=== PATIENT | female | born 1970 | race Two or more races ===

== ENCOUNTER 2020-06-09 14:35 | Outpatient (REF) | payer MEDICAID, SELFPAY | END 2020-06-09 14:36 | disposition home or self-care (01) | LOC: HO.LAB 14:35 | PROVIDERS: Visit Provider Internal Medicine | DX: Z20.828 Contact with and (suspected) exposure to other viral communicable diseases (principal) | CPT/HCPCS: 87635 ==

== ENCOUNTER 2020-06-27 12:26 | Outpatient (REF) | payer MEDICAID, SELFPAY | END 2020-06-27 12:27 | disposition home or self-care (01) | LOC: HO.LAB 12:26 | PROVIDERS: Visit Provider Internal Medicine | DX: Z20.828 Contact with and (suspected) exposure to other viral communicable diseases (principal) | CPT/HCPCS: C9803; U0003 ==

== ENCOUNTER 2020-07-11 14:15 | Outpatient (REF) | payer MEDICAID, SELFPAY | END 2020-07-11 14:16 | disposition home or self-care (01) | LOC: HO.LAB 14:15 | PROVIDERS: Visit Provider Internal Medicine | DX: Z20.828 Contact with and (suspected) exposure to other viral communicable diseases (principal) | CPT/HCPCS: C9803; U0003 ==

== ENCOUNTER → 2020-08-03 09:34 | Outpatient (BNVA) | payer MEDICAID, SELFPAY | PROVIDERS: PCP Nurse Practitioner Family; Visit Provider Internal Medicine Endocrinology, Diabetes & Metabolism | DX: Z76.89 Persons encountering health services in other specified circumstances (principal) ==

== ENCOUNTER 2020-08-26 09:38 | Outpatient (REF) | payer MEDICAID, SELFPAY ==
[2020-08-26 11:00] LABS: Alanine Aminotransferase 30 U/L (0-31); Albumin Level 4.5 g/dL (3.5-5.0); Alkaline Phosphatase 126 U/L (39-117); Anion Gap 13 (12-20); Aspartate Amino Transferase 28 U/L (5-31); Bilirubin Total 0.2 mg/dL (0.0-1.0); Blood Urea Nitrogen 20 mg/dL (9-16); Calcium 8.4 mg/dL (8.4-10.2); Carbon Dioxide 28 mmol/L (22-29); Chloride 102 mmol/L (96-108); Estimated Glomerular Filt Rate > 60; Glucose Fasting 107 mg/dL (60-99); Magnesium 1.9 mg/dL (1.6-2.6); Phosphorus 3.8 mg/dL (2.7-4.5); Potassium 4.1 mmol/l (3.3-5.1); Sodium 139 mmol/L (135-145); Total Protein 7.6 g/dL (6.5-8.0)
[2020-08-26 11:24] LABS: Vitamin D 25-OH Total 46.9 ng/mL (>30)
[2020-08-30 22:13] LABS: VITAMIN D (1,25 OH) D3 33 pg/mL; Vit D (1,25-Dihydroxy) Total 33 pg/mL (18-72); Vitamin D (1,25 OH) D2 <8 pg/mL
== END 2020-08-26 09:39 | disposition home or self-care (01) ==
LOC: HO.LAB 09:38
PROVIDERS: Visit Provider Internal Medicine Endocrinology, Diabetes & Metabolism
DX: E89.2 Postprocedural hypoparathyroidism (principal)
CPT/HCPCS: 36415; 80053; 82306; 82652; 83735; 84100

== ENCOUNTER 2020-08-29 11:07 | Outpatient (REF) | payer MEDICAID, SELFPAY ==
[2020-08-29 12:11] LABS: Total Volume 24 Hour Urine 2200 mL
[2020-08-29 13:28] LABS: Creatinine, 24Hr Urine 0.9 G/Day (1.0-2.0); Creatinine, mg/dL 42.67
[2020-08-30 17:27] LABS: Calcium, 24 Hr Urine 134 mg/24 h; Calcium/Creatinine Ratio 130 mg/g creat (30-275); Creatinine 24Hr Urine 1.03 g/24 h (0.50-2.15)
== END 2020-08-29 11:08 | disposition home or self-care (01) ==
LOC: HO.LNP 11:07
PROVIDERS: Visit Provider Internal Medicine Endocrinology, Diabetes & Metabolism
DX: E89.2 Postprocedural hypoparathyroidism (principal)
CPT/HCPCS: 82340; 82570

== ENCOUNTER → 2020-11-28 15:08 | Outpatient (BNVA) | payer MEDICAID, SELFPAY | PROVIDERS: PCP Nurse Practitioner Primary Care; Visit Provider Nurse Practitioner ==

== ENCOUNTER 2020-12-02 08:25 | Outpatient (REF) | payer MEDICAID, SELFPAY ==
[2020-12-02 10:01] LABS: Alanine Aminotransferase 23 U/L (0-31); Albumin Level 4.5 g/dL (3.5-5.0); Alkaline Phosphatase 114 U/L (39-117); Anion Gap 14 (12-20); Aspartate Amino Transferase 19 U/L (5-31); Bilirubin Total 0.3 mg/dL (0.0-1.0); Blood Urea Nitrogen 19 mg/dL (9-16); Calcium 8.9 mg/dL (8.4-10.2); Carbon Dioxide 29 mmol/L (22-29); Chloride 103 mmol/L (96-108); Estimated Glomerular Filt Rate > 60; Glucose Fasting 99 mg/dL (60-99); Magnesium 1.6 mg/dL (1.6-2.6); Phosphorus 4.1 mg/dL (2.7-4.5); Sodium 142 mmol/L (135-145); Total Protein 7.5 g/dL (6.5-8.0)
[2020-12-02 10:23] LABS: Vitamin D 25-OH Total 40.1 ng/mL (>30)
[2020-12-09 16:31] LABS: VITAMIN D (1,25 OH) D3 29 pg/mL; Vit D (1,25-Dihydroxy) Total 29 pg/mL (18-72); Vitamin D (1,25 OH) D2 <8 pg/mL
== END 2020-12-02 08:26 | disposition home or self-care (01) ==
LOC: HO.LAB 08:25
PROVIDERS: PCP Nurse Practitioner Primary Care; Visit Provider Internal Medicine Endocrinology, Diabetes & Metabolism
DX: E89.2 Postprocedural hypoparathyroidism (principal)
CPT/HCPCS: 36415; 80053; 82306; 82652; 83735; 84100

== ENCOUNTER → 2020-12-07 09:30 | Outpatient (BNVA) | payer MEDICAID, SELFPAY | PROVIDERS: PCP Nurse Practitioner Primary Care; Visit Provider Internal Medicine Endocrinology, Diabetes & Metabolism | DX: E89.2 Postprocedural hypoparathyroidism (principal); E66.9 Obesity, unspecified | CPT/HCPCS: 99212 ==

== ENCOUNTER 2020-12-23 10:24 | Outpatient (REF) | payer MEDICAID, SELFPAY ==
--- NOTE | ~2020-12-23 | MM_ITS ---
EXAMINATION: MM SCREENING DIGITAL BREAST TOMOSYNTHESIS, BILATERAL CLINICAL INFORMATION: Screening. Asymptomatic. The lifetime risk of breast cancer based on the Tyrer-Cuzick Model is 10%. COMPARISON: Mammography: 11/11/2018, 09/14/2017, 08/17/2016 TECHNIQUE: Digital breast tomosynthesis is performed in both the craniocaudal and mediolateral oblique views along with computer-aided detection (CAD). Synthesized 2D images are generated from the tomosynthesis. FINDINGS: There are scattered areas of fibroglandular density (ACR BI-RADS breast composition Category b). Parenchymal pattern is similar to prior studies. There is no interval mass or architectural abnormality or developing density. Nodular asymmetry 12:00 left breast and small intramammary node mid upper outer right breast are again noted. No abnormal calcifications. The axilla and skin contours are unremarkable. MM/MM tomosynthesis screening BI IMPRESSION: No significant changes from prior exams. ASSESSMENT: BI-RADS 2: Benign RECOMMENDATION: Routine annual mammography screening. This patient's information was entered into a reminder system with a target due date for their next mammogram.
== END 2020-12-23 10:25 | disposition home or self-care (01) ==
LOC: HO.MAMMO 10:24
PROVIDERS: PCP Nurse Practitioner Primary Care; Visit Provider Nurse Practitioner Primary Care
DX: Z12.31 Encounter for screening mammogram for malignant neoplasm of breast (principal)
CPT/HCPCS: 77063; 77067

== ENCOUNTER 2021-04-19 13:51 | Outpatient (REF) | payer MEDICAID, SELFPAY | END 2021-04-19 13:52 | disposition home or self-care (01) | LOC: HO.LNP 13:51 | PROVIDERS: Visit Provider Internal Medicine | DX: Z20.822 Contact with and (suspected) exposure to COVID-19 (principal); J06.9 Acute upper respiratory infection, unspecified | CPT/HCPCS: U0003; U0005 ==

== ENCOUNTER 2021-06-21 09:21 | Outpatient (REF) | payer MEDICAID, SELFPAY ==
[2021-06-21 10:55] LABS: Alanine Aminotransferase 26 U/L (0-31); Albumin Level 4.5 g/dL (3.5-5.0); Alkaline Phosphatase 116 U/L (39-117); Anion Gap 12 (12-20); Aspartate Amino Transferase 23 U/L (5-31); Bilirubin Total 0.6 mg/dL (0.0-1.0); Blood Urea Nitrogen 15 mg/dL (9-16); Calcium 9.5 mg/dL (8.4-10.2); Carbon Dioxide 31 mmol/L (22-29); Chloride 103 mmol/L (96-108); Estimated Glomerular Filt Rate > 60; Glucose Fasting 99 mg/dL (60-99); Magnesium 1.6 mg/dL (1.6-2.6); Phosphorus 4.2 mg/dL (2.7-4.5); Potassium 3.7 mmol/L (3.3-5.1); Sodium 142 mmol/L (135-145); Total Protein 7.4 g/dL (6.5-8.0)
[2021-06-21 11:06] LABS: Vitamin D 25-OH Total 40.2 ng/mL (>30)
[2021-06-29 00:06] LABS: VITAMIN D (1,25 OH) D3 28 pg/mL; Vit D (1,25-Dihydroxy) Total 28 pg/mL (18-72); Vitamin D (1,25 OH) D2 <8 pg/mL
== END 2021-06-21 09:22 | disposition home or self-care (01) ==
LOC: HO.LAB 09:21
PROVIDERS: PCP Nurse Practitioner Primary Care; Visit Provider Internal Medicine Endocrinology, Diabetes & Metabolism
DX: E89.2 Postprocedural hypoparathyroidism (principal)
CPT/HCPCS: 36415; 80053; 82306; 82652; 83735; 84100

== ENCOUNTER → 2021-07-05 14:13 | Outpatient (BNVA) | payer MEDICAID, SELFPAY | PROVIDERS: PCP Nurse Practitioner Primary Care; Visit Provider Internal Medicine | DX: E89.2 Postprocedural hypoparathyroidism (principal); E55.9 Vitamin D deficiency, unspecified; M85.80 Other specified disorders of bone density and structure, unspecified site; N20.0 Calculus of kidney | CPT/HCPCS: 99212 ==

== ENCOUNTER 2021-07-20 11:20 | Outpatient (REF) | payer MEDICAID, SELFPAY ==
[2021-07-20 12:38] LABS: Alanine Aminotransferase 25 U/L (0-31); Albumin Level 4.4 g/dL (3.5-5.0); Alkaline Phosphatase 114 U/L (39-117); Anion Gap 12 (12-20); Aspartate Amino Transferase 23 U/L (5-31); Bilirubin Total 0.4 mg/dL (0.0-1.0); Blood Urea Nitrogen 19 mg/dL (9-16); Calcium 9.1 mg/dL (8.4-10.2); Carbon Dioxide 28 mmol/L (22-29); Chloride 104 mmol/L (96-108); Estimated Glomerular Filt Rate > 60; Glucose Random 85 mg/dL (60-115); Phosphorus 3.9 mg/dL (2.7-4.5); Potassium 3.5 mmol/L (3.3-5.1); Sodium 140 mmol/L (135-145); Total Protein 7.5 g/dL (6.5-8.0)
[2021-07-20 12:59] LABS: Vitamin D 25-OH Total 36.5 ng/mL (>30)
[2021-07-24 15:32] LABS: Calcium (PTHI) 9.4 mg/dL (8.6-10.4); PTHI 11 pg/mL (14-64)
== END 2021-07-20 11:21 | disposition home or self-care (01) ==
LOC: HO.LAB 11:20
PROVIDERS: PCP Nurse Practitioner Primary Care; Visit Provider Internal Medicine
DX: E55.9 Vitamin D deficiency, unspecified (principal); E89.2 Postprocedural hypoparathyroidism
CPT/HCPCS: 36415; 80053; 82306; 83970; 84100

== ENCOUNTER 2021-07-21 14:27 | Outpatient (REF) | payer MEDICAID, SELFPAY ==
--- NOTE | ~2021-07-21 | CT_ITS ---
EXAMINATION: CT ABDOMEN AND PELVIS WITHOUT CONTRAST CLINICAL INFORMATION: Kidney stone COMPARISON: Previous CT of the abdomen and pelvis May 2008 and renal ultrasound most recent March 2019 TECHNIQUE: Multidetector volumetric imaging was performed from the superior aspect of the liver through the pubic symphysis. Sagittal and coronal reformatted images were obtained on the technologist's workstation. This CT examination was performed using dose optimization techniques as appropriate, variously including the following: *Automated exposure control *Adjustment of mA and/or kV according to patient size (this includes techniques or standardized protocols for targeted exams where dose is matched to indication/reason for exam; i.e. extremities or head) *Use of iterative reconstruction technique DLP: 440 mGy-cm FINDINGS: LUNG BASES: The visualized lung bases are unremarkable. LIVER, GALLBLADDER, AND BILIARY TREE: The liver is low in attenuation suggestive of fatty infiltration. There is no biliary duct dilatation or focal liver lesion. The gallbladder is been removed. PANCREAS: Unremarkable. SPLEEN: Unremarkable. ADRENAL GLANDS: Unremarkable. KIDNEYS AND URETERS: The right kidney is smaller than the left. The right kidney measures 7 and the left 9.5 cm in length. There is right renal cortical thinning. There are multiple right renal stones, largest measuring 5 mm in the lower pole. There is a 3 x 5 mm right proximal ureteral stone. There is very mild dilatation of the right renal collecting system and proximal ureter. There are 2 small left lower pole renal stones, largest measuring 3 m.. There is no left hydronephrosis. BLADDER: Unremarkable. GASTROINTESTINAL TRACT: The small and large bowel are unremarkable. The appendix is unremarkable. ABDOMINAL WALL: No significant hernia is appreciated. LYMPH NODES: Normal. VASCULAR: Unremarkable. PELVIC VISCERA: Uterus appears to have been removed. No pelvic mass is seen. OSSEOUS STRUCTURES: There are mild degenerative changes of the spine. CT/CT abdomen pelvis wo con IMPRESSION: Small right kidney. Multiple right renal stones. Very mild right hydronephrosis and ureteral dilatation from a 3 x 5 mm right proximal ureteral stone. Small nonobstructing left renal stones. Fatty liver. Fleischner guidelines were followed.
== END 2021-07-21 14:28 | disposition home or self-care (01) ==
LOC: HO.CT 14:27
PROVIDERS: PCP Nurse Practitioner Primary Care; Visit Provider Internal Medicine
DX: N20.0 Calculus of kidney (principal)
CPT/HCPCS: 74176

== ENCOUNTER 2021-07-24 09:57 | Outpatient (REF) | payer MEDICAID, SELFPAY ==
[2021-07-24 10:52] LABS: Creatinine, mg/dL 58.37
[2021-07-24 11:31] LABS: Creatinine, 24Hr Urine 1.3 G/Day (1.0-2.0); Total Volume 24 Hour Urine 2275 mL
[2021-07-28 17:37] LABS: Calcium, 24 Hr Urine 139 mg/24 h; Calcium/Creatinine Ratio 102 mg/g creat (30-275); Creatinine 24Hr Urine 1.37 g/24 h (0.50-2.15)
== END 2021-07-24 09:58 | disposition home or self-care (01) ==
LOC: HO.LNP 09:57
PROVIDERS: Visit Provider Internal Medicine
DX: E89.2 Postprocedural hypoparathyroidism (principal)
CPT/HCPCS: 82340; 82570

== ENCOUNTER 2021-08-01 13:47 | Outpatient (REF) | payer MEDICAID, SELFPAY ==
[2021-08-02 20:51] LABS: Calcium (PTHI) 8.8 mg/dL (8.6-10.4); PTHI 10 pg/mL (14-64)
== END 2021-08-01 13:48 | disposition home or self-care (01) ==
LOC: HO.LAB 13:47
PROVIDERS: PCP Nurse Practitioner Primary Care; Visit Provider Internal Medicine
DX: E89.2 Postprocedural hypoparathyroidism (principal)
CPT/HCPCS: 36415; 83970

== ENCOUNTER 2021-08-04 12:47 | Outpatient (REF) | payer MEDICAID, SELFPAY ==
--- NOTE | ~2021-08-04 | MM_ITS ---
EXAMINATION: BONE DENSITOMETRY CLINICAL INDICATION: Osteopenia. COMPARISON: Previous BD dated 11/08/2015 and baseline BD dated 09/22/2013. TECHNIQUE: Using a [employer] DXA System (software version: 13.1) manufactured by [employer], dual-energy x-ray absorptiometry was performed of the lumbar spine, left hip, and left forearm radius 33%. The images are of good technical quality. Summary results are attached. FINDINGS: AP SPINE L1-L4: Current: BMD 1.285 g/cm2, Z-score 1.0, T-score 0.9, normal, 0.8% decrease from previous, 8.3% increase from baseline (<5% change is not significant). Prior: BMD 1.296 g/cm2. Baseline: BMD 1.187 g/cm2. LEFT FEMUR, NECK: Current: BMD 1.057 g/cm2, Z-score 0.7, T-score 0.1, normal. Prior: BMD 0.986 g/cm2. Baseline: BMD 0.980 g/cm2. LEFT FEMUR, TOTAL: Current: BMD 1.185 g/cm2, Z-score 1.6, T-score 1.4, normal, 5.2% increase from previous, 6.9% increase from baseline (<5% change is not significant). Prior: BMD 1.126 g/cm2. Baseline: BMD 1.108 g/cm2. LEFT FOREARM RADIUS 33%: BMD 0.754 g/cm2, Z-score -1.2, T-score -1.4, osteopenia, 5.2% increase from previous, 6.6% increase from baseline (<5% change is not significant). Prior: BMD 0.717 g/cm2. Baseline: BMD 0.707 g/cm2. IDENTIFIED RISK FACTORS: Menopause, hysterectomy, hyperparathyroid. HISTORY OF FRACTURE: None listed. MEDICATIONS: Calcium, vitamin D, calcitonin. MM/XR DEXA appendicular skeleton IMPRESSION: 1. DIAGNOSIS: Osteopenia based on the lowest T-score value of -1.4 in the forearm radius 33% applying World Health Organization criteria. 2. 10-YEAR FRACTURE RISK PREDICTION, FRAX: Major osteoporotic fracture (clinical spine, forearm, hip or shoulder) 2.1%. Hip fracture 0.0%. 3. Treatment Recommendations: NOF guidelines recommend consideration for treatment in postmenopausal women and men age 50 and older presenting with the following: -A hip or vertebral (clinical or morphometric) fracture. -T-score less than or equal to -2.5 at the femoral neck or spine after appropriate evaluation to exclude secondary causes. -Low bone mass at the hip or spine and a 10-year fracture probability by FRAX of greater than or equal to 3% for hip fracture or greater than or equal to 20% for major osteoporotic fracture based on the [place] adapted WHO algorithm. 4. Other Recommendations: All treatment decisions require clinical judgment and consideration of individual patient factors, including patient preferences, comorbidities, previous drug use, risk factors not captured in the FRAX model (e.g. frailty, falls, vitamin D deficiency, increased bone turnover, interval significant decline in bone density) and possible under or overestimation of fracture risk by FRAX. Additional medical evaluation for secondary cause of low bone mineral density may be appropriate. FUTURE SCAN RECOMMENDATION: People with diagnosed cases of osteoporosis or at high risk for fracture should have regular bone mineral density tests. For patients eligible for Medicare, routine testing is allowed once every 2 years. The testing frequency can be increased to one year for patients who have rapidly progressing disease, those who are receiving or discontinuing medical therapy to restore bone mass, or have additional risk factors.
== END 2021-08-04 12:48 | disposition home or self-care (01) ==
LOC: HO.MAMMO 12:47
PROVIDERS: PCP Nurse Practitioner Primary Care; Visit Provider Internal Medicine
DX: Z13.820 Encounter for screening for osteoporosis (principal); M85.9 Disorder of bone density and structure, unspecified; M85.80 Other specified disorders of bone density and structure, unspecified site; Z78.0 Asymptomatic menopausal state; Z98.890 Other specified postprocedural states; Z79.899 Other long term (current) drug therapy
CPT/HCPCS: 77081

== ENCOUNTER 2021-08-08 09:30 | Outpatient (REF) | payer MEDICAID, SELFPAY ==
[2021-08-08 13:30] LABS: Albumin Level 4.2 g/dL (3.5-5.0); Calcium 7.9 mg/dL (8.4-10.2); Phosphorus 3.8 mg/dL (2.7-4.5)
[2021-08-08 13:45] LABS: Vitamin D 25-OH Total 30.7 ng/mL (>30)
[2021-08-09 13:07] LABS: Calcium (PTHI) 7.4 mg/dL (8.6-10.4); PTHI 15 pg/mL (14-64)
== END 2021-08-08 09:31 | disposition home or self-care (01) ==
LOC: HO.LAB 09:30
PROVIDERS: PCP Nurse Practitioner Primary Care; Visit Provider Internal Medicine
DX: N13.2 Hydronephrosis with renal and ureteral calculous obstruction (principal); E89.2 Postprocedural hypoparathyroidism; E55.9 Vitamin D deficiency, unspecified
CPT/HCPCS: 36415; 82040; 82306; 82310; 83970; 84100; 99212

== ENCOUNTER 2021-08-14 12:20 | Outpatient (REF) | payer MEDICAID, SELFPAY ==
[2021-08-14 13:05] LABS: Alanine Aminotransferase 39 U/L (0-31); Albumin Level 4.6 g/dL (3.5-5.0); Alkaline Phosphatase 119 U/L (39-117); Anion Gap 13 (12-20); Aspartate Amino Transferase 29 U/L (5-31); Bilirubin Total 0.5 mg/dL (0.0-1.0); Blood Urea Nitrogen 20 mg/dL (9-16); Carbon Dioxide 28 mmol/L (22-29); Chloride 102 mmol/L (96-108); Estimated Glomerular Filt Rate > 60; Glucose Random 88 mg/dL (60-115); Potassium 3.7 mmol/L (3.3-5.1); Sodium 139 mmol/L (135-145); Total Protein 7.7 g/dL (6.5-8.0)
[2021-08-14 13:26] LABS: Vitamin D 25-OH Total 36.9 ng/mL (>30)
[2021-08-16 12:47] LABS: PTHI 17 pg/mL (14-64)
== END 2021-08-14 12:21 | disposition home or self-care (01) ==
LOC: HO.LAB 12:20
PROVIDERS: PCP Nurse Practitioner Primary Care; Visit Provider Internal Medicine
DX: E89.2 Postprocedural hypoparathyroidism (principal)
CPT/HCPCS: 36415; 80053; 82306; 83970; 84100

== ENCOUNTER 2021-08-17 12:47 | Outpatient (REF) | payer MEDICAID, SELFPAY ==
--- NOTE | ~2021-08-17 | US_ITS ---
EXAMINATION: US RETROPERITONEAL LIMITED (RENAL ONLY) CLINICAL INFORMATION: Hydronephrosis with renal and ureteral calculus. COMPARISON: CT abdomen and pelvis 07/21/2021. A renal ultrasound 04/16/2019 and 06/29/2016. TECHNIQUE: Real-time imaging of the kidneys. FINDINGS: RIGHT KIDNEY: 9.2 x 3.6 x 4.7 cm (SAG x AP x TRV). There is asymmetric cortical thinning with at least 5 nonobstructive stones with the largest in the lower pole of the right kidney measuring up to 0.8 cm. No hydronephrosis or focal parenchymal lesions. LEFT KIDNEY: 12.3 x 4.3 x 6.0 cm (SAG x AP x TRV). There are a 0.5 cm and a 0.2 cm calculi in the lower pole. No hydronephrosis or focal parenchymal lesions. OTHERS: The renal pyramids are prominent with numerous punctate echogenic foci bilaterally. US/US renal BI IMPRESSION: Asymmetric cortical thinning and atrophy of the right kidney with at least 5 nonobstructive renal calculi. At least 2 nonobstructing left-sided renal calculi. Increased prominence of both renal pyramids with punctate hyperechoic foci question in the presence of medullary nephrocalcinosis or medullary sponge kidney in the appropriate clinical context.
== END 2021-08-17 12:48 | disposition home or self-care (01) ==
LOC: HO.HMGCX 12:47
DX: N13.2 Hydronephrosis with renal and ureteral calculous obstruction (principal)
CPT/HCPCS: 76775

== ENCOUNTER 2021-08-17 13:14 | Outpatient (REF) | payer MEDICAID, SELFPAY | END 2021-08-17 13:15 | disposition home or self-care (01) | LOC: HO.HMGCLDS 13:14 | PROVIDERS: Visit Provider Internal Medicine | DX: Z20.822 Contact with and (suspected) exposure to COVID-19 (principal) | CPT/HCPCS: C9803; U0003; U0005 ==

== ENCOUNTER 2021-08-21 10:15 | Outpatient (REF) | payer MEDICAID, SELFPAY ==
[2021-08-21 11:32] LABS: Total Volume 24 Hour Urine 2125 mL
[2021-08-21 11:54] LABS: Creatinine, mg/dL 49.34
[2021-08-22 17:57] LABS: Calcium, 24 Hr Urine 81 mg/24 h; Calcium/Creatinine Ratio 75 mg/g creat (30-275); Creatinine 24Hr Urine 1.08 g/24 h (0.50-2.15)
== END 2021-08-21 10:16 | disposition home or self-care (01) ==
LOC: HO.LNP 10:15
PROVIDERS: Visit Provider Internal Medicine
DX: E89.2 Postprocedural hypoparathyroidism (principal)
CPT/HCPCS: 82340; 82570

== ENCOUNTER → 2021-08-31 10:43 | Outpatient (BNVA) | payer MEDICAID, SELFPAY | PROVIDERS: PCP Nurse Practitioner Primary Care; Visit Provider Internal Medicine ==

== ENCOUNTER 2021-09-15 12:37 | Outpatient (REF) | payer MEDICAID, SELFPAY ==
[2021-09-15 13:18] LABS: Albumin Level 4.4 g/dL (3.5-5.0); Phosphorus 4.7 mg/dL (2.7-4.5)
[2021-09-15 13:43] LABS: Vitamin D 25-OH Total 37.3 ng/mL (>30)
[2021-09-19 12:37] LABS: Calcium (PTHI) 8.4 mg/dL (8.6-10.4); PTHI 20 pg/mL (14-64)
== END 2021-09-15 12:38 | disposition home or self-care (01) ==
LOC: HO.LAB 12:37
PROVIDERS: Nurse Practitioner Gerontology; PCP Nurse Practitioner Primary Care; Visit Provider Internal Medicine
DX: E89.2 Postprocedural hypoparathyroidism (principal); E55.9 Vitamin D deficiency, unspecified
CPT/HCPCS: 36415; 82040; 82306; 83970; 84100

== ENCOUNTER 2021-10-09 09:32 | Outpatient (REF) | payer MEDICAID, SELFPAY ==
[2021-10-09 10:35] LABS: Alanine Aminotransferase 36 U/L (0-31); Albumin Level 4.2 g/dL (3.5-5.0); Alkaline Phosphatase 113 U/L (39-117); Anion Gap 14 (12-20); Aspartate Amino Transferase 30 U/L (5-31); Bilirubin Total 0.3 mg/dL (0.0-1.0); Blood Urea Nitrogen 18 mg/dL (9-16); Calcium 8.6 mg/dL (8.4-10.2); Carbon Dioxide 28 mmol/L (22-29); Chloride 102 mmol/L (96-108); Estimated Glomerular Filt Rate > 60; Glucose Random 133 mg/dL (60-115); Phosphorus 3.9 mg/dL (2.7-4.5); Potassium 3.6 mmol/L (3.3-5.1); Sodium 140 mmol/L (135-145); Total Protein 7.2 g/dL (6.5-8.0)
[2021-10-09 10:57] LABS: Vitamin D 25-OH Total 41.1 ng/mL (>30)
[2021-10-10 13:02] LABS: Calcium (PTHI) 8.4 mg/dL (8.6-10.4); PTHI 13 pg/mL (14-64)
== END 2021-10-09 09:33 | disposition home or self-care (01) ==
LOC: HO.LAB 09:32
PROVIDERS: PCP Nurse Practitioner Primary Care; Visit Provider Internal Medicine
DX: E89.2 Postprocedural hypoparathyroidism (principal); E55.9 Vitamin D deficiency, unspecified
CPT/HCPCS: 36415; 80053; 82306; 83970; 84100

== ENCOUNTER → 2021-10-12 09:24 | Outpatient (BNVA) | payer MEDICAID, SELFPAY | PROVIDERS: PCP Nurse Practitioner Primary Care; Visit Provider Internal Medicine ==

== ENCOUNTER → 2021-11-02 09:17 | Outpatient (BNVA) | payer MEDICAID, SELFPAY | PROVIDERS: PCP Nurse Practitioner Primary Care | DX: N13.2 Hydronephrosis with renal and ureteral calculous obstruction (principal) | CPT/HCPCS: 99212 ==

== ENCOUNTER 2021-11-06 12:26 | Day surgery (SDC) | payer MEDICAID, SELFPAY ==
--- NOTE | 2021-11-03 13:18 | P.CONAN_ITS ---
Documented by User: Emely Ly NP 11/03/21 13:20 HPI - Anesthesia Eval Consult details Narrative: 51yo F for Right Cystoscopy, Ureteroroscopy, Retro, Laser possible stent PMFSH Active Problems Active Problems: All Active Problems (Updated 07/24/21 @ 12:22 by Martine Nina DO) Hydronephrosis concurrent with and due to calculi of kidney and ureter (Acute) Recurrent nephrolithiasis (Acute) Disorder of bone density and structure, unspecified (Acute) Vitamin D deficiency (Acute) Osteopenia (Acute) Upper respiratory infection (Acute) Constipation (Acute) Tubular adenoma of colon (Acute) Hemorrhoids (Acute) Prediabetes (Acute) Carpal tunnel syndrome (Acute) Obesity (BMI 30-39.9) (Acute) Post-surgical hypoparathyroidism (Acute) Past Medical History Medical History Carpal tunnel syndrome Disorder of bone density and structure, unspecified Hydronephrosis concurrent with and due to calculi of kidney and ureter Obesity (BMI 30-39.9) Osteopenia Post-surgical hypoparathyroidism Prediabetes Recurrent nephrolithiasis Tubular adenoma of colon Vitamin D deficiency Family History Family History Father Diabetes mellitus Mother No problems noted. Surgical History Surgical History History of bladder surgery Hx of cholecystectomy Hx of colonoscopy Hx of hysterectomy Hx of parathyroidectomy Hx of tubal ligation Social History Social History Household Members: Children Alcohol intake: never Patient Tobacco Use Status: Never used Tobacco Meds Allergies Allergy/AdvReac Type Severity Reaction Status Date / Time No Known Allergies Allergy Verified 11/02/21 09:37 [No Known Allergies*] Home Medications Medication Instructions Recorded Confirmed Last Taken Type amlodipine 5 mg tablet 5 mg PO DAILY 08/03/20 10/12/21 11/06/21 History aspirin 81 mg tablet,delayed 81 mg PO DAILY 08/03/20 10/12/21 Unknown History release (Adult Low Dose Aspirin) Exam Exam Date and Time: November 03, 2021 1318 Pertinent Lab Results Pertinent Lab Results: Laboratory Tests 02/25/19 10/09/21 10:54 09:45 WBC 6.9 Hgb 12.4 Hct 37.8 Plt Count 183 Sodium 140 Potassium 3.6 Chloride 102 Carbon Dioxide 28 BUN 18 H Creatinine 0.79 Assessment and Plan Assessment Anesthesia Assessment: Chart Reviewed Documented by User: Fab Flowers MD 11/06/21 17:08 [facility] Past Medical History Medical History Carpal tunnel syndrome Disorder of bone density and structure, unspecified Hydronephrosis concurrent with and due to calculi of kidney and ureter Obesity (BMI 30-39.9) Osteopenia Post-surgical hypoparathyroidism Prediabetes Recurrent nephrolithiasis Tubular adenoma of colon Vitamin D deficiency Family History Family History Father Diabetes mellitus Mother No problems noted. Family history of problems with anesthesia: No Surgical History Surgical History History of bladder surgery Hx of cholecystectomy Hx of colonoscopy Hx of hysterectomy Hx of parathyroidectomy Hx of tubal ligation History of Problems with Anesthesia: No Social History Social History Household Members: Children Alcohol intake: never Patient Tobacco Use Status: Never used Tobacco Meds Allergies Allergy/AdvReac Type Severity Reaction Status Date / Time No Known Allergies Allergy Verified 11/02/21 09:37 [No Known Allergies*] Home Medications Medication Instructions Recorded Confirmed Last Taken Type amlodipine 5 mg tablet 5 mg PO DAILY 08/03/20 10/12/21 11/06/21 History aspirin 81 mg tablet,delayed 81 mg PO DAILY 08/03/20 10/12/21 Unknown History release (Adult Low Dose Aspirin) Exam Airway Mallampati Class: II TM Dist: >3cm Neck ROM: Full Loose/Missing/Broken Teeth: Yes Heart: rrr Lungs: bl breath sounds Assessment and Plan Assessment Anesthesia Assessment: Anesthesia Plan Discussed Final Anesthetic Review Family History of Problems with Anesthesia: No History of Problems with Anesthesia: No NPO: Yes ASA Class: II Final Preanesthetic Review: No Changes in Pt Med Stat, Meds/Allgs Chart Reviewed, Consent Obtained/Reviewed and Anes Risks/Benef Reviewed Patient Risk: Intermediate Procedure Risk: Intermediate Anesthetic Plan Anesthetic Plan: GA Disposition: Standard PACU
--- NOTE | ~2021-11-06 | FL_ITS ---
EXAMINATION: XR FLUOROSCOPY WITH IMAGES CLINICAL INFORMATION: Kidney stone. COMPARISON: Renal ultrasound 08/17/2021. TECHNIQUE: Fluoroscopy performed by Dr. Aris Coronado. Fluoroscopy time: 47.1 seconds dose: 17.40 milligray Images: 2 images. FINDINGS: There is a right internal ureteral stent with contrast opacifying the right kidney pelvis and no intraluminal filling defect. There are surgical merced in the right upper quadrant likely from cholecystectomy. No gross bony abnormality. FL/FL guidance in OR IMPRESSION: Right internal ureteral stent in good position. There is contrast opacifying right kidney pelvis without any intraluminal filling defect.
[2021-11-06 12:53] VITALS: BMI 36.6
[2021-11-06 13:09] VITALS: BP 126/73; PULSE 69; RESP 16; TEMP 36.3; O2SAT 100
[2021-11-06] MEDS: Lactated Ringers 1,000 ML 100 ML IVCONT (13:20)
--- NOTE | 2021-11-06 13:36 | ECG_ITS ---
Test Reason : CHEST PAIN Blood Pressure : / mmHG Vent. Rate : 069 BPM Atrial Rate : 069 BPM P-R Int : 144 ms QRS Dur : 078 ms QT Int : 458 ms P-R-T Axes : 042 -02 028 degrees QTc Int : 490 ms Normal sinus rhythm Prolonged QT Abnormal ECG No previous ECGs available Referred By: Fab Flowers Electronically Signed By:Saurabh Felipe
--- NOTE | 2021-11-06 13:38 | PC.NURSE ---
EKG ORDERED PER MD GARCIA. PATIENT STATES INTERMITTANT CHEST PAIN TO THE RIGHT SIDE OF CHEST PINPOINT PAIN. RADIATES INTO ARM. PATIENT IS UANBLE TO REALLY DESRIBE THE PAIN. NO PRESSURE PAIN, NO DIZZINESS, NO NAUSEA, NONDIAPHORETIC.
--- NOTE | 2021-11-06 14:50 | PC.NURSE ---
PATIENT DENIES CHEST PAIN. NO OTHER COMPLAINTS. AWAITING FOR PROCEDURE. ALERT AND AWAKE. NO SOB OR RESP DISTRESS.
[2021-11-06] MEDS: levoFLOXacin 500 MG TABLET PO (15:00)
--- NOTE | 2021-11-06 15:01 | MHC.SHP ---
Pre-Procedural Eval Section A Date of Service: 11/06/21 The patient is an INPATIENT: No Changes since office visit: No Cold of Flu in the past 2 weeks, No New Medical Problems, No Changes in Medication and No Patient answered all questions The History & Physical has been completed within 30 days and I have reviewed it.: No Section B Chief Complaint: kidney stone Details of Present Illness: right renal stone Relevant Family History (Specify if Yes): No Relevant Social History: None Present Medications: see Short Stay Collaborative assessment Medical History: No relevant PMH History of Previous Operations: No relevant previous surgery Allergies: Allergies Allergy/AdvReac Type Severity Reaction Status Date / Time No Known Allergies Allergy Verified 11/02/21 09:37 [No Known Allergies*] Review of Systems Sugical H&P ROS: Negative: Constitution, Cardiovascular, Respiratory, Neurological, Psychiatric, Hem-Onc, Allergic/Immunologic, Gastrointestinal, Genitourinary, Musculoskeletal, Integumentary, Endocrine and Eyes/Ears/Nose/Throat Exam Surgical H&P Exam: Normal: HEENT, Normal: Heart, Normal: Lungs, Normal: Extremities, Normal: Abdomen, Normal: Skin and Normal: Neurological Plan Diagnosis/Plan: Unchanged ( cystoscopy, right retrograde, right ureteroscopy with laser lithotripsy and stent placement) I have reviewed the history and physical and performed a pertinent physical examination on my patient. No changes have occurred unless specified.
--- NOTE | 2021-11-06 15:46 | W.PM.OPN ---
Operative Note Operative Note Date of Service: 11/06/21 Narrative: PreOperative Diagnosis: right renal stones Post Operative Diagnosis: right renal stones in greater than 3 calices with more than 6 stones - Medullary sponge kidney Procedure: - cystoscopy, right retrograde - right dilatation of ureteric orifice under fluoroscopy - right ureteroscopy, laser lithotripsy, stone basketing - right stent placement Surgeon: Dr Aris Coronado Anesthesia: General Indications for procedure: 51-year-old female with presentation through hospital in July. CT scan showed multiple stones within right renal kidney. She is here for definitive procedure and is using ureteroscopy due to the total number of stones. Procedure: After informed consent was verified patient was brought to the operating placed in supine position. Anesthesia was administered per protocol. Patient was placed in modified dorsal lithotomy position and prepped and draped in a sterile fashion. Safety pause time-out and side of surgery confirmed. Antibiotics confirmed. 22 Gabonese cystoscope was inserted per urethra. Bladder was normal in its entirety. Both ureteric orifices were in normal position. The Right ureteric orifice was cannulated and a retrograde examination was performed. no filling defects seen . A Sensor guidewire was placed up to the level of the renal pelvis under fluoroscopy. The rigid cystoscope was removed and the inner cannula of ureteric access sheath was used under fluoroscopy to dilate the ureteric orifice. The ureteric access sheath was placed and the inner cannula with access wire removed. The digital flexible ureteral scope was placed. the calices were characterized by prominent submucosal calcification consistent with history of Medullary sponge kidney. Every calyx it was examined had multiple submucosal stones. There was a large stone in the lower pole and a small stone in a eutretic calyx. using a 270 micron laser fiber mucosa was opened in multiple calices in small stones were released. The large stone was broken up into small pieces and the calyceal diverticular stone was also broken up after making in incision in the surrounding tissue. Using a 0 tip basket multiple fragments were taken to be sent for analysis. A 6 Gabonese by Twenty 4 cm double-J stent was placed into the renal pelvis and bladder under a combination of fluoroscopy and direct visualization. The bladder was emptied. The patient tolerated the procedure well and was extubated in the operating room, and transferred in stable condition to the recovery area. Pathology: stones Drains: 6 Gabonese by 24 cm double-J stent
[2021-11-06 15:54] VITALS: BP 114/70; PULSE 65; RESP 16; TEMP 36.4; O2SAT 100
[2021-11-06 15:59] VITALS: BP 118/64; PULSE 67; RESP 16; O2SAT 100
[2021-11-06 16:04] VITALS: BP 119/73; PULSE 69; RESP 16; O2SAT 97
[2021-11-06 16:09] VITALS: BP 115/64; PULSE 69; RESP 16; O2SAT 98
[2021-11-06] MEDS: Phenazopyridine HCL 100 MG TABLET PO (16:10)
[2021-11-06 16:24] VITALS: BP 111/65; PULSE 67; RESP 16; TEMP 36.4; O2SAT 98
[2021-11-10 20:52] LABS: Stone Source NOT GIVEN
== END 2021-11-06 16:37 | disposition home or self-care (01) ==
PROVIDERS: PCP Nurse Practitioner Primary Care; Visit Provider Urology
PROC: (CPT 52356; principal; 2021-11-06 14:00)
DX: N20.0 Calculus of kidney (principal); Q61.5 Medullary cystic kidney; R73.03 Prediabetes; M85.80 Other specified disorders of bone density and structure, unspecified site; E55.9 Vitamin D deficiency, unspecified; E89.2 Postprocedural hypoparathyroidism; E66.9 Obesity, unspecified; Z68.36 Body mass index [BMI] 36.0-36.9, adult; Z90.49 Acquired absence of other specified parts of digestive tract; Z87.442 Personal history of urinary calculi; Z79.899 Other long term (current) drug therapy
CPT/HCPCS: 52356; 52352; 82365; 88300; 93005; C1758; C1769; C2617; J1100; J1885; J2250; J2405; J3010; Q9967

== ENCOUNTER → 2021-11-14 10:20 | Outpatient (BNVA) | payer MEDICAID, SELFPAY | PROVIDERS: PCP Nurse Practitioner Primary Care; Visit Provider Urology | DX: N20.0 Calculus of kidney (principal) | CPT/HCPCS: 52310; 99212 ==

== ENCOUNTER 2021-12-25 12:39 | Outpatient (REF) | payer MEDICAID, SELFPAY ==
--- NOTE | ~2021-12-25 | MM_ITS ---
EXAMINATION: MM SCREENING DIGITAL BREAST TOMOSYNTHESIS, BILATERAL CLINICAL INFORMATION: Screening. Asymptomatic. The lifetime risk of breast cancer based on the Tyrer-Cuzick Model is 9%. COMPARISON: Mammography: 12/23/2020, 11/11/2018, 09/14/2017 TECHNIQUE: Digital breast tomosynthesis is performed in both the craniocaudal and mediolateral oblique views along with computer-aided detection (CAD). Synthesized 2D images are generated from the tomosynthesis. FINDINGS: There are scattered areas of fibroglandular density (ACR BI-RADS breast composition Category b). Parenchymal pattern is similar to prior exams and there is no interval significant mass or architectural abnormality or developing density. Stable fine smooth nodularity is again seen in the anterior breasts with stable dominant nodule left breast mid 12:00 position. No abnormal calcifications. The axilla and skin contours are unremarkable. No significant changes. MM/MM tomosynthesis screening BI IMPRESSION: No significant changes from prior exams. ASSESSMENT: BI-RADS 2: Benign RECOMMENDATION: Routine annual mammography screening. This patient's information was entered into a reminder system with a target due date for their next mammogram.
== END 2021-12-25 12:40 | disposition home or self-care (01) ==
LOC: HO.MAMMO 12:39
PROVIDERS: Visit Provider Nurse Practitioner Primary Care
DX: Z12.31 Encounter for screening mammogram for malignant neoplasm of breast (principal)
CPT/HCPCS: 77063; 77067

== ENCOUNTER 2022-01-18 11:35 | Outpatient (REF) | payer MEDICAID, SELFPAY ==
[2022-01-18 13:21] LABS: Alanine Aminotransferase 29 U/L (0-31); Albumin Level 4.3 g/dL (3.5-5.0); Alkaline Phosphatase 114 U/L (39-117); Anion Gap 11 (12-20); Aspartate Amino Transferase 25 U/L (5-31); Bilirubin Total 0.4 mg/dL (0.0-1.0); Blood Urea Nitrogen 16 mg/dL (9-16); Carbon Dioxide 29 mmol/L (22-29); Chloride 104 mmol/L (96-108); Estimated Glomerular Filt Rate > 60; Glucose Random 76 mg/dL (60-115); Phosphorus 3.9 mg/dL (2.7-4.5); Potassium 3.5 mmol/L (3.3-5.1); Sodium 140 mmol/L (135-145); Total Protein 7.3 g/dL (6.5-8.0)
[2022-01-18 13:33] LABS: Vitamin D 25-OH Total 37.3 ng/mL (>30)
[2022-01-19 12:11] LABS: Calcium (PTHI) 8.9 mg/dL (8.6-10.4); PTHI 14 pg/mL (16-77)
== END 2022-01-18 11:36 | disposition home or self-care (01) ==
LOC: HO.LAB 11:35
PROVIDERS: PCP Nurse Practitioner Primary Care; Visit Provider Internal Medicine
DX: E89.2 Postprocedural hypoparathyroidism (principal); E55.9 Vitamin D deficiency, unspecified
CPT/HCPCS: 36415; 80053; 82306; 83970; 84100

== ENCOUNTER → 2022-01-22 10:10 | Outpatient (BNVA) | payer MEDICAID, SELFPAY | PROVIDERS: PCP Nurse Practitioner Primary Care; Visit Provider Internal Medicine | DX: Z13.89 Encounter for screening for other disorder (principal) ==

== ENCOUNTER 2022-01-23 10:02 | Outpatient (REF) | payer MEDICAID, SELFPAY ==
--- NOTE | ~2022-01-23 | US_ITS ---
EXAMINATION: US RETROPERITONEAL LIMITED (RENAL ONLY) CLINICAL INFORMATION: Calculus of kidney. COMPARISON: Renal ultrasound 08/17/2021 and 04/16/2019. CT abdomen and pelvis 07/21/2021. TECHNIQUE: Real-time imaging of the kidneys. FINDINGS: RIGHT KIDNEY: 9.1 x 3.4 x 4.2 cm (SAG x AP x TRV). The kidney is normal in size, contour, and echogenicity. Renal cortical thickness is normal. No focal parenchymal lesions or hydronephrosis. There are several echogenic stones seen. 1. Lower pole echogenic stones measure 0.46 x 0.31 x 0.48 cm and 0.47 x 0.33 x 0.42 cm. 2. Midpole echogenic stones measure 0.25 x 0.22 x 0.25 cm, 0.23 x 0.17 x 0.16 cm and 0.24 x 0.18 x 0.22 cm. 3. Upper pole echogenic stones measure 0.23 x 0.21 x 0.31 cm and 0.26 x 0.23 x 0.30 cm. There is no caliectasis seen. LEFT KIDNEY: 12.0 x 4.2 x 5.8 cm (SAG x AP x TRV). The kidney is normal in size, contour, and echogenicity. Renal cortical thickness is normal. No focal parenchymal lesions or hydronephrosis. There are 2 echogenic stones. 1. Lower pole echogenic stone measures 0.28 x 0.17 x 0.26 cm. 2. Upper pole echogenic stone measures 0.26 x 0.22 x 0.19 cm. There are multiple echogenic foci non-shadowing and non-twinkle. There is no caliectasis or hydronephrosis. US/US renal BI IMPRESSION: Bilateral echogenic stones without caliectasis or hydronephrosis. No solid or cystic lesion seen.
== END 2022-01-23 10:03 | disposition home or self-care (01) ==
LOC: HO.HMGCX 10:02
PROVIDERS: PCP Nurse Practitioner Primary Care; Visit Provider Urology
DX: N20.0 Calculus of kidney (principal)
CPT/HCPCS: 76775

== ENCOUNTER 2022-02-05 12:57 | Outpatient (REF) | payer MEDICAID, SELFPAY ==
[2022-02-05 13:38] LABS: Alanine Aminotransferase 31 U/L (0-31); Albumin Level 4.4 g/dL (3.5-5.0); Alkaline Phosphatase 135 U/L (39-117); Anion Gap 13 (12-20); Aspartate Amino Transferase 30 U/L (5-31); Bilirubin Total 0.4 mg/dL (0.0-1.0); Blood Urea Nitrogen 14 mg/dL (9-16); Calcium 7.6 mg/dL (8.4-10.2); Carbon Dioxide 28 mmol/L (22-29); Chloride 103 mmol/L (96-108); Estimated Glomerular Filt Rate > 60; Glucose Random 88 mg/dL (60-115); Phosphorus 4.2 mg/dL (2.7-4.5); Potassium 3.6 mmol/L (3.3-5.1); Sodium 140 mmol/L (135-145); Total Protein 7.4 g/dL (6.5-8.0)
[2022-02-06 13:57] LABS: Calcium (PTHI) 7.6 mg/dL (8.6-10.4); PTHI 18 pg/mL (16-77)
== END 2022-02-05 12:58 | disposition home or self-care (01) ==
LOC: HO.LAB 12:57
PROVIDERS: PCP Nurse Practitioner Primary Care; Visit Provider Internal Medicine
DX: E89.2 Postprocedural hypoparathyroidism (principal)
CPT/HCPCS: 36415; 80053; 83970; 84100

== ENCOUNTER 2022-02-08 12:02 | Outpatient (REF) | payer MEDICAID, SELFPAY ==
[2022-02-08 13:38] LABS: Albumin Level 4.3 g/dL (3.5-5.0); Phosphorus 4.6 mg/dL (2.7-4.5)
[2022-02-09 13:26] LABS: Calcium (PTHI) 9.1 mg/dL (8.6-10.4); PTHI 11 pg/mL (16-77)
== END 2022-02-08 12:03 | disposition home or self-care (01) ==
LOC: HO.LAB 12:02
PROVIDERS: PCP Nurse Practitioner Primary Care; Visit Provider Internal Medicine
DX: E89.2 Postprocedural hypoparathyroidism (principal)
CPT/HCPCS: 36415; 82040; 83970; 84100

== ENCOUNTER → 2022-03-16 13:03 | Outpatient (BNVA) | payer MEDICAID, SELFPAY | PROVIDERS: PCP Nurse Practitioner Primary Care; Visit Provider Urology | DX: N20.0 Calculus of kidney (principal); R33.9 Retention of urine, unspecified | CPT/HCPCS: 99212 ==

== ENCOUNTER 2022-04-13 13:52 | Outpatient (REF) | payer MEDICAID, SELFPAY ==
--- NOTE | ~2022-04-13 | US_ITS ---
EXAMINATION: US RETROPERITONEAL LIMITED (RENAL ONLY) CLINICAL INFORMATION: Calculus of kidney. COMPARISON: Renal ultrasound 01/23/2022. CT abdomen and pelvis 07/21/2021. TECHNIQUE: Real-time imaging of the kidneys. FINDINGS: RIGHT KIDNEY: 9.4 x 3.6 x 4.8 cm (SAG x AP x TRV). Areas of right renal parenchymal cortical scarring. Multiple nonobstructing renal stones measuring up to 4 mm, previously 5 mm. No hydronephrosis. A 2.7 cm hypoechoic avascular structure is interposed between the right kidney and liver new from prior, of uncertain etiology, unclear if this could reflect a cyst. LEFT KIDNEY: 12.5 x 4.5 x 5.4 cm (SAG x AP x TRV). The kidney is normal in size, contour, and echogenicity. Renal cortical thickness is normal. No focal parenchymal lesions or hydronephrosis. Multiple obstructing renal stones measuring up to 3 mm, previously 3 mm. US/US renal BI IMPRESSION: Right kidney with areas of parenchymal cortical scarring. Multiple nonobstructing right renal stones measuring up to 4 mm, previously 5 mm and multiple nonobstructing left renal stones measuring up to 3 mm, previously 3 mm. A 2.7 cm hypoechoic avascular structure interposed between the right kidney and liver new from prior of uncertain etiology, unclear if this could potentially reflect a renal cyst or other etiology. Contrast-enhanced CT abdomen is recommended for further characterization.
== END 2022-04-13 13:53 | disposition home or self-care (01) ==
LOC: HO.US 13:52
PROVIDERS: PCP Nurse Practitioner Primary Care; Visit Provider Urology
DX: N20.0 Calculus of kidney (principal)
CPT/HCPCS: 76775

== ENCOUNTER 2022-07-18 09:18 | Outpatient (REF) | payer MEDICAID, SELFPAY ==
[2022-07-18 11:02] LABS: Alanine Aminotransferase 29 U/L (0-31); Albumin Level 4.3 g/dL (3.5-5.0); Alkaline Phosphatase 100 U/L (39-117); Anion Gap 16 (12-20); Aspartate Amino Transferase 30 U/L (5-31); Bilirubin Total 0.4 mg/dL (0.0-1.0); Blood Urea Nitrogen 16 mg/dL (9-16); Calcium 8.5 mg/dL (8.4-10.2); Carbon Dioxide 27 mmol/L (22-29); Chloride 103 mmol/L (96-108); Estimated Glomerular Filt Rate > 60; Glucose Random 135 mg/dL (60-115); Phosphorus 4.1 mg/dL (2.7-4.5); Potassium 3.8 mmol/L (3.3-5.1); Sodium 142 mmol/L (135-145); Total Protein 7.2 g/dL (6.5-8.0)
[2022-07-18 11:13] LABS: Vitamin D 25-OH Total 34.3 ng/mL (>30)
[2022-07-20 13:44] LABS: Calcium (PTHI) 8.4 mg/dL (8.6-10.4); PTHI 13 pg/mL (16-77)
== END 2022-07-18 09:19 | disposition home or self-care (01) ==
LOC: HO.LAB 09:18
PROVIDERS: PCP Nurse Practitioner Primary Care; Visit Provider Internal Medicine
DX: E89.2 Postprocedural hypoparathyroidism (principal); E55.9 Vitamin D deficiency, unspecified
CPT/HCPCS: 36415; 80053; 82306; 83970; 84100

== ENCOUNTER 2022-07-20 10:53 | Outpatient (REF) | payer MEDICAID, SELFPAY ==
[2022-07-20 13:28] LABS: Creatinine, mg/dL 45.01
[2022-07-20 14:35] LABS: Creatinine, 24Hr Urine 0.9 G/Day (1.0-2.0); Total Volume 24 Hour Urine 2050 mL
[2022-07-21 18:53] LABS: Calcium, 24 Hr Urine 59 mg/24 h; Calcium/Creatinine Ratio 62 mg/g creat (30-275); Creatinine 24Hr Urine 0.96 g/24 h (0.50-2.15)
== END 2022-07-20 10:54 | disposition home or self-care (01) ==
LOC: HO.LNP 10:53
PROVIDERS: Visit Provider Internal Medicine
DX: E89.2 Postprocedural hypoparathyroidism (principal)
CPT/HCPCS: 82340; 82570

== ENCOUNTER 2022-08-29 10:24 | Outpatient (REF) | payer MEDICAID, SELFPAY ==
[2022-08-29 13:08] LABS: Alanine Aminotransferase 26 U/L (0-31); Albumin Level 4.2 g/dL (3.5-5.0); Alkaline Phosphatase 115 U/L (39-117); Anion Gap 15 (12-20); Aspartate Amino Transferase 34 U/L (5-31); Bilirubin Total 0.5 mg/dL (0.0-1.0); Blood Urea Nitrogen 19 mg/dL (9-16); Carbon Dioxide 26 mmol/L (22-29); Chloride 104 mmol/L (96-108); Estimated Glomerular Filt Rate > 60; Glucose Random 117 mg/dL (60-115); Phosphorus 4.1 mg/dL (2.7-4.5); Potassium 3.5 mmol/L (3.3-5.1); Sodium 141 mmol/L (135-145); Total Protein 7.4 g/dL (6.5-8.0)
[2022-08-30 13:44] LABS: Calcium (PTHI) 8.2 mg/dL (8.6-10.4); PTHI 14 pg/mL (16-77)
== END 2022-08-29 10:25 | disposition home or self-care (01) ==
LOC: HO.LAB 10:24
PROVIDERS: PCP Nurse Practitioner Primary Care; Visit Provider Internal Medicine
DX: E89.2 Postprocedural hypoparathyroidism (principal)
CPT/HCPCS: 36415; 80053; 83970; 84100

== ENCOUNTER 2022-10-18 12:28 | Outpatient (REF) | payer MEDICAID, SELFPAY ==
[2022-10-18 13:49] LABS: Alanine Aminotransferase 30 U/L (0-31); Albumin Level 4.4 g/dL (3.5-5.0); Alkaline Phosphatase 118 U/L (39-117); Anion Gap 15 (12-20); Aspartate Amino Transferase 26 U/L (5-31); Bilirubin Total 0.4 mg/dL (0.0-1.0); Blood Urea Nitrogen 17 mg/dL (9-16); Calcium 7.9 mg/dL (8.4-10.2); Carbon Dioxide 27 mmol/L (22-29); Chloride 101 mmol/L (96-108); Estimated Glomerular Filt Rate > 60; Glucose Random 87 mg/dL (60-115); Potassium 3.4 mmol/L (3.3-5.1); Sodium 140 mmol/L (135-145); Total Protein 7.3 g/dL (6.5-8.0)
[2022-10-18 13:50] LABS: Vitamin D 25-OH Total 35.5 ng/mL (>30)
[2022-10-22 15:54] LABS: Calcium (PTHI) 8.6 mg/dL (8.6-10.4); PTHI 16 pg/mL (16-77)
== END 2022-10-18 12:29 | disposition home or self-care (01) ==
LOC: HO.LAB 12:28
PROVIDERS: PCP Nurse Practitioner Primary Care; Visit Provider Internal Medicine
DX: E89.2 Postprocedural hypoparathyroidism (principal); E55.9 Vitamin D deficiency, unspecified
CPT/HCPCS: 36415; 80053; 82306; 83970; 84100

== ENCOUNTER 2022-12-06 09:42 | Outpatient (REF) | payer MEDICAID, SELFPAY ==
--- NOTE | ~2022-12-06 | US_ITS ---
EXAMINATION: US RETROPERITONEAL LIMITED (RENAL ONLY) CLINICAL INFORMATION: Calculus of kidney. COMPARISON: Renal ultrasound 04/13/2022 and 01/23/2022. TECHNIQUE: Real-time imaging of the kidneys. FINDINGS: RIGHT KIDNEY: 9.6 x 3.5 x 4.4 cm (SAG x AP x TRV). The kidney is normal in size, contour, and echogenicity. Renal cortical thickness is normal. No focal parenchymal lesions or hydronephrosis. Multiple nonobstructive calculi largest measuring 1.1 cm, previously 0.5 cm. A recently described hypoechoic avascular structure in between the kidney and liver is not well seen in this examination. LEFT KIDNEY: 11.5 x 4.7 x 5.4 cm (SAG x AP x TRV). The kidney is normal in size, contour, and echogenicity. Renal cortical thickness is normal. No focal parenchymal lesions. Mild renal pelvic fullness. Multiple renal calculi largest measuring 0.4 cm, previously 0.3 cm. US/US renal BI IMPRESSION: 1. Mild left renal pelvic fullness. 2. Bilateral renal calculi, the largest measuring 1.1 cm on the right and 0.4 cm on the left. 3. A recently described hypoechoic avascular structure in between the right kidney and liver is not well seen in this examination. Consider correlation with a contrast enhanced CT for further evaluation.
== END 2022-12-06 09:43 | disposition home or self-care (01) ==
LOC: HO.US 09:42
PROVIDERS: PCP Nurse Practitioner Primary Care; Visit Provider Urology
DX: N20.0 Calculus of kidney (principal)
CPT/HCPCS: 76775

== ENCOUNTER → 2022-12-19 12:19 | Outpatient (BNVA) | payer MEDICAID, SELFPAY | PROVIDERS: PCP Nurse Practitioner Primary Care; Visit Provider Internal Medicine | DX: N20.0 Calculus of kidney (principal); E89.2 Postprocedural hypoparathyroidism; M85.80 Other specified disorders of bone density and structure, unspecified site; E55.9 Vitamin D deficiency, unspecified; E66.9 Obesity, unspecified; Z68.37 Body mass index [BMI] 37.0-37.9, adult | CPT/HCPCS: 99212 ==

== ENCOUNTER 2022-12-21 07:25 | Outpatient (REF) | payer MEDICAID, SELFPAY ==
[2022-12-21 08:03] LABS: Estimated Average Glucose 120 mg/dL; Hemoglobin A1c % 5.8 %
[2022-12-21 08:19] LABS: Glucose Fasting 106 mg/dL (60-99)
[2022-12-21 09:00] LABS: Alanine Aminotransferase 28 U/L (0-31); Albumin Level 4.2 g/dL (3.5-5.0); Alkaline Phosphatase 117 U/L (39-117); Anion Gap 15 (12-20); Aspartate Amino Transferase 30 U/L (5-31); Bilirubin Total 0.6 mg/dL (0.0-1.0); Blood Urea Nitrogen 16 mg/dL (9-16); Calcium 8.1 mg/dL (8.4-10.2); Carbon Dioxide 28 mmol/L (22-29); Chloride 105 mmol/L (96-108); Estimated Glomerular Filt Rate > 60; Glucose Random 105 mg/dL (60-115); Phosphorus 4.1 mg/dL (2.7-4.5); Potassium 3.8 mmol/L (3.3-5.1); Sodium 144 mmol/L (135-145)
[2022-12-21 09:42] LABS: Glucose 1 Hour 201 mg/dL
[2022-12-21 10:15] LABS: Glucose 2 Hour 148 mg/dL
[2022-12-24 15:24] LABS: PTHI 14 pg/mL (16-77)
== END 2022-12-21 07:26 | disposition home or self-care (01) ==
LOC: HO.LAB 07:25
PROVIDERS: PCP Nurse Practitioner Primary Care; Visit Provider Internal Medicine
DX: E89.2 Postprocedural hypoparathyroidism (principal); E55.9 Vitamin D deficiency, unspecified; E66.9 Obesity, unspecified
CPT/HCPCS: 36415; 80053; 82306; 83036; 83970; 84100

== ENCOUNTER 2022-12-27 15:44 | Outpatient (REF) | payer MEDICAID, SELFPAY ==
--- NOTE | ~2022-12-27 | MM_ITS ---
EXAMINATION: MM SCREENING DIGITAL BREAST TOMOSYNTHESIS, BILATERAL CLINICAL INFORMATION: Screening. Asymptomatic. The lifetime risk of breast cancer based on the Tyrer-Cuzick Model is 11%. COMPARISON: Mammography: 12/25/2021, 12/23/2020, 11/11/2018 TECHNIQUE: Digital breast tomosynthesis is performed in both the craniocaudal and mediolateral oblique views along with computer-aided detection (CAD). Synthesized 2D images are generated from the tomosynthesis. FINDINGS: There are scattered areas of fibroglandular density (ACR BI-RADS breast composition Category b). There are no significant masses, abnormal calcifications, or other abnormalities. Scattered mild asymmetries and stable nodularity are similar to prior studies. No developing density or architectural abnormality. No significant changes. The axilla are unremarkable. Skin contours are smooth. MM/MM tomosynthesis screening BI IMPRESSION: No mammographic evidence of malignancy. ASSESSMENT: BI-RADS 2: Benign RECOMMENDATION: Routine annual mammography screening. This patient's information was entered into a reminder system with a target due date for their next mammogram.
== END 2022-12-27 15:45 | disposition home or self-care (01) ==
LOC: HO.MAMMO 15:44
PROVIDERS: PCP Nurse Practitioner Primary Care; Visit Provider Nurse Practitioner Primary Care
DX: Z12.31 Encounter for screening mammogram for malignant neoplasm of breast (principal)
CPT/HCPCS: 77063; 77067

== ENCOUNTER → 2023-01-03 11:40 | Outpatient (BNVA) | payer MEDICAID, SELFPAY | PROVIDERS: PCP Nurse Practitioner Primary Care; Visit Provider Internal Medicine | DX: E89.2 Postprocedural hypoparathyroidism (principal); M85.80 Other specified disorders of bone density and structure, unspecified site; E55.9 Vitamin D deficiency, unspecified; N20.0 Calculus of kidney; E66.9 Obesity, unspecified; Z68.37 Body mass index [BMI] 37.0-37.9, adult; R73.03 Prediabetes | CPT/HCPCS: 99212 ==

== ENCOUNTER 2023-01-10 15:16 | Outpatient (REF) | payer MEDICAID, SELFPAY ==
--- NOTE | ~2023-01-10 | US_ITS ---
EXAMINATION: US THYROID CLINICAL INFORMATION: Nontoxic multinodular goiter. COMPARISON: Ultrasound soft tissue head/neck thyroid dated 03/18/2019 and 10/01/2013. TECHNIQUE: Linear transducer grayscale and color Doppler examination with attention to the region of the thyroid. FINDINGS: SIZE: Measurements of the thyroid lobes and nodules are given in sagittal, anteroposterior and transverse dimensions respectively. Right Thyroid Lobe: 3.6 x 1.1 x 1.5 cm, volume 3.1 mL. Previously 4.0 x 1.3 x 1.7 cm, volume 4.6 mL. Parenchyma: The gland echotexture is homogeneous. Thyroid vascularity is normal. Left Thyroid Lobe: 4.8 x 1.2 x 1.6 cm, volume 4.8 mL. Previously 4.8 x 1.2 x 1.8 cm, volume 5.4 mL. Parenchyma: The gland echotexture is homogeneous. Thyroid vascularity is normal. Isthmus: 0.4 cm in maximum AP dimension. Previously 0.8 cm. No focal thyroid nodule is seen. NODES: No lymphadenopathy is seen in the tissue surrounding the thyroid gland. US/US thyroid IMPRESSION: No suspicious thyroid nodules.
--- NOTE | ~2023-01-10 | XR_ITS ---
EXAMINATION: XR ABDOMEN KUB CLINICAL INFORMATION: Calculus of kidney. COMPARISON: Ultrasound kidneys 12/06/2022. CT abdomen and pelvis 07/21/2021. TECHNIQUE: AP view of the abdomen. FINDINGS: Both kidneys are suboptimally evaluated due to overlying colonic gas and stool. There are surgical merced in the right upper quadrant from cholecystectomy. There are 2 radiopaque densities in the left pelvis, consistent with phleboliths, seen on the CT abdomen/pelvic exam of 07/21/2021. There are three radiopaque densities in the pelvis within the patient's underwear. No gross bony abnormality. XR/XR KUB IMPRESSION: Limited exam. The kidneys are suboptimally evaluated due to overlying colonic gas and stool. There are two radiopaque phleboliths in the left pelvis.
[2023-01-10 17:56] LABS: Albumin Level 4.3 g/dL (3.5-5.0); Phosphorus 4.4 mg/dL (2.7-4.5)
[2023-01-15 22:57] LABS: Calcium (PTHI) 8.3 mg/dL (8.6-10.4); PTHI 18 pg/mL (16-77)
== END 2023-01-10 15:17 | disposition home or self-care (01) ==
LOC: HO.US 15:16
PROVIDERS: PCP Nurse Practitioner Primary Care; Visit Provider Internal Medicine
DX: E04.2 Nontoxic multinodular goiter (principal); N20.0 Calculus of kidney; E89.2 Postprocedural hypoparathyroidism
CPT/HCPCS: 36415; 74018; 76536; 82040; 83970; 84100

== ENCOUNTER 2023-02-01 14:17 | Outpatient (REF) | payer MEDICAID, SELFPAY ==
[2023-02-01 18:54] LABS: Alanine Aminotransferase 37 U/L (0-31); Albumin Level 4.3 g/dL (3.5-5.0); Alkaline Phosphatase 109 U/L (39-117); Anion Gap 16 (12-20); Aspartate Amino Transferase 39 U/L (5-31); Bilirubin Total 0.4 mg/dL (0.0-1.0); Blood Urea Nitrogen 16 mg/dL (9-16); Calcium 8.8 mg/dL (8.4-10.2); Carbon Dioxide 27 mmol/L (22-29); Chloride 102 mmol/L (96-108); Estimated Glomerular Filt Rate > 60; Glucose Random 120 mg/dL (60-115); Phosphorus 3.1 mg/dL (2.7-4.5); Potassium 2.9 mmol/L (3.3-5.1); Sodium 142 mmol/L (135-145); Total Protein 7.7 g/dL (6.5-8.0)
[2023-02-01 19:09] LABS: Vitamin D 25-OH Total 42.6 ng/mL (>30)
[2023-02-06 14:18] LABS: Calcium (PTHI) 8.4 mg/dL (8.6-10.4); PTHI 13 pg/mL (16-77)
== END 2023-02-01 14:18 | disposition home or self-care (01) ==
LOC: HO.LAB 14:17
PROVIDERS: PCP Nurse Practitioner Primary Care; Visit Provider Internal Medicine
DX: E89.2 Postprocedural hypoparathyroidism (principal); E55.9 Vitamin D deficiency, unspecified
CPT/HCPCS: 36415; 80053; 82306; 83970; 84100

== ENCOUNTER 2023-02-05 08:55 | Outpatient (REF) | payer MEDICAID, SELFPAY ==
[2023-02-05 09:56] LABS: Alanine Aminotransferase 55 U/L (0-31); Albumin Level 4.2 g/dL (3.5-5.0); Alkaline Phosphatase 112 U/L (39-117); Anion Gap 17 (12-20); Aspartate Amino Transferase 45 U/L (5-31); Bilirubin Total 0.4 mg/dL (0.0-1.0); Blood Urea Nitrogen 16 mg/dL (9-16); Calcium 8.7 mg/dL (8.4-10.2); Carbon Dioxide 27 mmol/L (22-29); Chloride 103 mmol/L (96-108); Estimated Glomerular Filt Rate > 60; Glucose Random 133 mg/dL (60-115); Phosphorus 3.6 mg/dL (2.7-4.5); Potassium 3.5 mmol/L (3.3-5.1); Sodium 143 mmol/L (135-145); Total Protein 7.6 g/dL (6.5-8.0)
[2023-02-05 10:06] LABS: Vitamin D 25-OH Total 42.7 ng/mL (>30)
[2023-02-07 13:19] LABS: Calcium (PTHI) 8.4 mg/dL (8.6-10.4); PTHI 12 pg/mL (16-77)
== END 2023-02-05 08:56 | disposition home or self-care (01) ==
LOC: HO.LAB 08:55
PROVIDERS: Visit Provider Internal Medicine
DX: E89.2 Postprocedural hypoparathyroidism (principal); E55.9 Vitamin D deficiency, unspecified
CPT/HCPCS: 36415; 80053; 82306; 83970; 84100

== ENCOUNTER → 2023-02-08 10:25 | Outpatient (BNVA) | payer MEDICAID, SELFPAY | PROVIDERS: PCP Nurse Practitioner Primary Care; Visit Provider Nurse Practitioner | DX: Z01.818 Encounter for other preprocedural examination (principal); K64.9 Unspecified hemorrhoids; K59.00 Constipation, unspecified; D12.6 Benign neoplasm of colon, unspecified | CPT/HCPCS: 99212 ==

== ENCOUNTER 2023-03-22 10:03 | Outpatient (AMB) | payer MEDICAID, SELFPAY ==
--- NOTE | 2023-03-22 10:11 | MHC.OFFVIS ---
Intake Vital Signs 03/22/23 10:15 Height 4 ft 11 in Weight 183 lb 6.793 oz BMI 37.0 BP 120/67 Blood Pressure Location Lt brachial Position Sitting Pulse 81 Intake Visit Reasons: 6 week fu Intake Note: Patient follow up in 6 weeks for hemorrhoids. Patient cc: Patient reports she has been doing better after she started taking new medications. She reports she has been choking with food ever since after she had parathyroid surgery, but states she is doing better. [employer] Required: Yes Accompanied by: Self / Same As Patient Allergies No Known Allergies [No Known Allergies*] Allergy (Verified 03/22/23 10:17) HPI 6 week fu HPI Details Assessment & Plan (1) Hemorrhoids: Code(s): K64.9 - Unspecified hemorrhoids Plan: Romanian #Amar[employer] Live Patient has been lost to follow-up since 11/2020 - discuss repeat colonoscopy She is having increasing trouble with bleeding hemorrhoids. There is RB on the TT and in water. NO bleeding in between BM's. She has intermittent CIC, but even if she has to strain even a little bit there will be blood. IF she has looser stools there is no bleeding. She is drinking teas and is using roid creams and they help but then it comes back. She is due for colonoscopy. There are no prior problems with anesthesia or sedation. She denies any cardiac or respiratory problems. No ID problems. She had a prior tubular adenoma. Return office visit in 6 weeks and of course after her colonoscopy. (2) Constipation: Code(s): K59.00 - Constipation, unspecified (3) Tubular adenoma of colon: Comment: large TA 2018, due for repeat 2021 Code(s): D12.6 - Benign neoplasm of colon, unspecified (4) Pre-op examination: Code(s): Z01.818 - Encounter for other preprocedural examination Medications: New sennosides (Senna Laxative) 8.6 mg PO BID 60 tabs 6RF K59.00 - Constipation, unspecified psyllium husk (Fiber Laxative (psyllium husk)) 0.52 grams PO BID 60 caps 6RF hydrocortisone 2.5% (Proctosol HC) BE SURE TO INCLUDE RECTAL APPICATOR!! 1 appl [place] BID 30 grams 6RF COLONOSCOPY Not yet scheduled BIOPSY TODAY'S VISIT Romanian #Kaya LIve SHe is 'MUCH BETTER' witht he senna and the fiber and the roid cream has stopped her rectal bleeding. She has not yet heard about the colonoscopy. ROV 6 mos. [facility] Medical History Carpal tunnel syndrome Disorder of bone density and structure, unspecified Hydronephrosis concurrent with and due to calculi of kidney and ureter Multinodular thyroid Obesity Obesity (BMI 30-39.9) Osteopenia Post-surgical hypoparathyroidism Prediabetes Prediabetes Recurrent nephrolithiasis Tubular adenoma of colon Vitamin D deficiency Surgical History History of bladder surgery Hx of cholecystectomy Hx of colonoscopy Hx of hysterectomy Hx of parathyroidectomy Hx of tubal ligation Family History Father Diabetes mellitus Mother No problems noted. Social History Household Members: Children Alcohol intake: never Patient Tobacco Use Status: Never used Tobacco Review of Systems Const Denies fatigue, Denies fever(s), Denies night sweats, Denies poor appetite and Denies weight loss Eyes Details: glasses Reports requires corrective lenses ENT Reports Normal hearing present, Denies dental pain, Denies dysphagia, Denies hearing loss, Denies mouth pain, Denies odynophagia, Denies throat swelling, Denies tongue swelling and Reports other (Dentition adequate) Card Reports no additional complaints Resp Reports no additional complaints GI Denies abdominal pain, Denies melena, Denies bloating, Denies hematochezia, Reports constipation, Denies GI cramping, Denies dysphagia, Denies excessive flatus, Denies early satiety, Denies heartburn, Denies diarrhea, Denies nausea, Denies odynophagia, Denies vomiting and Denies hematemesis Skin/Breast Denies pruritus, Denies lesions, Denies rash and Denies jaundice Neuro Reports Normal hearing present and Denies Abnormal speech present Endo Denies fatigue Aller/Immun Denies throat swelling and Denies tongue swelling Physical Exam Vital Signs: Last Vital Signs Pulse 81 03/22/23 10:15 BP 120/67 03/22/23 10:15 BMI result Body Mass Index 37.0 Const General: cooperative, no acute distress, well developed and well groomed Nutritional Appearance: well nourished and obese Orientation/consciousness: oriented to person, oriented to place and oriented to time Limitations: language barrier HEENT Head: Yes normocephalic and Yes atraumatic Eyes General: appearance normal, both eyes and all related structures Pupils: Equal, round and reactive pupils present Neck Neck: Yes normal visual inspection and Yes no lymphadenopathy Thyroid: Thyroid normal Resp Effort & Inspection: normal respiratory effort and able to speak in complete sentences Auscultation: clear to auscultation bilaterally Cardio Rate: regular rate Rhythm: regular rhythm Heart sounds: Normal, physiologic split S2 sound present Peripheral pulses: radial pulses present and posterior tibial pulses present GI Inspection: No distended, Yes Abdominal panniculus present and Yes obesity Palpation (GI): Soft to palpation, nontender, no guarding, not rigid and No hepatosplenomegaly present Percussion: Yes normal to percussion Auscultation: normal bowel sounds Rectal Exam - Female: deferred Skin General skin exam: no rashes or lesions noted, turgor normal, skin not dry, no jaundice, No spider nevi and no striae Rashes: no rashes Nails: normal Neuro General: oriented to person, oriented to place and oriented to time Cranial nerves: Yes Equal, round and reactive pupils present and Yes Normal hearing present Speech: No Abnormal speech present Extrem General: Yes normal to inspection, No clubbing, No cyanosis and No edema Psych Appearance: grossly normal and well kempt Mental Status: mental status grossly normal Speech and movement: Normal speech and movement present Affect: normal affect Attitude: cooperative Thought process: Normal thought process present and not confabulating Thought content: Normal thought content present Insight: Fair insight present (Psych) Judgement: Fair judgement present (Psych) Assessment & Plan Assessment & Plan (1) Hemorrhoids: Code(s): K64.9 - Unspecified hemorrhoids Plan: COLONOSCOPY Not yet scheduled BIOPSY TODAY'S VISIT Romanian #Kaya LIve She is 'MUCH BETTER' with the senna and the fiber and the hemorrhoid cream has stopped her rectal bleeding. She has not yet heard about the colonoscopy. ROV 6 mos. (2) Constipation: Code(s): K59.00 - Constipation, unspecified (3) Tubular adenoma of colon: Comment: large TA 2018, due for repeat 2021 Code(s): D12.6 - Benign neoplasm of colon, unspecified (4) Pre-op examination: Code(s): Z01.818 - Encounter for other preprocedural examination Orders: Orders Colonoscopy - GI Use Only Today Z01.818 - Encounter for other preprocedural examination Coding Level of Care Code Est Pt Level 3 (00818) Diagnoses Hemorrhoids K64.9 Constipation K59.00 Tubular adenoma of colon D12.6 Pre-op examination Z01.818
[2023-03-22 10:15] VITALS: BP 120/67; PULSE 81; BMI 37.0
== END 2023-03-22 10:38 | disposition home or self-care (01) ==
PROVIDERS: PCP Nurse Practitioner Primary Care; Visit Provider Nurse Practitioner
DX: K64.9 Unspecified hemorrhoids (principal); K59.00 Constipation, unspecified; D12.6 Benign neoplasm of colon, unspecified; Z01.818 Encounter for other preprocedural examination
CPT/HCPCS: 99213

== ENCOUNTER → 2023-03-22 10:03 | Outpatient (BNVA) | payer MEDICAID, SELFPAY | PROVIDERS: PCP Nurse Practitioner Primary Care; Visit Provider Nurse Practitioner | DX: Z01.818 Encounter for other preprocedural examination (principal); K64.9 Unspecified hemorrhoids; K59.00 Constipation, unspecified; D12.6 Benign neoplasm of colon, unspecified | CPT/HCPCS: 99213 ==

== ENCOUNTER 2023-06-05 10:43 | Day surgery (SDC) | payer MEDICAID, SELFPAY ==
[2023-06-03 14:46] VITALS: BMI 37.0
--- NOTE | 2023-06-04 09:13 | P.CONAN_ITS ---
HPI - Anesthesia Eval Consult details Narrative: 53yo F for Colonoscopy [facility] Active Problems Active Problems: All Active Problems (Updated 06/03/23 @ 14:42 by Rebeca Gomez RN) Pre-op examination (Acute) Struvite kidney stones (Acute) Upper respiratory infection (Acute) Constipation (Acute) Hemorrhoids (Acute) Prediabetes (Acute) Multinodular thyroid (Acute) Prediabetes (Acute) Obesity (Acute) Hydronephrosis concurrent with and due to calculi of kidney and ureter (Acute) Recurrent nephrolithiasis (Acute) Disorder of bone density and structure, unspecified (Acute) Vitamin D deficiency (Acute) Osteopenia (Acute) Tubular adenoma of colon (Acute) Carpal tunnel syndrome (Acute) Obesity (BMI 30-39.9) (Acute) Post-surgical hypoparathyroidism (Acute) Past Medical History Medical History (Updated 06/03/23 @ 14:42 by Rebeca Gomez RN) Multinodular thyroid Prediabetes Obesity Hydronephrosis concurrent with and due to calculi of kidney and ureter Recurrent nephrolithiasis Disorder of bone density and structure, unspecified Vitamin D deficiency Osteopenia Tubular adenoma of colon Carpal tunnel syndrome Obesity (BMI 30-39.9) Post-surgical hypoparathyroidism Family History Family History Father Diabetes mellitus Mother No problems noted. Family history of problems with anesthesia: No Surgical History Surgical History (Updated 06/03/23 @ 14:43 by Rebeca Gomez RN) Hx of cystoscopy History of bladder surgery Hx of parathyroidectomy Hx of colonoscopy Hx of tubal ligation Hx of cholecystectomy Hx of hysterectomy History of Problems with Anesthesia: No Social History Social History Household Members: Children Alcohol intake: never Patient Tobacco Use Status: Never used Tobacco Meds Allergies Allergy/AdvReac Type Severity Reaction Status Date / Time No Known Allergies Allergy Verified 03/22/23 10:17 [No Known Allergies*] Home Medications Medication Instructions Recorded Confirmed Last Taken Type amlodipine 5 mg tablet 5 mg PO DAILY 08/03/20 06/03/23 11/06/21 History aspirin 81 mg tablet,delayed 81 mg PO DAILY 08/03/20 01/03/23 Unknown History release (Adult Low Dose Aspirin) Exam Exam Date and Time: June 04, 2023 0913 Height,Weight and Vital Signs: Height 4 ft 11 in Weight 83.007 kg Assessment and Plan Assessment Anesthesia Assessment: Chart Reviewed Final Anesthetic Review Family History of Problems with Anesthesia: No History of Problems with Anesthesia: No
[2023-06-05 11:32] VITALS: BP 151/90; PULSE 74; RESP 20; TEMP 36.1; O2SAT 98
[2023-06-05] MEDS: Lactated Ringers 1,000 ML 100 ML IVCONT (11:55)
--- NOTE | 2023-06-05 11:57 | MHC.SHP ---
Pre-Procedural Eval Section A Date of Service: 06/05/23 Section B Chief Complaint: Unspecified hemorrhoids, Constipation Relevant Family History (Specify if Yes): No Relevant Social History: None Present Medications: see Short Stay Collaborative assessment Medical History: Significant History (Multinodular thyroid Prediabetes Obesity Hydronephrosis concurrent with and due to calculi of kidney and ureter Recurrent nephrolithiasis Disorder of bone density and structure, unspecified Vitamin D deficiency Osteopenia Tubular adenoma of colon Carpal tunnel syndrome Obesity (BMI 30-39.9) Post-ra[place]) History of Previous Operations: Relevant previous surgery/procedure and date(s) (Hx of cystoscopy History of bladder surgery Hx of parathyroidectomy Hx of colonoscopy Hx of tubal ligation Hx of cholecystectomy Hx of hysterectomy) Allergies: Allergies Allergy/AdvReac Type Severity Reaction Status Date / Time No Known Allergies Allergy Verified 03/22/23 10:17 [No Known Allergies*] Review of Systems Sugical H&P ROS: Negative: Constitution, Cardiovascular, Respiratory, Neurological, Psychiatric, Hem-Onc, Allergic/Immunologic, Gastrointestinal, Genitourinary, Musculoskeletal, Integumentary, Endocrine and Eyes/Ears/Nose/Throat Exam Surgical H&P Exam: Normal: HEENT, Normal: Heart, Normal: Lungs, Normal: Extremities, Normal: Abdomen, Normal: Skin and Normal: Neurological Plan Diagnosis/Plan: Unchanged I have reviewed the history and physical and performed a pertinent physical examination on my patient. No changes have occurred unless specified. Time Spent With Patient Time: Total time managing care of this patient today ____ minutes.
--- NOTE | 2023-06-05 12:47 | P.OP_ITS ---
Operative Note Operative Note Date of Service: 06/05/23 Narrative: Operative Information Procedure Description: Colonoscopy Indication: hx of colon polyp Anesthesia: MAC COLONOSCOPY Instrument: Olympus variable stiffness pediatric scope 190L Colonoscopy Monitoring: Vital signs and clinical assessment, continuous EKG monitoring, Pulse oximetry, Carbon Dioxide monitoring and blood pressure monitoring were done throughout the procedure. Colon withdrawal time was 7 minutes. Procedure: The patient was placed in the left lateral decubitis position and pre-procedure medications were administered. After a digital rectal examination of the ano-rectum, the video colonoscope was inserted into the rectum and advanced through the colon to the cecum/TI. The colonoscope was slowly withdrawn in a retrograde panoramic fashion and the colon mucosa was carefully examined including a retroflexed view of the rectum. Findings and interventions are described below. Procedure Difficulty: moderate Findings: Terminal Ileum-not intubated, Cecum:normal Ascending Colon: normal Transverse Colon -normal Descending Colon:normal Sigmoid Colon: normal Rectum: Retroflexion with small internal hemorrhoids, grade I Anorectum - normal Colon preparation: [place] Bowel Preparation Scale Right colon; 1 Transverse colon: 1 Left colon; 1 (0 = Unprepared colon segment with mucosa not seen due to solid stool that cannot be cleared. 1 = Portion of mucosa of the colon segment seen, but other areas of the colon segment not well seen due to staining, residual stool and/or opaque liquid. 2 = Minor amount of residual staining, small fragments of stool and/or opaque liquid, but mucosa of colon segment seen well. 3 = Entire mucosa of colon segment seen well with no residual staining, small fragments of stool or opaque liquid) Impression and Post Procedure Diagnosis: poor prep internal hemorrhoids Plan: High fiber diet leaflet Avoid straining at stool, epsom salts and sitz bath, anusol supps or cream Repeat Colonoscopy in 3-6 months or earlier if clinically indicated, with a ttention to prep compliance next time Above findings were reviewed with the patient and relevant handouts were provided if indicated.
[2023-06-05 13:26] VITALS: BP 99/61; PULSE 79; RESP 16; TEMP 36.3; O2SAT 96
[2023-06-05 13:40] VITALS: BP 109/68; PULSE 68; RESP 16; O2SAT 96
[2023-06-05 13:55] VITALS: BP 108/66; PULSE 63; RESP 16; TEMP 36.2; O2SAT 98
--- NOTE | 2023-06-05 13:55 | HO.POSTANES ---
Post Anesthesia Evaluation Post Anesthesia Evaluation Date of Service: 06/05/23 Vital Signs: Vital Signs Temp Pulse Resp BP Pulse Ox O2 Del Method 06/05/23 13:26 97.4 F 79 16 99/61 96 Room Air 06/05/23 11:32 97 F 74 20 151/90 H 98 Room Air Anesthesia: Monitored Mental Status: Awake Pain Control: Satisfactory Nausea/Vomiting: None Hydration: Adequate Anesthesia-Related Issues: No Anes. Related Issues
== END 2023-06-05 14:37 | disposition home or self-care (01) ==
PROVIDERS: PCP Nurse Practitioner Primary Care; Visit Provider Internal Medicine Gastroenterology
PROC: 0DJD8ZZ Inspection of Lower Intestinal Tract, Via Natural or Artificial Opening Endoscopic (ICD-10-PCS; CPT 45378; principal; 2023-06-05 12:50)
DX: K59.00 Constipation, unspecified (principal); K64.0 First degree hemorrhoids; R73.03 Prediabetes; N13.2 Hydronephrosis with renal and ureteral calculous obstruction; E04.2 Nontoxic multinodular goiter; E89.2 Postprocedural hypoparathyroidism; M85.80 Other specified disorders of bone density and structure, unspecified site; E55.9 Vitamin D deficiency, unspecified; E66.9 Obesity, unspecified; Z68.37 Body mass index [BMI] 37.0-37.9, adult; Z79.890 Hormone replacement therapy; Z79.82 Long term (current) use of aspirin
CPT/HCPCS: 45378

== ENCOUNTER → 2023-06-05 10:43 | Outpatient (BNV) | payer MEDICAID, SELFPAY | PROVIDERS: PCP Nurse Practitioner Primary Care; Visit Provider Internal Medicine Gastroenterology | DX: Z12.11 Encounter for screening for malignant neoplasm of colon (principal); Z86.010 Personal history of colon polyps; K64.0 First degree hemorrhoids; Z91.199 Patient's noncompliance with other medical treatment and regimen due to unspecified reason | CPT/HCPCS: 45378 ==

== ENCOUNTER 2023-06-28 13:14 | Outpatient (AMB) | payer MEDICAID, SELFPAY ==
[2023-06-28 13:23] VITALS: BP 125/77; PULSE 81; BMI 37.4
--- NOTE | 2023-06-28 13:23 | A.OFFVIS_ITS ---
Intake Vital Signs 06/28/23 13:23 Height 4 ft 11 in Weight 185 lb 3.013 oz BMI 37.4 BP 125/77 Blood Pressure Location Lt brachial Position Sitting Pulse 81 Intake Visit Reasons: S/PColo; Gold Intake Note: Patient presents to in office visit today in follow up colonoscopy. CC: Patient reports constipation and rectal bleeding this week. She states that she was told to repeat colonoscopy in 3-6 months d/t poor preparation. Supervisory It Specialist Required: Yes Accompanied by: Self / Same As Patient Allergies No Known Allergies [No Known Allergies*] Allergy (Verified 03/22/23 10:17) HPI S/PColo; Alla HPI Details Assessment & Plan (1) Hemorrhoids: Code(s): K64.9 - Unspecified hemorrhoids Plan: . She is 'MUCH BETTER' with the senna and the fiber and the hemorrhoid cream has stopped her rectal bleeding. She has not yet heard about the colonoscopy. ROV 6 mos. (2) Constipation: Code(s): K59.00 - Constipation, unspecified (3) Tubular adenoma of colon: Comment: large TA 2018, due for repeat 2021 Code(s): D12.6 - Benign neoplasm of colon, unspecified (4) Pre-op examination: Code(s): Z01.818 - Encounter for other preprocedural examination Orders: Orders Colonoscopy - GI U se Only Today Z01.818 - Encounte r for other prepro cedural examinatio n COLONOSCOPY 06/05/23 Findings: Terminal Ileum-not intubated, Cecum:normal Ascending Colon: normal Transverse Colon -normal Descending Colon:normal Sigmoid Colon: normal Rectum: Retroflexion with small internal hemorrhoids, grade I Anorectum - normal Impression and Post Procedure Diagnosis: poor prep internal hemorrhoids Plan: High fiber diet leaflet Avoid straining at stool, epsom salts and sitz bath, anusol supps or cream Repeat Colonoscopy in 3-6 months or earlier if clinically indicated, with attention to prep compliance next time TODAY'S VISIT [place] [facility] [employer] She was already aware of the need to repeat the scope. She started the prep around 4pm and she drank it all but She was not moving her bowels well. She admits that she ate some green bananas so compliance was reviewed. I also will have her stop the fiber 3 days before to promote better clearance. I will send PEG and bisacodyl tablets. The procedure was well tolerated. The results were explained and the patient is agreeable to the follow-up interval as stated. The bowel pattern has returned to normal. Education was provided to tell any 1st degree relatives about their findings to be sure that they are screened by age 45. Educated that they will be put on a recall list when it is time for their repeat scope but should they move out of state or away from the hospital they will need to remember along with their primary to repeat the procedure in a timely fashion to avoid any adverse complications. She continues on her senna and fiber with good control of her constipation. Return office visit in 6 months [facility] Medical History Multinodular thyroid Prediabetes Obesity Hydronephrosis concurrent with and due to calculi of kidney and ureter Recurrent nephrolithiasis Disorder of bone density and structure, unspecified Vitamin D deficiency Osteopenia Tubular adenoma of colon Carpal tunnel syndrome Obesity (BMI 30-39.9) Post-surgical hypoparathyroidism Surgical History Hx of cystoscopy History of bladder surgery Hx of parathyroidectomy Hx of colonoscopy Hx of tubal ligation Hx of cholecystectomy Hx of hysterectomy Family History Father Diabetes mellitus Mother No problems noted. Social History Household Members: Children Alcohol intake: never Patient Tobacco Use Status: Never used Tobacco Review of Systems Const Denies fatigue, Denies fever(s), Denies night sweats, Denies poor appetite and Denies weight loss Eyes Details: glasses Reports requires corrective lenses ENT Reports Normal hearing present, Denies dental pain, Denies dysphagia, Denies hearing loss, Denies mouth pain, Denies odynophagia, Denies throat swelling, Denies tongue swelling and Reports other (Dentition adequate) Card Reports no additional complaints Resp Reports no additional complaints GI Denies abdominal pain, Denies melena, Denies bloating, Denies hematochezia, Reports constipation, Denies GI cramping, Denies dysphagia, Denies excessive flatus, Denies early satiety, Denies heartburn, Denies diarrhea, Denies nausea, Denies odynophagia, Denies vomiting and Denies hematemesis Skin/Breast Denies pruritus, Denies lesions, Denies rash and Denies jaundice Neuro Reports Normal hearing present and Denies Abnormal speech present Endo Denies fatigue Aller/Immun Denies throat swelling and Denies tongue swelling Physical Exam Vital Signs: Last Vital Signs Pulse 81 06/28/23 13:23 BP 125/77 06/28/23 13:23 BMI result Body Mass Index 37.4 Const General: cooperative, no acute distress, well developed and well groomed Nutritional Appearance: well nourished and obese Orientation/consciousness: oriented to person, oriented to place and oriented to time Limitations: language barrier HEENT Head: Yes normocephalic and Yes atraumatic Eyes General: appearance normal, both eyes and all related structures Pupils: Equal, round and reactive pupils present Neck Neck: Yes normal visual inspection and Yes no lymphadenopathy Thyroid: Thyroid normal Resp Effort & Inspection: normal respiratory effort and able to speak in complete sentences Auscultation: clear to auscultation bilaterally Cardio Rate: regular rate Rhythm: regular rhythm Heart sounds: Normal, physiologic split S2 sound present Peripheral pulses: radial pulses present and posterior tibial pulses present GI Inspection: No distended, Yes Abdominal panniculus present and Yes obesity Palpation (GI): Soft to palpation, nontender, no guarding, not rigid and No hepatosplenomegaly present Percussion: Yes normal to percussion Auscultation: normal bowel sounds Rectal Exam - Female: deferred Skin General skin exam: no rashes or lesions noted, turgor normal, skin not dry, no jaundice, No spider nevi and no striae Rashes: no rashes Nails: normal Neuro General: oriented to person, oriented to place and oriented to time Cranial nerves: Yes Equal, round and reactive pupils present and Yes Normal hearing present Speech: No Abnormal speech present Extrem General: Yes normal to inspection, No clubbing, No cyanosis and No edema Psych Appearance: grossly normal and well kempt Mental Status: mental status grossly normal Speech and movement: Normal speech and movement present Affect: normal affect Attitude: cooperative Thought process: Normal thought process present and not confabulating Thought content: Normal thought content present Insight: Limited insight present (Psych) Judgement: Limited judgement present (Psych) Assessment & Plan Assessment & Plan (1) Tubular adenoma of colon: Comment: 2022= negative scope but poor prep repeat in 1 year; 2019 large Code(s): D12.6 - Benign neoplasm of colon, unspecified Plan: [place] #[employer] [employer] She was already aware of the need to repeat the scope. She started the prep around 4pm and she drank it all but She was not moving her bowels well. She admits that she ate some green bananas so compliance was reviewed. I also will have her stop the fiber 3 days before to promote better clearance. I will send PEG and bisacodyl tablets. The procedure was well tolerated. The results were explained and the patient is agreeable to the follow-up interval as stated. The bowel pattern has returned to normal. Education was provided to tell any 1st degree relatives about their findings to be sure that they are screened by age 45. Educated that they will be put on a recall list when it is time for their repeat scope but should they move out of state or away from the hospital they will need to remember along with their primary to repeat the procedure in a timely fashion to avoid any adverse complications. She continues on her senna and fiber with good control of her constipation. Return office visit in 6 months (2) Constipation: Code(s): K59.00 - Constipation, unspecified Medications: New bisacodyl (Dulcolax (bisacodyl)) 10 mg (2 x 5 mg) PO BEDTIME 4 tabs 0RF 2 days peg 3350-electrolytes 236-22.74-6.74 -5.86 gram (Golytely) until fecal effluent is clear; do not exceed a total volume of 2,000 mL 240 mL PO Q10M 4,000 mL 0RF 1 day Z12.11 - Encounter for screening for malignant neoplasm of colon psyllium husk (Reguloid (psyllium husk)) 0.4 grams PO BID 60 caps 6RF K59.00 - Constipation, unspecified Refilled sennosides (Senna Laxative) 8.6 mg PO BID 60 tabs 6RF K59.00 - Constipation, unspecified Coding Level of Care Code Est Pt Level 4 (45245) Diagnoses Tubular adenoma of colon D12.6 Constipation K59.00
== END 2023-06-28 13:52 | disposition home or self-care (01) ==
PROVIDERS: PCP Nurse Practitioner Primary Care; Visit Provider Nurse Practitioner
DX: D12.6 Benign neoplasm of colon, unspecified (principal); K59.00 Constipation, unspecified
CPT/HCPCS: 99214

== ENCOUNTER → 2023-06-28 13:14 | Outpatient (BNVA) | payer MEDICAID, SELFPAY | PROVIDERS: PCP Nurse Practitioner Primary Care; Visit Provider Nurse Practitioner | DX: D12.6 Benign neoplasm of colon, unspecified (principal); K59.00 Constipation, unspecified | CPT/HCPCS: 99212 ==

== ENCOUNTER 2023-09-04 14:25 | Outpatient (REF) | payer MEDICAID, SELFPAY ==
[2023-09-04 15:13] LABS: Albumin Level 4.5 g/dL (3.5-5.0); Calcium 9.1 mg/dL (8.4-10.2); Phosphorus 4.1 mg/dL (2.7-4.5)
== END 2023-09-04 14:26 | disposition home or self-care (01) ==
LOC: HO.LAB 14:25
PROVIDERS: PCP Nurse Practitioner Primary Care; Visit Provider Internal Medicine Endocrinology, Diabetes & Metabolism
DX: E89.2 Postprocedural hypoparathyroidism (principal)
CPT/HCPCS: 36415; 82040; 82310; 84100

== ENCOUNTER 2023-09-11 10:33 | Outpatient (AMB) | payer MEDICAID, SELFPAY ==
[2023-09-11 10:35] VITALS: BP 134/76; PULSE 87; BMI 37.7
--- NOTE | 2023-09-11 10:35 | A.OFFVIS_ITS ---
Intake Vital Signs 09/11/23 10:35 Height 4 ft 11 in Weight 186 lb 11.704 oz BMI 37.7 BP 134/76 Blood Pressure Location Lt brachial Position Sitting Pulse 87 Pulse Source Pulse Oximeter Intake Visit Reasons: F/U Hypoparathyroidism-confirmed Intake Note: Patient last seen by Dr. Orosco on 01/03/23. Patient present today for Hypoparathyroidism follow up. Activated Sludge Attendant Required: No Accompanied by: Self / Same As Patient Allergies No Known Allergies [No Known Allergies*] Allergy (Verified 09/11/23 10:41) HPI HPI Comments History of Present Illness Details 53 YO Female with a PMHx of hyperparathyroidism now S/P parathyroidectomy 05/18/2014 with resultant hypoparathyroidism who is seen in F/U. The patient last saw Dr. Orosco on 01/03/2023 She was initially diagnosed with hyperparathyroidism. She had recurrent nephrolithiasis and was referred for a surgical parathyroidectomy, which she underwent 05/18/2014. 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 Intraoperative PTH declined from 85-19 indicating cure. She subsequently developed hypoparathyroidism. She was placed on Calcitriol by Dr. Mcnair. Her Calcium remained high normal, and she subsequently developed nephrolithiasis and likely nephrocalcinosis. After her initial visit with ut we stopped her Calcitriol. She had a CT scan after her initial visit with me 07/21/2021 which revealed an obstructing stone of the R kidney with resultant hydronephrosis. She was referred to Urology and has been following with them. We stopped her Calcitriol, but she subsequently developed hypocalcemia which was symptomatic. She was started on Calcium citrate 200 mg PO and is currently taking one tab BID. She denies any crmaping or paresthesias. She was also recently diagnosed with prediabetes based on 2 hour OGTT and A1C. DEXA: 08/04/2021 FINDINGS: AP SPINE L1-L4: Current: BMD 1.285 g/cm2, Z-score 1.0, T-score 0.9, normal, 0.8% decrease from previous, 8.3% increase from baseline (<5% change is not significant). Prior: BMD 1.296 g/cm2. Baseline: BMD 1.187 g/cm2. LEFT FEMUR, NECK: Current: BMD 1.057 g/cm2, Z-score 0.7, T-score 0.1, normal. Prior: BMD 0.986 g/cm2. Baseline: BMD 0.980 g/cm2. LEFT FEMUR, TOTAL: Current: BMD 1.185 g/cm2, Z-score 1.6, T-score 1.4, normal, 5.2% increase from previous, 6.9% increase from baseline (<5% change is not significant). Prior: BMD 1.126 g/cm2. Baseline: BMD 1.108 g/cm2. LEFT FOREARM RADIUS 33%: BMD 0.754 g/cm2, Z-score -1.2, T-score -1.4, osteopenia, 5.2% increase from previous, 6.6% increase from baseline (<5% change is not significant). Prior: BMD 0.717 g/cm2. Baseline: BMD 0.707 g/cm2. US Thyroid: 02/28/2018 Right Thyroid Lobe: 4.0 x 1.3 x 1.7 cm, volume 4.6 mL. Previously 5.5 x 1.7 x 1.8 cm, volume 8.8 mL. Left Thyroid Lobe: 4.8 x 1.2 x 1.8 cm, volume 5.4 mL. Previously 4.6 x 1.3 x 1.6 cm, volume 5.0 mL. Isthmus: 0.3 cm in maximum AP dimension. Previously 0.2 cm. PARENCHYMA: The gland echotexture is homogeneous. Thyroid vascularity is normal. RIGHT THYROID LOBE: No nodules. ISTHMUS: No nodules. LEFT THYROID LOBE: There are 2 nodules seen. 1. Location: Lower pole. Size: 0.4 x 0.2 x 0.3 cm. Previous: Not well delineated Nodule characteristics: Heterogeneously hypoechoic with smooth margins and mild intranodular flow 2. Location: Mid pole. Size: 0.4 x 0.2 x 0.4 cm. Previous: 0.5 x 0.2 x 0.4 cm. Nodule characteristics: Hypoechoic with smooth margins and intranodular flow NODES: No lymphadenopathy is seen in the tissue surrounding the thyroid gland. CT abdomen: 07/21/2021 FINDINGS: LUNG BASES: The visualized lung bases are unremarkable.? LIVER, GALLBLADDER, AND BILIARY TREE: The liver is low in attenuation suggestive of fatty infiltration. There is no biliary duct dilatation or focal liver lesion. The gallbladder is been removed. PANCREAS: Unremarkable.? SPLEEN: Unremarkable.? ADRENAL GLANDS: Unremarkable.? KIDNEYS AND URETERS: The right kidney is smaller than the left. The right kidney measures 7 and the left 9.5 cm in length. There is right renal cortical thinning. There are multiple right renal stones, largest measuring 5 mm in the lower pole. There is a 3 x 5 mm right proximal ureteral stone. There is very mild dilatation of the right renal collecting system and proximal ureter. There are 2 small left lower pole renal stones, largest measuring 3 m.. There is no left hydronephrosis. BLADDER: Unremarkable.? GASTROINTESTINAL TRACT: The small and large bowel are unremarkable. The appendix is unremarkable.? ABDOMINAL WALL: No significant hernia is appreciated.? LYMPH NODES: Normal. VASCULAR: Unremarkable. PELVIC VISCERA: Uterus appears to have been removed. No pelvic mass is seen. OSSEOUS STRUCTURES: There are mild degenerative changes of the spine.? Labs: Laboratory Tests 12/21/22 12/21/22 07:35 07:35 Sodium 144 Potassium 3.8 Creatinine 0.76 Estimated GFR > 60 Albumin 4.2 25-OH Vitamin D To meera 41.0 PTH Intact 14 L Calcium (PTH Intac t) 8.0 L No sx of hypocalcemia PFSH Medical History Multinodular thyroid Prediabetes Obesity Hydronephrosis concurrent with and due to calculi of kidney and ureter Recurrent nephrolithiasis Disorder of bone density and structure, unspecified Vitamin D deficiency Osteopenia Tubular adenoma of colon Carpal tunnel syndrome Obesity (BMI 30-39.9) Post-surgical hypoparathyroidism Surgical History Hx of cystoscopy History of bladder surgery Hx of parathyroidectomy Hx of colonoscopy Hx of tubal ligation Hx of cholecystectomy Hx of hysterectomy Family History Father Diabetes mellitus Mother No problems noted. Social History Household Members: Children Alcohol intake: never Patient Tobacco Use Status: Never used Tobacco Assessment & Plan Assessment & Plan (1) Osteopenia: Code(s): M85.80 - Other specified disorders of bone density and structure, unspecified site Plan: History of osteopenia. Patient's primary care provider can reorder a DEXA bone density and treat appropriately if necessary will refer back to endocrinology needed for osteoporosis if present and there is progression on the DEXA (2) Post-surgical hypoparathyroidism: Code(s): E89.2 - Postprocedural hypoparathyroidism Plan: This is a 53-year-old female status post parathyroidectomy with hypocalcemia postoperatively which now seems to have resolved with calcium and vitamin-D supplementation. At this point, patient returned to the care of her primary care provider and returned back to endocrinology as needed Coding Level of Care Code Est Pt Level 3 (87137) Diagnoses Osteopenia M85.80 Post-surgical hypoparathyroidism E89.2
== END 2023-09-11 11:58 | disposition home or self-care (01) ==
PROVIDERS: PCP Nurse Practitioner Primary Care; Referring Provider Nurse Practitioner Primary Care; Visit Provider Internal Medicine Endocrinology, Diabetes & Metabolism
DX: M85.80 Other specified disorders of bone density and structure, unspecified site (principal); E89.2 Postprocedural hypoparathyroidism
CPT/HCPCS: 99213

== ENCOUNTER → 2023-09-11 10:33 | Outpatient (BNVA) | payer MEDICAID, SELFPAY | PROVIDERS: Visit Provider Internal Medicine Endocrinology, Diabetes & Metabolism | DX: M85.80 Other specified disorders of bone density and structure, unspecified site (principal); E89.2 Postprocedural hypoparathyroidism | CPT/HCPCS: 99212 ==

== ENCOUNTER 2023-12-19 10:49 | Outpatient (REF) | payer OTHER, SELFPAY ==
--- NOTE | ~2023-12-19 | XR_ITS ---
EXAMINATION: XR FOOT, LEFT CLINICAL INFORMATION: 1 month atraumatic pain. Patient states her pain is in her left heel. Pain left foot, rule out bony abnormality. One-year atraumatic pain. COMPARISON: None available. TECHNIQUE: AP, lateral, and oblique views of the left foot. FINDINGS: The bone mineralization is normal. Joint spaces are preserved. No displaced fracture. Small dorsal and plantar calcaneal spurs. Grouped ossicles measuring up to 7 mm in the soft tissues along the plantar aspect of the calcaneus with associated soft tissue swelling, of indeterminate age and etiology. XR/XR foot LT min 3V IMPRESSION: Grouped ossicles measuring up to 7 mm in the soft tissues along the plantar aspect of the calcaneus with associated soft tissue swelling, of indeterminate age and etiology. MRI recommended for further evaluation.
[2023-12-19 11:34] LABS: MANUAL DIFF FLAG NO
[2023-12-19 11:38] LABS: Basophils Percent Auto 0.5 % (0-2); Eosinophils Percent Auto 0.6 % (0-4); Hematocrit 38.3 % (37.0-47.0); Hemoglobin 12.5 g/dl (12.0-16.0); Imm Gran Abs Auto 0.02 X10*3/uL (0.00-0.03); Imm Gran Pct Auto 0.3 % (0.0-0.4); Lymphocytes Absolute Auto 2.3 X10*3/uL (1.2-4.9); Mean Corpuscular HGB Conc 32.6 g/dl (31.0-35.0); Mean Corpuscular Hemoglobin 28.4 pg (27.0-33.0); Monocytes Absolute Auto 0.5 X10*3/uL (0.1-1.2); Monocytes Percent Auto 8.1 % (2-11); Neutrophils Absolute Auto 3.6 x10*3/uL (2.0-8.3); Neutrophils Percent Auto 55.5 % (45-73); Platelet Count 229 X10*3/uL (160-400); Red Cell Distribution Width 14.4 % (11.0-16.0); White Blood Count 6.5 X10*3/uL (4.8-10.8)
[2023-12-19 12:35] LABS: Anion Gap 15 (12-20); Blood Urea Nitrogen 15 mg/dL (9-16); Calcium 8.6 mg/dL (8.4-10.2); Carbon Dioxide 26 mmol/L (22-29); Chloride 103 mmol/L (96-108); Cholesterol 192 mg/dL (<200); Estimated Glomerular Filt Rate > 60; Glucose Random 95 mg/dL (60-115); HDL Cholesterol 60 mg/dL (>40); LDL Cholesterol Calculated 109 mg/dL (<100); Potassium 3.3 mmol/L (3.3-5.1); Sodium 141 mmol/L (135-145); Triglycerides 115 mg/dL (<150)
[2023-12-19 12:40] LABS: TSH reflex Free T4 1.83 uIU/mL (0.32-4.0); Vitamin D 25-OH Total 37.8 ng/mL (>30)
[2023-12-19 14:08] LABS: Creatinine Urine 156.81 mg/dL; Microalbum/Creatinine Ratio Ur 5.7 ug/mg cr (<30)
== END 2023-12-19 10:50 | disposition home or self-care (01) ==
LOC: HO.HHCL 10:49
PROVIDERS: Visit Provider Nurse Practitioner Primary Care
DX: M79.672 Pain in left foot (principal); I10 Essential (primary) hypertension; R73.03 Prediabetes; E21.3 Hyperparathyroidism, unspecified; M79.671 Pain in right foot; Z00.00 Encounter for general adult medical examination without abnormal findings
CPT/HCPCS: 36415; 73630; 80048; 80061; 82043; 82306; 82570; 83970; 84443; 85025

== ENCOUNTER 2024-01-22 13:10 | Outpatient (REF) | payer OTHER, SELFPAY ==
--- NOTE | ~2024-01-22 | XR_ITS ---
EXAMINATION: XR ABDOMEN KUB CLINICAL INDICATION: Calculus of kidney. COMPARISON: January 10, 2023. TECHNIQUE: 2 AP views of the abdomen. FINDINGS: Surgical clips in the right upper quadrant. Redemonstration of 2 rounded densities in the left lower quadrant, likely phleboliths. An 8 mm calcification in the right lower hemipelvis, possibly a vascular calcification versus distal ureteral calculus. Degenerative changes in the lumbar spine and bilateral sacroiliac joints. Nonobstructive bowel gas pattern. Redemonstration of multiple calculi overlying the right kidney which are difficult to evaluate due to multiple loops of overlying bowel. XR/XR KUB IMPRESSION: 1. Redemonstration of multiple calculi overlying the right kidney which are difficult to evaluate due to multiple loops of overlying bowel. 2. An 8 mm calcification in the right lower hemipelvis, possibly a vascular calcification versus distal ureteral calculus.
== END 2024-01-22 13:11 | disposition home or self-care (01) ==
LOC: HO.XRAY 13:10
PROVIDERS: PCP Nurse Practitioner Primary Care; Visit Provider Urology
DX: N20.0 Calculus of kidney (principal)
CPT/HCPCS: 74018

== ENCOUNTER 2024-02-18 13:33 | Outpatient (AMB) | payer OTHER, SELFPAY ==
[2024-02-18 13:40] VITALS: BP 117/75; PULSE 81; BMI 37.5
--- NOTE | 2024-02-18 13:40 | A.OFFVIS_ITS ---
Vital Signs 02/18/24 13:40 Height 4 ft 11 in Weight 185 lb 10.067 oz BMI 37.5 BP 117/75 Blood Pressure Location Lt brachial Position Sitting Pulse 81 Intake Visit Reasons: 6 month follow up CIC Intake Note: Nancy returns to in office 6 months follow up CIC. CC: Patient states that about a month ago she began to bleed from her hemorrhoid. She states that she would like have a hemorrhoidectomy. She states that she still waiting to be scheduled for colonoscopy. Barrel Cooper Required: Yes Accompanied by: Self / Same As Patient Allergies No Known Allergies [No Known Allergies*] Allergy (Verified 02/18/24 13:46) HPI HPI 6 month follow up CIC: Details: Assessment & Plan (1) Tubular adenoma of colon: Comment: 2022= negative scope but poor prep repeat in 1 year; 2019 large Code(s): D12.6 - Benign neoplasm of colon, unspecified Plan: Setswana #Deana Live She was already aware of the need to repeat the scope. She started the prep around 4pm and she drank it all but She was not moving her bowels well. She admits that she ate some green bananas so compliance was reviewed. I also will have her stop the fiber 3 days before to promote better clearance. I will send PEG and bisacodyl tablets. The procedure was well tolerated. The results were explained and the patient is agreeable to the follow-up interval as stated. The bowel pattern has returned to normal. Education was provided to tell any 1st degree relatives about their findings to be sure that they are screened by age 45. Educated that they will be put on a recall list when it is time for their repeat scope but should they move out of state or away from the hospital they will need to remember along with their primary to repeat the procedure in a timely fashion to avoid any adverse complications. She continues on her senna and fiber with good control of her constipation. Return office visit in 6 months (2) Constipation: Code(s): K59.00 - Constipation, unspecified Medications: New bisacodyl (Dulcolax (bisacodyl)) 10 mg (2 x 5 mg) PO BEDTIME 4 tabs 0RF 2 days peg 3350-electrolytes 236-22.74-6.74 -5.86 gram (Golytely) until fecal effluent is clear; do not exceed a total volume of 2,000 mL 240 mL PO Q10M 4,000 mL 0RF 1 day Z12.11 - Encounter for screening for malignant neoplasm of colon psyllium husk (Reguloid (psyllium husk)) 0.4 grams PO BID 60 caps 6RF K59.00 - Constipation, unspecified Refilled sennosides (Senna Laxative) 8.6 mg PO BID 60 tabs 6RF K59.00 - Constipation, unspecified COLONOSCOPY Yet to be scheduled her needs to be ordered this visit BIOPSY CORRESPNDENCE On 10/08/23 @ 08:34 Leyda Tillman Wrote To [facility] letter mailed to pt to call office to schedule repeat. Leyda Tillman completed item. On 10/06/23 @ 00:00 System Wrote To [facility] Reminder sent to recipient On 06/05/23 @ 13:28 Leyda Tillman Wrote To [facility] On 06/05/23 @ 13:21 Cuong Gold Wrote To [facility] ladies, needs rept colo--3-6 months. poor prep ate day before TODAY'S VISIT Setswana #Brett Live She continues on her senna and fiber with good control of her constipation. She says she never got the letter to reschedule. She has been seeing some RB with her BM's this past month, and when she gets the blood she has a throbbing pain. She is concerned because she is bleeding a lot, and I ask her to qualify and she says it is filling the whole bowl red - she is also on asa therapy. She asks if we can remove her roids, and I explain why this is not possible. She declines surgical referral. We walk her down to the schedulers so they can get a date for her repeat colonoscopy. Return office visit in 6 months and of course after the colonoscopy. [facility] Medical History Multinodular thyroid Prediabetes Obesity Hydronephrosis concurrent with and due to calculi of kidney and ureter Recurrent nephrolithiasis Disorder of bone density and structure, unspecified Vitamin D deficiency Osteopenia Tubular adenoma of colon Carpal tunnel syndrome Obesity (BMI 30-39.9) Post-surgical hypoparathyroidism Surgical History Hx of cystoscopy History of bladder surgery Hx of parathyroidectomy Hx of colonoscopy Hx of tubal ligation Hx of cholecystectomy Hx of hysterectomy Family History Father Diabetes mellitus Mother No problems noted. Social History Household Members: Children Alcohol intake: never Patient Tobacco Use Status: Never used Tobacco Review of Systems Const Denies fatigue, Denies fever(s), Denies night sweats, Denies poor appetite and Denies weight loss ENT Reports Normal hearing present, Denies dental pain, Denies dysphagia, Denies hearing loss, Denies mouth pain, Denies odynophagia, Denies throat swelling, Denies tongue swelling and Reports other (Dentition adequate) Card Reports no additional complaints Resp Reports no additional complaints GI Details: Denies abdominal pain, Denies melena, Denies bloating, Reports hematochezia, Reports constipation, Denies GI cramping, Denies dysphagia, Denies excessive flatus, Denies early satiety, Reports heartburn, Denies diarrhea, Denies nausea, Denies odynophagia, Denies vomiting and Denies hematemesis Skin/Breast Denies pruritus, Denies lesions, Denies rash and Denies jaundice Neuro Reports Normal hearing present and Denies Abnormal speech present Endo Denies fatigue Aller/Immun Denies throat swelling and Denies tongue swelling Physical Exam Vital Signs: Last Vital Signs Pulse 81 02/18/24 13:40 BP 117/75 02/18/24 13:40 BMI result Body Mass Index 37.5 Const General: cooperative, no acute distress, well developed and well groomed Nutritional Appearance: well nourished and obese Orientation/consciousness: oriented to person, oriented to place and oriented to time Limitations: language barrier HEENT Head: Yes normocephalic and Yes atraumatic Eyes General: appearance normal, both eyes and all related structures Pupils: Equal, round and reactive pupils present Neck Neck: Yes normal visual inspection and Yes no lymphadenopathy Thyroid: Thyroid normal Resp Effort & Inspection: normal respiratory effort and able to speak in complete sentences Auscultation: clear to auscultation bilaterally Cardio Rate: regular rate Rhythm: regular rhythm Heart sounds: Normal, physiologic split S2 sound present Peripheral pulses: radial pulses present and posterior tibial pulses present GI Inspection: No distended, Yes Abdominal panniculus present and Yes obesity Palpation (GI): Soft to palpation, nontender, no guarding, not rigid and No hepatosplenomegaly present Percussion: Yes normal to percussion Auscultation: normal bowel sounds Rectal Exam - Female: deferred Skin General skin exam: no rashes or lesions noted, turgor normal, skin not dry, no jaundice, No spider nevi and no striae Rashes: no rashes Nails: normal Neuro General: oriented to person, oriented to place and oriented to time Cranial nerves: Yes Equal, round and reactive pupils present and Yes Normal hearing present Speech: No Abnormal speech present Extrem General: Yes normal to inspection, No clubbing, No cyanosis and No edema Psych Appearance: grossly normal and well kempt Mental Status: mental status grossly normal Speech and movement: Normal speech and movement present Affect: normal affect Attitude: cooperative Thought process: Normal thought process present and not confabulating Thought content: Normal thought content present Insight: Limited insight present (Psych) Judgement: Limited judgement present (Psych) Assessment & Plan Assessment & Plan (1) Constipation: Code(s): K59.00 - Constipation, unspecified Category: Medical (2) Tubular adenoma of colon: Comment: 2022= negative scope but poor prep repeat in 1 year; 2019 large Code(s): D12.6 - Benign neoplasm of colon, unspecified Category: Medical Plan Setswana #Brett Live She continues on her senna and fiber with good control of her constipation. She says she never got the letter to reschedule. She has been seeing some RB with her BM's this past month, and when she gets the blood she has a throbbing pain. She is concerned because she is bleeding a lot, and I ask her to qualify and she says it is filling the whole bowl red - she is also on asa therapy. She asks if we can remove her roids, and I explain why this is not possible. She declines surgical referral. We walk her down to the schedulers so they can get a date for her repeat colonoscopy. Return office visit in 6 months and of course after the colonoscopy. COLONOSCOPY Yet to be scheduled her needs to be ordered this visit BIOPSY Medications: New hydrocortisone 2.5% (Proctosol HC) BE SURE TO INCLUDE RECTAL APPICATOR!! 1 appl [place] BID 30 grams 6RF hemorrhoids K64.9 - Unspecified hemorrhoids Refilled sennosides (Senna Laxative) 8.6 mg PO BID 60 tabs 6RF K59.00 - Constipation, unspecified psyllium husk (Reguloid (psyllium husk)) 0.4 grams PO BID 60 caps 6RF K59.00 - Constipation, unspecified Coding Level of Care Code Est Pt Level 3 (68425) Diagnoses Constipation K59.00 Tubular adenoma of colon D12.6
== END 2024-02-18 14:19 | disposition home or self-care (01) ==
PROVIDERS: PCP Nurse Practitioner Primary Care; Visit Provider Nurse Practitioner
DX: K59.00 Constipation, unspecified (principal); D12.6 Benign neoplasm of colon, unspecified
CPT/HCPCS: 99213

== ENCOUNTER → 2024-02-18 13:33 | Outpatient (BNVA) | payer MEDICAID, SELFPAY | PROVIDERS: PCP Nurse Practitioner Primary Care; Visit Provider Nurse Practitioner | DX: K59.00 Constipation, unspecified (principal); D12.6 Benign neoplasm of colon, unspecified | CPT/HCPCS: 99212 ==

== ENCOUNTER 2024-02-25 13:43 | Outpatient (AMB) | payer OTHER, SELFPAY ==
--- NOTE | 2024-02-25 14:13 | MHC.OFFVIS ---
Intake Visit Reasons: follow up KUB? Intake Note: Patient is Present for Follow Up [facility] Urology Medication: Allopurinol, Vitamin B6 Antibiotic Allergies: None Blood Thinners: Aspirin Allergies No Known Allergies [No Known Allergies*] Allergy (Verified 02/25/24 14:19) Medication List - Last Reconciled 02/25/24 by Aris Coronado MD allopurinol 100 mg PO QAM amlodipine 5 mg PO DAILY aspirin (Adult Low Dose Aspirin) 81 mg PO DAILY bisacodyl (Dulcolax (bisacodyl)) 10 mg (2 x 5 mg) PO BEDTIME 2 days calcium citrate 200 mg PO TID 90 days cholecalciferol (vitamin D3) 1,000 units PO DAILY 30 days hydrocortisone 2.5% (Proctosol HC) 1 appl [place] BID lisinopril-hydrochlorothiazide 20-25 mg 1 tab PO DAILY 30 days peg 3350-electrolytes 236-22.74-6.74 -5.86 gram (Golytely) 240 mL PO Q10M 1 day psyllium husk (Reguloid (psyllium husk)) 0.4 grams PO BID pyridoxine (vitamin B6) 50 mg PO QAM sennosides (Senna Laxative) 8.6 mg PO BID HPI Comments Details: Nancy is a pleasant female. She is a patient of Dr. Neves. She is seen for the following urologic conditions - nephrolithiasis Hungarian translation provided by qualified medical reception specialist Small stone on imaging Continue B6 and allopurinol Nephrolithiasis Background of recurrent stone formation with hyperparathyroidism Underwent parathyroidectomy 2013 Imaging - 08/08 CT scan multiple right renal stones up to 5 mm, 2 stones on left - 02/07 renal ultrasound several small stones bilateral - 05/10 renal ultrasound bilateral multiple small 3 mm stones - 12/09 renal ultrasound recurrent stones - 02/09 KUB right-sided small stone Intervention - 11/07 right ureteroscopy - completed 6 months of antibiotic suppression Stone composition - 11/07 struvite stones suggestive of recurrent infection 24 hr urine - 08/09 normal calcium uric - good volume Therapeutic plan - 12 month follow-up [facility] Medical History Multinodular thyroid Prediabetes Obesity Hydronephrosis concurrent with and due to calculi of kidney and ureter Recurrent nephrolithiasis Disorder of bone density and structure, unspecified Vitamin D deficiency Osteopenia Tubular adenoma of colon Carpal tunnel syndrome Obesity (BMI 30-39.9) Post-surgical hypoparathyroidism Surgical History Hx of cystoscopy History of bladder surgery Hx of parathyroidectomy Hx of colonoscopy Hx of tubal ligation Hx of cholecystectomy Hx of hysterectomy Family History Father Diabetes mellitus Mother No problems noted. Social History Household Members: Children Alcohol intake: never Patient Tobacco Use Status: Never used Tobacco Review of Systems Const Denies chills and Denies fever(s) Card Reports no additional complaints and Denies syncope Resp Denies cough GI Denies abdominal pain and Denies heartburn Reports as per HPI and Denies change in libido Neuro Denies syncope Psych Denies change in libido Endo Denies change in libido Physical Exam Const General: cooperative, healthy appearing, comfortable and no acute distress Orientation/consciousness: patient oriented x3 HEENT Face and sinus: Yes normal facial exam Mouth: moist mucous membranes Neck Neck: Yes normal visual inspection, Yes full ROM and Yes trachea midline Chest Chest palpation & inspection: normal inspection of the chest Resp Effort & Inspection: normal respiratory effort, able to speak in complete sentences and no respiratory distress GI Inspection: Yes normal to inspection Back/Spine/Pelvis Cervical Spine: normal cervical lordosis Thoracic/Lumbar Spine: thoracic and lumbar spine normal to inspection Skin General skin exam: no rashes or lesions noted Neuro General: patient oriented x3, gait normal, tone normal and moves all extremities Extrem General: Yes normal to inspection and Yes capillary refill normal Assessment & Plan Assessment & Plan (1) Recurrent nephrolithiasis: Code(s): N20.0 - Calculus of kidney Category: Medical Plan Twelve month follow-up nurse-practitioner Orders: Orders US renal BI 1 Year N20.0 - Calculus of kidney Medications: Changed From pyridoxine (vitamin B6) 50 mg PO QAM N20.0 - Calculus of kidney To pyridoxine (vitamin B6) 50 mg PO QAM 90 days 90 tabs 3RF N20.0 - Calculus of kidney From allopurinol 100 mg PO QAM N20.0 - Calculus of kidney To allopurinol 100 mg PO QAM 90 days 90 tabs 3RF N20.0 - Calculus of kidney Patient Instructions: Imaging studies, laboratory and physical exam results were discussed and reviewed in detail. No major barriers to patient understanding were identified. An opportunity to ask questions regarding the treatment plan was provided. All questions were answered. The patient expressed understanding and agreement with the above treatment plan. The patient is aware they should contact our office by phone for worsening of their current condition or the appearance of new urologic symptoms. Compliance is encouraged with any medications and followup testing that is ordered. It is a privilege to participate in the urologic care of your patient. If you have any questions or concerns regarding treatment for the above conditions, or other urologic issues, please do not hesitate to contact me. The office telephone contact is [phone]. This note is constructed using voice recognition software. While every effort has been made to ensure accuracy video engineer errors may have been included. Yours sincerely, Dr Aris Coronado MD, [facility] - Urology Providers of Expert, Compassionate Care for the Genitourinary System Coding Level of Care Code Est Pt Level 4 (96338) Diagnoses Recurrent nephrolithiasis N20.0
== END 2024-02-25 14:45 | disposition home or self-care (01) ==
PROVIDERS: PCP Nurse Practitioner Primary Care; Visit Provider Urology
DX: N20.0 Calculus of kidney (principal)
CPT/HCPCS: 99213

== ENCOUNTER → 2024-02-25 13:43 | Outpatient (BNVA) | payer OTHER, SELFPAY | PROVIDERS: PCP Nurse Practitioner Primary Care; Visit Provider Urology | DX: N20.0 Calculus of kidney (principal); Z79.899 Other long term (current) drug therapy | CPT/HCPCS: 99212 ==

== ENCOUNTER 2024-03-19 17:52 | Outpatient (REF) | payer OTHER, SELFPAY ==
[2024-03-23 10:14] LABS: HPV mRNA E6/E7 Not Detected (Not Detected)
== END 2024-03-19 17:53 | disposition home or self-care (01) ==
LOC: HO.HHCLNP 17:52
PROVIDERS: Visit Provider Advanced Practice Midwife
DX: Z12.4 Encounter for screening for malignant neoplasm of cervix (principal)
CPT/HCPCS: 36415; 87624; 88175

== ENCOUNTER 2024-03-26 09:59 | Outpatient (REF) | payer OTHER, SELFPAY ==
--- NOTE | ~2024-03-26 | MM_ITS ---
EXAMINATION: MM SCREENING DIGITAL BREAST TOMOSYNTHESIS, BILATERAL CLINICAL INFORMATION: Screening. Asymptomatic. COMPARISON: Mammography: This study is compared with prior exams dating back to 2019. TECHNIQUE: Digital breast tomosynthesis is performed in both the craniocaudal and mediolateral oblique views along with computer-aided detection (CAD). Synthesized 2D images are generated from the tomosynthesis. FINDINGS: There are scattered areas of fibroglandular density (ACR BI-RADS breast composition Category b). There are no significant masses, abnormal calcifications, or other abnormalities. MM/MM tomosynthesis screening BI IMPRESSION: No mammographic evidence of malignancy. ASSESSMENT: BI-RADS BI-RADS 1 - Negative RECOMMENDATION: Routine annual mammography screening. 1 year F/U This examination should not preclude the clinical evaluation of a suspicious palpable abnormality. This patient's information was entered into a reminder system with a target due date for their next mammogram. Electronically signed by: Esperanza Franco MD 04/23/2024 08:56 AM EDT
== END 2024-03-26 10:00 | disposition home or self-care (01) ==
LOC: HO.MAMMO 09:59
PROVIDERS: PCP Nurse Practitioner Primary Care; Visit Provider Advanced Practice Midwife
DX: Z12.31 Encounter for screening mammogram for malignant neoplasm of breast (principal)
CPT/HCPCS: 77063; 77067

== ENCOUNTER → 2024-03-26 10:15 | Outpatient (BNV) | payer OTHER, SELFPAY | PROVIDERS: PCP Nurse Practitioner Primary Care; Visit Provider Radiology Diagnostic Radiology | DX: Z12.31 Encounter for screening mammogram for malignant neoplasm of breast (principal) | CPT/HCPCS: 77063; 77067 ==

== ENCOUNTER 2024-07-02 07:41 | Day surgery (SDC) | payer OTHER, SELFPAY ==
[2024-06-30 14:48] VITALS: BMI 37.5
[2024-06-30 15:15] VITALS: BMI 37.6
--- NOTE | 2024-07-01 09:17 | HO.ANESPROP2 ---
Documented by User: Emely Ly NP 07/01/24 09:18 HPI - Anesthesia Eval Consult details Narrative: 54yo F for Colonoscopy PMFSH Active Problems Active Problems: All Active Problems Pre-op examination (Acute) Struvite kidney stones (Acute) Upper respiratory infection (Acute) Constipation (Acute) Hemorrhoids (Acute) Prediabetes (Acute) Multinodular thyroid (Acute) Prediabetes (Acute) Obesity (Acute) Hydronephrosis concurrent with and due to calculi of kidney and ureter (Acute) Recurrent nephrolithiasis (Acute) Disorder of bone density and structure, unspecified (Acute) Vitamin D deficiency (Acute) Osteopenia (Acute) Tubular adenoma of colon (Acute) Carpal tunnel syndrome (Acute) Obesity (BMI 30-39.9) (Acute) Post-surgical hypoparathyroidism (Acute) Past Medical History Medical History Multinodular thyroid Prediabetes Obesity Hydronephrosis concurrent with and due to calculi of kidney and ureter Recurrent nephrolithiasis Disorder of bone density and structure, unspecified Vitamin D deficiency Osteopenia Tubular adenoma of colon Carpal tunnel syndrome Obesity (BMI 30-39.9) Post-surgical hypoparathyroidism Family History Family History Father Diabetes mellitus Mother No problems noted. Family history of problems with anesthesia: No Surgical History Surgical History Hx of cystoscopy History of bladder surgery Hx of parathyroidectomy Hx of colonoscopy (~05/2023) Hx of tubal ligation Hx of cholecystectomy Hx of hysterectomy History of Problems with Anesthesia: No Social History Social History Household Members: Children Are you a primary coronary care unit nurse to a significant other at home: No Do you presently have visiting nurse or other home services: No Alcohol intake: never Patient Tobacco Use Status: Never used Tobacco Use of substances other than those prescribed or required for medical reasons: No Have you been hit, kicked, punched, or otherwise hurt by someone within the past year? If so, by whom?: No Are you DNR?: No Advance Directives: No Advance Directives Information Provided: Yes Advance Directives on File: No Recently lost weight without trying: No Nutrition Risks: No Nutritional Risk Meds Allergies Allergy/AdvReac Type Severity Reaction Status Date / Time No Known Allergies Allergy Verified 07/02/24 08:24 [No Known Allergies*] Home Medications ?Medication ?Instructions ?Recorded ?Confirmed ?Last Taken ?Type amlodipine 5 mg tablet 5 mg PO DAILY 08/03/20 06/30/24 07/02/24 07:30 History aspirin 81 mg tablet,delayed 81 mg PO DAILY 08/03/20 06/30/24 06/25/24 History release (Adult Low Dose Aspirin) Exam Height,Weight and Vital Signs: Height 4 ft 10 in Weight 81.647 kg Assessment and Plan Assessment Anesthesia Assessment: Chart Reviewed Final Anesthetic Review Family History of Problems with Anesthesia: No History of Problems with Anesthesia: No Documented by User: Sybil Ovalle MD 07/02/24 10:26 [facility] Past Medical History Medical History Multinodular thyroid Prediabetes Obesity Hydronephrosis concurrent with and due to calculi of kidney and ureter Recurrent nephrolithiasis Disorder of bone density and structure, unspecified Vitamin D deficiency Osteopenia Tubular adenoma of colon Carpal tunnel syndrome Obesity (BMI 30-39.9) Post-surgical hypoparathyroidism Family History Family History Father Diabetes mellitus Mother No problems noted. Surgical History Surgical History Hx of cystoscopy History of bladder surgery Hx of parathyroidectomy Hx of colonoscopy (~05/2023) Hx of tubal ligation Hx of cholecystectomy Hx of hysterectomy Social History Social History Household Members: Children Are you a primary coronary care unit nurse to a significant other at home: No Do you presently have visiting nurse or other home services: No Alcohol intake: never Patient Tobacco Use Status: Never used Tobacco Use of substances other than those prescribed or required for medical reasons: No Have you been hit, kicked, punched, or otherwise hurt by someone within the past year? If so, by whom?: No Are you DNR?: No Advance Directives: No Advance Directives Information Provided: Yes Advance Directives on File: No Recently lost weight without trying: No Nutrition Risks: No Nutritional Risk Meds Allergies Allergy/AdvReac Type Severity Reaction Status Date / Time No Known Allergies Allergy Verified 07/02/24 08:24 [No Known Allergies*] Home Medications ?Medication ?Instructions ?Recorded ?Confirmed ?Last Taken ?Type amlodipine 5 mg tablet 5 mg PO DAILY 08/03/20 06/30/24 07/02/24 07:30 History aspirin 81 mg tablet,delayed 81 mg PO DAILY 08/03/20 06/30/24 06/25/24 History release (Adult Low Dose Aspirin) Exam Airway Mallampati Class: II TM Dist: >3cm Neck ROM: Full Loose/Missing/Broken Teeth: No Heart: RRR Lungs: CTA Assessment and Plan Assessment Anesthesia Assessment: Anesthesia Plan Discussed Final Anesthetic Review NPO: Yes ASA Class: II Final Preanesthetic Review: Meds/Allgs Chart Reviewed, Consent Obtained/Reviewed and Anes Risks/Benef Reviewed Patient Risk: Low Procedure Risk: Low Anesthetic Plan Anesthetic Plan: MAC: Disposition: Standard PACU
[2024-07-02 08:30] VITALS: BP 116/69; PULSE 71; RESP 15; TEMP 36.4; O2SAT 99
[2024-07-02] MEDS: Lactated Ringers 1,000 ML 100 ML IVCONT (08:45)
--- NOTE | 2024-07-02 08:51 | MHC.SHP ---
Pre-Procedural Eval Section A - 24 Hr Update-Section A only Date of Service: 07/02/24 Section B - Complete if H&P > 30 days Chief Complaint: Benign neoplasm of colon,constipation Relevant Family History (Specify if Yes): No Relevant Social History: None Present Medications: see Short Stay Collaborative assessment Medical History: Significant History (Multinodular thyroid Prediabetes Obesity Hydronephrosis concurrent with and due to calculi of kidney and ureter Recurrent nephrolithiasis Disorder of bone density and structure, unspecified Vitamin D deficiency Osteopenia Tubular adenoma of colon Carpal tunnel syndrome Obesity (BMI 30-39.9) Post-rakesh) History of Previous Operations: Relevant previous surgery/procedure and date(s) (Hx of cystoscopy History of bladder surgery Hx of parathyroidectomy Hx of colonoscopy (~05/2023) Hx of tubal ligation Hx of cholecystectomy Hx of hysterectomy) Allergies: Allergies Allergy/AdvReac Type Severity Reaction Status Date / Time No Known Allergies Allergy Verified 07/02/24 08:24 [No Known Allergies*] Review of Systems Sugical H&P ROS: Negative: Constitution, Cardiovascular, Respiratory, Neurological, Psychiatric, Hem-Onc, Allergic/Immunologic, Gastrointestinal, Genitourinary, Musculoskeletal, Integumentary, Endocrine and Eyes/Ears/Nose/Throat Exam Surgical H&P Exam: Normal: HEENT, Normal: Heart, Normal: Lungs, Normal: Extremities, Normal: Abdomen, Normal: Skin and Normal: Neurological Plan Diagnosis/Plan: Unchanged I have reviewed the history and physical and performed a pertinent physical examination on my patient. No changes have occurred unless specified. Time Spent With Patient Time: Total time managing care of this patient today ____ minutes.
--- NOTE | 2024-07-02 10:10 | P.OPN-COLO_ITS ---
Colonoscopy Operative Note Operative Note Date of Service: 07/02/24 Narrative: Operative Information Procedure Description: Colonoscopy Indication: screening Anesthesia: MAC COLONOSCOPY Instrument: Olympus variable stiffness pediatric scope 190L Colonoscopy Monitoring: Vital signs and clinical assessment, continuous EKG monitoring, Pulse oximetry, Carbon Dioxide monitoring and blood pressure monitoring were done throughout the procedure. Colon withdrawal time was 15 minutes. Procedure: The patient was placed in the left lateral decubitis position and pre-procedure medications were administered. After a digital rectal examination of the ano-rectum, the video colonoscope was inserted into the rectum and advanced through the colon to the cecum/TI. The colonoscope was slowly withdrawn in a retrograde panoramic fashion and the colon mucosa was carefully examined including a retroflexed view of the rectum. Findings and interventions are described below. Procedure Difficulty: moderate Findings: Terminal Ileum- superficial intubation, normal Cecum:normal Ascending Colon: 6-8 mm sessile polyp removed with cold snare, prior tatto dale noted in mid colon Transverse Colon -normal Descending Colon:normal Sigmoid Colon: normal Rectum: Retroflexion with small internal hemorrhoids seen, grade I Anorectum - normal Intervention: cold snare Colon preparation: [place] Bowel Preparation Scale Right colon; 1-2 Transverse colon: 2 Left colon; 2 (0 = Unprepared colon segment with mucosa not seen due to solid stool that cannot be cleared. 1 = Portion of mucosa of the colon segment seen, but other areas of the colon segment not well seen due to staining, residual stool and/or opaque liquid. 2 = Minor amount of residual staining, small fragments of stool and/or opaque liquid, but mucosa of colon segment seen well. 3 = Entire mucosa of colon segment seen well with no residual staining, small fragments of stool or opaque liquid) Impression and Post Procedure Diagnosis: colon polyp internal hemorrhoids Plan: High fiber diet leaflet Avoid straining at stool, epsom salts and sitz bath, anusol supps or cream Repeat Colonoscopy in 1-2 years due to fair right sided prep or earlier if clinically indicated Above findings were reviewed with the patient and relevant handouts were provided if indicated.
[2024-07-02 10:12] VITALS: BP 106/76; PULSE 79; RESP 18; TEMP 36.2; O2SAT 100
[2024-07-02 10:27] VITALS: BP 101/59; PULSE 65; RESP 16; O2SAT 97
[2024-07-02 10:42] VITALS: BP 110/67; PULSE 64; RESP 16; TEMP 36.2; O2SAT 98
== END 2024-07-02 11:09 | disposition home or self-care (01) ==
PROVIDERS: PCP Nurse Practitioner Primary Care; Visit Provider Internal Medicine Gastroenterology
PROC: 0DJD8ZZ Inspection of Lower Intestinal Tract, Via Natural or Artificial Opening Endoscopic (ICD-10-PCS; CPT 45378; principal; 2024-07-02 10:00)
DX: Z12.11 Encounter for screening for malignant neoplasm of colon (principal); Z86.0101 Personal history of adenomatous and serrated colon polyps; D12.2 Benign neoplasm of ascending colon; K59.00 Constipation, unspecified; K64.0 First degree hemorrhoids; R73.03 Prediabetes; E66.9 Obesity, unspecified; Z68.37 Body mass index [BMI] 37.0-37.9, adult; E04.2 Nontoxic multinodular goiter; N13.30 Unspecified hydronephrosis; N20.0 Calculus of kidney; M85.80 Other specified disorders of bone density and structure, unspecified site; E55.9 Vitamin D deficiency, unspecified; Z98.890 Other specified postprocedural states; Z79.899 Other long term (current) drug therapy
CPT/HCPCS: 45385; 88305; J2003; J2704

== ENCOUNTER → 2024-07-02 07:41 | Outpatient (BNV) | payer OTHER, SELFPAY | PROVIDERS: PCP Nurse Practitioner Primary Care; Visit Provider Internal Medicine Gastroenterology | DX: Z12.11 Encounter for screening for malignant neoplasm of colon (principal); D12.0 Benign neoplasm of cecum; K64.0 First degree hemorrhoids | CPT/HCPCS: 45385 ==

== ENCOUNTER 2024-11-25 14:44 | Outpatient (AMB) | payer OTHER, SELFPAY ==
[2024-11-25 14:49] VITALS: BP 108/68; PULSE 80; BMI 36.8
--- NOTE | 2024-11-25 14:49 | MHC.OFFVIS ---
Vital Signs 11/25/24 14:49 Height 4 ft 10 in Weight 176 lb BMI 36.8 BP 108/68 Blood Pressure Location Lt brachial Position Sitting Pulse 80 Intake Visit Reasons: s/p colonoscopy Intake Note: Patient in office today in follow up s/p colonoscopy. CC: Patient c/o bleeding hemorrhoids, occasional constipation. Transformation Analyst Required: Yes Transformation Analyst Language: [place] Accompanied by: Self / Same As Patient Allergies No Known Allergies [No Known Allergies*] Allergy (Verified 11/25/24 14:56) HPI HPI s/p colonoscopy: Details: Assessment & Plan (1) Constipation: Code(s): K59.00 - Constipation, unspecified Category: Medical (2) Tubular adenoma of colon: Comment: 2022= negative scope but poor prep repeat in 1 year; 2018 large Code(s): D12.6 - Benign neoplasm of colon, unspecified Category: Medical Plan [place] #Brett Live She continues on her senna and fiber with good control of her constipation. She says she never got the letter to reschedule. She has been seeing some RB with her BM's this past month, and when she gets the blood she has a throbbing pain. She is concerned because she is bleeding a lot, and I ask her to qualify and she says it is filling the whole bowl red - she is also on asa therapy. She asks if we can remove her roids, and I explain why this is not possible. She declines surgical referral. We walk her down to the schedulers so they can get a date for her repeat colonoscopy. Return office visit in 6 months and of course after the colonoscopy. Medications: New hydrocortisone 2.5% (Proctosol HC) BE SURE TO INCLUDE RECTAL APPICATOR!! 1 appl CA BID 30 grams 6RF hemorrhoids K64.9 - Unspecified hemorrhoids Refilled sennosides (Senna Laxative) 8.6 mg PO BID 60 tabs 6RF K59.00 - Constipation, unspecified psyllium husk (Reguloid (psyllium husk)) 0.4 grams PO BID 60 caps 6RF K59.00 - Constipation, unspecified COLONOSCOPY 07/02/24 Findings: Terminal Ileum- superficial intubation, normal Cecum:normal Ascending Colon: 6-8 mm sessile polyp removed with cold snare, prior tatto dale noted in mid colon Transverse Colon -normal Descending Colon:normal Sigmoid Colon: normal Rectum: Retroflexion with small internal hemorrhoids seen, grade I Anorectum - normal Intervention: cold snare Impression and Post Procedure Diagnosis: colon polyp internal hemorrhoids Plan: High fiber diet leaflet Avoid straining at stool, epsom salts and sitz bath, anusol supps or cream Repeat Colonoscopy in 1-2 years due to fair right sided prep or earlier if clinically indicated BIOPSY Received: 07/02/24 Diagnosis Colon, cecum, polypectomy: Tubular adenoma; negative for high-grade dysplasia. CORRESPONDENCE On 09/18/24 @ 12:43 Grace Alvarado Wrote To Iris Lazar I called patient and let her know, suppositories are not covered by insurance, so you suggest she buy OTC preparation H supps. She will go today and buy OTC preparation H supps, thank you. On 09/18/24 @ 12:38 Iris Lazar Wrote To Grace Alvarado suppositories are not covered by insurance, so I suggest she buy OTC preparation H supps. On 09/17/24 @ 10:11 Grace Alvarado Wrote To Iris Lazar Patient wanted you to send suppository because the cream is not working, she have followup on 11/2024 we have to cancel the last follow up due you are out of office. TODAY'S VISIT [place] #V live The procedure needs to be repeated in 2 years r/t poor prep. There was some miscommunication as she thought that she only had a non cancerous polyp and that her prep was good, and clearly it was not. I even clarify this with the instructions that the MD/endoscopist asked to be relayed to her and this is correct. The procedure was well tolerated. The results were explained and the patient is agreeable to the follow-up interval as stated. The bowel pattern has returned to normal. Education was provided to tell any 1st degree relatives about their findings to be sure that they are screened by age 45. Educated that they will be put on a recall list when it is time for their repeat scope but should they move out of state or away from the hospital they will need to remember along with their primary to repeat the procedure in a timely fashion to avoid any adverse complications. She continues on her senna and fiber. She continues to have rectal bleeding with every BM. She is using OTC hemorrhoid suppositories, but only using them qd and not for a full 14 days, therefore she says they calm down for a while but then they just come back. I educate her. We also discussed surgery, but I don't know if hers are extensive/large enough to warrant this. But, I will refer her if she wishes to ask the surgeon about this. She feels her current medication acceptably controls her hemorrhoids. However, this has worsened since she started Zepbound - which would be expected. She is at the beginning of this and if her meds stop working as she increases the dose she should contact me. KINGA 3 mos. [facility] Medical History (Updated 11/25/24 @ 15:08 by CONSTANCE Ji) Upper respiratory infection Pre-op examination Multinodular thyroid Prediabetes Obesity Hydronephrosis concurrent with and due to calculi of kidney and ureter Recurrent nephrolithiasis Disorder of bone density and structure, unspecified Vitamin D deficiency Osteopenia Tubular adenoma of colon Carpal tunnel syndrome Obesity (BMI 30-39.9) Post-surgical hypoparathyroidism Surgical History Hx of cystoscopy History of bladder surgery Hx of parathyroidectomy Hx of colonoscopy (~05/2023) Hx of tubal ligation Hx of cholecystectomy Hx of hysterectomy Family History Father Diabetes mellitus Mother No problems noted. Social History (Reviewed 11/25/24 @ 14:56 by COMFORT Rodriguez Household Members: Children Are you a primary progressive care nurse to a significant other at home: No Do you presently have visiting nurse or other home services: No Alcohol intake: never Patient Tobacco Use Status: Never used Tobacco Review of Systems Const Denies fatigue, Denies fever(s), Denies night sweats, Denies poor appetite and Denies weight loss Eyes Details: glasses Reports requires corrective lenses ENT Reports Normal hearing present, Denies dental pain, Denies dysphagia, Denies hearing loss, Denies mouth pain, Denies odynophagia, Denies throat swelling, Denies tongue swelling and Reports other (Dentition adequate) Card Reports no additional complaints Resp Reports no additional complaints GI Details: Denies abdominal pain, Denies melena, Denies bloating, Denies hematochezia, Reports constipation, Denies GI cramping, Denies dysphagia, Denies excessive flatus, Denies early satiety, Reports heartburn, Denies diarrhea, Denies nausea, Denies odynophagia, Denies vomiting and Denies hematemesis Skin/Breast Denies pruritus, Denies lesions, Denies rash and Denies jaundice Neuro Reports Normal hearing present and Denies Abnormal speech present Endo Denies fatigue Aller/Immun Denies throat swelling and Denies tongue swelling Physical Exam Vital Signs: Last Vital Signs Pulse 80 11/25/24 14:49 BP 108/68 11/25/24 14:49 BMI result Body Mass Index 36.8 Const General: cooperative, no acute distress, well developed and well groomed Nutritional Appearance: well nourished and obese Orientation/consciousness: oriented to person, oriented to place and oriented to time Limitations: language barrier HEENT Head: Yes normocephalic and Yes atraumatic Eyes General: appearance normal, both eyes and all related structures Pupils: Equal, round and reactive pupils present Neck Neck: Yes normal visual inspection and Yes no lymphadenopathy Thyroid: Thyroid normal Resp Effort & Inspection: normal respiratory effort and able to speak in complete sentences Auscultation: clear to auscultation bilaterally Cardio Rate: regular rate Rhythm: regular rhythm Heart sounds: Normal, physiologic split S2 sound present Peripheral pulses: radial pulses present and posterior tibial pulses present GI Inspection: No distended, Yes Abdominal panniculus present and Yes obesity Palpation (GI): Soft to palpation, nontender, no guarding, not rigid and No hepatosplenomegaly present Percussion: Yes normal to percussion Auscultation: normal bowel sounds Rectal Exam - Female: deferred Skin General skin exam: no rashes or lesions noted, turgor normal, skin not dry, no jaundice, No spider nevi and no striae Rashes: no rashes Nails: normal Neuro General: oriented to person, oriented to place and oriented to time Cranial nerves: Yes Equal, round and reactive pupils present and Yes Normal hearing present Speech: No Abnormal speech present Extrem General: Yes normal to inspection, No clubbing, No cyanosis and No edema Psych Thought process: Normal thought process present and not confabulating Thought content: Normal thought content present Insight: Good insight present (Psych) Judgement: Good judgement present (Psych) Results Reviewed Results Reviewed: COLONOSCOPY 07/02/24 Findings: Terminal Ileum- superficial intubation, normal Cecum:normal Ascending Colon: 6-8 mm sessile polyp removed with cold snare, prior tatto dale noted in mid colon Transverse Colon -normal Descending Colon:normal Sigmoid Colon: normal Rectum: Retroflexion with small internal hemorrhoids seen, grade I Anorectum - normal Intervention: cold snare Impression and Post Procedure Diagnosis: colon polyp internal hemorrhoids Plan: High fiber diet leaflet Avoid straining at stool, epsom salts and sitz bath, anusol supps or cream Repeat Colonoscopy in 1-2 years due to fair right sided prep or earlier if clinically indicated BIOPSY Received: 07/02/24 Diagnosis Colon, cecum, polypectomy: Tubular adenoma; negative for high-grade dysplasia. Assessment & Plan Assessment & Plan (1) Constipation: Code(s): K59.00 - Constipation, unspecified Category: Medical (2) Hemorrhoids: Code(s): K64.9 - Unspecified hemorrhoids Category: Medical (3) Tubular adenoma of colon: Comment: 11/2024=TA but poor prep repeat 2 years; 2022= negative scope but poor prep repeat in 1 year; 2019 large Code(s): D12.6 - Benign neoplasm of colon, unspecified Category: Medical Plan [place] #V live The procedure needs to be repeated in 2 years r/t poor prep. There was some miscommunication as she thought that she only had a non cancerous polyp and that her prep was good, and clearly it was not. I even clarify this with the instructions that the MD/endoscopist asked to be relayed to her and this is correct. The procedure was well tolerated. The results were explained and the patient is agreeable to the follow-up interval as stated. The bowel pattern has returned to normal. Education was provided to tell any 1st degree relatives about their findings to be sure that they are screened by age 45. Educated that they will be put on a recall list when it is time for their repeat scope but should they move out of state or away from the hospital they will need to remember along with their primary to repeat the procedure in a timely fashion to avoid any adverse complications. She continues on her senna and fiber. She continues to have rectal bleeding with every BM. She is using OTC hemorrhoid suppositories, but only using them qd and not for a full 14 days, therefore she says they calm down for a while but then they just come back. I educate her. We also discussed surgery, but I don't know if hers are extensive/large enough to warrant this. But, I will refer her if she wishes to ask the surgeon about this. She feels her current medication acceptably controls her hemorrhoids. However, this has worsened since she started Zepbound - which would be expected. She is at the beginning of this and if her meds stop working as she increases the dose she should contact me. KINGA 3 mos. Coding Level of Care Code Est Pt Level 4 (18528) Diagnoses Constipation K59.00 Hemorrhoids K64.9 Tubular adenoma of colon D12.6 Time Spent (min) 34
--- OUTSIDE RECORDS SUMMARY | 2024-11-25 16:56 | XMS_ITS | Encounter Summary ---
Author Organization [facility] Address [address] [place] [address] Care Team Providers Care Metallurgist Process Name Role Phone Bibi Neves Primary Care Provider [phone] Encounter Details Date Type Department Care Team (Latest Contact Info) Description 08/26/2019 Abstract [facility] CONVERSIONS Dental, Provider, DDS Social History Tobacco Use Types Packs/Day Years Used Date Smoking Tobacco: Never Assessed Comments Unknown Sex and Gender Information Value Date Recorded Sex Assigned at Female 06/18/2022 10:17 AM EDT Legal Sex Female 10:17 AM EDT Gender Identity Female 06/18/2022 10:17 AM EDT Sexual Orientation Straight 06/18/2022 10 :17 AM EDT documented as of this encounter Plan of Treatment Upcoming Encounters Date Type Department Care Team (Late st Contact Info) Description 12/01/2024 2:00 PM EDT Office Visit [facility] MEDICINE [address] [place] [id number] Bibi Neves ANP [address] [place] [address] 12/25/2024 2:30 PM EDT Office Visit [facility] MEDICINE [address] [place] [address] Bibi Neves ANP [address] [place] [address] 04/30/2025 3:00 PM EDT Office Visit [facility] ADULT DENTAL [address] [place] [address] Humaira Garcia [address] [place] [address] documented as of this encounter Visit Diagnoses Not on filedocumented in this encounter Care Teams Metallurgist Process Relationship Specialty Start Date End Date Bibi Neves ANP [address] [place] [address] PCP - General Family Medicine 04/18/20 documented as of this encounter
--- OUTSIDE RECORDS SUMMARY | 2024-11-25 16:56 | XMS_ITS | Clinical Summary ---
Author Organization [facility] Address [address] [place] [address] Phone Care Team Providers Care Production Superintendent Name Role Phone Pura Bibi Velez NP Primary Care Provider [phone] Encounters Date Type Department Care Team Description 11/04/2024 1:45 PM EDT Consult Orthopedic Surgery [facility] [address] [facility] [address] [place] [address] Tu Pena, DPM Posterior tibial tendon dysfunction (PTTD) of right lower extremity (Primary Dx); Pain in right foot from Last 3 Months Social History Tobacco Use Types Packs/Day Years Used Date Smoking Tobacco: Never Assessed Comments Unknown Sex and Gender Information Value Date Recorded Sex Assigned at Not on file Legal Sex Female 5:05 AM EST Gender Identity Not on file Sexual Orientation Not on file Last Filed Vital Signs Vital Sign Reading Time Taken Comments Blood Pressure - - Pulse - - Temperature - - Respiratory Rate - - Oxygen Saturation - - Inhaled Oxygen Concentration - - Weight 80.7 kg (178 lb) 11/04/2024 1:48 PM EDT Height 147.3 cm (4' 10 ) 11/04/2024 1:48 PM EDT Body Mass Index 37.2 11/04/2024 1:48 PM EDT Plan of Treatment Health Maintenance Due Date Last Done Comments Breast Cancer Screening 1969 Cervical Cancer Screening: Pap Smear 1990 Hepatitis B Vaccines (2 of 3 - 19+ 3-dose series) 07/07/2012 06/09/2012 Colorectal Cancer Screening: Colonoscopy 07/28/2024 Hepatitis C Screening 07/28/2024 Social Influencers of Health Screening 07/28/2024 Hypertension/CHF/CAD Annual BMP Blood Test 11/04/2024 Depression Screening 10/14/2025 10/14/2024 Cholesterol Screening (Lipid Panel) 12/18/2028 12/19/2023 DTaP,Tdap,and Td Vaccines (4 - Td or Tdap) 07/07/2034 07/07/2024, 06/16/2014, 04/28/2008 HIV Screening Completed 06/03/2020 Zoster Vaccines Completed 08/09/2020, 06/03/2020 Influenza Vaccine Completed 07/07/2024, , 05/24/2019, Additional history exists COVID-19 Vaccine Completed 10/14/2024 Pneumococcal Vaccine: 50+ Years Completed 10/14/2024 Pneumococcal Vaccine: Pediatrics (0 to 5 Years) and At-Risk Patients (6 to 64 Years) Aged Out 10/14/2024 No longer eligible based on patient's age to complete this topic HIB Vaccines Aged Out No longer eligi ble based on patient's age to complete this topic HPV Vaccines Aged Out No longer eligi ble based on patient's age to complete this topic Hepatitis A Vaccines Aged Out No long er eligible based on patient's age to complete this topic IPV Vaccines Aged Out No longer eligi ble based on patient's age to complete this topic MMR Vaccines Aged Out No longer eligi ble based on patient's age to complete this topic Meningococcal ACWY Vaccine Aged Out N o longer eligible based on patient's age to complete this topic Meningococcal B Vaccine Aged Out No l onger eligible based on patient's age to complete this topic RSV Immunization Patients Under 20 months Aged Out No longer eligible based on patient's age to complete this topic Varicella Vaccines Aged Out No longer eligible based on patient's age to complete this topic Insurance [facility] Care Teams Production Superintendent Relationship Specialty Start Date End Date Neves, Bibi R, RE[employer] [address] [place] [id number] PCP - General 07/28/24
--- OUTSIDE RECORDS SUMMARY | 2024-11-25 16:56 | XMS_ITS | Clinical Summary ---
Author Organization [employer] Address [address] [facility] [place] [address] Care Team Providers Care Cnc Mill Set Up Operator Name Role Phone Silas Harding JENNIFER Primary Care Provider [phone] Allergies No known active allergies Medications Bisacodyl EC 5 MG EC tablet TAKE 2 TABLETS BY MOUTH EVERY DAY AT BEDTIME FOR 2 DAYS DIRECTED 3 Active aspirin 81 MG EC tablet take 1 tablet by oral route every day Active senna (Senokot) 8.6 MG tablet TAKE 1 TABLET BY MOUTH TWICE DAILY IN THE MORNING AND AT BEDTIME 3 Active Reguloid 0.52 g capsule TAKE 1 CAPSULE BY MOUTH TWICE DAILY IN THE MORNING AND AT BEDTIME 4 Active pyridoxine (Vitamin B-6) 50 MG tablet Take 1 tablet (50 mg) by mouth in the morning. 90 tablet 4 Active allopurinol (Zyloprim) 100 MG tablet Take 1 tablet (100 mg) by mouth in the morning. 90 tablet 4 Active amLODIPine (Norvasc) 5 MG tabletIndication s:Essential hypertension TAKE 1 TABLET BY MOUTH EVERY MORNING 90 tablet 1 5 Active lisinopril-hydro CHLOROthiazide 20-25 MG tabletIndication s:Essential hypertension TAKE 1 TABLET BY MOUTH EVERY MORNING 90 tablet 1 5 Active acetaminophen (Tylenol) 500 MG tabletIndication s:Dental calculus Take 1 tablet (500 mg) by mouth every 8 (eight) hours if needed for mild pain. 21 tablet 5 Active Tirzepatide-Weig ht Management (Zepbound) 5 MG/0.5ML solution auto-injectorInd ications:Obesity (BMI 30-39.9) Inject 0.5 mL (5 mg) under the skin 1 (one) time per week. 2 mL 5 Active Tirzepatide-Weig ht Management (Zepbound) 2.5 MG/0.5ML solution auto-injectorInd ications:Prediab etes,Obesity (BMI 30-39.9) Inject 0.5 mL (2.5 mg) under the skin 1 (one) time per week. 2 mL 5 11/07/19 25 Discontinu ed(Dose adjustment ) amoxicillin (Amoxil) 500 MG capsuleIndicatio ns:Dental calculus Take 1 capsule (500 mg) by mouth every 8 (eight) hours for 7 days. 21 capsule 5 11/03/19 25 Active Problems Problem Noted Date Diagnosed Date Dental calculus 09/23/2023 Localized gingival recession, minimal 09/23/2023 Hyperparathyroidism 09/04/2017 Prediabetes 09/04/2017 Mixed anxiety and depressive disorder 06/29/2013 History of hysterectomy for benign disease 04/28 Overview (12/19/2023): Per pt, has retained ovaries and cervix. She thinks she is due for pap. Prefers female provider. Calcification of breast 12/22/2012 Raynaud's disease 12/22/2012 Hypertension 12/22/2012 Overview (12/19/2023): Has not been on meds for some time. Restarted amlodipine 5mg recently, and lisinopril-hydrochlorothiazide 20-25. Goal </= 130/80. Continue to encourage low salt diet, regular exercise, home BP monitoring, compliance with medications. Call clinic if BP is frequently >150/90 Go to ED/call 911 if > 170/100 and having sx such as DAS, visual changes, chest pain, SOB Last renal function: Lab Results Component Value Date GLUCOSE 133 (H) 02/05/2023 NA 143 02/05/2023 K 3.5 02/05/2023 CO2 27 02/05/2023 CL 103 02/05/2023 BUN 16 02/05/2023 CREATININE 0.79 02/05/2023 Lab Results Component Value Date MICROALBCREA 17 06/03/2020 MICROALBCREA 17 06/03/2020 No results found for: MICROALBCREU Encounters Date Type Department Care Team Description 11/06/2024 Refill [facility] [address] [place] [address] Silas Harding ANP Obesity (BMI 30-39.9) (Primary Dx) 10/26/2024 3:00 PM EDT Office Visit [facility] ADULT DENTAL [address] [place] [phone] Humaira Garcia Dental calculus (Primary Dx) 10/14/2024 3:00 PM EST Office Visit [facility] MEDICINE [address] [place] [phone] Silas Harding ANP Prediabetes (Primary Dx); Obesity (BMI 30-39.9) 10/14/2024 Travel 10/09/[address] [address] Myrna Moser MA chart prep 10/06/2024 Refill [facility] [address] [place] [address] Silas Harding ANP Essential hypertension 09/30/[address] [address] Silas Harding ANP Prior Authorization (Zepbound) 09/30/2024 Patient Outreach [address] [address] Silas Harding ANP Pre-visit Planning (SDOH Screening negative and Tobacco screening negative) 09/28/[address] [address] Silas Harding ANP Medication Question 09/22/2024 Orders Only [address] [address] Nilesh Mrate, PharmD from Last 3 Months Immunizations Name Administration Dates Next Due Hep B, adult 06/09/2012 Influenza Injectable Quadriv alant Preservative Free IIV4 MDCK 05/10/2023 Influenza injectable quadriv alent IIV4 with preservative 06/13/2016 Influenza injectable quadriv alent preservative free 05/24/2019,07/07/2018,05/17/2017 Influenza, IIV3, injectable 06/16/2014, 7 Influenza, Split (incl. lena fied surface antigen) 06/29/2013,06/09/2012 Influenza, seasonal, injecta ble, preservative free 07/07/2024 Pfizer Covid-19 Vaccine 12+ 10/14/2024 Pneumococcal Conjugate PCV 20 10/14/2024 TD (adult), 2 Lf tetanus tox oid, preservative free, adsorbed 07/07/2024,04/28/2008 Tdap 06/16/2014 Zoster, Recombinant 08/09/2020,06/03/2020 Family History Medical History Relation Name Comments Vaginal cancer Father's Sister Relation Name Status Comments Father's Sister Social History Tobacco Use Types Packs/Day Years Used Date Smoking Tobacco: Never Passive Smoke Exposure: Never Smokeless Tobacco: Never Tobacco Cessation:Counseling Given: Not Answered Alcohol Use Standard Drinks/Week Comments Never 0 (1 standard drink = 0.6 oz pur e alcohol) Depression Answer Date Recorded Patient Health Questionnaire-9 Score 0 10/14/2024 Patient Health Questionnaire-9 Score 0 10/14/2024 Last PHQ-9: Questionnaire Data Not on file 0 10/14/2024 Housing Stability Answer Date Recorded What is your housing situation today? I have suzie gleason 12/12/[address] you li ve. Do you have problems with any of the following? None of the above 12/12/2023 Food Insecurity Answer Date Recorded Within the past 12 months, y ou worried that your food would run out before you got money to buy more: Never True 12/12/2023 Within the past 12 months,th e food you bought just didn't last and you didn't have enough money to get more: Never True Transportation Answer Date Recorded In the past 12 months, has l ack of transportation kept you from medical appts, meetings, work or from getting things needed for daily living? No 12/12/2023 Utilities Answer Date Recorded In the past 12 months, has t he electric, gas, oil or water company threatened to shut off services in your home? No 12/12/2023 Depression Answer Date Recorded Patient Health Questionnaire-2 Score 0 10/14/2024 Internet Access Answer Date Recorded Internet Access Q1 Yes 06/30/2024 Internet Access Q2 Not on file 06/30/2024 Comments No Sex and Gender Information Value Date Recorded Sex Assigned at Female 06/18/2022 10:17 AM EDT Legal Sex Female 10:17 AM EDT Gender Identity Female 06/18/2022 10:17 AM EDT Sexual Orientation Straight 06/18/2022 10 :17 AM EDT Last Filed Vital Signs Vital Sign Reading Time Taken Comments Blood Pressure 134/78 10/26/2024 3:06 PM EDT Pulse 88 10/14/2024 2:59 PM EST Temperature 36.3 ??C (97.4 ??F) 10/14/2024 2:59 PM ES T Respiratory Rate 14 10/14/2024 2:59 PM EST Oxygen Saturation 98% 10/14/2024 2:59 PM EST Inhaled Oxygen Concentration - - Weight 81.2 kg (179 lb) 10/14/2024 2:59 PM EST Height 147.3 cm (4' 10 ) 03/19/2024 1:39 PM EDT Body Mass Index 37.41 03/19/2024 1:39 PM EDT Plan of Treatment Upcoming Encounters Date Type Department Care Team (Late st Contact Info) Description 12/01/2024 2:00 PM EDT Office Visit [facility] MED[facility]INE [address] [place] [phone] Silas Harding, ANP [address] [place] [address] 12/25/2024 2:30 PM EDT Office Visit [facility]INE [address] [place] [address] Silas Harding, ANP [address] [place] [address] 04/30/2025 3:00 PM EDT Office Visit [facility] ADULT DENTAL [address] [place] [address] Humaira Garcia [address] [place] [address] Health Maintenance Due Date Last Done Comments CT Colonography 1969 FIT DNA/Cologuard 1970 FIT 1970 FOBT 1970 Sigmoidoscopy 1970 Hepatitis B Vaccines (2 of 3 - 19+ 3-dose series) 07/07/2012 06/09/2012 Mammogram 03/26/2025 03/26/2024, 08/0 03/2024, 12/27/2022, Additional history exists Dental Oral Exam 04/29/2025 10/26/2024, 12/2023, 06/05/2022, Additional history exists Dental Prophylaxis 04/29/2025 10/26/2024, 0 04/27/2024, 09/23/2023, Additional history exists Alcohol/Substance Use Screening 07/07/2025 07/07/2024 Diabetes: Hemoglobin A1C 07/07/2025 024, 12/21/2022, 02/08/2022, Additional history exists SDOH Screening 09/30/2025 09/30/2024 Depression Screening 10/14/2025 10/14/2024, 10/14/19 Tobacco Screening 10/26/2025 10/26/2024 Dental X-Ray: Bitewings 10/27/2025 10/27/19, 09/23/2023, 03/06/2019, Additional history exists Colonoscopy 07/15/2026 Colorectal Cancer Screening 07/15/2026 Dental X-Ray: Full Mouth 09/24/2026 09/23/2023, 04/20 Lipid Panel 12/18/2028 12/19/2023, 06/03/2020 Cervical Cancer Screening 03/19/2029 HPV/Cotest 03/19/2029 03/19/2024 Pap Smear 03/19/2029 03/19/2024 DTaP/Tdap/Td Vaccines (3 - Td or Tdap) 07/07/2034 07/07/2024, 06/16/2014, 04/28/2008 RSV Patients and Patients Aged 60 years or older (1 - 1-dose 75+ series) 02/12/2044 HIV Screening Completed 06/03/2020 Hepatitis C Screening Completed 06/03/2020 Zoster Vaccines Completed 08/09/2020, 06/03/2020 Influenza Vaccine Completed 07/07/2024, , 05/24/2019, Additional history exists COVID-19 Vaccine Completed 10/14/2024, , 08/23/2021, Additional history exists Pneumococcal Vaccine: 50+ Years Completed 10/14/2024 HIB Vaccines Aged Out No longer eligi [...] patient's age to complete this topic Meningococcal Vaccine Aged Out No yajaira ana eligible based on patient's age to complete this topic RSV under 20 months Aged Out No longe r eligible based on patient's age to complete this topic Rotavirus Vaccines Aged Out No longer eligible based on patient's age to complete this topic Procedures Procedure Name Priority Date/Time Associated Diagnosis Comments PERIODIC ORAL EVALUATION - ESTABLISHED PATIENT Routine 10/26/2024 3:00 PM EDT INTRAORAL - PERIAPICAL EACH ADDITIONAL RADIOGRAPHIC IMAGE Routine 10/26/2024 3:00 PM EDT PROPHYLAXIS - ADULT Routine 10/26/2024 3 :00 PM EDT Dental calculus ORAL HYGIENE INSTRUCTIONS Routine 10/26/2024 3:00 PM EDT Dental calculus CASE PRESENTATION, DETAILED AND EXTENSIVE TREATMENT PLANNING Routine 10/26/2024 3:00 PM EDT Dental calculus INTRAORAL - PERIAPICAL EACH ADDITIONAL RADIOGRAPHIC IMAGE Routine 10/26/2024 3:00 PM EDT Dental calculus INTRAORAL - PERIAPICAL FIRST RADIOGRAPHIC IMAGE Routine 10/26/2024 3:00 PM EDT Dental calculus BITEWINGS - 4 RADIOGRAPHIC IMAGES Routine 10/26/2024 3:00 PM EDT Dental calculus POCT GLYCATED HEMOGLOBIN, TOTAL Routine 07/07/2024 2:48 PM EST Prediabetes BI MAMMOGRAM SCREENING TOMOSYNTHESIS BILATERAL Routine 03/26/2024 10:15 AM EDT Breast cancer screening by mammogram THINPREP IMAGING PAP AND HPV MRNA E6/E7 Routine 03/19/2024 2:04 PM EDT LIPID PANEL, STANDARD Routine 12/19/2023 10:20 AM EDT Prediabetes INTRAORAL - COMPLETE SERIES OF RADIOGRAPHIC IMAGES Routine 09/23/2023 8:00 AM EST Dental calculus Localized gingival recession, minimal ZZZ HISTORICAL HEPATITIS C AB W/REFL TO HCV RNA, QN, PCR Routine 06/03/2020 9:27 AM EDT HIV 1/2 ANTIGEN/ANTIBODY, FOURTH GENERATION W/RFL Routine 06/03/2020 9:27 AM EDT from Last 3 Months or Most Recently Relevant to Health Maintenance Results * POCT HGB A1C (07/07/2024 2:48 PM EST) Hemoglobin A1C 5.9 4.0 - 6.0 % QC Media Lot # [id number] Lot# Expiration Date Blood 07/07/2024 2:48 PM EST Silas Harding [facility] POINT OF CARE TEST ENTER/EDIT OR DERABLES Final Result * BI Mammogram Screening Tomosynthesis Bilateral (03/26/2024 10:15 AM EDT) Anatomical Region Laterality Modality Breast Bilateral Mammography 03/26/2024 10:1 5 AM EDT Narrative 04/23/2024 8:59 AM EDT ? [facility] ? [address] [facility] ?[place] [address] ? Mammography Report ? Signed ? Patient: Nancy Agudelo ?MR#: [id number] ?? 1 ? : 1970 ?Acct:[id number] ? Age/Sex: 54 / F ?ADM Date: 03/26/24 ? Loc: HO.MAMMO ? Attending Dr: Renny Willingham CNM ? Ordering Physician: RENNY WILLINGHAM CNM ?Results: 1 ?? Negative ? Date of Service: 03/26/24 ?Follow Up: 1 Year From Orig ?? inal Mammogram ? Procedure(s): MM tomosynthesis screening BI ?? Accession Number(s): [id number] ? cc: RENNY WILLINGHAM CNM; SILAS HARDING NP ? EXAMINATION: ?? MM SCREENING DIGITAL BREAST TOMOSYNTHESIS, BILATERAL ? CLINICAL INFORMATION: ? Screening. Asymptomatic. ? COMPARISON: ?? Mammography: This study is compared with prior exams dating back to ? 2018. ? TECHNIQUE: ?? Digital breast tomosynthesis is performed in both the craniocaudal and ?? mediolateral oblique views along with computer-aided detection (CAD). ? Synthesized 2D images are generated from the tomosynthesis. ? FINDINGS: ?? There are scattered areas of fibroglandular density (ACR BI-RADS breast ?? composition Category b). ? There are no significant masses, abnormal calcifications, or other ?? abnormalities. ? MM/MM tomosynthesis screening BI ?? IMPRESSION: ?? No mammographic evidence of malignancy. ? ASSESSMENT: ? BI-RADS BI-RADS 1 - Negative ? RECOMMENDATION: ?? Routine annual mammography screening. ? 1 year F/U ? This examination should not preclude the clinical evaluation of a ?? suspicious palpable abnormality. ? This patient's information was entered into a reminder system with a ?? target due date for their next mammogram. ? Electronically signed by: ??Esperanza Franco MD ??04/23/2024 08:56 AM EDT RP ? Dictated By: ?Esperanza Franco MD ? Signed By: ?<Electronically signed by Esperanza Franco MD in OV> ? 04/23/24 0856 ? DD/ 1015 ? TD/TT: 03/26/24 1037 ? Apprentice Painter Hand: ? Procedure Note Donotuseinterpreter, Image - 04/23/2024 [facility] [address] [place] [address] Mammography Report Signed Patient: Nancy Agudelo RMR#: [id number] 1 : 1970Acct:[id number] Age/Sex: 54 / FADM Date: 03/26/24 Loc: [facility] Attending Dr: Renny Willingham CNM Ordering Physician: RENNY WILLINGHAMesults: 1 Negative Date of Service: 03/26/24Follow Up: 1 Year From Orig inal Mammogram Procedure(s): MM tomosynthesis screening BI Accession Number(s): [id number] cc: RENNY WILLINGHAM CNM; SILAS HARDING NP EXAMINATION: MM SCREENING DIGITAL BREAST TOMOSYNTHESIS, BILATERAL CLINICAL INFORMATION: Screening. Asymptomatic. COMPARISON: Mammography: This study is compared with prior exams dating back to 2019. TECHNIQUE: Digital breast tomosynthesis is performed in both the craniocaudal and mediolateral oblique views along with computer-aided detection (CAD). Synthesized 2D images are generated from the tomosynthesis. FINDINGS: There are scattered areas of fibroglandular density (ACR BI-RADS breast composition Category b). There are no significant masses, abnormal calcifications, or other abnormalities. MM/MM tomosynthesis screening BI IMPRESSION: No mammographic evidence of malignancy. ASSESSMENT: BI-RADS BI-RADS 1 - Negative RECOMMENDATION: Routine annual mammography screening. 1 year F/U This examination should not preclude the clinical evaluation of a suspicious palpable abnormality. This patient's information was entered into a reminder system with a target due date for their next mammogram. Electronically signed by: Esperanza Franco MD 04/23/2024 08:56 AM EDT Dictated By: Esperanza Franco MD Signed By: <Electronically signed by Esperanza Franco MD in OV> 04/23/24 0856 DD/ 1015 TD/TT: 03/26/24 1037 Apprentice Painter Hand: Renny Willingham [facility] IMG BI PROCEDURES Edited Result - Final * ThinPrep Imaging Pap and HPV mRNA E6/E7 (03/19/2024 2:04 PM EDT) HPV nRNA E6/E7 Not Detected Not Detected [facility] Comment:Methodology: Transcr iption-Mediated AmplificationThis assay detects E6/E7 viral messenger RNA (mRNA) from 14high-risk HPV types (16,18,31,33,35,39,45,51,52,56,58,59,66,68).Cervical sources are required for HPV testing.If a vaginal source from a patient who has had atotal hysterectomy with removal of cervix wassubmitted, please contact the testing laboratoryfor alternative testing options.For additional information, please refer tohttp://education.[email or web address]/faq/RKA282y0(This link if provided for information/educational purposes only.)THIS TEST WAS PERFORMED AT:[facility] [place] [phone] RIOS MD SOURCE: SEE NOTE [facility] Comment:None given Report Status: [facility] Clinical Information: SEE NOTE [facility] Comment:None given LMP: SEE NOTE [facility] Comment:NONE GIVEN Prev. PAP: SEE NOTE [facility] Comment:NONE GIVEN Prev. BX: SEE NOTE [facility] Comment:NONE GIVEN Statement Of Adequacy: SEE NOTE [facility] Comment:Satisfactory for mario luation.Endocervical/transformation zone component absent. General Categorization: [facility] Interpretation/Result: SEE NOTE [facility] Comment:Cytology Results: Ne gative for intraepitheliallesion or malignancy. Cytology Comment SEE NOTE [facility] Comment:This Pap test has be en evaluated with computerassisted technology. Eyewear Manufacturing Tech: SEE NOTE [facility] Comment:[place], CT(ASCP)CT scre ening location: [address] [address] Review Eyewear [employer] Tech: [facility] Pathologist [facility] PAP Infection [facility] See Note SEE NOTE [facility] Comment:EXPLANATORY NOTE:The Pap is a screening test for cervical cancer. It isnot a diagnostic test and is subject to false negativeand false positive results. It is most reliable when asatisfactory sample, regularly obtained, is submittedwith relevant clinical findings and history, and whenthe Pap result is evaluated along with historic andcurrent clinical information. 03/19/2024 2:04 PM EDT 03/19/2024 5:54 PM EDT Narrative [facility] - 03/25/2024 3:00 PM EDT SEE SCANNED RESULTS IN EMR us Renny THOMPS[facility] LAB PATHOLOGY ORDERABLES Final Result [facility] [address] [place] [address] [phone] * (ABNORMAL) Lipid Panel, Standard (12/19/2023 10:20 AM EDT) Triglycerides 115 <150 mg/dL [facility] Comment:Desirable Triglyceri de: less than 150 mg/dLBorderline High Triglyceride 150-199 mg/dLHigh Triglyceride: 200-499 mg/dLVery High Triglyceride: greater than or equal to 5OO mg/dL Cholesterol 192 <200 mg/dL [facility] Comment:Desirable Cholestero l: less than 200 mg/dLBorderline High Cholesterol: 200-239 mg/dLHigh Cholesterol: greater than 239 mg/dL LDL Cholesterol Calculated 109(H) <100 mg/dL [facility] Comment:Desirable LDL: less than 100 mg/dLNear Optimal/Above Optimal LDL: 110- 129 mg/dLBorderline High LDL: 130-159 mg/dLHigh LDL: 160-189 mg/dLVery High LDL: greater than or equal to 190 mg/dL HDL Cholesterol 60 >40 mg/dL [facility] Comment:Desirable HDL: great er than 40 mg/dL Note: This HDL assay may give artificially low results in patients with liver disease. Blood Venous blood specimen / Unknown 12/19/2023 10:20 AM EDT 12/19/2023 11:34 AM EDT [facility] LAB BLOOD ORDERABLES Final Resul t [facility] [address] [place] [address] [phone] * HEPATITIS C AB W/REFL TO HCV RNA, QN, PCR (06/03/2020 9:27 AM EDT) HEPATITIS C ANTIBODY NON-REACT JOVANNY NON-REACT JOVANNY [facility] INDEX 0.02 <1.00 [facility] Comment: ?? HCV antibody was non-reactive. There is no laboratory ?? evidence of HCV infection. ?? In most cases, no further action is required. However, if recent HCV exposure is suspected, a test for HCV RNA (test code 02238) is suggested. ?? For additional information please refer to http://Rule./faq/UEV52p2 (This link is being provided for informational/ educational purposes only.) ?? HEPATITIS C ANTIBODY NON-REACT JOVANNY NON-REACT JOVANNY [facility] INDEX 0.02 <1.00 [facility] Comment: ?? HCV antibody was non-reactive. There is no laboratory ?? evidence of HCV infection. ?? In most cases, no further action is required. However, if recent HCV exposure is suspected, a test for HCV RNA (test code 41929) is suggested. ?? For additional information please refer to http://Rule./faq/JOU70e2 (This link is being provided for informational/ educational purposes only.) ?? HEPATITIS C ANTIBODY NON-REACT JOVANNY NON-REACT JOVANNY [facility] INDEX 0.02 <1.00 [facility] Comment: ?? HCV antibody was non-reactive. There is no laboratory ?? evidence of HCV infection. ?? In most cases, no further action is required. However, if recent HCV exposure is suspected, a test for HCV RNA (test code 48615) is suggested. ?? For additional information please refer to http://Triumfant.PastBook/faq/DFS80h1 (This link is being provided for informational/ educational purposes only.) ?? 06/03/2020 9:27 AM EDT us Silas Harding ANP HISTORICAL/NON ORDERABLE LABS Fi nal Result [facility] [address] * HIV 1/2 ANTIGEN/ANTIBODY,FOURTH GENERATION W/RFL (06/03/2020 9:27 AM EDT) HIV-1/2 ANTIGEN AND ANTIBODIES, 4TH GENERATION W/ REFLEX NON-REACT JOVANNY NON-REACT [facility] Comment: HIV-1 antigen and HIV-1/HIV-2 antibodies were not detected. There is no laboratory evidence of HIV infection. ?? PLEASE NOTE: This information has been disclosed to you from records whose confidentiality may be protected by state law. ??If your state requires such protection, then the state law prohibits you from making any further disclosure of the information without the specific written consent of the person to whom it pertains, or as otherwise permitted by law. A general authorization for the release of medical or other information is NOT sufficient for this purpose. ? For additional information please refer to http://Triumfant.PastBook/faq/QYW482 (This link is being provided for informational/ educational purposes only.) ? The performance of this assay has not been clinically validated in patients less than 2 years old. ?? HIV-1/2 ANTIGEN AND ANTIBODIES, 4TH GENERATION W/ REFLEX NON-REACT JOVANNY NON-REACT JOVANNY [facility] Comment: HIV-1 antigen and HIV-1/HIV-2 antibodies were not detected. There is no laboratory evidence of HIV infection. ?? PLEASE NOTE: This information has been disclosed to you from records whose confidentiality may be protected by state law. ??If your state requires such protection, then the state law prohibits you from making any further disclosure of the information without the specific written consent of the person to whom it pertains, or as otherwise permitted by law. A general authorization for the release of medical or other information is NOT sufficient for this purpose. ? For additional information please refer to http://Triumfant.PastBook/faq/WSA439 (This link is being provided for informational/ educational purposes only.) ? The performance of this assay has not been clinically validated in patients less than 2 years old. ?? HIV-1/2 ANTIGEN AND ANTIBODIES, 4TH GENERATION W/ REFLEX NON-REACT JOVANNY NON-REACT JOVANNY [facility] Comment: HIV-1 antigen and HIV-1/HIV-2 antibodies were not detected. There is no laboratory evidence of HIV infection. ?? PLEASE NOTE: This information has been disclosed to you from records whose confidentiality may be protected by state law. ??If your state requires such protection, then the state law prohibits you from making any further disclosure of the information without the specific written consent of the person to whom it pertains, or as otherwise permitted by law. A general authorization for the release of medical or other information is NOT sufficient for this purpose. ? For additional information please refer to http://Triumfant.PastBook/faq/RAE635 (This link is being provided for informational/ educational purposes only.) ? The performance of this assay has not been clinically validated in patients less than 2 years old. ?? 06/03/2020 9:27 AM EDT [facility] LAB BLOOD ORDERABLES Final Resul t [facility] [address] from Last 3 Months or Most Recently Relevant to Health Maintenance Insurance HSN PARTIAL [facility] - HSN PARTIAL (MEDICAID) Care Teams Cnc Mill Set Up Operator Relationship Specialty Start Date End Date Silas Harding ANP [address] [place] [address] PCP - General Family Medicine 04/18/20
--- OUTSIDE RECORDS SUMMARY | 2024-11-25 16:56 | XMS_ITS | Encounter Summary ---
Author Organization [facility] Address [address] [facility] 7t [place] [address] Care Team Providers Care Correctional Probation Officer Name Role Phone Bibi Neves Primary Care Provider [phone] Reason for Visit * Reason Comments Med Refill Encounter Details Date Type Department Care Team (Late Contact Info) Description 09/10/2023 Refill [facility] [address] [place] [address] Bibi Neves ANP [address] [place] [address] 25554 Social History Tobacco Use Types Packs/Day Years [...] Encounters Date Type Department Care Team (Late Contact Info) Description 12/01/2024 2:00 PM EDT Office Visit [facility] [address] [place] [address] 95648 Bibi Neves ANP [address] [place] [address] 12/25/2024 2:30 PM EDT Office Visit [facility] [address] [place] [address] 36511 Bibi Neves ANP [address] [place] [address] 29[address] 04/30/2025 3:00 PM EDT Office Visit [facility] [address] [place], [place] [phone] Erik Garciaaris [address] [place], [place] [phone] documented as of this encounter Visit Diagnoses Not on filedocumented in this encounter Care Teams Correctional Probation Officer Relationship Specialty Start Date End Date Bibi Neves ANP 230 [place] [address] PCP - General Family Medicine 04/18/20 documented as of this encounter
--- OUTSIDE RECORDS SUMMARY | 2024-11-25 16:56 | XMS_ITS | Encounter Summary ---
Author Organization [facility] [facility] Address [address] [place] [address] 7t [place] [address] Care Team Providers Care Bus System Operator Name Role Phone Bibi Neves Primary Care Provider [phone] Reason for Visit * Reason Comments Med Refill Encounter Details Date Type Department Care Team (Late Contact Info) Description 11/07/2023 Refill [facility] [address] [place] [address] Bibi Neves ANP [address] [place] [address] 935[address] Postprocedural hypoparathyroidism (CMS/HCC) Social History Tobacco Use Types Packs/Day Years Used Date Smoking Tobacco: Never Passive Smoke Exposure: Never Smokeless Tobacco: Never Comments Unknown Sex and Gender Information Value Date Recorded Sex Assigned at Female 06/18/2022 10:17 AM EDT Legal Sex Female 10:17 AM EDT Gender Identity Female 06/18/2022 10:17 AM EDT Sexual Orientation Straight 06/18/2022 10 :17 AM EDT documented as of this encounter Plan of Treatment Upcoming Encounters Date Type Department Care Team (Late Contact Info) Description 12/01/2024 2:00 PM EDT Office Visit [facility] [address] [place] [address] 26410 Bibi Neves ANP [address] [place] [address] 12/25/2024 2:30 PM EDT Office Visit [facility] [address] [place] [address] 56601 Bibi Neves ANP 230 [place] [address] 04/30/2025 3:00 PM EDT Office Visit [facility] [address] [place], [place] [phone] Erik Garciaaris [address] [place], [place] [phone] documented as of this encounter Visit Diagnoses Diagnosis Postprocedural hypoparathyroidism (CMS/HCC) documented in this encounter Care Teams Bus System Operator Relationship Specialty Start Date End Date Bibi Neves ANP [address] [place] [address] PCP - General Family Medicine 04/18/20 documented as of this encounter
--- OUTSIDE RECORDS SUMMARY | 2024-11-25 16:56 | XMS_ITS | Encounter Summary ---
Author Organization [facility] Address [address] [facility] 7t [place] [address] Care Team Providers Care Wire Straightener Name Role Phone Bibi Neves Primary Care Provider [phone] Reason for Visit * Reason Comments Med Refill Encounter Details Date Type Department Care Team (Late Contact Info) Description 02/17/2023 Refill [facility] [address] [place] [address] 32770 Bibi Neves ANP [address] [place] [address] 14137 Social History Tobacco Use Types Packs/Day Years [...] Description 12/01/2024 2:00 PM EDT Office Visit [facility] [address] [place] [address] Bibi Neves ANP [address] [place] [address] 12/25/2024 2:30 PM EDT Office Visit [facility] [address] [place] [address] 85099 Bibi Neves ANP [address] [place] [address] 04/30/2025 3:00 PM EDT Office Visit [facility] 230 [place], [place] [phone] Erik Garciaaris 230 [place], [place] [phone] documented as of this encounter Visit Diagnoses Not on filedocumented in this encounter Care Teams Wire Straightener Relationship Specialty Start Date End Date Bibi Neves ANP [address] [place] [address] PCP - General Family Medicine 04/18/20 documented as of this encounter
--- OUTSIDE RECORDS SUMMARY | 2024-11-25 16:57 | XMS_ITS | Encounter Summary ---
Author Organization [employer] Address [address] [facility] [address] 7t [place] [address] Care Team Providers Care Machine Wedger Name Role Phone Bibi Neves JENNIFER Primary Care Provider [phone] Encounter Details Date Type Department Care Team (Late st Contact Info) Description 09/22/2024 Orders Only [facility] [address] [place] [address] Nilesh Marte PharmD Social History Tobacco Use Types Packs/Day Years Used Date Smoking Tobacco: Never Passive Smoke Exposure: Never Smokeless Tobacco: Never Alcohol Use Standard Drinks/Week Comments Never 0 (1 standard drink = 0.6 oz pur e alcohol) Depression Answer Date Recorded Patient Health Questionnaire-9 Score 2 12/19/2023 Patient Health Questionnaire-9 Score 2 12/19/2023 Last PHQ-9: Questionnaire Data Not on file 0 12/19/2023 Housing Stability Answer Date Recorded What is [...] the past 12 months, has t he [employer], gas, oil or water company threatened to shut off services in your home? No 12/12/2023 Depression Answer Date Recorded Patient Health Questionnaire-2 Score 0 12/19/2023 Internet Access Answer Date Recorded Internet Access [...] Description 12/01/2024 2:00 PM EDT Office Visit [facility] [address] [place] [phone] Bibi Neves ANP 230 [place] [address] 12/25/2024 2:30 PM EDT Office Visit [facility] [address] [place] [address] Bibi Neves ANP 230 [place] [address] 04/30/2025 3:00 PM EDT Office Visit [facility] [address] [place] [address] Radha, Humaira [address] [place] [address] documented as of this encounter Visit Diagnoses Not on filedocumented in this encounter Additional Health Concerns Assessment Noted Time PHQ-9 Depression Total Score: 2 12/19/19 24 10:14 AM EDT documented as of this encounter Care Teams Machine Wedger Relationship Specialty Start Date End Date Bibi Neves ANP [address] [place] [address] PCP - General Family Medicine 04/18/20 documented as of this encounter
--- OUTSIDE RECORDS SUMMARY | 2024-11-25 16:57 | XMS_ITS | Encounter Summary ---
Author Organization [employer] [facility] Address [address] [facility] [address] 7t [place] [address] Care Team Providers Care Package Reinspector Name Role Phone Bibi Neves Primary Care Provider [phone] Encounter Details Date Type Department Care Team (Latest Contact Info) Description 06/05/2022 Abstract [facility] CONVERSIONS Dental, Provider, DDS Social History Tobacco [...] Description 12/01/2024 2:00 PM EDT Office Visit [facility] [address] [place] [address] Bibi Neves ANP 230 [place] [address] 12/25/2024 2:30 PM EDT Office Visit [facility] [address] [place] [address] Bibi Neves ANP [address] [place] [address] 04/30/2025 3:00 PM EDT Office Visit [facility] [address] [place] [address] Humaira Garcia [address] [place] [address] documented as of this encounter Visit Diagnoses Not on filedocumented in this encounter Care Teams Package Reinspector Relationship Specialty Start Date End Date Bibi Neves ANP [address] [place] [address] PCP - General Family Medicine 04/18/20 documented as of this encounter
--- OUTSIDE RECORDS SUMMARY | 2024-11-25 16:57 | XMS_ITS | Encounter Summary ---
Author Organization [employer] Address [address] [facility] [address] 7t [place] [address] Care Team Providers Care Head Of Advertising Name Role Phone Bibi Neves Primary Care Provider [phone] Encounter Details Date Type Department Care Team (Late st Contact Info) Description 11/12/2022 Orders Only [facility] [address] [place], [place] [phone] Sharonda Gotti LPN Social History Tobacco Use Types Packs/Day Years [...] Description 12/01/2024 2:00 PM EDT Office Visit [facility] [address] [place] [address] Bibi Neves ANP 230 [place] [address] 12/25/2024 2:30 PM EDT Office Visit [facility] [address] [place] [address] 56834 Bibi Neves ANP [address] [place] [address] 04/30/2025 3:00 PM EDT Office Visit [facility] AD[facility] D[facility] [address] [place] [address] Humaira Garcia 230 [place] [address] documented as of this encounter Visit Diagnoses Not on filedocumented in this encounter Care Teams Head Of Advertising Relationship Specialty Start Date End Date Bibi Neves ANP [address] [place] [address] PCP - General Family Medicine 04/18/20 documented as of this encounter
== END 2024-11-25 15:32 | disposition home or self-care (01) ==
LOC: HO.HGI 14:44
PROVIDERS: PCP Nurse Practitioner Primary Care; Visit Provider Nurse Practitioner
DX: K59.00 Constipation, unspecified (principal); K64.9 Unspecified hemorrhoids; D12.6 Benign neoplasm of colon, unspecified
CPT/HCPCS: 99214

== ENCOUNTER → 2024-11-25 14:44 | Outpatient (BNVA) | payer OTHER, SELFPAY | PROVIDERS: PCP Nurse Practitioner Primary Care; Visit Provider Nurse Practitioner | DX: K59.00 Constipation, unspecified (principal); K64.9 Unspecified hemorrhoids; D12.6 Benign neoplasm of colon, unspecified | CPT/HCPCS: 99212 ==

== ENCOUNTER 2025-02-18 10:34 | Outpatient (REF) | payer OTHER, SELFPAY ==
--- NOTE | ~2025-02-18 | US_ITS ---
CLINICAL HISTORY: N20.0 - Calculus of kidney US of kidneys Comparison: None Findings: Right kidney is normal in size, echogenicity and morphology, 9.1 cm in length. Nonobstructing calyceal calculi 11 mm in the lower pole, 5 mm in the midpole, 7 mm in the upper pole, additional smaller echogenic foci also noted. No mass or hydronephrosis. Left kidney is normal in size, echogenicity and morphology, 12.0 cm in length. 4 mm calculus in the upper pole. Additional smaller echogenic foci noted. Mild pelviectasis, no calyceal dilatation. No mass or hydronephrosis. Limited color Doppler demonstrates unremarkable bilateral blood flow. Impression: 1. Nonobstructing bilateral nephrolithiasis, right worse than left. 2. Left renal mild pelviectasis. This document has been electronically signed by: Lauren Samuel MD on 02/19/2025 17:18:47
--- OUTSIDE RECORDS SUMMARY | 2025-02-18 11:18 | XMS_ITS | Encounter Summary ---
Author Organization [employer] [facility] Address [address] [facility] 7t [place] [address] Care Team Providers Care Technology Administrator Name Role Phone Bibi Neves Primary Care Provider [phone] Reason for Visit * Reason Comments Med Refill Encounter Details Date Type Department Care Team (Late Contact Info) Description 02/17/2023 Refill [facility] [address] [place] [phone] Bibi Neves ANP [address] [place] [address] Social History Tobacco Use Types Packs/Day Years [...] Department Care Team (Late Contact Info) Description 03/15/2025 2:30 PM EDT Office Visit [facility] [address] [place] [address] Bibi Neves ANP 230 [place] [address] 03/22/2025 2:00 PM EDT Procedure Visit [facility] [address] [place] [address] Lizzy Shaikh CNM [address] [place] [address] 04/30/2025 3:00 PM EDT Office Visit [facility] ADULT [facility] [address] [place], [place] [phone] Humaira Garcia [address] [place] [address] documented as of this encounter Visit Diagnoses Not on filedocumented in this encounter Care Teams Technology Administrator Relationship Specialty Start Date End Date Bibi Neves ANP 230 [place] [address] PCP - General Family Medicine 04/18/20 documented as of this encounter
--- OUTSIDE RECORDS SUMMARY | 2025-02-18 11:18 | XMS_ITS | Clinical Summary ---
Author Organization [facility] Address [address] [place] [address] Phone Care Team Providers Care Risk Consulting Treasury Director Name Role Phone Bibi Neves NP Primary Care Provider [phone] Social History Tobacco Use Types Packs/Day Years [...] patient's age to complete this topic Insurance , [address] [address] [facility] PLAN Care Teams Risk Consulting Treasury Director Relationship Specialty Start Date End Date Bibi Neves NP [address] [place] [phone] PCP - General 07/28/24
== END 2025-02-18 10:35 | disposition home or self-care (01) ==
LOC: HO.US 10:34
PROVIDERS: PCP Nurse Practitioner Primary Care; Visit Provider Urology
DX: N20.0 Calculus of kidney (principal)
CPT/HCPCS: 76775

== ENCOUNTER → 2025-02-18 10:37 | Outpatient (BNV) | payer OTHER, SELFPAY | PROVIDERS: PCP Nurse Practitioner Primary Care; Visit Provider Radiology Diagnostic Radiology | DX: N20.0 Calculus of kidney (principal) | CPT/HCPCS: 76775 ==

== ENCOUNTER 2025-02-24 11:01 | Outpatient (AMB) | payer OTHER, SELFPAY ==
--- NOTE | 2025-02-24 11:02 | A.OFFVIS_ITS ---
Intake Visit Reasons: 1y/US Allergies No Known Allergies (No Known Allergies*) Allergy (Verified 02/24/25 11:28) Medication List - Last Reconciled 02/24/25 by PARMINDER Slater allopurinol 100 mg PO QAM 90 days amlodipine 5 mg PO DAILY aspirin (Adult Low Dose Aspirin) 81 mg PO DAILY cholecalciferol (vitamin D3) 1,000 units PO DAILY 30 days hydrocortisone 2.5% (Proctosol HC) 1 appl FL BID lisinopril-hydrochlorothiazide 20-25 mg 1 tab PO DAILY 30 days psyllium husk (Reguloid (psyllium husk)) 0.4 grams PO BID pyridoxine (vitamin B6) 50 mg PO QAM 90 days sennosides (Senna Laxative) 8.6 mg PO BID tirzepatide (weight loss) (Zepbound) mg subcut HPI Comments Details: Nancy is a pleasant 55-year-old female patient of Dr. Neves. She has a past medical history of upper respiratory infections, multinodular thyroid, prediabetes, obesity, nephrolithiasis, vitamin-D deficiency, osteopenia, and carpal tunnel syndrome. female. She is being followed up on today via telehealth for her history of nephrolithiasis. In discussion with the patient today she denies having had any bothersome urological issues or concerns since her last office visit over a year ago. She reports she attempts to drink plenty of water daily in his compliant with her vitamin B6. Recent renal imaging results were reviewed 03/12 nonobstructing calyceal calculi 11 mm in the lower pole of the right kidney, 5 mm, 7 mm in the upper pole. Left kidney with 4 mm upper pole calculus. No masses or hydronephrosis noted bilaterally. We did discuss increase in stone burden when compared to previous imaging. We did discussed further workup to include CT KUB as well as Litholink and labs. She denies urinary urgency, urinary frequency, incontinence, nocturia, hematuria, d ysuria, foul smelling urine, changes to urinary stream, flank pain, fever, and or chills. She is happy with her current voiding parameters. PREVIOUS OFFICE NOTE: Nephrolithiasis Background of recurrent stone formation with hyperparathyroidism Underwent parathyroidectomy 2013 Imaging - 08/08 CT scan multiple right renal stones up to 5 mm, 2 stones on left - 02/07 renal ultrasound several small stones bilateral - 05/10 renal ultrasound bilateral multiple small 3 mm stones - 12/09 renal ultrasound recurrent stones - 02/09 KUB right-sided small stone Intervention - 11/07 right ureteroscopy - completed 6 months of antibiotic suppression Stone composition - 11/07 struvite stones suggestive of recurrent infection 24 hr urine - 08/09 normal calcium uric - good volume Therapeutic plan - 12 month follow-up [facility] Medical History Upper respiratory infection Pre-op examination Multinodular thyroid Prediabetes Obesity Hydronephrosis concurrent with and due to calculi of kidney and ureter Recurrent nephrolithiasis Disorder of bone density and structure, unspecified Vitamin D deficiency Osteopenia Tubular adenoma of colon Carpal tunnel syndrome Obesity (BMI 30-39.9) Post-surgical hypoparathyroidism Surgical History Hx of cystoscopy History of bladder surgery Hx of parathyroidectomy Hx of colonoscopy (~05/2023) Hx of tubal ligation Hx of cholecystectomy Hx of hysterectomy Family History Father Diabetes mellitus Mother No problems noted. Social History Household Members: Children Are you a primary neonatal intensive care unit nurse to a significant other at home: No Do you presently have visiting nurse or other home services: No Alcohol intake: never Patient Tobacco Use Status: Never used Tobacco Review of Systems Const All systems reviewed & are unremarkable except as noted in HPI and below Physical Exam Const General: cooperative Orientation/consciousness: patient oriented x3 Resp Effort & Inspection: able to speak in complete sentences Neuro General: patient oriented x3 Psych Speech and movement: Clear speech present Attitude: cooperative Thought process: Normal thought process present Thought content: Normal thought content present Insight: Fair insight present (Psych) Judgement: Fair judgement present (Psych) Telehealth Telehealth [facility] Location of provider rendering services: practice address Location of patient: address on file Patient Identification confirmed using: Name, : Yes Telehealth method: voice only Patient verbally consented to treatment: Yes Patient verbally consented to billing insurance company: Yes Patient informed of any privacy concerns related to visit: Yes Minutes spent on Phone/Video with Pt.: 20 Results Reviewed Results Reviewed: Date of Service: 02/18/25 Procedure(s): US renal BI Findings: Right kidney is normal in size, echogenicity and morphology, 9.1 cm in length. Nonobstructing calyceal calculi 11 mm in the lower pole, 5 mm in the midpole, 7 mm in the upper pole, additional smaller echogenic foci also noted. No mass or hydronephrosis. Left kidney is normal in size, echogenicity and morphology, 12.0 cm in length. 4 mm calculus in the upper pole. Additional smaller echogenic foci noted. Mild pelviectasis, no calyceal dilatation. No mass or hydronephrosis. Limited color Doppler demonstrates unremarkable bilateral blood flow. Impression: 1. Nonobstructing bilateral nephrolithiasis, right worse than left. 2. Left renal mild pelviectasis. Assessment & Plan Assessment & Plan (1) Recurrent nephrolithiasis: Code(s): N20.0 - Calculus of kidney Category: Medical Plan Recent renal imaging results reviewed with the patient today; as noted above. We discussed increase in stone burden as well as further interventions to include CT KUB versus surveillance monitoring; risks and benefits of these interventions were discussed. She currently denies any bothersome urinary issues or concerns. She reports be happy with current voiding parameters. We discussed further metabolic workup to include Litholink and labs. We discussed the importance of adequate hydration relation to nephrolithiasis as well as overall health and well-being. Continue vitamin B6. We discussed adding 1 oz of lemon juice to water daily. Will obtain CT KUB in 6 months. Follow-up in 6 months with imaging to be completed prior; or sooner with any issues, concerns, and or questions. Orders: Orders CT kidney stone 6 Months N20.0 - Calculus of kidney Patient Instructions: The patient had an opportunity to ask questions regarding the treatment plan. All questions were answered. Physical exam, labs, and imaging were discussed and reviewed in detail. As well as risks, benefits, and discussion of treatment choices. No major barriers to understanding were identified. The patient expressed understanding and agreement with the above treatment plan. The patient was made aware they should contact our office by phone for worsening of their current condition, the appearance of new symptoms, or with any questions or concerns. Compliance is encouraged with any medications and follow up testing that is ordered. It is a privilege to be allowed the opportunity to participate in? your urological care.? Again, if you have any questions or c oncerns If you have any questions or concerns please do not hesitate to contact me. The office is [phone]. This note is constructed using voice recognition software. While every effort has been made to ensure accuracy substation maintenance technician errors may have been included. Yours sincerely, PARMINDER Slater Coding Level of Care Code Tele Est Pt Level 3 (71149) Diagnoses Recurrent nephrolithiasis N20.0
--- OUTSIDE RECORDS SUMMARY | 2025-02-24 12:11 | XMS_ITS | Clinical Summary ---
Author Organization [facility] Address [address] [place] [address] Phone Care Team Providers Care Software Applications Specialist Name Role Phone Bibi Neves NP Primary Care Provider [phone] Social History Tobacco Use Types Packs/Day Years [...] 07/28/2024 Hypertension/CHF/CAD Annual BMP Blood Test 11/04/2024 Influenza Vaccine (#1) 2025 , 05/10/2023, 05/24/2019, Additional history exists Depression Screening 10/14/2025 10/14/2024 Cholesterol Screening (Lipid Panel) 12/18/2028 12/19/2023 DTaP,Tdap,and Td Vaccines (4 - Td or Tdap) 07/07/2034 07/07/2024, 06/16/2014, 04/28/2008 HIV Screening Completed 06/03/2020 Zoster Vaccines Completed 08/09/2020, 06/03/2020 COVID-19 Vaccine Completed 10/14/2024 Pneumococcal Vaccine: 50+ Years Completed 10/14/2024 HIB [...] patient's age to complete this topic Insurance [facility] PLAN Care Teams Software Applications Specialist Relationship Specialty Start Date End Date Bibi Neves NP [address] [place] [address] [place] [phone] PCP - General 07/28/24
--- OUTSIDE RECORDS SUMMARY | 2025-02-24 12:11 | XMS_ITS | Encounter Summary ---
Author Organization [facility] Address [address] [facility] 7t [place] [address] Care Team Providers Care Project Management Engineer Name Role Phone Bibi Neves Primary Care Provider [phone] Reason for Visit * Reason Comments Med Refill Encounter Details Date Type Department Care Team (Late Contact Info) Description 02/17/2023 Refill [facility] [address] [place] [address] Bibi Neves ANP [address] [place] [address] Social History Tobacco Use Types Packs/Day Years [...] Description 03/15/2025 2:30 PM EDT Office Visit [facility] [address] [place] [address] Bibi Neves ANP [address] [place] [address] 03/22/2025 2:00 PM EDT Procedure Visit [facility] [address] [place] [address] Lizzy Shaikh CNM [address] [place] [address] 04/30/2025 3:00 PM EDT Office Visit [facility] ADULT DENTAL [address] [place], [place] [phone] Humaira Garcia 230 [place] [address] documented as of this encounter Visit Diagnoses Not on filedocumented in this encounter Care Teams Project Management Engineer Relationship Specialty Start Date End Date Bibi Neves ANP [address] [place] [address] PCP - General Family Medicine 04/18/20 documented as of this encounter
== END 2025-02-24 11:46 | disposition home or self-care (01) ==
LOC: HO.HUSH 11:01
PROVIDERS: PCP Nurse Practitioner Primary Care; Visit Provider Nurse Practitioner Family
DX: N20.0 Calculus of kidney (principal)
CPT/HCPCS: 98013

== ENCOUNTER 2025-03-15 15:16 | Outpatient (REF) | payer OTHER, SELFPAY ==
--- OUTSIDE RECORDS SUMMARY | 2025-03-15 15:38 | XMS_ITS | Clinical Summary ---
Author Organization 175 [facility] Address [address] [place] [address] Phone Care Team Providers Care Certified Ski Patroller Name Role Phone Bibi Neves NP Primary Care Provider [phone] Social History Tobacco Use Types Packs/Day Years [...] 07/28/2024 Social Influencers of Health Screening 07/28/2024 Depression Screening 08/19/2024 Hypertension/CHF/CAD Annual BMP Blood Test 11/04/2024 Influenza Vaccine (#1) 2025 , 05/10/2023, 05/24/2019, Additional history exists Cholesterol Screening (Lipid Panel) 12/18/2028 12/19/2023 DTaP,Tdap,and [...] patient's age to complete this topic Insurance [facility] PL[facility] Care Teams Certified Ski Patroller Relationship Specialty Start Date End Date Bibi Neves NP [address] [place] [phone] PCP - General 07/28/24
--- OUTSIDE RECORDS SUMMARY | 2025-03-15 15:38 | XMS_ITS | Encounter Summary ---
Author Organization [facility] Address [address] [facility] 7t [place] [address] Care Team Providers Care Staffing Director Name Role Phone Bibi Neves Primary Care Provider [phone] Reason for Visit * Reason Comments Med Refill Encounter Details Date Type Department Care Team (Late st Contact Info) Description 02/17/2023 Refill [facility] [address] [place] [address] Bibi Neves ANP [address] [place] [address] Social History Tobacco Use Types Packs/Day Years [...] Department Care Team (Late Contact Info) Description 03/22/2025 2:00 PM EDT Procedure Visit [facility] [address] [place] [address] Lizzy Shaikh CNM [address] [place], [place] [phone] 04/30/2025 3:00 PM EDT Office Visit [facility] ADULT DENTAL [address] [place] [address] Humaira Garcia [address] [place] [address] documented as of this encounter Visit Diagnoses Not on filedocumented in this encounter Care Teams Staffing Director Relationship Specialty Start Date End Date Bibi Neves ANP [address] [place] [address] PCP - General Family Medicine 04/18/20 documented as of this encounter
[2025-03-15 16:12] LABS: MANUAL DIFF FLAG NO
[2025-03-15 16:19] LABS: Hematocrit 36.5 % (37.0-47.0); Hemoglobin 11.8 g/dl (12.0-16.0); Imm Gran Abs Auto 0.02 X10*3/uL (0.00-0.03); Imm Gran Pct Auto 0.3 % (0.0-0.4); Lymphocytes Absolute Auto 2.5 X10*3/uL (1.2-4.9); Mean Corpuscular HGB Conc 32.3 g/dl (31.0-35.0); Mean Corpuscular Hemoglobin 27.8 pg (27.0-33.0); Mean Corpuscular Volume 86.1 fL (80.0-98.0); NRBC Abs Auto 0.000 X10*3/uL (0.0-0.012); NRBC Pct Auto 0.0 /100WBC (0.0-0.2); Platelet Count 212 X10*3/uL (160-400); Red Blood Count 4.24 X10*6/uL (4.20-5.50); White Blood Count 7.0 X10*3/uL (4.8-10.8)
[2025-03-15 16:29] LABS: INTERNATIONAL NORM RATIO 1.1 (0.9-1.1); Prothrombin Time 12.2 SEC (10.9-12.4)
[2025-03-15 16:46] LABS: Alanine Aminotransferase 35 U/L (0-31); Albumin Level 4.7 g/dL (3.5-5.0); Alkaline Phosphatase 110 U/L (39-117); Anion Gap 14 (12-20); Aspartate Amino Transferase 31 U/L (5-31); Blood Urea Nitrogen 11 mg/dL (9-16); Calcium 8.1 mg/dL (8.4-10.2); Carbon Dioxide 25 mmol/L (22-29); Chloride 103 mmol/L (96-108); Estimated Glomerular Filt Rate > 60; Iron 56 mcg/dL (30-160); Percent Iron Saturation 24 % (15-50); Potassium 3.0 mmol/L (3.3-5.1); Sodium 139 mmol/L (135-145); Total Iron Binding Capacity 235 mcg/dL (228-428); Total Protein 7.4 g/dL (6.5-8.0); Unsaturated Iron Binding 179 ug/dL
[2025-03-15 16:47] LABS: Microalbum/Creatinine Ratio Ur 11.0 ug/mg cr (<30)
[2025-03-15 16:53] LABS: Ferritin 144 ng/mL (10-250)
[2025-03-16 03:59] LABS: HBS Num1 0.24 mIU/mL (0-7.99); HBc Num1 0.10 S/CO (0.00-0.79); HBsAGNum1 0.30 S/CO (0.00-0.99); Hepatitis B Surface Antigen Negative (Negative); ~Hepatitis B Surface Antibody NONREACTIVE (Nonreactive)
== END 2025-03-15 15:17 | disposition home or self-care (01) ==
LOC: HO.HHCL 15:16
PROVIDERS: PCP Nurse Practitioner Primary Care; Visit Provider Nurse Practitioner Primary Care
DX: Z11.59 Encounter for screening for other viral diseases (principal); R23.3 Spontaneous ecchymoses; R73.03 Prediabetes; I10 Essential (primary) hypertension
CPT/HCPCS: 36415; 80053; 82043; 82570; 82728; 83540; 85025; 85610; 86704; 86706; 87340

== ENCOUNTER 2025-03-25 14:03 | Outpatient (REF) | payer OTHER, SELFPAY ==
--- OUTSIDE RECORDS SUMMARY | 2025-03-25 14:13 | XMS_ITS | Clinical Summary ---
Author Organization [address] [facility] Address [address] [place] [address] Phone Care Team Providers Care Dry Wall Installations Mechanic Name Role Phone Bibi Neves NP Primary Care Provider [phone] Social History Tobacco Use Types Packs/Day Years [...] patient's age to complete this topic Insurance [facility] PLAN Care Teams Dry Wall Installations Mechanic Relationship Specialty Start Date End Date Bibi Neves NP [address] [place] [phone] PCP - General 07/28/24
--- OUTSIDE RECORDS SUMMARY | 2025-03-25 14:13 | XMS_ITS | Encounter Summary ---
Author Organization [facility] Address [address] [facility] 7t [place] [address] Care Team Providers Care Chief Operating Officer Name Role Phone Bibi Neves Primary Care Provider [phone] Reason for Visit * Reason Comments Med Refill Encounter Details Date Type Department Care Team (Late Contact Info) Description 02/17/2023 Refill [facility] [address] [place] [phone] Bibi Neves ANP [address] [place] [address] Social History Tobacco Use Types Packs/Day Years [...] Department Care Team (Late Contact Info) Description 04/30/2025 3:00 PM EDT Office Visit [facility] ADULT DENTAL [address] [place], [place] [phone] RadhaHumaira [address] [place] [address] 05/26/2025 2:00 PM EDT Clinical Support [facility]INE [address] [place] [phone] documented as of this encounter Visit Diagnoses Not on filedocumented in this encounter Care Teams Chief Operating Officer Relationship Specialty Start Date End Date Bibi Nvees ANP [address] [place] [address] PCP - General Family Medicine 04/18/20 documented as of this encounter
[2025-03-25 16:38] LABS: Anion Gap 13 (12-20); Blood Urea Nitrogen 21 mg/dL (9-16); Calcium 8.2 mg/dL (8.4-10.2); Carbon Dioxide 25 mmol/L (22-29); Chloride 104 mmol/L (96-108); Estimated Glomerular Filt Rate > 60; Potassium 3.0 mmol/L (3.3-5.1); Sodium 139 mmol/L (135-145)
== END 2025-03-25 14:04 | disposition home or self-care (01) ==
LOC: HO.HHCL 14:03
PROVIDERS: PCP Nurse Practitioner Primary Care; Visit Provider Nurse Practitioner Primary Care
DX: E87.6 Hypokalemia (principal); E21.3 Hyperparathyroidism, unspecified
CPT/HCPCS: 36415; 80048; 82306

== ENCOUNTER 2025-03-29 13:43 | Outpatient (REF) | payer OTHER, SELFPAY ==
[2025-03-29 16:30] LABS: Anion Gap 13 (12-20); Blood Urea Nitrogen 15 mg/dL (9-16); Calcium 7.9 mg/dL (8.4-10.2); Carbon Dioxide 23 mmol/L (22-29); Chloride 109 mmol/L (96-108); Estimated Glomerular Filt Rate > 60; Potassium 4.4 mmol/L (3.3-5.1); Sodium 141 mmol/L (135-145)
== END 2025-03-29 13:44 | disposition home or self-care (01) ==
LOC: HO.HHCL 13:43
PROVIDERS: PCP Nurse Practitioner Primary Care; Visit Provider Nurse Practitioner Primary Care
DX: E87.6 Hypokalemia (principal)
CPT/HCPCS: 36415; 80048

== ENCOUNTER 2025-04-01 10:22 | Outpatient (REF) | payer OTHER, SELFPAY ==
--- NOTE | ~2025-04-01 | MM_ITS ---
EXAMINATION: MM SCREENING DIGITAL BREAST TOMOSYNTHESIS, BILATERAL CLINICAL INFORMATION: Screening. Asymptomatic. COMPARISON: Mammography: Comparison is made with available priors TECHNIQUE: Digital breast mammography with tomosynthesis is performed in both the craniocaudal and mediolateral oblique views along with computer-aided detection (CAD). FINDINGS: There are scattered areas of fibroglandular density (ACR BI-RADS breast composition Category b). Bilateral circumscribed oval masses which wax and wane consistent with benign fibrocystic changes. There are no significant masses, abnormal calcifications, or other abnormalities. MM/MM tomosynthesis screening BI IMPRESSION: No mammographic evidence of malignancy. ASSESSMENT: BI-RADS BI-RADS 2 - Benign Findings RECOMMENDATION: Routine annual mammography screening. 1 year F/U This examination should not preclude the clinical evaluation of a suspicious palpable abnormality. This patient's information was entered into a reminder system with a target due date for their next mammogram. Electronically signed by: Paulina Esparza DO 04/06/2025 12:01 PM EDT
--- OUTSIDE RECORDS SUMMARY | 2025-04-01 11:10 | XMS_ITS | Encounter Summary ---
Author Organization [facility] Address [address] [facility] 7t [place] [address] Care Team Providers Care Life Skills Instructor Name Role Phone Bibi Neves Primary Care Provider [phone] Reason for Visit * Reason Comments Med Refill Encounter Details Date Type Department Care Team (Late Contact Info) Description 02/17/2023 Refill [facility] [address] [place] [phone] Bibi Neves ANP [address] [place] [address] Social History Tobacco Use Types Packs/Day Years [...] Description 04/30/2025 3:00 PM EDT Office Visit [facility] ADULT DENTAL [address] [place], [place] [phone] RadhaHumaira [address] [place] [address] 05/26/2025 2:00 PM EDT Clinical Support [facility] [address] [place] [address] documented as of this encounter Visit Diagnoses Not on filedocumented in this encounter Care Teams Life Skills Instructor Relationship Specialty Start Date End Date Bibi Neves ANP [address] [place] [address] PCP - General Family Medicine 04/18/20 documented as of this encounter
--- OUTSIDE RECORDS SUMMARY | 2025-04-01 11:10 | XMS_ITS | Clinical Summary ---
Author Organization 175 [facility] Address [address] [place] [address] Phone Care Team Providers Care Carcass Trimmer Name Role Phone Bibi Neves NP Primary Care Provider [phone] Social History Tobacco Use Types Packs/Day Years [...] patient's age to complete this topic Insurance [facility] PLAN Care Teams Carcass Trimmer Relationship Specialty Start Date End Date Bibi Neves NP [address] [place] [phone] PCP - General 07/28/24
== END 2025-04-01 10:23 | disposition home or self-care (01) ==
LOC: HO.MAMMO 10:22
PROVIDERS: PCP Nurse Practitioner Primary Care; Visit Provider Nurse Practitioner Primary Care
DX: Z12.31 Encounter for screening mammogram for malignant neoplasm of breast (principal)
CPT/HCPCS: 77063; 77067

== ENCOUNTER → 2025-04-01 10:30 | Outpatient (BNV) | payer OTHER, SELFPAY | PROVIDERS: PCP Nurse Practitioner Primary Care; Visit Provider Internal Medicine | DX: Z12.31 Encounter for screening mammogram for malignant neoplasm of breast (principal) | CPT/HCPCS: 77063; 77067 ==

== ENCOUNTER 2025-04-16 10:27 | Outpatient (REF) | payer OTHER, SELFPAY ==
--- OUTSIDE RECORDS SUMMARY | 2025-04-16 11:08 | XMS_ITS | Encounter Summary ---
Author Organization [facility] Address [address] [facility] 7t [place] [address] Care Team Providers Care Coding Assistant Name Role Phone Bibi Neves Primary Care Provider [phone] Reason for Visit * Reason Comments Med Refill Encounter Details Date Type Department Care Team (Late Contact Info) Description 02/17/2023 Refill [facility] [address] [place] [phone] Bibi Neves ANP [address] [place] [address] Social History Tobacco Use Types Packs/Day Years [...] Description 04/30/2025 3:00 PM EDT Office Visit [facility] ADULT DENTAL [address] [place] [address] Humaira Garcia [address] [place] [address] 05/26/2025 2:00 PM EDT Clinical Support [facility] [address] [place] [address] 06/18/2025 1:30 PM EDT Office Visit [facility] [address] [place] [address] Bibi Neves ANP [address] [place] [address] documented as of this encounter Visit Diagnoses Not on filedocumented in this encounter Care Teams Coding Assistant Relationship Specialty Start Date End Date Bibi Neves ANP [address] [place] [address] PCP - General Family Medicine 04/18/20 documented as of this encounter
--- OUTSIDE RECORDS SUMMARY | 2025-04-16 11:09 | XMS_ITS | Encounter Summary ---
Author Organization [facility] [facility] Address 75 [facility] 7t [place] [address] Care Team Providers Care Delivery Agent Name Role Phone Bibi Neves Primary Care Provider [phone] Reason for Visit * Reason Comments Med Refill Encounter Details Date Type Department Care Team (Late Contact Info) Description 09/10/[address] [facility] MED[facility]INE [address] [place] [phone] Bibi Neves ANP [address] [place] [address] Social History Tobacco Use Types Packs/Day Years [...] 3:00 PM EDT Office Visit [facility] ADULT DENTAL [address] [place] [address] Humaira Garcia [address] [place] [address] 05/26/2025 2:00 PM EDT Clinical Support [facility] [address] [place] [address] 06/18/2025 1:30 PM EDT Office Visit [facility] [address] [place] [address] Bibi Neves ANP [address] [place] [address] documented as of this encounter Visit Diagnoses Not on filedocumented in this encounter Care Teams Delivery Agent Relationship Specialty Start Date End Date Bibi Neves ANP [address] [place] [address] PCP - General Family Medicine 04/18/20 documented as of this encounter
--- OUTSIDE RECORDS SUMMARY | 2025-04-16 11:09 | XMS_ITS | Encounter Summary ---
Author Organization [employer] Address [address] [facility] [address] 7[address] [place] [address] Care Team Providers Care Postal Delivery Officer Name Role Phone Bibi Neves Primary Care Provider [phone] Encounter Details Date Type Department Care Team (Late st Contact Info) Description 04/06/2025 Abstract [facility] [address] [place], [place] [phone] Bibi Neves ANP [address] [place], [place] [phone] Social History Tobacco Use Types Packs/Day Years [...] Care Team (Late st Contact Info) Description 04/30/2025 3:00 PM EDT Office Visit [facility] ADULT DENTAL [address] [place] [address] Humaira Garcia [address] [place] [address] 05/26/2025 2:00 PM EDT Clinical Support [facility] [address] [place] [address] 06/18/2025 1:30 PM EDT Office Visit [facility] [address] [place] [address] Bibi Neves ANP [address] [place] [address] documented as of this encounter Procedures Procedure Name Priority Date/Time Associated Diagnosis Comments MAMMOGRAPHY Routine 04/06/2025 2:46 PM EDT documented in this encounter Results * Mammography (04/06/2025 2:46 PM EDT) Mammogram BIRADS 2 Normal, Abnormal, BIRADS 1 , BIRADS 2 Anatomical Region Laterality Modality Other us Historical Provider HEALTH MAINTENANCE Final Result documented in this encounter Visit Diagnoses Not on filedocumented in this encounter Additional Health Concerns Assessment Noted Time PHQ-9 Depression Total Score: 0 02/26/20 25 3:47 PM EST documented as of this encounter Care Teams Postal Delivery Officer Relationship Specialty Start Date End Date Bibi Neves ANP [address] [place] [address] PCP - General Family Medicine 04/18/20 documented as of this encounter
--- OUTSIDE RECORDS SUMMARY | 2025-04-16 11:09 | XMS_ITS | Encounter Summary ---
Author Organization [employer] Address [address] [facility] [address] 7[address] [place] [address] Care Team Providers Care Farmworker Vegetable Name Role Phone Neves Bibi RODRIGUEZ Primary Care Provider [phone] Reason for Visit * Reason Comments Med Refill Encounter Details Date Type Department Care Team (Late st Contact Info) Description 04/12/2025 Refill [facility] [address] [place], [place] [phone] Bhavna Lima NP [address] [place], [place] [phone] Essential hypertension Social History Tobacco Use Types Packs/Day Years [...] Description 04/30/2025 3:00 PM EDT Office Visit [facility] ADULT DENTAL [address] [place] [address] Radha, Humaira [address] [place] [address] 05/26/2025 2:00 PM EDT Clinical Support [facility] [address] [place] [address] 06/18/2025 1:30 PM EDT Office Visit [facility] [address] [place] [address] Bibi Neves ANP [address] [place] [address] documented as of this encounter Visit Diagnoses Diagnosis Essential hypertension Unspecified essential hypertension documented in this encounter Additional Health Concerns Assessment Noted Time PHQ-9 Depression Total Score: 0 10/14/19 25 3:47 PM EST documented as of this encounter Care Teams Farmworker Vegetable Relationship Specialty Start Date End Date Bibi Neves ANP [address] [place] [phone] PCP - General Family Medicine 04/18/20 documented as of this encounter
--- OUTSIDE RECORDS SUMMARY | 2025-04-16 11:09 | XMS_ITS | Encounter Summary ---
Author Organization [facility] Address 75 [facility] 7t [place] [address] Care Team Providers Care Surveyor Oil Well Directional Name Role Phone Bibi Neves Primary Care Provider Reason for Visit * Reason Comments Med Refill Encounter Details Date Type Department Care Team (Late st Contact Info) Description 11/07/2023 Refill [facility] MEDICINE [address] [place] [phone] Bibi Neves ANP [address] [place] [address] Postprocedural hypoparathyroidism (CMS/HCC) Social History Tobacco Use [...] Description 04/30/2025 3:00 PM EDT Office Visit [facility] ADULT DENTAL [address] [place] [address] Humaira Garcia [address] [place] [address] 05/26/2025 2:00 PM EDT Clinical Support [facility] MED[facility]INE [address] [place] [phone] 06/18/2025 1:30 PM EDT Office Visit [facility] MED[facility]INE [address] [place] [address] Bibi Neves ANP [address] [place] [address] documented as of this encounter Visit Diagnoses Diagnosis Postprocedural hypoparathyroidism (CMS/HCC) documented in this encounter Care Teams Surveyor Oil Well Directional Relationship Specialty Start Date End Date Bibi Neves ANP [address] [place] [address] PCP - General Family Medicine 04/18/20 documented as of this encounter
--- OUTSIDE RECORDS SUMMARY | 2025-04-16 11:09 | XMS_ITS | Encounter Summary ---
Author Organization [employer] Address [address] [facility] [address] 7[address] [place] [address] Care Team Providers Care Claim Adjuster Name Role Phone Bibi Neves Primary Care Provider [phone] Reason for Visit * Reason Onset Date Comments May recall 04/14/2025 Encounter Details Date Type Department Care Team (Late st Contact Info) Description 04/14/2025 Telephone [facility] MED[facility]INE [address] [place], [place] [phone] Bibi Neves ANP [address] [place], [place] [phone] May recall Social History Tobacco Use Types Packs/Day Years [...] AM EDT documented as of this encounter Miscellaneous Notes * Telephone Encounter - Macrina Baez [place] - 04/14/2025 2:36 PM EDT Telephone call to patient to schedule the following recall: Visit type: Office visit Appointment notes: wt/HTN Patient agree to appointment on 06/18/25 at 1:30 PM with Pura. documented in this encounter Plan of Treatment Upcoming Encounters Date Type Department Care Team (Late st Contact Info) Description 04/30/2025 3:00 PM EDT Office Visit [facility] ADULT DENTAL [address] [place] [address] Humaira Garcia [address] [place] [address] 05/26/2025 2:00 PM EDT Clinical Support [facility] MEDICINE [address] [place] [address] 06/18/2025 1:30 PM EDT Office Visit [facility]INE [address] [place] [address] Bibi Neves ANP [address] [place] [address] documented as of this encounter Visit Diagnoses Not on filedocumented in this encounter Additional Health Concerns Assessment Noted Time PHQ-9 Depression Total Score: 0 10/14/19 25 3:47 PM EST documented as of this encounter Care Teams Claim Adjuster Relationship Specialty Start Date End Date Bibi Neves ANP 230 [place] [address] PCP - General Family Medicine 04/18/20 documented as of this encounter
--- OUTSIDE RECORDS SUMMARY | 2025-04-16 11:09 | XMS_ITS | Clinical Summary ---
Author Organization [employer] Address [address] [facility] [address] [place] [address] Care Team Providers Care Intake Counselor Name Role Phone Pura Silas RODRIGUEZ Primary Care Provider [phone] Allergies No known active allergies Medications Bisacodyl EC 5 MG EC tablet TAKE 2 TABLETS BY MOUTH EVERY DAY AT BEDTIME FOR 2 DAYS DIRECTED 023 Active aspirin 81 MG EC tablet take 1 tablet by oral route every day Active senna (Senokot) 8.6 MG tablet TAKE 1 TABLET BY MOUTH TWICE DAILY IN THE MORNING AND AT BEDTIME 023 Active Reguloid 0.52 g capsule TAKE 1 CAPSULE BY MOUTH TWICE DAILY IN THE MORNING AND AT BEDTIME 024 Active pyridoxine (Vitamin B-6) 50 MG tablet Take 1 tablet (50 mg) by mouth in the morning. 90 tablet 024 Active allopurinol (Zyloprim) 100 MG tablet Take 1 tablet (100 mg) by mouth in the morning. 90 tablet 024 Active acetaminophen (Tylenol) 500 MG tabletIndicatio ns:Dental calculus Take 1 tablet (500 mg) by mouth every 8 (eight) hours if needed for mild pain. 21 tablet 025 Active Zepbound 7.5 MG/0.5ML solution auto-injectorIn dications:Class 2 severe obesity with serious comorbidity and body mass index (BMI) of 36.0 to 36.9 in adult, unspecified obesity type (CMS/HCC),Predi abetes INJECT ONE PEN (=7.5MG) SUBCUTANEOUSLY ONCE A WEEK DIRECTED 2 mL 2 025 Active potassium chloride CR (Klor-Con M20) 20 MEQ ER tabletIndicatio ns:Hypokalemia 1 tab twice daily. Do not crush or chew. 14 tablet 025 Active lisinopril (Prinivil) 20 MG tabletIndicatio ns:Primary hypertension Take 1 tablet (20 mg) by mouth Once per day. 30 tablet 11 025 2025 Active Calcium Carb-Cholecalci ferol (Calcium 500+D3) 500-10 MG-MCG tabletIndicatio ns:Hypocalcemia Take 1 tablet by mouth Once per day. 90 tablet 1 025 Active amLODIPine (Norvasc) 5 MG tabletIndicatio ns:Essential hypertension TAKE 1 TABLET BY MOUTH EVERY MORNING 90 tablet 1 025 Active amLODIPine (Norvasc) 5 MG tabletIndicatio ns:Essential hypertension TAKE 1 TABLET BY MOUTH EVERY MORNING 90 tablet 1 025 2024 Discontinued lisinopril-hydr oCHLOROthiazide 20-25 MG tabletIndicatio ns:Essential hypertension TAKE 1 TABLET BY MOUTH EVERY MORNING 90 tablet 1 025 2024 Discontinued(S joaquín effects) potassium chloride CR (Klor-Con M20) 20 MEQ ER tabletIndicatio ns:Hypokalemia Take 1 tablet (20 mEq) by mouth Once per day. Do not crush or chew. 5 tablet 025 2024 Discontinued(R eorder (will not trigger notification to Pharmacy)) Active Problems Problem Noted Date Diagnosed Date Tubular adenoma of colon 12/01/2024 Overview (12/01/2024): 06/2024 C-scope w/ [facility], repeat 2 years per GI. we discussed etiology of this, no high risk dysplasia and likelihood of progression to cancer, gave handout. 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 Obesity (BMI 35.0-39.9 without comorbidity) 08/19 Mixed anxiety and depressive disorder 06/29/2013 History [...] Encounters Date Type Department Care Team Description 04/14/2025 Telephone [facility] [address] [facility] [place] [address] Silas Harding ANP October recall 04/12/2025 Refill [facility] [address] [facility] [place] [address] Bhavna Lima NP Essential hypertension 04/07/2025 Telephone [facility] [address] [facility] [place] [address] Silas Harding ANP Medication Question 04/06/2025 Results Follow-Up [facility] [address] [facility] [place] [address] Silas Harding ANP Basic Metabolic Panel 04/06/2025 Abstract [facility] [address] [facility] [place] [address] Silas Harding ANP 03/25/2025 Orders Only [facility] [address] [facility] [place] [address] Silas Harding ANP Hypokalemia (Primary Dx); Primary hypertension 03/22/2025 2:00 PM EDT Procedure Visit [facility] [address] [place] [phone] Lizzy Shaikh CNM Menopause (Primary Dx); Encounter for immunization 03/22/2025 Travel 03/19/2025 Telephone [facility] [address] [place] [address] Myrna Moser [place] 03/16/2025 Results Follow-Up [address] [address] Silas Harding ANP POCT Glucose, POCT HGB A1C, CBC auto differential, Additional followed-up results: 03/15/2025 2:30 PM EDT Office Visit [address] [address] Silas Harding ANP Prediabetes (Primary Dx); Easy bruising; Need for hepatitis B screening test; Primary hypertension 03/15/2025 Travel 03/12/2025 Telephone [facility] [address] [place] [phone] Silas Harding ANP Chart Prep 03/08/2025 Patient Outreach [address] [address] Silas Harding ANP Pre-visit Planning (SDOH screening was completed on 09/30/2024) 02/18/2025 Orders Only [facility] External Provider, [facility] 02/16/[address] [address] Silas Harding ANP Class 2 severe obesity with serious comorbidity and body mass index (BMI) of 36.0 to 36.9 in adult, unspecified obesity type (CMS/HCC); Prediabetes from Last 3 Months Immunizations Immunization Administration Dates Next Due Hep B, adult 03/22/2025,06/09/2012 Influenza Injectable Quadriv alant Preservative Free IIV4 [...] Sign Reading Time Taken Comments Blood Pressure 120/80 03/22/2025 2:17 PM EDT Pulse 69 03/22/2025 2:17 PM EDT Temperature 37.1 C (98.8 F) 03/22/2025 2:17 PM EDT Respiratory Rate 12 03/22/2025 2:17 PM EDT Oxygen Saturation 99% 03/22/2025 2:17 PM EDT Inhaled Oxygen Concentration - - Weight 71.4 kg (157 lb 6.4 oz) 03/22/2025 2:17 P M EDT Height 147.3 cm (4' 10 ) 03/15/2025 2:33 PM EDT Body Mass Index 32.9 03/15/2025 2:33 PM EDT Plan of Treatment Upcoming Encounters Date Type Department Care Team (Late st Contact Info) Description 04/30/2025 3:00 PM EDT Office Visit [facility] [address] [place] [address] Humaira Garcia [address] [place] [address] 05/26/2025 2:00 PM EDT Clinical Support [facility] [address] [place] [phone] 06/18/2025 1:30 PM EDT Office Visit [facility] [address] [place] [address] Silas Harding ANP [address] [place] [address] Health Maintenance Due Date Last Done Comments CT Colonography 1969 FIT DNA/Cologuard 1969 FIT 1969 FOBT 1970 Sigmoidoscopy 1970 Influenza Vaccine (#1) 2025 4, 05/10/2023, 05/24/2019, Additional history exists Dental Oral Exam 04/29/2025 10/26/2024, 12/2023, 06/05/2022, Additional history exists Dental Prophylaxis 04/29/2025 10/26/2024, 0 04/27/2024, 09/23/2023, Additional history exists Hepatitis B Vaccines (3 of 3 - 19+ 3-dose series) 05/17/2025 03/22/2025, 06/09/2012 SDOH Screening 09/30/2025 09/30/2024 Depression Screening 10/14/2025 10/14/2024, 10/14/19 Dental X-Ray: Bitewings 10/27/2025 10/27/19, 09/23/2023, 03/06/2019, Additional history exists Alcohol/Substance Use Screening 12/01/2025 12/01/2024 Disability Screening 12/01/2025 12/01/2024 Diabetes: Hemoglobin A1C 03/15/2026 025, 12/01/2024, 07/07/2024, Additional history exists Tobacco Screening 03/25/2026 03/25/2025 Mammogram 04/06/2026 04/06/2025, 03/19, 03/26/2024, Additional history exists Colonoscopy 07/02/2026 07/02/2024 Colorectal Cancer Screening 07/02/2026 Dental X-Ray: Full Mouth 09/24/2026 09/23/2023, 04/20 Lipid Panel 12/18/2028 12/19/2023, 06/03/2020 HPV/Cotest 03/19/2029 03/19/2024 Pap Smear 03/19/2029 03/19/2024 DTaP/Tdap/Td Vaccines (3 - Td or Tdap) 07/07/2034 07/07/2024, 06/16/2014, 04/28/2008 RSV Patients and Patients Aged 60 years or older (1 - 1-dose 75+ series) 02/12/2044 HIV Screening Completed 06/03/2020 Hepatitis C Screening Completed 06/03/2020 Zoster Vaccines Completed 08/09/2020, 06/03/2020 COVID-19 Vaccine Completed 10/14/2024, , 08/23/2021, Additional [...] Procedure Name Priority Date/Time Associated Diagnosis Comments HM MAMMOGRAPHY Routine 04/06/2025 2:46 PM EDT BI MAMMOGRAM SCREENING TOMOSYNTHESIS BILATERAL Routine 04/01/2025 10:30 AM EDT BASIC METABOLIC PANEL Routine 03/29/2025 1:52 PM EDT Hypokalemia VITAMIN D,25-OH,TOTAL,IA Routine 03/25/2025 2:07 PM EDT Hyperparathyroidism (CMS/HCC) BASIC METABOLIC PANEL Routine 03/25/2025 2:07 PM EDT Hypokalemia ALBUMIN, RANDOM URINE W/CREATININE Routine 03/15/2025 3:19 PM EDT Primary hypertension COMPREHENSIVE METABOLIC PANEL Routine 03/15/2025 3:19 PM EDT Prediabetes HEPATITIS B SURFACE ANTIBODY, QUALITATIVE Routine 03/15/2025 3:19 PM EDT Need for hepatitis B screening test HEPATITIS B SURFACE ANTIGEN, EIA Routine 03/15/2025 3:19 PM EDT Need for hepatitis B screening test HEPATITIS B CORE AB TOTAL Routine 03/15/2025 3:19 PM EDT Need for hepatitis B screening test FERRITIN Routine 03/15/2025 3:19 PM EDT Easy bruising IRON AND TOTAL IRON BINDING CAPACITY Routine 03/15/2025 3:19 PM EDT Easy bruising PROTHROMBIN TIME-INR Routine 03/15/2025 3:19 PM EDT Easy bruising CBC WITH AUTO DIFFERENTIAL Routine 03/15/2025 3:19 PM EDT Easy bruising POCT GLYCATED HEMOGLOBIN, TOTAL Routine 03/15/2025 3:14 PM EDT Prediabetes POCT GLUCOSE Routine 03/15/2025 3:14 PM EDT Prediabetes US RENAL BI Routine 02/19/2025 5:18 PM EDT PROPHYLAXIS - ADULT Routine 10/26/2024 3 :00 PM EDT Dental calculus BITEWINGS - 4 RADIOGRAPHIC IMAGES Routine 10/26/2024 3:00 PM EDT Dental calculus PERIODIC ORAL EVALUATION - ESTABLISHED PATIENT Routine 10/26/2024 3:00 PM EDT HM COLONOSCOPY Routine 07/02/2024 THINPREP IMAGING PAP AND HPV MRNA E6/E7 [...] Recently Relevant to Health Maintenance Results * Mammography (04/06/2025 2:46 PM EDT) HM Mammogram BIRADS 2 Normal, Abnormal, BIRADS 1 , BIRADS 2 Anatomical Region Laterality Modality Other us Historical Provider MD HEALTH MAINTENANCE Final Result * BI Mammogram Screening Tomosynthesis Bilateral (04/01/2025 10:30 AM EDT) Anatomical Region Laterality Modality Breast Bilateral Mammography 04/01/2025 10:3 0 AM EDT Narrative 04/06/2025 12:04 PM EDT [address] [place] [address] Mammography Report Signed Patient: Nancy Agudelo MR#: [id number] 1 : 1970 Acct:[id number] Age/Sex: 55 / F ADM Date: 04/01/25 Loc: HO.MAMMO Attending Dr: Silas Harding NP Ordering Physician: SILAS HARDING NP Results: 2Benign Fin dings Date of Service: 04/01/25 Follow Up: 1 Year From Orig inal Mammogram Procedure(s): MM tomosynthesis screening BI Accession Number(s): [id number] cc: SILAS HARDING NP EXAMINATION: MM SCREENING DIGITAL BREAST TOMOSYNTHESIS, BILATERAL CLINICAL INFORMATION: Screening. Asymptomatic. COMPARISON: Mammography: Comparison is made with available priors TECHNIQUE: Digital breast mammography with tomosynthesis is performed in both the craniocaudal and mediolateral oblique views along with computer-aided detection (CAD). FINDINGS: There are scattered areas of fibroglandular density (ACR BI-RADS breast composition Category b). Bilateral circumscribed oval masses which wax and wane consistent with benign fibrocystic changes. There are no significant masses, abnormal calcifications, or other abnormalities. MM/MM tomosynthesis screening BI IMPRESSION: No mammographic evidence of malignancy. ASSESSMENT: BI-RADS BI-RADS 2 - Benign Findings RECOMMENDATION: Routine annual mammography screening. 1 year F/U This examination should not preclude the clinical evaluation of a suspicious palpable abnormality. This patient's information was entered into a reminder system with a target due date for their next mammogram. Electronically signed by: Paulina Esparza DO 04/06/2025 12:01 PM EDT Dictated By: Paulina Esparza DO Signed By: <Electronically signed by Paulina Esparza DO in OV> 04/06/25 1201 DD/ 1030 TD/TT: 04/01/25 1045 Pigment Processor: Procedure Note Donotuseinterpreter, Image - 04/06/2025 [facility]'[address] [place] [address] Mammography Report Signed Patient: Nancy Agudelo RMR#: [id number] 1 : 1970Acct:[id number] Age/Sex: 55 / FADM Date: 04/01/25 Loc: HO.MAMMO Attending Dr: Silas Harding NP Ordering Physician: SILAS HARDING NPResults: 2Benign Jesse reynolds Date of Service: 04/01/25Follow Up: 1 Year From Orig inal Mammogram Procedure(s): MM tomosynthesis screening BI Accession Number(s): [id number] cc: SILAS HARDING NP EXAMINATION: MM SCREENING DIGITAL BREAST TOMOSYNTHESIS, BILATERAL CLINICAL INFORMATION: Screening. Asymptomatic. COMPARISON: Mammography: Comparison is made with available priors TECHNIQUE: Digital breast mammography with tomosynthesis is performed in both the craniocaudal and mediolateral oblique views along with computer-aided detection (CAD). FINDINGS: There are scattered areas of fibroglandular density (ACR BI-RADS breast composition Category b). Bilateral circumscribed oval masses which wax and wane consistent with benign fibrocystic changes. There are no significant masses, abnormal calcifications, or other abnormalities. MM/MM tomosynthesis screening BI IMPRESSION: No mammographic evidence of malignancy. ASSESSMENT: BI-RADS BI-RADS 2 - Benign Findings RECOMMENDATION: Routine annual mammography screening. 1 year F/U This examination should not preclude the clinical evaluation of a suspicious palpable abnormality. This patient's information was entered into a reminder system with a target due date for their next mammogram. Electronically signed by: Paulina Esparza DO 04/06/2025 12:01 PM EDT RP Dictated By: Paulina Esparza DO Signed By: <Electronically signed by Paulina Esparza DO in OV> 04/06/25 1201 DD/ 1030 TD/TT: 04/01/25 1045 Pigment Processor: us Silas Harding ANP IMG BI PROCEDURES Final Result * (ABNORMAL) Basic Metabolic Panel (03/29/2025 1:52 PM EDT) Only the most recent of2 resultswithin the time period is included. Sodium 141 135 - 145 mmol/L [facility] Potassium 4.4 3.3 - 5.1 mmol/L [facility] Chloride 109(H) 96 - 108 mmol/L [facility] Carbon Dioxide 23 22 - 29 mmol/L [facility] Anion Gap 13 12 - 20 [facility] Urea Nitrogen (BUN) 15 9 - 16 mg/dL [facility] Creatinine, Serum 0.81 0.5 - 1.4 mg/dL [facility] Estimated Glomerular Filt Rate >60 [facility] Comment:Chronic Kidney Disea se: Estimated GFR < 60 mL/min/1.31i0Htydyn Kidney Disease: Estimated GFR < 15 mL/min/1.73m2 Glucose 83 60 - 115 mg/dL [facility] Calcium 7.9(L) 8.4 - 10.2 mg/dL [facility] Blood Venous blood specimen / Unknown 03/29/2025 1:52 PM EDT 03/29/2025 4:04 PM EDT us Silas Harding ANP LAB BLOOD ORDERABLES Final Resul t [facility] [address] [place] [address] [phone] * Vitamin D, 25-Hydroxy, Total, Immunoassay (03/25/2025 2:07 PM EDT) Vitamin D 25-OH Total 49.1 >30 ng/mL [facility] Comment: Health Based Reference Values*< 20 ng/mL [id number] ng/mL Insufficient> 30 ng/mL Sufficient*Raul ABARCA. N Engl J Med. 2007;357:266-280There is no well-established upper level of normal vitamin Dlevels. Some laboratories use 50 ng/mL as an upper limit ofnormal. However, toxicity is patient-dependent and may occurat any level. Careful correlation with the patient'spresentation is necessary and, if there is concern forvitamin D toxicity, treatment should be consideredirrespective of the serum level.Care must be taken in interpreting Vitamin D results fromdifferent laboratories and methodologies. Published datademonstrated that results from patients undergoinghemodialysis may show a negative bias when tested withvarious automated 25-OH vitamin D assays when compared toLC-MS/MS.When testing samples from patients whose predominant form ofVitamin D is Vitamin D2, such as patients receiving VitaminD2 supplementation, results that are subtherapeutic shouldbe confirmed with another method such as LC-MS/MS. Blood Venous blood specimen / Unknown 03/25/2025 2:07 PM EDT 03/25/2025 4:05 PM EDT Silas Harding [facility] LAB BLOOD ORDERABLES Final Resul t [facility] [address] [place] [phone] * Albumin, Random Urine W/Creatinine (03/15/2025 3:19 PM EDT) Creatinine, Urine 54.19 mg/dL [facility] Microalbumin Urine 6.0 mg/L [facility] Microalbum Creatinine Ratio Ur 11.0 <30 ug/mg cr [facility] Comment:Albumin/Creatinine R atio Reference Ranges: Normal: < 30 ug/mg creatinine Microalbuminuria: 30 - 300 ug/mg creatinineClinical Albuminuria: > 300 ug/mg creatinine Urine (Urine, Random) 03/15/2025 3:19 PM EDT 03/15/2025 4:06 PM EDT Silas Harding [facility] URINE ORDERABLES Final Resul t [facility] [address] [place] [phone] * (ABNORMAL) CBC auto differential (03/15/2025 3:19 PM EDT) White Blood Count 7.0 4.8 - 10.8 X10*3/uL [facility] Red Blood Count 4.24 4.20 - 5.50 X10*6/uL [facility] Hemoglobin 11.8(L) 12.0 - 16.0 g/dl [facility] Hematocrit 36.5(L) 37.0 - 47.0 % [facility] Mean Corpuscular Volume 86.1 80.0 - 98.0 fL [facility] Mean Corpuscular Hemoglobin 27.8 27.0 - 33.0 pg [facility] Mean Corpuscular HGB Conc 32.3 31.0 - 35.0 g/dl [facility] Red Cell Distribution Width 14.7 11.0 - 16.0 % [facility] Platelet Count 212 160 - 400 X10*3/uL [facility] Mean Platelet Volume 11.9 9.4 - 12.3 fL [facility] Neutrophils Percent Auto 55.7 45 - 73 % [facility] Imm Gran Pct Auto 0.3 0.0 - 0.4 % [facility] Lymphocytes Percent Auto 36.0 20 - 40 % [facility] Monocytes Percent Auto 6.8 2 - 11 % [facility] Eosinophils Percent Auto 0.6 0 - 4 % [facility] Basophils Percent Auto 0.6 0 - 2 % [facility] NRBC Pct Auto 0.0 0.0 - 0.2 /100WBC [facility] Neutrophils Absolute Auto 3.9 2.0 - 8.3 x10*3/uL [facility] Imm Gran Abs Auto 0.02 0.00 - 0.03 X10*3/uL [facility] Lymphocytes Absolute Auto 2.5 1.2 - 4.9 X10*3/uL [facility] Monocytes Absolute Auto 0.5 0.1 - 1.2 X10*3/uL [facility] Eosinophils Absolute Auto 0.0 0.0 - 0.4 X10*3/uL [facility] Basophils Absolute Auto 0.0 0.0 - 0.2 X10*3/uL [facility] NRBC Abs Auto 0.000 0.0 - 0.012 X10*3/uL [facility] Blood Venous blood specimen / Unknown 03/15/2025 3:19 PM EDT 03/15/2025 4:06 PM EDT Silas Harding ANP LAB BLOOD ORDERABLES Final Resul t Performing Organization Address City/[facility]/ZIP Co de Phone Number [facility] [address] [place] [phone] * Iron And Total Iron Binding Capacity (03/15/2025 3:19 PM EDT) Pathologist [facility] Iron 56 30 - 160 mcg/dL [facility] Total Iron Binding Capacity 235 228 - 428 mcg/dL [facility] Percent Iron Saturation 24 15 - 50 % [facility] Unsaturated Iron Binding 179 ug/dL [facility] Blood Venous blood specimen / Unknown 03/15/2025 3:19 PM EDT 03/15/2025 4:06 PM EDT Silas Harding ANP LAB BLOOD ORDERABLES Final Resul t Performing Organization Address City/[facility]/ZIP Co de Phone Number [facility] [address] [place] [phone] * Hepatitis B surface antigen, EIA (03/15/2025 3:19 PM EDT) Pathologist [facility] Hepatitis B Surface Ag Negative Negative [facility] Blood Venous blood specimen / Unknown 03/15/2025 3:19 PM EDT 03/15/2025 4:06 PM EDT Silas Harding [facility] BLOOD ORDERABLES Final Resul t Performing Organization Address [facility] de Phone Number [facility] [address] [place] [phone] * Hepatitis B Core Antibody, Total (03/15/2025 3:19 PM EDT) Hepatitis B Core Antibody Nonreactive Nonreactive [facility] Blood Venous blood specimen / Unknown 03/15/2025 3:19 PM EDT 03/15/2025 4:06 PM EDT Silas Harding [facility] BLOOD ORDERABLES Final Resul t Performing Organization Address [facility] Phone Number [facility] [address] [place] [phone] * Hepatitis B Surface Antibody, Qualitative (03/15/2025 3:19 PM EDT) ~Hepatitis B Surface Antibody NONREACTIVE Nonreactive [facility] Comment:Nonreactive: < 8.00 mIU/mL Blood Venous blood specimen / Unknown 03/15/2025 3:19 PM EDT 03/15/2025 4:06 PM EDT Silas Harding [facility] BLOOD ORDERABLES Final Resul t Performing Organization Address [facility] de Phone Number [facility] [address] [place] [phone] * Prothrombin Time-INR (03/15/2025 3:19 PM EDT) Prothrombin Time 12.2 10.9 - 12.4 SEC [facility] INTERNATIONAL NORM RATIO 1.1 0.9 - 1.1 [facility] Comment:INTERNATIONAL NORMAL IZED RATIO (INR) REFERENCE RANGES Reference RangeFor patients not on anticoagulant therapy: 0.9 - 1.1INR ranges for oral anticoagulanttherapy:For prevention and treatment of venous thrombosis and pulmonary embolism: 2.0 - 3.0For acute myocardial infarction with aspirin therapy: 2.0 - 3.0For acute myocardial infarction without aspirin therapy: 3.0 - 4.0For patients with mechanical prosthetic heart valves: 2.5 - 3.5 Blood Venous blood specimen / Unknown 03/15/2025 3:19 PM EDT 03/15/2025 4:06 PM EDT Silas Harding [facility] BLOOD ORDERABLES Final Resul t Performing Organization Address [facility] de Phone Number [facility] [address] [place] [phone] * Ferritin (03/15/2025 3:19 PM EDT) Pathologist [facility] Ferritin 144 10 - 250 ng/mL [facility] Blood Venous blood specimen / Unknown 03/15/2025 3:19 PM EDT 03/15/2025 4:06 PM EDT Silas Harding [facility] BLOOD ORDERABLES Final Resul t Performing Organization Address [facility] Phone Number [facility] [address] [place] [phone] * (ABNORMAL) Comprehensive Metabolic Panel (03/15/2025 3:19 PM EDT) Sodium 139 135 - 145 mmol/L [facility] Potassium 3.0(L) 3.3 - 5.1 mmol/L [facility] Chloride 103 96 - 108 mmol/L [facility] Carbon Dioxide 25 22 - 29 mmol/L [facility] Anion Gap 14 12 - 20 [facility] Urea Nitrogen (BUN) 11 9 - 16 mg/dL [facility] Creatinine, Serum 0.85 0.5 - 1.4 mg/dL [facility] Estimated Glomerular Filt Rate >60 [facility] Comment:Chronic Kidney Disea se: Estimated GFR < 60 mL/min/1.93y1Bgjgsf Kidney Disease: Estimated GFR < 15 mL/min/1.73m2 Glucose 87 60 - 115 mg/dL [facility] Calcium 8.1(L) 8.4 - 10.2 mg/dL [facility] Bilirubin, Total 0.4 0.0 - 1.0 mg/dL [facility] Aspartate Amino Transferase 31 5 - 31 U/L [facility] Alanine Aminotransferase 35(H) 0 - 31 U/L [facility] Total Protein 7.4 6.5 - 8.0 g/dL [facility] Albumin Level 4.7 3.5 - 5.0 g/dL [facility] Alkaline Phosphatase 110 39 - 117 U/L [facility] Blood Venous blood specimen / Unknown 03/15/2025 3:19 PM EDT 03/15/2025 4:06 PM EDT Silas Harding ANP LAB BLOOD ORDERABLES Final Resul t [facility] [address] [place] [phone] * POCT HGB A1C (03/15/2025 3:14 PM EDT) Hemoglobin A1C 5.6 4.0 - 5.7 % QC Media Lot # [id number] Lot# Expiration Date 3, Blood 03/15/2025 3:14 PM EDT Silas Harding ANP POINT OF CARE TEST ENTER/EDIT OR DERABLES Final Result * POCT Glucose (03/15/2025 3:14 PM EDT) Glucose Blood, POC 81 60 - 200 mg/dL QC Media Lot # [id number] Lot# Expiration Date 2476,026 Blood Capillary blood specimen / Unknown 03/15/2025 3:14 PM EDT us Silas RODRIGUEZ POINT OF CARE TEST ENTER/EDIT OR DERABLES Final Result * US RENAL BI (02/19/2025 5:18 PM EDT) Anatomical Region Laterality Modality Abdomen Ultrasound 02/19/2025 5:18 PM EDT Narrative 02/19/2025 5:19 PM EDT [place] [address] Ultrasound Report Signed Patient: Nancy Agudelo MR#: [id number] 1 : 1970 Acct:[id number] Age/Sex: 55 / F ADM Date: 02/18/25 Loc: HO.US Attending Dr: Aris Coronado MD Ordering Physician: Aris Coronado MD Date of Service: 02/18/25 Procedure(s): US renal BI Accession Number(s): [id number] cc: Aris Coronado MD; SILAS HARDING NP CLINICAL HISTORY: N20.0 - Calculus of kidney US of kidneys Comparison: None Findings: Right kidney is normal in size, echogenicity and morphology, 9.1 cm in length. Nonobstructing calyceal calculi 11 mm in the lower pole, 5 mm in the midpole, 7 mm in the upper pole, additional smaller echogenic foci also noted. No mass or hydronephrosis. Left kidney is normal in size, echogenicity and morphology, 12.0 cm in length. 4 mm calculus in the upper pole. Additional smaller echogenic foci noted. Mild pelviectasis, no calyceal dilatation. No mass or hydronephrosis. Limited color Doppler demonstrates unremarkable bilateral blood flow. Impression: 1. Nonobstructing bilateral nephrolithiasis, right worse than left. 2. Left renal mild pelviectasis. This document has been electronically signed by: Lauren Samuel MD on 02/19/2025 17:18:47 Dictated By: Lauren Samuel MD Signed By: <Electronically signed by Lauren Samuel MD in OV> 02/19/251718 DD/ 17 TD/TT: 02/19/251717 Pigment Processor: Procedure Note Donotuseinterpreter, Image - 02/19/[address] [address] Ultrasound Report Signed Patient: Nancy Agudelo RMR#: [id number] 1 : 1970Acct:[id number] Age/Sex: 55 / FADM Date: 02/18/25 Loc: HO.US Attending Dr: Aris Coronado MD Ordering Physician: Aris Coronado MD Date of Service: 02/18/25 Procedure(s): US renal BI Accession Number(s): [id number] cc: Aris Coronado MD; SILAS HARDING NP CLINICAL HISTORY: N20.0 - Calculus of kidney US of kidneys Comparison: None Findings: Right kidney is normal in size, echogenicity and morphology, 9.1 cm in length. Nonobstructing calyceal calculi 11 mm in the lower pole, 5 mm in the midpole, 7 mm in the upper pole, additional smaller echogenic foci also noted. No mass or hydronephrosis. Left kidney is normal in size, echogenicity and morphology, 12.0 cm in length. 4 mm calculus in the upper pole. Additional smaller echogenic foci noted. Mild pelviectasis, no calyceal dilatation. No mass or hydronephrosis. Limited color Doppler demonstrates unremarkable bilateral blood flow. Impression: 1. Nonobstructing bilateral nephrolithiasis, right worse than left. 2. Left renal mild pelviectasis. This document has been electronically signed by: Lauren Samuel MD on 02/19/2025 17:18:47 Dictated By: Lauren Samuel MD Signed By: <Electronically signed by Lauren Samuel MD in OV> 02/19/251718 DD/ 17 TD/TT: 02/19/251717 Pigment Processor: [facility] External Provider IMG US PROCEDURES Edited Result - Final * Colonoscopy (07/02/2024) Colonoscopy Normal Normal Narrative Gay Berkowitz - 07/02/2024 colonoscopy order added Historical Provider HEALTH MAINTENANCE Final Result * [facility] Pap and HPV mRNA E6/E7 (03/19/2024 2:04 PM EDT) HPV nRNA E6/E7 Not Detected Not Detected [facility] Comment:Methodology: Transcr iption-Mediated AmplificationThis assay detects E6/E7 viral messenger RNA (mRNA) from 14high-risk HPV types (16,18,31,33,35,39,45,51,52,56,58,59,66,68).Cervical sources are required for HPV testing.If a vaginal source from a patient who has had atotal hysterectomy with removal of cervix wassubmitted, please contact the testing laboratoryfor alternative testing options.For additional information, please refer tohttp://education.CureDM/faq/HKO753e5(This link if provided for information/educational purposes only.)THIS TEST WAS PERFORMED AT:[facility] [address] [phone] RIOS MD SOURCE: SEE NOTE [facility] Comment:None given Report Status: [facility] Clinical Information: SEE NOTE [facility] Comment:None given LMP: SEE NOTE [facility] Comment:NONE GIVEN Prev. PAP: SEE NOTE [facility] Comment:NONE GIVEN Prev. BX: SEE NOTE [facility] Comment:NONE GIVEN Statement Of Adequacy: SEE [facility] Comment:Satisfactory for mario luation.Endocervical/transformation zone component absent. General Categorization: [facility] Interpretation/Result: SEE NOTE [facility] Comment:Cytology Results: Ne gative for intraepitheliallesion or malignancy. Cytology Comment SEE NOTE [facility] Comment:This Pap test has be en evaluated with computerassisted technology. Assistant Auto Center Manager: SEE NOTE [facility] Comment:[place], CT(ASCP)CT scre ening location: [address] [address] Review Assistant Auto Center Manager: [facility] Pathologist [facility] PAP Infection [facility] See Note SEE NOTE [facility] Comment:EXPLANATORY NOTE:The Pap is a screening test for cervical cancer. It isnot a diagnostic test and is subject to false negativeand false positive results. It is most reliable when asatisfactory sample, regularly obtained, is submittedwith relevant clinical findings and history, and whenthe Pap result is evaluated along with historic andcurrent clinical information. 03/19/2024 2:04 PM EDT 03/19/2024 5:54 PM EDT Narrative [facility] - 03/25/2024 3:00 PM EDT SEE SCANNED RESULTS IN EMR us Lizzy THOMPSON LAB PATHOLOGY ORDERABLES Final Result [facility] [address] [place] [phone] * (ABNORMAL) Lipid Panel, Standard (12/19/2023 10:20 AM EDT) Triglycerides 115 <150 mg/dL [facility] Comment:Desirable Triglyceri de: less than 150 mg/dLBorderline High Triglyceride 150-199 mg/dLHigh Triglyceride: 200-499 mg/dLVery High Triglyceride: greater than or equal to 5OO mg/dL Cholesterol 192 <200 mg/dL [facility] Comment:Desirable Cholestero l: less than 200 mg/dLBorderline High Cholesterol: 200-239 mg/dLHigh Cholesterol: greater than 239 mg/dL LDL Cholesterol Calculated 109(H) <100 mg/dL [facility] Comment:Desirable LDL: less than 100 mg/dLNear Optimal/Above Optimal LDL: 110- 129 mg/dLBorderline High LDL: 130-159 mg/dLHigh LDL: 160-189 mg/dLVery High LDL: greater than or equal to 190 mg/dL HDL Cholesterol 60 >40 mg/dL [facility] Comment:Desirable HDL: great er than 40 mg/dL Note: This HDL assay may give artificially low results in patients with liver disease. Blood Venous blood specimen / Unknown 12/19/2023 10:20 AM EDT 12/19/2023 11:34 AM EDT us Silas Harding ANP LAB BLOOD ORDERABLES Final Resul t Performing Organization Address City/[facility]/ZIP Co de Phone Number [facility] [address] [place] [address] [phone] * HEPATITIS C AB W/REFL TO HCV RNA, QN, PCR (06/03/2020 9:27 AM EDT) HEPATITIS C ANTIBODY NON-REACT JOVANNY NON-REACT JOVANNY [facility] INDEX 0.02 <1.00 [facility] Comment: HCV antibody was non-reactive. There is no laboratory evidence of HCV infection. In most cases, no further action is required. However, if recent HCV exposure is suspected, a test for HCV RNA (test code 36990) is suggested. For additional information please refer to http://[employer].CureDM/faq/JGE70i5 (This link is being provided for informational/ educational purposes only.) HEPATITIS C ANTIBODY NON-REACT JOVANNY NON-REACT JOVANNY [facility] INDEX 0.02 <1.00 [facility] Comment: HCV antibody was non-reactive. There is no laboratory evidence of HCV infection. In most cases, no further action is required. However, if recent HCV exposure is suspected, a test for HCV RNA (test code 49067) is suggested. For additional information please refer to http://[employer].CureDM/faq/DWQ51u4 (This link is being provided for informational/ educational purposes only.) HEPATITIS C ANTIBODY NON-REACT JOVANNY NON-REACT JOVANNY [facility] INDEX 0.02 <1.00 [facility] Comment: HCV antibody was non-reactive. There is no laboratory evidence of HCV infection. In most cases, no further action is required. However, if recent HCV exposure is suspected, a test for HCV RNA (test code 64992) is suggested. For additional information please refer to http://[employer].CureDM/faq/VCE21s2 (This link is being provided for informational/ educational purposes only.) 06/03/2020 9:2 7 AM EDT us Silas Harding ANP HISTORICAL/NON ORDERABLE LABS Fi nal Result Performing Organization Address City/[facility]/ZIP Co de Phone Number [facility] [address] [place] [phone], * HIV 1/2 ANTIGEN/ANTIBODY,FOURTH GENERATION W/RFL (06/03/2020 9:27 AM EDT) HIV-1/2 ANTIGEN AND ANTIBODIES, 4TH GENERATION W/ REFLEX NON-REACT JOVANNY NON-REACT [facility] Comment: HIV-1 antigen and HIV-1/HIV-2 antibodies were not detected. There is no laboratory evidence of HIV infection. PLEASE NOTE: This information has been disclosed to you from records whose confidentiality may be protected by state law. If your state requires such protection, then the state law prohibits you from making any further disclosure of the information without the specific written consent of the person to whom it pertains, or as otherwise permitted by law. A general authorization for the release of medical or other information is NOT sufficient for this purpose. For additional information please refer to http://[employer].CureDM/faq/UXF201 (This link is being provided for informational/ educational purposes only.) The performance of this assay has not been clinically validated in patients less than 2 years old. HIV-1/2 ANTIGEN AND ANTIBODIES, 4TH GENERATION W/ REFLEX NON-REACT JOVANNY NON-REACT JOVANNY [facility] Comment: HIV-1 antigen and HIV-1/HIV-2 antibodies were not detected. There is no laboratory evidence of HIV infection. PLEASE NOTE: This information has been disclosed to you from records whose confidentiality may be protected by state law. If your state requires such protection, then the state law prohibits you from making any further disclosure of the information without the specific written consent of the person to whom it pertains, or as otherwise permitted by law. A general authorization for the release of medical or other information is NOT sufficient for this purpose. For additional information please refer to http://[employer].CureDM/faq/ZXZ994 (This link is being provided for informational/ educational purposes only.) The performance of this assay has not been clinically validated in patients less than 2 years old. HIV-1/2 ANTIGEN AND ANTIBODIES, 4TH GENERATION W/ REFLEX NON-REACT JOVANNY NON-REACT JOVANNY [facility] Comment: HIV-1 antigen and HIV-1/HIV-2 antibodies were not detected. There is no laboratory evidence of HIV infection. PLEASE NOTE: This information has been disclosed to you from records whose confidentiality may be protected by state law. If your state requires such protection, then the state law prohibits you from making any further disclosure of the information without the specific written consent of the person to whom it pertains, or as otherwise permitted by law. A general authorization for the release of medical or other information is NOT sufficient for this purpose. For additional information please refer to http://education.CureDM/faq/VBZ331 (This link is being provided for informational/ educational purposes only.) The performance of this assay has not been clinically validated in patients less than 2 years old. 06/03/2020 9:27 AM EDT [facility] LAB BLOOD ORDERABLES Final Resul t [facility] Any[address] from Last 3 Months or Most Recently Relevant to Health Maintenance Insurance [facility] - HSN PARTIAL (MEDICAID) Care Teams Intake Counselor Relationship Specialty Start Date End Date Silas Harding ANP [address] [place] [address] [place] [address] PCP - General Family Medicine 04/18/20
--- OUTSIDE RECORDS SUMMARY | 2025-04-16 11:09 | XMS_ITS | Encounter Summary ---
Author Organization [employer] [facility] Address [address] [place] [address] Care Team Providers Care Insurance Marketing Specialist Name Role Phone Bibi Neves Primary Care Provider [phone] Encounter Details Date Type Department Care Team (Latest Contact Info) Description 06/05/2022 Abstract [facility] CONVERSIONS Dental, Provider, DDS Social [...] Description 04/30/2025 3:00 PM EDT Office Visit [facility] ADULT DENTAL [address] [place] [address] Humaira Garcia [address] [place] [address] 05/26/2025 2:00 PM EDT Clinical Support [facility] MEDICINE [address] [place] [address] 06/18/2025 1:30 PM EDT Office Visit [facility] MEDICINE [address] [place] [address] Bibi Neves ANP [address] [place] [address] documented as of this encounter Visit Diagnoses Not on filedocumented in this encounter Care Teams Insurance Marketing Specialist Relationship Specialty Start Date End Date Bibi Neves ANP [address] [place] [address] PCP - General Family Medicine 04/18/20 documented as of this encounter
--- OUTSIDE RECORDS SUMMARY | 2025-04-16 11:09 | XMS_ITS | Clinical Summary ---
Author Organization [address] [facility] Address [address] [place] [address] Phone Care Team Providers Care Automatic Tire Tester Name Role Phone Bibi Neves NP Primary Care Provider Social History Tobacco Use Types Packs/Day Years [...] patient's age to complete this topic Insurance [facility] Care Teams Automatic Tire Tester Relationship Specialty Start Date End Date Bibi Neves NP [address] [place] [phone] PCP - General 07/28/24
--- OUTSIDE RECORDS SUMMARY | 2025-04-16 11:09 | XMS_ITS | Encounter Summary ---
Author Organization [employer] Address [address] [place] [address] Care Team Providers Care Brake Lining Maker Name Role Phone Bibi Neves JENNIFER Primary Care Provider [phone] Encounter Details Date Type Department Care Team (Late st Contact Info) Description 09/22/2024 Orders Only [facility] MEDICINE [address] [place] [address] Nilesh Marte, LaniD Social History Tobacco Use Types Packs/Day Years [...] the past 12 months, has t he [place], oil or water [employer] threatened to shut off services in your [...] Description 04/30/2025 3:00 PM EDT Office Visit [facility] ADULT DENTAL [address] [place] [address] Humaira Garcia [address] [place] [address] 05/26/2025 2:00 PM EDT Clinical Support [facility] MEDICINE [address] [place] [phone] 06/18/2025 1:30 PM EDT Office Visit [facility] MEDICINE [address] [place] [phone] Bibi Neves ANP [address] [place] [address] documented as of this encounter Visit Diagnoses Not on filedocumented in this encounter Additional Health Concerns Assessment Noted Time PHQ-9 Depression Total Score: 2 12/19/19 24 10:14 AM EDT documented as of this encounter Care Teams Brake Lining Maker Relationship Specialty Start Date End Date Bibi Neves ANP [address] [place] [address] PCP - General Family Medicine 04/18/20 documented as of this encounter
--- OUTSIDE RECORDS SUMMARY | 2025-04-16 11:09 | XMS_ITS | Encounter Summary ---
Author Organization [employer] Address [address] [place] [address] Care Team Providers Care Papeterie Table Assembler Name Role Phone Bibi Neves Primary Care Provider [phone] Encounter Details Date Type Department Care Team (Late st Contact Info) Description 11/12/2022 Orders Only [facility] [address] [place] [address] Sharonda Gotti LPN Social History Tobacco Use [...] Description 04/30/2025 3:00 PM EDT Office Visit [facility] ADULT DENTAL [address] [place] [address] Radha, Humaira [address] [place] [address] 05/26/2025 2:00 PM EDT Clinical Support [facility] MEDICINE [address] [place] [phone] 06/18/2025 1:30 PM EDT Office Visit [facility] MED[facility]INE [address] [place] [phone] Bibi Neves ANP [address] [place] [address] documented as of this encounter Visit Diagnoses Not on filedocumented in this encounter Care Teams Papeterie Table Assembler Relationship Specialty Start Date End Date Bibi Neves ANP [address] [place] [address] PCP - General Family Medicine 04/18/20 documented as of this encounter
--- OUTSIDE RECORDS SUMMARY | 2025-04-16 11:09 | XMS_ITS | Encounter Summary ---
Author Organization [employer] [facility] Address [address] [place] [address] Care Team Providers Care Casing Inspector Name Role Phone Bibi Neves Primary Care Provider [phone] Encounter Details Date Type Department Care Team (Latest Contact Info) Description 08/26/2019 Abstract [facility] CONVERSIONS Dental, Provider, DDS Social [...] 3:00 PM EDT Office Visit [facility] ADULT DENTAL [address] [place] [address] Humaira Garcia [address] [place] [address] 05/26/2025 2:00 PM EDT Clinical Support [facility] MEDICINE [address] [place] [address] 06/18/2025 1:30 PM EDT Office Visit [facility] MEDICINE [address] [place] [address] Bibi Neves ANP [address] [place] [address] documented as of this encounter Visit Diagnoses Not on filedocumented in this encounter Care Teams Casing Inspector Relationship Specialty Start Date End Date Bibi Neves ANP [address] [place] [address] PCP - General Family Medicine 04/18/20 documented as of this encounter
[2025-04-16 13:20] LABS: Anion Gap 12 (12-20); Blood Urea Nitrogen 12 mg/dL (9-16); Calcium 7.5 mg/dL (8.4-10.2); Carbon Dioxide 27 mmol/L (22-29); Chloride 108 mmol/L (96-108); Estimated Glomerular Filt Rate > 60; Magnesium 1.8 mg/dL (1.6-2.6); Potassium 3.3 mmol/L (3.3-5.1); Sodium 144 mmol/L (135-145)
== END 2025-04-16 10:28 | disposition home or self-care (01) ==
LOC: HO.HHCL 10:27
PROVIDERS: PCP Nurse Practitioner Primary Care; Visit Provider Nurse Practitioner Primary Care
DX: E83.51 Hypocalcemia (principal)
CPT/HCPCS: 36415; 80048; 83735; 84100

== ENCOUNTER 2025-04-23 13:18 | Outpatient (AMB) | payer OTHER, SELFPAY ==
[2025-04-23 13:23] VITALS: BP 114/74; PULSE 77; BMI 32.5
--- NOTE | 2025-04-23 13:23 | A.OFFVIS_ITS ---
Vital Signs 04/23/25 13:23 Height 4 ft 10 in Weight 155 lb 10.342 oz BMI 32.5 BP 114/74 Blood Pressure Location Lt brachial Position Sitting Pulse 77 Intake Visit Reasons: CIC, GERD 3 Month Intake Note: Patient in office today in follow up of CIC and GERD. CC: Patient states that she continues to have bleeding from hemorrhoid sometimes but not as bad as before. Denies other GI symptoms. Organ Tuner Electronic Required: Yes Organ Tuner Electronic Language: Stapling Machine Operator Name: Horacio PAULINO LM Accompanied by: Self / Same As Patient Allergies No Known Allergies (No Known Allergies*) Allergy (Verified 04/23/25 13:33) HPI HPI CIC, GERD 3 Month: Details: Assessment & Plan (1) Constipation: Code(s): K59.00 - Constipation, unspecified Category: Medical (2) Hemorrhoids: Code(s): K64.9 - Unspecified hemorrhoids Category: Medical (3) Tubular adenoma of colon: Comment: 11/2024=TA but poor prep repeat 2 years; 2022= negative scope but poor prep repeat in 1 year; 2018 large Code(s): D12.6 - Benign neoplasm of colon, unspecified Category: Medical Plan Turkish #V live The procedure needs to be repeated in 2 years r/t poor prep. There was some miscommunication as she thought that she only had a non cancerous polyp and that her prep was good, and clearly it was not. I even clarify this with the instructions that the MD/endoscopist asked to be relayed to her and this is correct. The procedure was well tolerated. The results were explained and the patient is agreeable to the follow-up interval as stated. The bowel pattern has returned to normal. Education was provided to tell any 1st degree relatives about their findings to be sure that they are screened by age 45. Educated that they will be put on a recall list when it is time for their repeat scope but should they move out of state or away from the hospital they will need to remember along with their primary to repeat the procedure in a timely fashion to avoid any adverse complications. She continues on her senna and fiber. She continues to have rectal bleeding with every BM. She is using OTC hemorrhoid suppositories, but only using them qd and not for a full 14 days, therefore she says they calm down for a while but then they just come back. I educate her. We also discussed surgery, but I don't know if hers are extensive/large enough to warrant this. But, I will refer her if she wishes to ask the surgeon about this. She feels her current medication acceptably controls her hemorrhoids. However, this has worsened since she started Zepbound - which would be expected. She is at the beginning of this and if her meds stop working as she increases the dose she should contact me. ROV 3 mos. TODAY'S VISIT Turkish #V Live [facility] Medical History Upper respiratory infection Pre-op examination Multinodular thyroid Prediabetes Obesity Hydronephrosis concurrent with and due to calculi of kidney and ureter Recurrent nephrolithiasis Disorder of bone density and structure, unspecified Vitamin D deficiency Osteopenia Tubular adenoma of colon Carpal tunnel syndrome Obesity (BMI 30-39.9) Post-surgical hypoparathyroidism Surgical History Hx of cystoscopy History of bladder surgery Hx of parathyroidectomy Hx of colonoscopy (~05/2023) Hx of tubal ligation Hx of cholecystectomy Hx of hysterectomy Family History Father Diabetes mellitus Mother No problems noted. Social History Household Members: Children Are you a primary healthcare market consultant to a significant other at home: No Do you presently have visiting nurse or other home services: No Alcohol intake: never Patient Tobacco Use Status: Never used Tobacco Review of Systems Const Denies fatigue, Denies fever(s), Denies night sweats, Denies poor appetite and Denies weight loss Eyes Details: glasses Reports requires corrective lenses ENT Reports Normal hearing present, Denies dental pain, Denies dysphagia, Denies hearing loss, Denies mouth pain, Denies odynophagia, Denies throat swelling, Denies tongue swelling and Reports other (Dentition adequate) Card Reports no additional complaints Resp Reports no additional complaints GI Details: Denies abdominal pain, Denies melena, Denies bloating, Reports hematochezia, Reports constipation, Denies GI cramping, Denies dysphagia, Denies excessive flatus, Denies early satiety, Denies heartburn, Denies diarrhea, Denies nausea, Denies odynophagia, Denies vomiting and Denies hematemesis Skin/Breast Denies pruritus, Denies lesions, Denies rash and Denies jaundice Neuro Reports Normal hearing present and Denies Abnormal speech present Endo Denies fatigue Aller/Immun Denies throat swelling and Denies tongue swelling Physical Exam Vital Signs: Last Vital Signs Pulse 77 04/23/25 13:23 BP 114/74 04/23/25 13:23 BMI result Body Mass Index 32.5 Const General: cooperative, no acute distress, well developed and well groomed Nutritional Appearance: well nourished and overweight Orientation/consciousness: oriented to person, oriented to place and oriented to time Limitations: language barrier HEENT Head: Yes normocephalic and Yes atraumatic Eyes General: appearance normal, both eyes and all related structures Pupils: Equal, round and reactive pupils present Neck Neck: Yes normal visual inspection and Yes no lymphadenopathy Thyroid: Thyroid normal Resp Effort & Inspection: normal respiratory effort and able to speak in complete sentences Auscultation: clear to auscultation bilaterally Cardio Rate: regular rate Rhythm: regular rhythm Heart sounds: Normal, physiologic split S2 sound present Peripheral pulses: radial pulses present and posterior tibial pulses present GI Inspection: No distended, No Abdominal panniculus present and Yes obesity Palpation (GI): Soft to palpation, nontender, no guarding, not rigid and No hepatosplenomegaly present Percussion: Yes normal to percussion Auscultation: normal bowel sounds Rectal Exam - Female: deferred Skin General skin exam: no rashes or lesions noted, turgor normal, skin not dry, no jaundice, No spider nevi and no striae Rashes: no rashes Nails: normal Neuro General: oriented to person, oriented to place and oriented to time Cranial nerves: Yes Equal, round and reactive pupils present and Yes Normal hearing present Speech: No Abnormal speech present Extrem General: Yes normal to inspection, No clubbing, No cyanosis and No edema Psych Appearance: grossly normal and well kempt Mental Status: mental status grossly normal Speech and movement: Normal speech and movement present Affect: normal affect Attitude: cooperative Thought process: Normal thought process present and not confabulating Thought content: Normal thought content present Insight: Good insight present (Psych) Judgement: Good judgement present (Psych) Assessment & Plan Assessment & Plan (1) Constipation: Code(s): K59.00 - Constipation, unspecified Category: Medical (2) Hemorrhoids: Code(s): K64.9 - Unspecified hemorrhoids Category: Medical Plan Her current GI regimen consists of senna and fiber along with Proctosol cream. She is generally doing better she did have a recent episode of bleeding but it certainly was not as severe as it was in the past. She would like to consider if surgical correction would be appropriate in her case, and I tell her I am not entirely sure but I will refer her to General surgery and then she can make a decision based on the information that they give her. Return office visit in 6 months Orders: Referrals General Surgery Referral K64.9 - Unspecified hemorrhoids Medications: Refilled sennosides (Senna Laxative) 8.6 mg PO BID 60 tabs 6RF K59.00 - Constipation, unspecified psyllium husk (Reguloid (psyllium husk)) 0.4 grams PO BID 60 caps 6RF K59.00 - Constipation, unspecified hydrocortisone 2.5% (Proctosol HC) BE SURE TO INCLUDE RECTAL APPICATOR!! 1 appl [place] BID 30 grams 6RF hemorrhoids K64.9 - Unspecified hemorrhoids Coding Level of Care Code Est Pt Level 3 (36338) Diagnoses Constipation K59.00 Hemorrhoids K64.9
--- OUTSIDE RECORDS SUMMARY | 2025-04-23 13:30 | XMS_ITS | Encounter Summary ---
Author Organization [employer] [facility] Address [address] [place] [address] Care Team Providers Care Firmware Manager Name Role Phone Bibi Neves Primary Care Provider [phone] Encounter Details Date Type Department Care Team (Latest Contact Info) Description 06/05/2022 Abstract [facility] CONVERSIONS Dental, Provider, DDS Social History [...] Description 04/30/2025 3:00 PM EDT Office Visit [facility] ADULT DENTAL [address] [place] [address] Humaira Garcia [address] [place] [address] 05/26/2025 2:00 PM EDT Clinical Support [facility] MEDICINE [address] [place] [address] 06/18/2025 1:30 PM EDT Office Visit [facility] MEDICINE [address] [place] [address] Bibi Neves ANP [address] [place] [address] documented as of this encounter Visit Diagnoses Not on filedocumented in this encounter Care Teams Firmware Manager Relationship Specialty Start Date End Date Bibi Neves ANP [address] [place] [address] PCP - General Family Medicine 04/18/20 documented as of this encounter
--- OUTSIDE RECORDS SUMMARY | 2025-04-23 13:30 | XMS_ITS | Clinical Summary ---
Author Organization [employer] Address [address] [place] [address] Care Team Providers Care Logistics/Shipper Name Role Phone Pura Silas RODRIGUEZ Primary Care Provider [phone] Allergies No known active allergies Medications Bisacodyl [...] day. 30 tablet 11 025 2025 Active amLODIPine (Norvasc) 5 MG tabletIndicatio ns:Essential hypertension TAKE 1 TABLET BY MOUTH EVERY MORNING 90 tablet 1 025 Active Calcium Carb-Cholecalci ferol (Calcium 500+D3) 500-10 MG-MCG tabletIndicatio ns:Hypocalcemia Take 1 tablet by mouth 2 times daily. 180 tablet 1 025 Active amLODIPine (Norvasc) 5 [...] eorder (will not trigger notification to Pharmacy)) Calcium Carb-Cholecalci ferol (Calcium 500+D3) 500-10 MG-MCG tabletIndicatio ns:Hypocalcemia Take 1 tablet by mouth Once per day. 90 tablet 1 025 2024 Discontinued(R eorder (will not trigger notification to Pharmacy)) Active Problems Problem Noted Date Diagnosed Date Tubular adenoma of colon 12/01/2024 Overview (12/01/2024): 06/2024 C-scope w/ [facility], repeat 2 years per GI. we [...] Encounters Date Type Department Care Team Description 04/22/2025 Orders Only [facility] [address] [place] [address] Silas Harding ANP Hyperparathyroidism (CMS/HCC) (Primary Dx); Hypocalcemia 04/14/2025 Telephone [facility] [address] [place], [place] [phone] Silas Harding ANP May recall 04/12/2025 Refill [facility] [address] [place], [place] [phone] Bhavna Lima NP Essential hypertension 04/07/[address] [address] Silas Harding ANP Medication Question 04/06/2025 Results Follow-Up [address] [place] [address] Silas Harding ANP Basic Metabolic Panel, Phosphate (As Phosphorus), Magnesium, Basic Metabolic Panel 04/06/[address] [address] Silas Harding ANP 03/25/2025 Orders Only [address] [address] Silas Harding ANP Hypokalemia (Primary Dx); Primary hypertension 03/22/2025 2:00 PM EDT Procedure Visit [address] [address] Lizzy Shaikh CNM Menopause (Primary Dx); Encounter for immunization 03/22/2025 Travel 03/19/2025 Telephone [facility] [address] [place] [address] Myrna Moser [place] 03/16/2025 Results Follow-Up [address] [address] Silas Harding ANP POCT Glucose, POCT HGB A1C, CBC auto differential, Additional followed-up results: 10 03/15/2025 2:30 PM EDT Office Visit [address] [address] Silas Harding ANP Prediabetes (Primary Dx); Easy bruising; Need for hepatitis B screening test; Primary hypertension 03/15/2025 Travel 03/12/[address] [address] Silas Harding ANP Chart Prep 03/08/2025 Patient Outreach [address] [address] Silas Harding ANP Pre-visit Planning (SDOH screening was completed on 09/30/2024) 02/18/2025 Orders Only [facility] External Provider, [facility] 02/16/[address] [address] Silas Harding JENNIFER Class 2 severe obesity with serious comorbidity and body mass index (BMI) of 36.0 to 36.9 in adult, unspecified obesity type (CMS/[facility]); Prediabetes from Last 3 Months Immunizations Immunization [...] Visit [facility] [address] [place] [address] Humaira Garcia [address] [place] [address] 05/26/2025 2:00 PM EDT Clinical Support [facility] [address] [place] [address] 06/18/2025 1:30 PM EDT Office Visit [facility] [address] [place] [address] Silas Harding ANP [address] [place] [address] Health Maintenance Due Date Last Done Comments CT Colonography 1969 FIT DNA/Cologuard 1970 FIT 1970 FOBT 1970 Sigmoidoscopy 1970 Influenza Vaccine (#1) 2025 , 05/10/2023, 05/24/2019, Additional history exists Dental Oral Exam 04/29/2025 10/26/2024, 12/2023, 06/05/2022, Additional history exists Dental Prophylaxis 04/29/2025 10/26/2024, 0 04/27/2024, 09/23/2023, Additional history exists Hepatitis B Vaccines (3 of 3 - 19+ 3-dose series) 05/17/2025 03/22/2025, 06/09/2012 SDOH Screening 09/30/2025 09/30/2024 Depression Screening 10/14/2025 10/14/2024, 10/14/19 Dental X-Ray: [employer]ings 10/27/2025 10/27/19 25, 09/23/2023, 03/06/2019, Additional history exists Alcohol/Substance Use [...] Procedure Name Priority Date/Time Associated Diagnosis Comments BASIC METABOLIC PANEL Routine 04/16/2025 10:30 AM EDT Hypocalcemia MAGNESIUM Routine 04/16/2025 10:30 AM EDT Hypocalcemia PHOSPHATE ( PHOSPHORUS) Routine 04/16/2025 10:30 AM EDT Hypocalcemia HM MAMMOGRAPHY Routine 04/06/2025 2:46 PM EDT [...] Recently Relevant to Health Maintenance Results * Phosphate (As Phosphorus) (04/16/2025 10:30 AM EDT) Phosphorus 3.5 2.7 - 4.5 mg/dL [facility] Blood Venous blood specimen / Unknown 04/16/2025 10:30 AM EDT 04/16/2025 11:52 AM EDT Silas Harding [facility] LAB BLOOD ORDERABLES Final Resul t [facility] [address] [place] [phone] * Magnesium (04/16/2025 10:30 AM EDT) Magnesium 1.8 1.6 - 2.6 mg/dL [facility] Blood Venous blood specimen / Unknown 04/16/2025 10:30 AM EDT 04/16/2025 11:52 AM EDT Silas Harding ANP LAB BLOOD ORDERABLES Final Resul t Performing Organization Address City/[facility]/ZIP Co de Phone Number [facility] [address] [place] [address] [phone] * (ABNORMAL) Basic Metabolic Panel (04/16/2025 10:30 AM EDT) Only the most recent of3 resultswithin the time period is included. Sodium 144 135 - 145 mmol/L [facility] Potassium 3.3 3.3 - 5.1 mmol/L [facility] Chloride 108 96 - 108 mmol/L [facility] Carbon Dioxide 27 22 - 29 mmol/L [facility] Anion Gap 12 12 - 20 [facility] Urea Nitrogen (BUN) 12 9 - 16 mg/dL [facility] Creatinine, Serum 0.83 0.5 - 1.4 mg/dL [facility] Estimated Glomerular Filt Rate >60 [facility] Comment:Chronic Kidney Disea se: Estimated GFR < 60 mL/min/1.73b8Nasuxh Kidney Disease: Estimated GFR < 15 mL/min/1.73m2 Glucose 77 60 - 115 mg/dL [facility] Calcium 7.5(L) 8.4 - 10.2 mg/dL [facility] Blood Venous blood specimen / Unknown 04/16/2025 10:30 AM EDT 04/16/2025 11:52 AM EDT Silas Harding ANP LAB BLOOD ORDERABLES Final Resul t Performing Organization Address City/[facility]/ZIP Co de Phone Number [facility] [address] [place] [address] [phone] * Mammography (04/06/2025 2:46 PM EDT) Mammogram BIRADS 2 Normal, Abnormal, BIRADS 1 , BIRADS 2 Anatomical Region Laterality Modality Other Historical Provider HEALTH MAINTENANCE Final Result * BI Mammogram Screening Tomosynthesis Bilateral (04/01/2025 10:30 AM EDT) Anatomical Region Laterality Modality Breast Bilateral Mammography 04/01/2025 10:3 0 AM EDT Narrative 04/06/2025 12:04 PM EDT [facility] [address] [place] [address] Mammography Report Signed Patient: Nancy Agudelo MR#: [id number] 1 : 1970 Acct:[id number] Age/Sex: 55 / F ADM Date: 04/01/25 Loc: HO.MAMMO Attending Dr: Silas Harding NP Ordering Physician: SILAS HARDING NP Results: 2Benign Fin dings Date of Service: 04/01/25 Follow Up: 1 Year From Orig inal Mammogram Procedure(s): MM tomosynthesis screening BI Accession Number(s): [id number] cc: SILAS HARDING NP EXAMINATION: MM SCREENING [...] 04/06/25 1201 DD/ 1030 TD/TT: 04/01/25 1045 [employer] Roll [employer] Batch Mixer: Procedure Note Donotuseinterpreter, Image - 04/06/[facility] [address] [place], [place] [address] Mammography Report Signed Patient: Nancy Agudelo RMR#: [id number] 1 : 1970Acct:[id number] Age/Sex: 55 / FADM Date: 04/01/25 Loc: HO.MAMMO Attending Dr: Silas Harding DIRECTOR [employer]ID[employer] Ordering Physician: SILAS HARDING NPResults: 2Benign Jesse reynolds Date of Service: 04/01/25Follow Up: 1 Year From Orig inal Mammogram Procedure(s): MM tomosynthesis screening BI Accession Number(s): [id number] cc: SILAS HARDING NP EXAMINATION: MM SCREENING [...] 04/06/25 1201 DD/ 1030 TD/TT: 04/01/25 1045 [employer] Batch Mixer: Silas Harding ANP IMG BI PROCEDURES Final Result * Vitamin D, 25-Hydroxy, Total, Immunoassay (03/25/2025 2:07 PM EDT) Vitamin D 25-OH Total 49.1 >30 ng/mL [facility] Comment: Health Based Reference Values*< 20 ng/mL Nxuzycarm87-98 ng/mL Insufficient> 30 ng/mL Sufficient*Raul ABARCA. N [...] EDT 03/25/2025 4:05 PM EDT Silas Harding [facility] LAB BLOOD ORDERABLES Final Resul t [facility] [address] [place] [address] [phone] * Albumin, Random Urine W/Creatinine (03/15/2025 3:19 PM EDT) Creatinine, Urine 54.19 mg/dL [facility] Microalbumin Urine 6.0 mg/L [facility] Microalbum Creatinine Ratio Ur 11.0 <30 ug/mg cr [facility] Comment:Albumin/Creatinine R atio Reference Ranges: Normal: < 30 ug/mg creatinine Microalbuminuria: 30 - 300 ug/mg creatinineClinical Albuminuria: > 300 ug/mg creatinine Urine (Urine, Random) 03/15/2025 3:19 PM EDT 03/15/2025 4:06 PM EDT Silas Harding JENNIFER LAB URINE ORDERABLES Final Resul t [facility] [address] [place] [address] [phone] * (ABNORMAL) CBC auto differential (03/15/2025 3:19 PM EDT) White Blood Count 7.0 4.8 - 10.8 X10*3/uL [facility] Red Blood Count 4.24 4.20 - 5.50 X10*6/uL [facility] Hemoglobin 11.8(L) 12.0 - 16.0 g/dl [facility] Hematocrit 36.5(L) 37.0 - 47.0 % [facility] Mean Corpuscular Volume 86.1 80.0 - 98.0 fL [facility] Mean Corpuscular Hemoglobin 27.8 27.0 - 33.0 pg [facility] Mean Corpuscular HGB Conc 32.3 31.0 - 35.0 g/dl [facility] Red Cell Distribution Width 14.7 11.0 - 16.0 % [facility] Platelet Count 212 160 - 400 X10*3/uL [facility] Mean Platelet Volume 11.9 9.4 - 12.3 fL [facility] Neutrophils Percent Auto 55.7 45 - 73 % [facility] Imm Gran Pct Auto 0.3 0.0 - 0.4 % [facility] Lymphocytes Percent Auto 36.0 20 - 40 % [facility] Monocytes Percent Auto 6.8 2 - 11 % [facility] Eosinophils Percent Auto 0.6 0 - 4 % [facility] Basophils Percent Auto 0.6 0 - 2 % [facility] NRBC Pct Auto 0.0 0.0 - 0.2 /100WBC [facility] Neutrophils Absolute Auto 3.9 2.0 - 8.3 x10*3/uL [facility] Imm Gran Abs Auto 0.02 0.00 - 0.03 X10*3/uL [facility] Lymphocytes Absolute Auto 2.5 1.2 - 4.9 X10*3/uL [facility] Monocytes Absolute Auto 0.5 0.1 - 1.2 X10*3/uL [facility] Eosinophils Absolute Auto 0.0 0.0 - 0.4 X10*3/uL [facility] Basophils Absolute Auto 0.0 0.0 - 0.2 X10*3/uL [facility] NRBC Abs Auto 0.000 0.0 - 0.012 X10*3/uL [facility] Blood Venous blood specimen / Unknown 03/15/2025 3:19 PM EDT 03/15/2025 4:06 PM EDT Silas Harding ANP LAB BLOOD ORDERABLES Final Resul t [facility] [address] [place] [address] [phone] * Iron And Total Iron Binding Capacity (03/15/2025 3:19 PM EDT) Iron 56 30 - 160 mcg/dL [facility] Total Iron Binding Capacity 235 228 - 428 mcg/dL [facility] Percent Iron Saturation 24 15 - 50 % [facility] Unsaturated Iron Binding 179 ug/dL [facility] Blood Venous blood specimen / Unknown 03/15/2025 3:19 PM EDT 03/15/2025 4:06 PM EDT us Silas Harding ANP LAB BLOOD ORDERABLES Final Resul t Performing Organization Address City/[facility]/ZIP Co de Phone Number [facility] [address] [place] [address] [phone] * Hepatitis B surface antigen, EIA (03/15/2025 3:19 PM EDT) Hepatitis B Surface Ag Negative Negative [facility] Blood Venous blood specimen / Unknown 03/15/2025 3:19 PM EDT 03/15/2025 4:06 PM EDT Silas Harding ANP LAB BLOOD ORDERABLES Final Resul t Performing Organization Address [facility] de Phone Number [facility] [address] [place] [phone] * Hepatitis B Core Antibody, Total (03/15/2025 3:19 PM EDT) Pathologist [facility] Hepatitis B Core Antibody Nonreactive Nonreactive [facility] Blood Venous blood specimen / Unknown 03/15/2025 3:19 PM EDT 03/15/2025 4:06 PM EDT Silas Harding [facility] LAB BLOOD ORDERABLES Final Resul t Performing Organization Address [facility] de Phone Number [facility] [address] [place] [phone] * Hepatitis B Surface Antibody, Qualitative (03/15/2025 3:19 PM EDT) Pathologist [facility] ~Hepatitis B Surface Antibody NONREACTIVE Nonreactive [facility] Comment:Nonreactive: < 8.00 mIU/mL Blood Venous blood specimen / Unknown 03/15/2025 3:19 PM EDT 03/15/2025 4:06 PM EDT Silas Harding [facility] LAB BLOOD ORDERABLES Final Resul t Performing Organization Address [facility] de Phone Number [facility] [address] [place] [phone] * Prothrombin Time-INR (03/15/2025 3:19 PM EDT) Pathologist [facility] Prothrombin Time 12.2 10.9 - 12.4 SEC [facility] INTERNATIONAL NORM RATIO 1.1 0.9 - 1.1 [facility] Comment:INTERNATIONAL NORMAL IZED RATIO (INR) [...] EDT 03/15/2025 4:06 PM EDT Silas Harding [facility] BLOOD ORDERABLES Final Resul t Performing Organization Address City/[facility]/ZIP Co de Phone Number [facility] [address] [place] [phone] * Ferritin (03/15/2025 3:19 PM EDT) Pathologist [facility] Ferritin 144 10 - 250 ng/mL [facility] Blood Venous blood specimen / Unknown 03/15/2025 3:19 PM EDT 03/15/2025 4:06 PM EDT Silas Harding [facility] BLOOD ORDERABLES Final Resul t Performing Organization Address [facility] Co de Phone Number [facility] [address] [place] [phone] * (ABNORMAL) Comprehensive Metabolic Panel (03/15/2025 3:19 PM EDT) Pathologist [facility] Sodium 139 135 - 145 mmol/L [facility] Potassium 3.0(L) 3.3 - 5.1 mmol/L [facility] Chloride 103 96 - 108 mmol/L [facility] Carbon Dioxide 25 22 - 29 mmol/L [facility] Anion Gap 14 12 - 20 [facility] Urea Nitrogen (BUN) 11 9 - 16 mg/dL [facility] Creatinine, Serum 0.85 0.5 - 1.4 mg/dL [facility] Estimated Glomerular Filt Rate >60 [facility] Comment:Chronic Kidney Disea se: Estimated GFR < 60 mL/min/1.89t4Qfrfxj Kidney Disease: Estimated GFR < 15 mL/min/1.73m2 Glucose 87 60 - 115 mg/dL [facility] Calcium 8.1(L) 8.4 - 10.2 mg/dL [facility] Bilirubin, Total 0.4 0.0 - 1.0 mg/dL [facility] Aspartate Amino Transferase 31 5 - 31 U/L [facility] Alanine Aminotransferase 35(H) 0 - 31 U/L [facility] Total Protein 7.4 6.5 - 8.0 g/dL [facility] Albumin Level 4.7 3.5 - 5.0 g/dL [facility] Alkaline Phosphatase 110 39 - 117 U/L [facility] Blood Venous blood specimen / Unknown 03/15/2025 3:19 PM EDT 03/15/2025 4:06 PM EDT us Silas Harding ANP LAB BLOOD ORDERABLES Final Resul t [facility] [address] [place] [phone] * POCT HGB A1C (03/15/2025 3:14 PM EDT) Hemoglobin A1C 5.6 4.0 - 5.7 % [employer] Media Lot # [id number] Lot# Expiration Date Blood 03/15/2025 3:14 PM EDT us Silas Harding ANP POINT OF CARE TEST ENTER/EDIT OR DERABLES Final Result * POCT Glucose (03/15/2025 3:14 PM EDT) Glucose Blood, POC 81 60 - 200 mg/dL [employer] Lot # [id number] Lot# Expiration Date Blood Capillary blood specimen / Unknown 03/15/2025 3:14 PM EDT us Silas RODRIGUEZ POINT OF CARE TEST ENTER/EDIT OR DERABLES Final Result * US RENAL BI (02/19/2025 5:18 PM EDT) Anatomical Region Laterality Modality Abdomen Ultrasound 02/19/2025 5:18 PM EDT Narrative 02/19/2025 5:19 PM EDT [place] [address] Ultrasound Report Signed Patient: Nancy Agudelo MR#: [id number] 1 : 1970 Acct:[id number] Age/Sex: 55 / F ADM Date: 02/18/25 Loc: HO.US Attending Dr: Aris Coronado MD Ordering Physician: Aris Coronado MD Date of Service: 02/18/25 Procedure(s): US renal BI Accession Number(s): [id number] cc: Aris Coronado MD; SILAS HARDING NP [...] in OV> 02/19/251718 DD/ 17 TD/TT: 02/19/251717 [employer] Batch Mixer: Procedure Note Donotuseinterpreter, Image - 02/19/[address] [address] Ultrasound Report Signed Patient: Nancy Agudelo RMR#: [id number] 1 : 1970Acct:[id number] Age/Sex: 55 / FADM Date: 02/18/25 Loc: HO.US Attending Dr: Aris Coronado MD Ordering Physician: Aris Coronado MD Date of Service: 02/18/25 Procedure(s): US renal BI Accession Number(s): [id number] cc: Aris Coronado MD; SILAS HARDING NP [...] in OV> 02/19/251718 DD/ 17 TD/TT: 02/19/251717 Five [employer]iner Batch Mixer: [facility] External Provider IMG US PROCEDURES Edited Result - Final * Colonoscopy (07/02/2024) Colonoscopy Normal Normal Narrative Gay Berkowitz - 07/02/2024 colonoscopy order added Historical Provider MD [facility] Final Result * ThinPrep Imaging Pap and HPV mRNA E6/E7 (03/19/2024 2:04 PM EDT) HPV nRNA E6/E7 Not Detected Not Detected [facility] Comment:Methodology: Transcr iption-Mediated AmplificationThis assay detects E6/E7 viral messenger RNA (mRNA) from 14high-risk HPV types (16,18,31,33,35,39,45,51,52,56,58,59,66,68).Cervical sources are required for HPV testing.If a vaginal source from a patient who has had atotal hysterectomy with removal of cervix wassubmitted, please contact the testing laboratoryfor alternative testing options.For additional information, please refer tohttp://education.Politapoll/faq/UDU729j4(This link if provided for information/educational purposes only.)THIS TEST WAS PERFORMED AT:[employer] [address] [id number] IROS MD SOURCE: SEE NOTE [facility] Comment:None given Report Status: [facility] Clinical Information: SEE NOTE [facility] Comment:None given LMP: SEE NOTE [facility] Comment:NONE GIVEN Prev. PAP: SEE NOTE [facility] Comment:NONE GIVEN Prev. BX: SEE NOTE [facility] Comment:NONE GIVEN Statement Of Adequacy: SEE NOTE [facility] Comment:Satisfactory for mario luation.Endocervical/transformation zone component absent. General Categorization: [facility] Interpretation/Result: SEE NOTE [facility] Comment:Cytology Results: Ne gative for intraepitheliallesion or malignancy. Cytology Comment SEE NOTE [facility] Comment:This Pap test has be en evaluated with computerassisted technology. Memorial Counselor: SEE NOTE [facility] Comment:[place], CT(ASCP)CT scre ening location: [place] [address] Review Memorial Counselor: [facility] Pathologist [facility] PAP Infection [facility] See Note SEE NOTE [facility] Comment:EXPLANATORY NOTE:The Pap is a screening test for cervical cancer. It isnot a diagnostic test and is subject to false negativeand false positive results. It is most reliable when asatisfactory sample, regularly obtained, is submittedwith relevant clinical findings and history, and whenthe Pap result is evaluated along with historic andcurrent clinical information. 03/19/2024 2:04 PM EDT 03/19/2024 5:54 PM EDT Narrative [facility] - 03/25/2024 3:00 PM EDT SEE SCANNED RESULTS IN EMR us Lizzy THOMPSON LAB PATHOLOGY ORDERABLES Final Result [facility] [address] [place] [phone] [phone] * (ABNORMAL) Lipid Panel, Standard (12/19/2023 10:20 AM EDT) Triglycerides 115 <150 mg/dL [facility] Comment:Desirable Triglyceri de: less than 150 mg/dLBorderline High Triglyceride 150-199 mg/dLHigh Triglyceride: 200-499 mg/dLVery High Triglyceride: greater than or equal to 5OO mg/dL Cholesterol 192 <200 mg/dL [facility] Comment:Desirable Cholestero l: less than 200 mg/dLBorderline High Cholesterol: 200-239 mg/dLHigh Cholesterol: greater than 239 mg/dL LDL Cholesterol Calculated 109(H) <100 mg/dL [facility] Comment:Desirable LDL: less than 100 mg/dLNear Optimal/Above Optimal LDL: 110- 129 mg/dLBorderline High LDL: 130-159 mg/dLHigh LDL: 160-189 mg/dLVery High LDL: greater than or equal to 190 mg/dL HDL Cholesterol 60 >40 mg/dL [facility] Comment:Desirable HDL: great er than 40 mg/dL Note: This HDL assay may give artificially low results in patients with liver disease. Blood Venous blood specimen / Unknown 12/19/2023 10:20 AM EDT 12/19/2023 11:34 AM EDT us Silas Harding [facility] LAB BLOOD ORDERABLES Final Resul t [facility] [address] [place] [phone] * HEPATITIS C AB W/REFL TO HCV RNA, QN, PCR (06/03/2020 9:27 AM EDT) HEPATITIS C ANTIBODY NON-REACT JOVANNY NON-REACT JOVANNY [facility] INDEX 0.02 <1.00 [facility] Comment: HCV antibody was non-reactive. There is no laboratory evidence of HCV infection. In most cases, no further action is required. However, if recent HCV exposure is suspected, a test for HCV RNA (test code 10969) is suggested. For additional information please refer to http://PayPay/faq/HSF96t3 (This link is being provided for informational/ educational purposes only.) HEPATITIS C ANTIBODY NON-REACT JOVANNY NON-REACT JOVANNY [facility] INDEX 0.02 <1.00 [facility] Comment: HCV antibody was non-reactive. There is no laboratory evidence of HCV infection. In most cases, no further action is required. However, if recent HCV exposure is suspected, a test for HCV RNA (test code 34156) is suggested. For additional information please refer to http://PayPay/faq/STI95l1 (This link is being provided for informational/ educational purposes only.) HEPATITIS C ANTIBODY NON-REACT JOVANNY NON-REACT JOVANNY [facility] INDEX 0.02 <1.00 [facility] Comment: HCV antibody was non-reactive. There is no laboratory evidence of HCV infection. In most cases, no further action is required. However, if recent HCV exposure is suspected, a test for HCV RNA (test code 19993) is suggested. For additional information please refer to http://Nacuii.Politapoll/faq/DOB88q3 (This link is being provided for informational/ educational purposes only.) 06/03/2020 9:27 AM EDT us Silas Harding ANP HISTORICAL/NON ORDERABLE LABS Fi nal Result [facility] [address] [place] [address], * HIV 1/2 ANTIGEN/ANTIBODY,FOURTH GENERATION W/RFL (06/03/2020 9:27 AM EDT) HIV-1/2 ANTIGEN AND ANTIBODIES, 4TH GENERATION W/ REFLEX NON-REACT JOVANNY NON-REACT JOVANNY [facility] Comment: HIV-1 antigen and HIV-1/HIV-2 [...] purpose. For additional information please refer to http://Nacuii.Politapoll/faq/QMV069 (This link is being provided for informational/ educational purposes only.) The performance of this assay has not been clinically validated in patients less than 2 years old. HIV-1/2 ANTIGEN AND ANTIBODIES, 4TH GENERATION W/ REFLEX NON-REACT JOVANNY NON-REACT JOVANNY [facility] Comment: HIV-1 antigen and HIV-1/HIV-2 [...] purpose. For additional information please refer to http://Nacuii.Politapoll/faq/SVO636 (This link is being provided for informational/ educational purposes only.) The performance of this assay has not been clinically validated in patients less than 2 years old. HIV-1/2 ANTIGEN AND ANTIBODIES, 4TH GENERATION W/ REFLEX NON-REACT JOVANNY NON-REACT JOVANNY [facility] Comment: HIV-1 antigen and HIV-1/HIV-2 [...] purpose. For additional information please refer to http://education.Politapoll/faq/GSD530 (This link is being provided for informational/ educational purposes only.) The performance of this assay has not been clinically validated in patients less than 2 years old. 06/03/2020 9:27 AM EDT [facility] LAB BLOOD ORDERABLES Final Resul t [facility] [address] from Last 3 Months or Most Recently Relevant to Health Maintenance Insurance [facility] DENTAL - HSN PARTIAL (MEDICAID) Care Teams Logistics/Shipper Relationship Specialty Start Date End Date Silas Harding ANP [address] [place], [place] [address] [address] PCP - General Family Medicine 04/18/20
--- OUTSIDE RECORDS SUMMARY | 2025-04-23 13:30 | XMS_ITS | Encounter Summary ---
Author Organization [employer] Address [address] [facility] [facility] [address] 7[address] [place] [address] Care Team Providers Care Airplane Tube Builder Name Role Phone Bibi Neves Primary Care Provider [phone] Reason for Visit * Reason Onset Date Comments Results 04/06/2025 Lab Orders 04/06/2025 Encounter Details Date Type Department Care Team ([facility] st Contact Info) Description 04/06/2025 Results Follow-Up [facility] MEDICINE [address] [place], [place] [phone] Bibi Neves ANP [address] [place], [place] [phone] Basic Metabolic Panel, Phosphate (As Phosphorus), Magnesium, Basic Metabolic Panel Social History Tobacco Use Types Packs/Day Years [...] encounter Miscellaneous Notes * Telephone Encounter - Donna Beckham RN - 04/22/2025 2:22 PM EDT Telephone call to pt who declined investment accounting clerk. Advised that calcium level still low and PCP sent new Rx to pharmacy to take calcium supplement twice daily. Pt to bring in medbox to pharmacy tomorrow.She states she previously saw Dr. Mandel at [facility] End[facility] but has different insurance now. Advised her telesales specialist will review this and make appropriate referral. Explained to expect call in 7-10 business days from that office to schedule appt, and that referral letter will be mailed to home address. Pt verbalized understanding, no further questions. * Result Encounter Note - JENNIFER Monsalve - 04/22/2025 1:10 PM EDT Hi - please advise pt to increase calcium supplement to BID as Ca remains low. Does she still see endo? If not would recommend we refer her back to get re-established. * Telephone Encounter - Hailey Cantu RN - 04/07/2025 10:07 AM EDT Return call placed to the pt to inform of the message below from PCP regarding pt most recent lab results. The pt was advised that the low potassium has resolved but that the pt still is experiencinglow calcium. Pt advised to picking table worker the prescribed calcium + vitamin D at the pharmacy and take daily as prescribed. Pt also instructed to have repeat labs in one weeks time and if s/s or muscle cramps develop to call or message on MyChart. The pt was agreeable to all this information and had no further questions at this time. ----- Message from Bibi Neves sent at 04/06/2025 3:32 PM EDT ----- Hypokalemia has resolved but unfortunately hypocalcemia has not. Suspect this is r/t removal of herparathyroid gland though that was years ago now. Recommend calcium and vit d supplement (will send) and recheck again next week. Hydrate well. Apologies for so many blood draws. If any muscle cramps or unusual hx, please let me know via DM. Future Appointments Date Time Provider Department Center 04/30/2025 3:00 PM Humaira AMEZQUITA DENT [facility] 05/26/2025 2:00 PM [facility] GREEN TEAM NURSE MEDICINE [facility] ----- Message ----- From: Interface, Lab Results In Sent: 03/29/2025 4:31 PM EDT To: JENNIFER Monsalve * Telephone Encounter - Donna Beckham RN - 04/06/2025 4:23 PM EDT Telephone call x1 to pt to advise of below result. No answer, left voicemail to call back. Will task to call again. * Telephone Encounter - Donna Beckham RN - 04/06/2025 4:23 PM EDT ----- Message from Bibi Neves sent at 04/06/2025 3:32 PM EDT ----- Hypokalemia has resolved but unfortunately hypocalcemia has not. Suspect this is r/t removal of herparathyroid gland though that was years ago now. Recommend calcium and vit d supplement (will send) and recheck again next week. Hydrate well. Apologies for so many blood draws. If any muscle cramps or unusual hx, please let me know via DM. Future Appointments Date Time Provider Department Center 04/30/2025 3:00 PM Humaira Radha ADLT DENT [facility] 05/26/2025 2:00 PM [facility] GREEN TEAM NURSE MEDICINE [facility] ----- Message ----- From: Interface, Lab Results In Sent: 03/29/2025 4:31 PM EDT To: JENNIFER Monsalve * Result Encounter Note - JENNIFER Monsalve - 04/06/2025 3:32 PM EDT Hypokalemia has resolved but unfortunately hypocalcemia has not. Suspect this is r/t removal of herparathyroid gland though that was years ago now. Recommend calcium and vit d supplement (will send)and recheck again next week. Hydrate well. Apologies for so many blood draws. If any muscle cramps or unusual hx, please let me know via DM. Future Appointments Date Time Provider Department Center 04/30/2025 3:00 PM Humaira Radha ADLT DENT [facility] 05/26/2025 2:00 PM [facility] GREEN TEAM NURSE MEDICINE [facility] documented in this encounter Plan of Treatment Upcoming Encounters Date Type Department Care Team (Late st Contact Info) Description 04/30/2025 3:00 PM EDT Office Visit [facility] ADULT DENTAL [address] [place] [address] Humaira Garcia [address] [place] [address] 05/26/2025 2:00 PM EDT Clinical Support [facility] MEDICINE [address] [place] [address] 06/18/2025 1:30 PM EDT Office Visit [facility] MED[facility]INE [address] [place] [phone] Bibi Neves ANP [address] [place] [address] documented as of this encounter Procedures Procedure Name Priority Date/Time Associated Diagnosis Comments PHOSPHATE ( PHOSPHORUS) Routine 04/16/2025 10:30 AM EDT Hypocalcemia MAGNESIUM Routine 04/16/2025 10:30 AM EDT Hypocalcemia BASIC METABOLIC PANEL Routine 04/16/2025 10:30 AM EDT Hypocalcemia documented in this encounter Results * (ABNORMAL) Basic Metabolic Panel (04/16/2025 10:30 AM EDT) Sodium 144 135 - 145 mmol/L [facility] Potassium 3.3 3.3 - 5.1 mmol/L [facility] Chloride 108 96 - 108 mmol/L [facility] Carbon Dioxide 27 22 - 29 mmol/L [facility] Anion Gap 12 12 - 20 [facility] Urea Nitrogen (BUN) 12 9 - 16 mg/dL [facility] Creatinine, Serum 0.83 0.5 - 1.4 mg/dL [facility] Estimated Glomerular Filt Rate >60 [facility] Comment:Chronic Kidney Disea se: Estimated GFR < 60 mL/min/1.63d4Nghqrt Kidney Disease: Estimated GFR < 15 mL/min/1.73m2 Glucose 77 60 - 115 mg/dL [facility] Calcium 7.5(L) 8.4 - 10.2 mg/dL [facility] Blood Venous blood specimen / Unknown 04/16/2025 10:30 AM EDT 04/16/2025 11:52 AM EDT Bibi RODRIGUEZ LAB BLOOD ORDERABLES Final Resul t [facility] [address] [place] [phone] * Magnesium (04/16/2025 10:30 AM EDT) Magnesium 1.8 1.6 - 2.6 mg/dL [facility] Blood Venous blood specimen / Unknown 04/16/2025 10:30 AM EDT 04/16/2025 11:52 AM EDT Bibi Neves ANP LAB BLOOD ORDERABLES Final Resul t Performing Organization Address [facility] de Phone Number [facility] [address] [place] [phone] * Phosphate (As Phosphorus) (04/16/2025 10:30 AM EDT) Phosphorus 3.5 2.7 - 4.5 mg/dL [facility] Blood Venous blood specimen / Unknown 04/16/2025 10:30 AM EDT 04/16/2025 11:52 AM EDT Bibi Neves ANP LAB BLOOD ORDERABLES Final Resul t Performing Organization Address [facility] de Phone Number [facility] [address] [place] [phone] documented in this encounter Visit Diagnoses Diagnosis Hypocalcemia- Primary documented in this encounter Additional Health Concerns Assessment Noted Time PHQ-9 Depression Total Score: 0 10/14/19 25 3:47 PM EST documented as of this encounter Care Teams Airplane Tube Builder Relationship Specialty Start Date End Date Bibi Neves ANP [address] [place] [phone] PCP - General Family Medicine 04/18/20 documented as of this encounter
--- OUTSIDE RECORDS SUMMARY | 2025-04-23 13:30 | XMS_ITS | Clinical Summary ---
Author Organization [address] [facility] Address [address] [place] [address] Phone Care Team Providers Care Trailhead Construction Worker Name Role Phone Bibi Neves NP Primary Care Provider [phone] Social History Tobacco Use Types Packs/Day Years [...] patient's age to complete this topic Insurance [facility] Care Teams Trailhead Construction Worker Relationship Specialty Start Date End Date Bibi Neves NP [address] [place] [phone] PCP - General 07/28/24
--- OUTSIDE RECORDS SUMMARY | 2025-04-23 13:30 | XMS_ITS | Encounter Summary ---
Author Organization [employer] Address [address] [facility] 7t [place] [address] Care Team Providers Care Mailmaster Name Role Phone Bibi Neves JENNIFER Primary Care Provider [phone] Encounter Details Date Type Department Care Team (Late st Contact Info) Description 09/22/2024 Orders Only [facility] MEDICINE [address] [place] [address] Nilesh Marte, LaniD Social History Tobacco Use [...] the past 12 months, has t he [employer], oil or water [employer] threatened to shut off services in your [...] Description 04/30/2025 3:00 PM EDT Office Visit [facility] ADULT DENTAL [address] [place] [address] Humaira Garcia [address] [place] [address] 05/26/2025 2:00 PM EDT Clinical Support [facility] MED[facility]INE [address] [place] [phone] 06/18/2025 1:30 PM EDT Office Visit [facility] MED[facility]INE [address] [place] [phone] Bibi Neves ANP [address] [place] [address] documented as of this encounter Visit Diagnoses Not on filedocumented in this encounter Additional Health Concerns Assessment Noted Time PHQ-9 Depression Total Score: 2 12/19/19 24 10:14 AM EDT documented as of this encounter Care Teams Mailmaster Relationship Specialty Start Date End Date Bibi Neves ANP [address] [place] [address] PCP - General Family Medicine 04/18/20 documented as of this encounter
--- OUTSIDE RECORDS SUMMARY | 2025-04-23 13:30 | XMS_ITS | Encounter Summary ---
Author Organization [employer] [facility] Address [address] [facility] 7t [place] [address] Care Team Providers Care Facility Service Manager Name Role Phone Bibi Neves Primary Care Provider [phone] Reason for Visit * Reason Comments Med Refill Encounter Details Date Type Department Care Team (Late st Contact Info) Description 11/07/2023 Refill [facility] MED[facility] [address] [place] [phone] Bibi Neves ANP [address] [place] [address] Postprocedural hypoparathyroidism (CMS/HCC) Social History Tobacco Use [...] Description 04/30/2025 3:00 PM EDT Office Visit [facility] ADULT DENTAL [address] [place] [address] Humaira Garcia [address] [place] [address] 05/26/2025 2:00 PM EDT Clinical Support [facility] MED[facility] [address] [place] [phone] 06/18/2025 1:30 PM EDT Office Visit [facility] MEDICINE [address] [place] [address] Bibi Neves ANP [address] [place] [address] documented as of this encounter Visit Diagnoses Diagnosis Postprocedural hypoparathyroidism (CMS/HCC) documented in this encounter Care Teams Facility Service Manager Relationship Specialty Start Date End Date Bibi Neves ANP [address] [place] [address] PCP - General Family Medicine 04/18/20 documented as of this encounter
--- OUTSIDE RECORDS SUMMARY | 2025-04-23 13:30 | XMS_ITS | Encounter Summary ---
Author Organization [employer] [facility] Address [address] [facility] 7 [place] [address] Care Team Providers Care International Marketing Manager Name Role Phone Bibi Neves Primary Care Provider [phone] Reason for Referral * Consultation (Routine) - Authorized Specialty Diagnoses / Procedures Referred By Contac t Referred To Contact Endocrinology Diagnoses Hypocalcemia Hyperparathyroidism (CMS/HCC) Bibi Neves ANP [address] [place] [address] Phone: tel: fax: [facility] [address] [place] [address] Phone: tel: fax: Referral ID Status Reason Start Date Expiration Date Visits Requested Visits Authorized [id number] Authorized Specialty Services Required 04/22/2025 04/22/2026 1 1 Encounter Details Date Type Department Care Team (Latest Contact Info) Description 04/22/2025 Orders Only [facility] MED[facility]INE [address] [place] [address] Bibi Neves ANP [address] [place], [place] [phone] Hyperparathyroidism (CMS/HCC) (Primary Dx); Hypocalcemia Social History Tobacco Use Types Packs/Day Years [...] AM EDT documented as of this encounter Progress Notes * JENNIFER Monsalve - 04/22/2025 1:10 PM EDT Increase ca to BID Diagnoses and all orders for this visit: Hypocalcemia - Calcium Carb-Cholecalciferol (Calcium 500+D3) 500-10 MG-MCG tablet; Take 1 tablet by mouth 2 times daily. documented in this encounter Plan of Treatment Upcoming Encounters Date Type Department Care Team (Late st Contact Info) Description 04/30/2025 3:00 PM EDT Office Visit [facility] ADULT DENTAL [address] [place] [address] Erik Garciaaris [address] [place] [phone] 05/26/2025 2:00 PM EDT Clinical Support [address] [address] 06/18/2025 1:30 PM EDT Office Visit [address] [address] Bibi Neves ANP [address] [place] [phone] Scheduled Referrals Name Type Priority Associated Diagnoses Order Schedule Referral to Endocrinology Outpatient Referral Routine Hypocalcemia Hyperparathyroidism (CMS/HCC) Expected: 04/22/2025 (Approximate), Expires: 04/22/2026 documented as of this encounter Visit Diagnoses Diagnosis Hyperparathyroidism (CMS/HCC)- Primary Hyperparathyroidism, unspecified Hypocalcemia documented in this encounter Additional Health Concerns Assessment Noted Time PHQ-9 Depression Total Score: 0 10/14/19 25 3:47 PM EST documented as of this encounter Care Teams International Marketing Manager Relationship Specialty Start Date End Date Bibi Neves ANP [address] [place] [phone] PCP - General Family Medicine 04/18/20 documented as of this encounter
--- OUTSIDE RECORDS SUMMARY | 2025-04-23 13:30 | XMS_ITS | Encounter Summary ---
Author Organization [employer] Address [address] 7[address] [place] [address] Care Team Providers Care Melter Clerk Name Role Phone Bibi Neves Primary Care Provider [phone] Encounter Details Date Type Department Care Team (Late st Contact Info) Description 11/12/2022 Orders Only [facility] MED & PEDS [address] [place] [address] Sharonda Gotti LPN Social History Tobacco Use [...] Description 04/30/2025 3:00 PM EDT Office Visit [facility] ADULT DENTAL [address] [place] [address] Radha, Humaira [address] [place] [address] 05/26/2025 2:00 PM EDT Clinical Support [facility] MEDICINE [address] [place] [phone] 06/18/2025 1:30 PM EDT Office Visit [facility] MEDICINE [address] [place] [address] Bibi Neves ANP [address] [place] [address] documented as of this encounter Visit Diagnoses Not on filedocumented in this encounter Care Teams Melter Clerk Relationship Specialty Start Date End Date Bibi Neves ANP [address] [place] [address] PCP - General Family Medicine 04/18/20 documented as of this encounter
--- OUTSIDE RECORDS SUMMARY | 2025-04-23 13:30 | XMS_ITS | Encounter Summary ---
Author Organization [employer] [facility] Address [address] 7t [place] [address] Care Team Providers Care General Forecaster Name Role Phone Bibi Neves Primary Care Provider [phone] Encounter Details Date Type Department Care Team (Latest Contact Info) Description 08/26/2019 Abstract [facility] CONVERSIONS Dental, Provider, DDS Social [...] Description 04/30/2025 3:00 PM EDT Office Visit [facility] ADULT DENTAL [address] [place] [address] Humaira Garcia [address] [place] [address] 05/26/2025 2:00 PM EDT Clinical Support [facility] MEDICINE [address] [place] [address] 06/18/2025 1:30 PM EDT Office Visit [facility] MEDICINE [address] [place] [address] Bibi Neves ANP [address] [place] [address] documented as of this encounter Visit Diagnoses Not on filedocumented in this encounter Care Teams General Forecaster Relationship Specialty Start Date End Date Bibi Neves ANP [address] [place] [address] PCP - General Family Medicine 04/18/20 documented as of this encounter
--- OUTSIDE RECORDS SUMMARY | 2025-04-23 13:30 | XMS_ITS | Encounter Summary ---
Author Organization [employer] Address [address] [address] [address] 7t [place] [address] Care Team Providers Care Escrow Agent Name Role Phone Bibi Neves Primary Care Provider [phone] Encounter Details Date Type Department Care Team (Late st Contact Info) Description 04/06/2025 Abstract [facility] MEDICINE [address] [place], [place] [phone] Bibi Neves ANP [address] [place], [place] [phone] Social History Tobacco Use Types Packs/Day Years [...] Description 04/30/2025 3:00 PM EDT Office Visit [facility] ADULT DENTAL [address] [place] [address] Humaira Garcia [address] [place] [address] 05/26/2025 2:00 PM EDT Clinical Support [facility] MEDICINE [address] [place] [address] 06/18/2025 1:30 PM EDT Office Visit [facility] MEDICINE [address] [place] [phone] Bibi Neves ANP [address] [place] [address] documented as of this encounter Procedures Procedure [...] documented as of this encounter Care Teams Escrow Agent Relationship Specialty Start Date End Date Bibi Neves ANP [address] [place] [address] PCP - General Family Medicine 04/18/20 documented as of this encounter
--- OUTSIDE RECORDS SUMMARY | 2025-04-23 13:30 | XMS_ITS | Encounter Summary ---
Author Organization [employer] [facility] Address [address] [facility] 7t [place] [address] Care Team Providers Care Stemhole Borer Name Role Phone Bibi Neves Primary Care Provider [phone] Reason for Visit * Reason Comments Med Refill Encounter Details Date Type Department Care Team (Late Contact Info) Description 09/10/2023 Refill [facility] MEDICINE [address] [place] [phone] Bibi Neves ANP [address] [place] [address] Social History Tobacco Use Types Packs/Day Years [...] Office Visit [facility] ADULT DENTAL [address] [place] [address] Humaira Garcia [address] [place] [address] 05/26/2025 2:00 PM EDT Clinical Support [facility] MEDICINE [address] [place] [address] 06/18/2025 1:30 PM EDT Office Visit [facility] MEDICINE [address] [place] [phone] Bibi Neves ANP [address] [place] [address] documented as of this encounter Visit Diagnoses Not on filedocumented in this encounter Care Teams Stemhole Borer Relationship Specialty Start Date End Date Bibi Neves ANP [address] [place] [address] PCP - General Family Medicine 04/18/20 documented as of this encounter
--- OUTSIDE RECORDS SUMMARY | 2025-04-23 13:30 | XMS_ITS | Encounter Summary ---
Author Organization [employer] [facility] Address [address] [facility] 7[address] [place] [address] Care Team Providers Care Nurse Obgyn Name Role Phone Bibi Neves Primary Care Provider [phone] Reason for Visit * Reason Comments Med Refill Encounter Details Date Type Department Care Team (Late Contact Info) Description 02/17/2023 Refill [facility] [address] [place] [phone] Bibi Neves ANP [address] [place] [address] Social History Tobacco Use Types Packs/Day Years [...] Description 04/30/2025 3:00 PM EDT Office Visit [facility] ADULT DENTAL [address] [place] [address] Humaira Garcia [address] [place] [address] 05/26/2025 2:00 PM EDT Clinical Support [facility] [address] [place] [phone] 06/18/2025 1:30 PM EDT Office Visit [facility] [address] [place] [phone] Bibi Neves ANP [address] [place] [address] documented as of this encounter Visit Diagnoses Not on filedocumented in this encounter Care Teams Nurse Obgyn Relationship Specialty Start Date End Date Bibi Neves ANP [address] [place] [address] PCP - General Family Medicine 04/18/20 documented as of this encounter
== END 2025-04-23 13:47 | disposition home or self-care (01) ==
LOC: HO.HGI 13:19
PROVIDERS: PCP Nurse Practitioner Primary Care; Visit Provider Nurse Practitioner
DX: K59.00 Constipation, unspecified (principal); K64.9 Unspecified hemorrhoids
CPT/HCPCS: 99213

== ENCOUNTER → 2025-04-23 13:18 | Outpatient (BNVA) | payer OTHER, SELFPAY | PROVIDERS: PCP Nurse Practitioner Primary Care; Visit Provider Nurse Practitioner | DX: K59.04 Chronic idiopathic constipation (principal); K21.9 Gastro-esophageal reflux disease without esophagitis; K64.9 Unspecified hemorrhoids; D12.6 Benign neoplasm of colon, unspecified | CPT/HCPCS: 99212 ==

== ENCOUNTER 2025-04-30 08:47 | Outpatient (AMB) | payer OTHER, SELFPAY ==
[2025-04-30 08:51] VITALS: BP 106/72; PULSE 82; O2SAT 98; BMI 32.3
--- NOTE | 2025-04-30 08:51 | A.OFFVIS_ITS ---
Vital Signs 04/30/25 08:51 Height 4 ft 10 in Weight 154 lb 5.177 oz BMI 32.3 BP 106/72 Blood Pressure Location Rt brachial Position Sitting Pulse 82 Pulse Source Pulse Oximeter Pulse Oximetry (%) 98 Oxygen Delivery Method Room Air Intake Visit Reasons: Hypocalcemia Intake Note: Patient presents today to establish care. No acute complaints reported at this time. [employer] Bookkeeper Required: No [employer] Bookkeeper Services: [employer] Bookkeeper Present (DR Miller Speak Fluent Angolan) Accompanied by: Self / Same As Patient Allergies No Known Allergies (No Known Allergies*) Allergy (Verified 04/30/25 08:53) Medication List - Last Reconciled 04/30/25 by Macey Del Valle MD allopurinol 100 mg PO QAM 90 days amlodipine 5 mg PO DAILY aspirin (Adult Low Dose Aspirin) 81 mg PO DAILY calcium carbonate-vitamin D3 500 mg-5 mcg (200 unit) 1 tab PO DAILY cholecalciferol (vitamin D3) 1,000 units PO DAILY 30 days hydrocortisone 2.5% (Proctosol HC) 1 appl IA BID lisinopril 20 mg PO DAILY psyllium husk (Reguloid (psyllium husk)) 0.4 grams PO BID pyridoxine (vitamin B6) 50 mg PO QAM 90 days sennosides (Senna Laxative) 8.6 mg PO BID tirzepatide (weight loss) (Zepbound) mg subcut HPI Comments Details: 53 YO Female with a PMHx of hyperparathyroidism now S/P left superior and inferior parathyroidectomy 05/18/2014 with resultant hypoparathyroidism previously established with our practice, last seen by Dr. Mandel on 09/11/2023. She is now referred back to us for persistent hypocalcemia. She was initially diagnosed with hyperparathyroidism. She had recurrent nephrolithiasis and was referred for a surgical parathyroidectomy, which she underwent 05/18/2014. 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 Intraoperative PTH declined from 85-19 indicating cure. She subsequently developed hypoparathyroidism. She was placed on Calcitriol by Dr. Mcnair and her Calcium remained high normal and she subsequently developed nephrolithiasis. After her initial visit with Dr. Mandel, he stopped her Calcitriol. She was then placed on calcium citrate 200 mg twice daily cholesterol remain in the lower end of normal, my most recent 3 her calcium have been lower, patient is being referred back to us for evaluation. Patient reports that in March 2025 she was noted to have symptoms of hypocalcemia including perioral numbness, finger tingling/numbness and weakness, and labs reviewed the patient had hypoglycemia, at that time patient was taking calcium carbonate 500 mg daily, and after her labs showed calcium 7.5, her PCP decided to increase her calcium carbonate to 2 tablets daily. She reports that since calcium carbonate increase, her symptoms have lessened significantly. Of note, she reports that her primary care took her off hydrochlorothiazide due to low calcium. She also reports that she was seen by Urology in February 2025, found to have 2 new nonobstructive stones in right kidney and 1 nonobstructive stone in the left kidney, there will repeat imaging (CT scan) aneurysmal from that visit. Most recent labs Calcium 7.5, Phosphorus 3.5, Magnesium 1.8. (Apr 16, 2025), PTH 27.0 (December 19, 2023), Vitamin D 49.1 (Mar 25, 2025) Previous imaging US of kidneys 02/19/2025 Comparison: None Findings: Right kidney is normal in size, echogenicity and morphology, 9.1 cm in length. Nonobstructing calyceal calculi 11 mm in the lower pole, 5 mm in the midpole, 7 mm in the upper pole, additional smaller echogenic foci also noted. No mass or hydronephrosis. Left kidney is normal in size, echogenicity and morphology, 12.0 cm in length. 4 mm calculus in the upper pole. Additional smaller echogenic foci noted. Mild pelviectasis, no calyceal dilatation. No mass or hydronephrosis. Limited color Doppler demonstrates unremarkable bilateral blood flow. Impression: 1. Nonobstructing bilateral nephrolithiasis, right worse than left. 2. Left renal mild pelviectasis. DEXA scan 08/04/2021 FINDINGS: AP SPINE L1-L4: Current: BMD 1.285 g/cm2, Z-score 1.0, T-score 0.9, normal, 0.8% decrease from previous, 8.3% increase from baseline (<5% change is not significant). Prior: BMD 1.296 g/cm2. Baseline: BMD 1.187 g/cm2. LEFT FEMUR, NECK: Current: BMD 1.057 g/cm2, Z-score 0.7, T-score 0.1, normal. Prior: BMD 0.986 g/cm2. Baseline: BMD 0.980 g/cm2. LEFT FEMUR, TOTAL: Current: BMD 1.185 g/cm2, Z-score 1.6, T-score 1.4, normal, 5.2% increase from previous, 6.9% increase from baseline (<5% change is not significant). Prior: BMD 1.126 g/cm2. Baseline: BMD 1.108 g/cm2. LEFT FOREARM RADIUS 33%: BMD 0.754 g/cm2, Z-score -1.2, T-score -1.4, osteopenia, 5.2% increase from previous, 6.6% increase from baseline (<5% change is not significant). Prior: BMD 0.717 g/cm2. Baseline: BMD 0.707 g/cm2. IDENTIFIED RISK FACTORS: Menopause, hysterectomy, hyperparathyroid. HISTORY OF FRACTURE: None listed. MEDICATIONS: Calcium, vitamin D, calcitonin. MM/XR DEXA appendicular skeleton IMPRESSION: 1. DIAGNOSIS: Osteopenia based on the lowest T-score value of -1.4 in the forearm radius 33% applying World Health Organization criteria. 2. 10-YEAR FRACTURE RISK PREDICTION, FRAX: Major osteoporotic fracture (clinical spine, forearm, hip or shoulder) 2.1%. Hip fracture 0.0%. General: Alert, well-nourished, no acute distress. Neck: Supple, no thyromegaly Cardiac:Regular rate and rhythm, no murmurs. no edema. Lungs: Clear to auscultation bilaterally. Abdomen: Soft, non-tender, no organomegaly. Extremities: No ulcers, lesions, or edema Neuro: Alert, oriented. [facility], [facility] Medical History Upper respiratory infection Pre-op examination Multinodular thyroid Prediabetes Obesity Hydronephrosis concurrent with and due to calculi of kidney and ureter Recurrent nephrolithiasis Disorder of bone density and structure, unspecified Vitamin D deficiency Osteopenia Tubular adenoma of colon Carpal tunnel syndrome Obesity (BMI 30-39.9) Post-surgical hypoparathyroidism Surgical History Hx of cystoscopy History of bladder surgery Hx of parathyroidectomy Hx of colonoscopy (~05/2023) Hx of tubal ligation Hx of cholecystectomy Hx of hysterectomy Family History Father Diabetes mellitus Mother No problems noted. Social History Household Members: Children Are you a primary insurance healthcare representative to a significant other at home: No Do you presently have visiting nurse or other home services: No Alcohol intake: never Patient Tobacco Use Status: Never used Tobacco Physical Exam Vital Signs: Last Vital Signs Pulse 82 04/30/25 08:51 BP 106/72 04/30/25 08:51 Pulse Ox 98 04/30/25 08:51 Oxygen Delivery Method Room Air 04/30/25 08:51 BMI result Body Mass Index 32.3 Assessment & Plan Assessment & Plan (1) Post-surgical hypoparathyroidism: Code(s): E89.2 - Postprocedural hypoparathyroidism Category: Medical (2) Osteopenia: Code(s): M85.80 - Other specified disorders of bone density and structure, unspecified site Category: Medical Plan Discussed with patient the importance to keep calcium level between 7.8 and 8.5 to avoid complications including kidney stone formation, nephrocalcinosis. Discussed with the patient the importance of maintain normal magnesium and potassium levels, with supplement as needed based on lab results At this point we will continue calcium supplementation, but we would consider decreasing dose based on calcium levels Would consider restarting hydrochlorothiazide based on urinary calcium excr etion, as patient has already evidence of nonobstructive calculi in both kidneys We will order the following labs: -comprehensive metabolic panel -intact PTH -24 hours urine, creatinine and calcium levels -we will repeat DEXA scan, last one is from 2020 We plan to see the patient again in 2 weeks to review labs Would like to repeat labs every 3-6 month based on abnormalities found Orders: Orders Sodium, 24Hr Urine Group Today E83.51 - Hypocalcemia, E89.2 - Postprocedural hypoparathyroidism Parathyroid Hormone Intact Today E83.51 - Hypocalcemia, E89.2 - Postprocedural hypoparathyroidism Calcium, 24 Hr Ur Today E83.51 - Hypocalcemia, E89.2 - Postprocedural hypoparathyroidism Creatinine, 24 Hr Group Today E83.51 - Hypocalcemia, E89.2 - Postprocedural hypoparathyroidism Comprehensive Met. Panel Today E83.51 - Hypocalcemia, E89.2 - Postprocedural hypoparathyroidism XR DEXA appendicular skeleton Today E83.51 - Hypocalcemia, E89.2 - Postprocedur al hypoparathyroidism Medications: Changed From calcium carbonate-vitamin D3 500 mg-5 mcg (200 unit) 1 tab PO DAILY To calcium carbonate-vitamin D3 500 mg-5 mcg (200 unit) 1 tab PO BID 60 tabs 3RF 30 days Coding Level of Care Code New Pt Level 4 (46078) Diagnoses Post-surgical hypoparathyroidism E89.2 Osteopenia M85.80
--- OUTSIDE RECORDS SUMMARY | 2025-04-30 09:27 | XMS_ITS | Encounter Summary ---
Author Organization [employer] [facility] Address [address] [facility] [address] [place] [address] Care Team Providers Care Rail Car Unloader Name Role Phone Bibi Neves Primary Care Provider [phone] Reason for Visit * Reason Comments Med Refill Encounter Details Date Type Department Care Team (Late Contact Info) Description 02/17/2023 Refill [facility] [address] [place] [phone] Bibi Neves ANP [address] [place] [address] Social History Tobacco Use Types Packs/Day Years [...] Care Team (Late Contact Info) Description 04/30/2025 1:00 PM EDT Office Visit [facility] ADULT DENTAL [address] [place] [address] Humaira Garcia [address] [place] [address] 05/26/2025 2:00 PM EDT Clinical Support [facility] [address] [place] [phone] 06/18/2025 1:30 PM EDT Office Visit [facility] [address] [place] [phone] Bibi Neves ANP [address] [place] [address] documented as of this encounter Visit Diagnoses Not on filedocumented in this encounter Care Teams Rail Car Unloader Relationship Specialty Start Date End Date Bibi Neves ANP [address] [place] [address] PCP - General Family Medicine 04/18/20 documented as of this encounter
--- OUTSIDE RECORDS SUMMARY | 2025-04-30 09:28 | XMS_ITS | Encounter Summary ---
Author Organization [employer] [facility] Address [address] [place] [address] Care Team Providers Care City Letter Carrier Name Role Phone Bibi Neves Primary Care Provider [phone] Encounter Details Date Type Department Care Team (Latest Contact Info) Description 06/05/2022 Abstract [facility] CONVERSIONS Dental, Provider, DDS Social [...] Team (Late st Contact Info) Description 04/30/2025 1:00 PM EDT Office Visit [facility] ADULT DENTAL [address] [place] [address] Humaira Garcia [address] [place] [address] 05/26/2025 2:00 PM EDT Clinical Support [facility] MEDICINE [address] [place] [address] 06/18/2025 1:30 PM EDT Office Visit [facility] MEDICINE [address] [place] [address] Bibi Neves ANP [address] [place] [address] documented as of this encounter Visit Diagnoses Not on filedocumented in this encounter Care Teams City Letter Carrier Relationship Specialty Start Date End Date Bibi Neves ANP [address] [place] [address] PCP - General Family Medicine 04/18/20 documented as of this encounter
--- OUTSIDE RECORDS SUMMARY | 2025-04-30 09:28 | XMS_ITS | Clinical Summary ---
Author Organization [employer] Address [address] [place] [address] Care Team Providers Care Delivery Stock Clerk Name Role Phone Pura Silas RODRIGUEZ Primary Care Provider [phone] Allergies No known active allergies Medications Bisacodyl [...] MORNING 90 tablet 1 025 2024 Discontinued Calcium Carb-Cholecalci ferol (Calcium 500+D3) 500-10 MG-MCG tabletIndicatio ns:Hypocalcemia Take 1 tablet by mouth Once per day. 90 tablet 1 025 2024 Discontinued(R eorder (will not trigger notification to Pharmacy)) Active Problems Problem Noted Date Diagnosed Date Tubular adenoma of colon 12/01/2024 Overview (12/01/2024): 06/2024 C-scope w/ [facility], repeat 2 years per GI. we [...] Department Care Team Description 04/22/2025 Orders Only [address] [address] Silas Harding ANP Hyperparathyroidism ([facility]) (Primary Dx); Hypocalcemia 04/14/[address] [address] Silas Harding ANP October recall 04/12/2025 Refill [facility] [address] [place] [phone] Bhavna Lima NP Essential hypertension 04/07/[address] [address] Silas Harding ANP Medication Question 04/06/2025 Results Follow-Up [address] [address] Silas Harding ANP Basic Metabolic Panel, Phosphate (As Phosphorus), Magnesium, Basic Metabolic Panel 04/06/[address] [address] Silas Harding ANP 03/25/2025 Orders Only [address] [address] Silas Harding ANP Hypokalemia (Primary Dx); Primary hypertension 03/22/2025 2:00 PM EDT Procedure Visit [facility] [address] [place] [address] Lizzy Shaikh CNM Menopause (Primary Dx); Encounter for immunization 03/22/2025 Travel 03/19/2025 Telephone [facility] [address] [place] [phone] Myrna Moser MA 03/16/2025 Results Follow-Up [facility] [address] [place] [phone] Silas Harding ANP POCT Glucose, POCT HGB A1C, CBC auto differential, Additional followed-up results: 03/15/2025 2:30 PM EDT Office Visit [facility] [address] [place] [phone] Silas Harding ANP Prediabetes (Primary Dx); Easy bruising; Need for hepatitis B screening test; Primary hypertension 03/15/2025 Travel 03/12/2025 Telephone [facility] [address] [place] [phone] Silas Harding ANP Chart Prep 03/08/2025 Patient Outreach [address] [address] Silas Harding ANP Pre-visit Planning (SDOH screening was completed on 09/30/2024) 02/18/2025 Orders Only [facility] External Provider, [facility] 02/16/2025 Refill [facility] [address] [place] [address] Silas Harding ANP Class 2 severe obesity [...] Description 04/30/2025 1:00 PM EDT Office Visit [facility] [address] [place] [address] Humaira Garcia [address] [place] [address] 05/26/2025 2:00 PM EDT Clinical Support [facility] [address] [place] [address] 06/18/2025 1:30 PM EDT Office Visit [facility] [address] [place] [address] Silas Harding ANP [address] [place] [address] Health Maintenance Due Date Last Done Comments [...] EDT) Phosphorus 3.5 2.7 - 4.5 mg/dL [facility] Blood Venous blood specimen / Unknown 04/16/2025 10:30 AM EDT 04/16/2025 11:52 AM EDT Silas Harding [facility] BLOOD ORDERABLES Final Resul t Performing Organization Address City/[facility]/ZIP Co de Phone Number [facility] [address] [place] [phone] * Magnesium (04/16/2025 10:30 AM EDT) Pathologist [facility] Magnesium 1.8 1.6 - 2.6 mg/dL [facility] Blood Venous blood specimen / Unknown 04/16/2025 10:30 AM EDT 04/16/2025 11:52 AM EDT Silas Harding [facility] BLOOD ORDERABLES Final Resul t Performing Organization Address City/[facility]/ZIP Co de Phone Number [facility] [address] [place] [phone] * (ABNORMAL) Basic Metabolic Panel (04/16/2025 10:30 AM EDT) Only the most recent of3 resultswithin the time period is included. Sodium 144 135 - 145 mmol/L [facility] Potassium 3.3 3.3 - 5.1 mmol/L [facility] Chloride 108 96 - 108 mmol/L [facility] Carbon Dioxide 27 22 - 29 mmol/L [facility] Anion Gap 12 12 - 20 [facility] Urea Nitrogen (BUN) 12 9 - 16 mg/dL [facility] Creatinine, Serum 0.83 0.5 - 1.4 mg/dL [facility] Estimated Glomerular Filt Rate >60 [facility] Comment:Chronic Kidney Disea se: Estimated GFR < 60 mL/min/1.08k5Kdghzu Kidney Disease: Estimated GFR < 15 mL/min/1.73m2 Glucose 77 60 - 115 mg/dL [facility] Calcium 7.5(L) 8.4 - 10.2 mg/dL [facility] Blood Venous blood specimen / Unknown 04/16/2025 10:30 AM EDT 04/16/2025 11:52 AM EDT [facility] LAB BLOOD ORDERABLES Final Resul t [facility] [address] [facility] [place] [address] [phone] * Mammography (04/06/2025 2:46 PM EDT) Mammogram BIRADS 2 Normal, Abnormal, BIRADS 1 , BIRADS 2 Anatomical Region Laterality Modality Other Historical Provider HEALTH MAINTENANCE Final Result * BI Mammogram Screening Tomosynthesis Bilateral (04/01/2025 10:30 AM EDT) Anatomical Region Laterality Modality Breast Bilateral Mammography 04/01/2025 10:3 0 AM EDT Narrative 04/06/2025 12:04 PM EDT [facility] [address] [place] [address] Mammography Report Signed Patient: Nancy Agudelo MR#: [id number] 1 : 1970 Acct:[id number] Age/Sex: 55 / F ADM Date: 04/01/25 Loc: MAMMO Attending Dr: Silas Harding NP Ordering Physician: SILAS HARDING NP Results: 2Benign Jesse reynolds Date of Service: 04/01/25 Follow Up: 1 Year From Orig inal Mammogram Procedure(s): MM tomosynthesis screening BI Accession Number(s): [id number] cc: SILAS HARDING NP EXAMINATION: MM SCREENING [...] 04/06/25 1201 DD/ 1030 TD/TT: 04/01/25 1045 Flatwork Finisher: Procedure Note Donotuseinterpreter, Image - 04/06/[facility] [address] [place] [address] Mammography Report Signed Patient: Nancy Agudelo RMR#: [id number] 1 : 1970Acct:[id number] Age/Sex: 55 / FADM Date: 04/01/25 Loc: MOLLYO Attending Dr: Silas Harding NP Ordering Physician: SILAS HARDING NPResults: 2Benign Jesse [place]ans Date of Service: 04/01/25Follow Up: 1 Year From Orig inal Mammogram Procedure(s): MM tomosynthesis screening BI Accession Number(s): [id number] cc: SILAS HARDING MATERNITY FLOOR SUPERVISOR EXAMINATION: MM SCREENING DIGITAL BREAST TOMOSYNTHESIS, BILATERAL [...] 04/06/25 1201 DD/ 1030 TD/TT: 04/01/25 1045 Flatwork Finisher: Silas Harding ANP IMG BI PROCEDURES Final Result * Vitamin D, 25-Hydroxy, Total, Immunoassay (03/25/2025 2:07 PM EDT) Vitamin D 25-OH Total 49.1 >30 ng/mL [facility] Comment: Health Based Reference Values*< 20 ng/mL [id number] ng/mL Insufficient> 30 ng/mL Sufficient*Raul ABARCA. N [...] 2:07 PM EDT 03/25/2025 4:05 PM EDT us Silas Harding ANP LAB BLOOD ORDERABLES Final Resul t Performing Organization Address [facility] de Phone Number [facility] [address] [place] [phone] * Albumin, Random Urine W/Creatinine (03/15/2025 3:19 PM EDT) Creatinine, Urine 54.19 mg/dL [facility] Microalbumin Urine 6.0 mg/L [facility] Microalbum Creatinine Ratio Ur 11.0 <30 ug/mg cr [facility] Comment:Albumin/Creatinine R atio Reference Ranges: Normal: < 30 ug/mg creatinine Microalbuminuria: 30 - 300 ug/mg creatinineClinical Albuminuria: > 300 ug/mg creatinine Urine (Urine, Random) 03/15/2025 3:19 PM EDT 03/15/2025 4:06 PM EDT us Silas Harding ANP LAB URINE ORDERABLES Final Resul t Performing Organization Address [facility] Co de Phone Number [facility] [address] [place] [phone] * (ABNORMAL) CBC auto differential (03/15/2025 3:19 PM EDT) White Blood Count 7.0 4.8 - 10.8 X10*3/uL [facility] Red Blood Count 4.24 4.20 - 5.50 X10*6/uL [facility] Hemoglobin 11.8(L) 12.0 - 16.0 g/dl [facility] Hematocrit 36.5(L) 37.0 - 47.0 % [facility] Mean Corpuscular Volume 86.1 80.0 - 98.0 fL [facility] Mean Corpuscular Hemoglobin 27.8 27.0 - 33.0 pg [facility] Mean Corpuscular HGB Conc 32.3 31.0 - 35.0 g/dl [facility] Red Cell Distribution Width 14.7 11.0 - 16.0 % [facility] Platelet Count 212 160 - 400 X10*3/uL [facility] Mean Platelet Volume 11.9 9.4 - 12.3 fL [facility] Neutrophils Percent Auto 55.7 45 - 73 % [facility] Imm Gran Pct Auto 0.3 0.0 - 0.4 % [facility] Lymphocytes Percent Auto 36.0 20 - 40 % [facility] Monocytes Percent Auto 6.8 2 - 11 % [facility] Eosinophils Percent Auto 0.6 0 - 4 % [facility] Basophils Percent Auto 0.6 0 - 2 % [facility] NRBC Pct Auto 0.0 0.0 - 0.2 /100WBC [facility] Neutrophils Absolute Auto 3.9 2.0 - 8.3 x10*3/uL [facility] Imm Gran Abs Auto 0.02 0.00 - 0.03 X10*3/uL [facility] Lymphocytes Absolute Auto 2.5 1.2 - 4.9 X10*3/uL [facility] Monocytes Absolute Auto 0.5 0.1 - 1.2 X10*3/uL [facility] Eosinophils Absolute Auto 0.0 0.0 - 0.4 X10*3/uL [facility] Basophils Absolute Auto 0.0 0.0 - 0.2 X10*3/uL [facility] NRBC Abs Auto 0.000 0.0 - 0.012 X10*3/uL [facility] Blood Venous blood specimen / Unknown 03/15/2025 3:19 PM EDT 03/15/2025 4:06 PM EDT Silas Harding ANP LAB BLOOD ORDERABLES Final Resul t Performing Organization Address [facility] Co de Phone Number [facility] [address] [place] [phone] * Iron And Total Iron Binding Capacity (03/15/2025 3:19 PM EDT) Iron 56 30 - 160 mcg/dL [facility] Total Iron Binding Capacity 235 228 - 428 mcg/dL [facility] Percent Iron Saturation 24 15 - 50 % [facility] Unsaturated Iron Binding 179 ug/dL [facility] Blood Venous blood specimen / Unknown 03/15/2025 3:19 PM EDT 03/15/2025 4:06 PM EDT Silas Harding [facility] BLOOD ORDERABLES Final Resul t Performing Organization Address [facility] de Phone Number [facility] [address] [place] [phone] * Hepatitis B surface antigen, EIA (03/15/2025 3:19 PM EDT) Hepatitis B Surface Ag Negative Negative [facility] Blood Venous blood specimen / Unknown 03/15/2025 3:19 PM EDT 03/15/2025 4:06 PM EDT Silas Harding [facility] LAB BLOOD ORDERABLES Final Resul t Performing Organization Address [facility] Co de Phone Number [facility] [address] [place] [phone] * Hepatitis B Core Antibody, Total (03/15/2025 3:19 PM EDT) Hepatitis B Core Antibody Nonreactive Nonreactive [facility] Blood Venous blood specimen / Unknown 03/15/2025 3:19 PM EDT 03/15/2025 4:06 PM EDT [facility] LAB BLOOD ORDERABLES Final Resul t Performing Organization Address [facility] de Phone Number [facility] [address] [place] [phone] * Hepatitis B Surface Antibody, Qualitative (03/15/2025 3:19 PM EDT) Pathologist [facility] ~Hepatitis B Surface Antibody NONREACTIVE Nonreactive [facility] Comment:Nonreactive: < 8.00 mIU/mL Blood Venous blood specimen / Unknown 03/15/2025 3:19 PM EDT 03/15/2025 4:06 PM EDT [facility] Harding [facility] LAB BLOOD ORDERABLES Final Resul t Performing Organization Address [facility] Phone Number [facility] [address] [place] [phone] * Prothrombin Time-INR (03/15/2025 3:19 PM EDT) Pathologist [facility] Prothrombin Time 12.2 10.9 - 12.4 SEC [facility] INTERNATIONAL NORM RATIO 1.1 0.9 - 1.1 [facility] Comment:INTERNATIONAL NORMAL IZED RATIO (INR) [...] ORDERABLES Final Resul t Performing Organization Address City/[facility] Co de Phone Number [facility] [address] [place] [phone] * Ferritin (03/15/2025 3:19 PM EDT) Pathologist [facility] Ferritin 144 10 - 250 ng/mL [facility] Blood Venous blood specimen / Unknown 03/15/2025 3:19 PM EDT 03/15/2025 4:06 PM EDT Silas Harding [facility] BLOOD ORDERABLES Final Resul t Performing Organization Address [facility] de Phone Number [facility] [address] [place] [phone] * (ABNORMAL) Comprehensive Metabolic Panel (03/15/2025 3:19 PM EDT) [facility] Sodium 139 135 - 145 mmol/L [facility] Potassium 3.0(L) 3.3 - 5.1 mmol/L [facility] Chloride 103 96 - 108 mmol/L [facility] Carbon Dioxide 25 22 - 29 mmol/L [facility] Anion Gap 14 12 - 20 [facility] Urea Nitrogen (BUN) 11 9 - 16 mg/dL [facility] Creatinine, Serum 0.85 0.5 - 1.4 mg/dL [facility] Estimated Glomerular Filt Rate >60 [facility] Comment:Chronic Kidney Disea se: Estimated GFR < 60 mL/min/1.85i8Ijhhgi Kidney Disease: Estimated GFR < 15 mL/min/1.73m2 Glucose 87 60 - 115 mg/dL [facility] Calcium 8.1(L) 8.4 - 10.2 mg/dL [facility] Bilirubin, Total 0.4 0.0 - 1.0 mg/dL [facility] Aspartate Amino Transferase 31 5 - 31 U/L [facility] Alanine Aminotransferase 35(H) 0 - 31 U/L [facility] Total Protein 7.4 6.5 - 8.0 g/dL [facility] Albumin Level 4.7 3.5 - 5.0 g/dL [facility] Alkaline Phosphatase 110 39 - 117 U/L [facility] Blood Venous blood specimen / Unknown 03/15/2025 3:19 PM EDT 03/15/2025 4:06 PM EDT us Silas RODRIGUEZ LAB BLOOD ORDERABLES Final Resul t [facility] [address] [place] [phone] * POCT HGB A1C (03/15/2025 3:14 PM EDT) Hemoglobin A1C 5.6 4.0 - 5.7 % QC Media Lot # [id number] Lot# Expiration Date 3 Blood 03/15/2025 3:14 PM EDT us Silas Harding ANP POINT OF CARE TEST ENTER/EDIT OR DERABLES Final Result * POCT Glucose (03/15/2025 3:14 PM EDT) Glucose Blood, POC 81 60 - 200 mg/dL QC Media Lot # [id number] Lot# Expiration Date [id number] Blood Capillary blood specimen / Unknown 03/15/2025 3:14 PM EDT us Silas Harding ANP POINT OF CARE TEST ENTER/EDIT OR DERABLES Final Result * US RENAL BI (02/19/2025 5:18 PM EDT) Anatomical Region Laterality Modality Abdomen Ultrasound 02/19/2025 5:18 PM EDT Narrative 02/19/2025 5:19 PM EDT [address] [address] Ultrasound Report Signed Patient: Nancy Agudelo MR#: [id number] 1 : 1970 Acct:[id number] Age/Sex: 55 / F ADM Date: 02/18/25 Loc: HO.US Attending Dr: Aris Coronado MD Ordering Physician: Aris Coronado MD Date of Service: 02/18/25 Procedure(s): US renal BI Accession Number(s): [id number] cc: Aris Coronado MD; SILAS HARDING NP [...] in OV> 02/19/251718 DD/ 17 TD/TT: 02/19/251717 Flatwork Finisher: Procedure Note Donotuseinterpreter, Image - 02/19/[address] [address] Ultrasound Report Signed Patient: Nancy Agudelo RMR#: [id number] 1 : 1970Acct:[id number] Age/Sex: 55 / FADM Date: 02/18/25 Loc: HO.US Attending Dr: Aris Coronado MD Ordering Physician: Aris Coornado MD Date of Service: 02/18/25 Procedure(s): US renal BI Accession Number(s): [id number] cc: Arsi Coronado MD; SILAS HARDING NP CLINICAL HISTORY: [...] in OV> 02/19/251718 DD/ 17 TD/TT: 02/19/251717 Flatwork Finisher: [facility] External Provider IMG US PROCEDURES Edited Result - Final * Colonoscopy (07/02/2024) Pathologist [facility] Colonoscopy Normal Normal Narrative Gay Berkowitz - 07/02/2024 colonoscopy order added Historical Provider HEALTH MAINTENANCE Final Result * [facility] Pap and HPV mRNA E6/E7 (03/19/2024 2:04 PM EDT) [facility] HPV nRNA E6/E7 Not Detected Not Detected [facility] Comment:Methodology: Transcr iption-Mediated AmplificationThis assay detects E6/E7 viral messenger RNA (mRNA) from 14high-risk HPV types (16,18,31,33,35,39,45,51,52,56,58,59,66,68).Cervical sources are required for HPV testing.If a vaginal source from a patient who has had atotal hysterectomy with removal of cervix wassubmitted, please contact the testing laboratoryfor alternative testing options.For additional information, please refer tohttp://education.[employer]/faq/PNL393u7(This link if provided for information/educational purposes only.)THIS TEST WAS PERFORMED AT:[facility] [address] [id number] RIOS MD SOURCE: SEE NOTE [facility] Comment:None given Report Status: [facility] Clinical Information: SEE NOTE [facility] Comment:None given LMP: SEE NOTE [facility] Comment:NONE GIVEN Prev. PAP: SEE NOTE [facility] Comment:NONE GIVEN Prev. BX: SEE NOTE [facility] Comment:NONE GIVEN Statement Of Adequacy: SEE [facility] Comment:Satisfactory for mario luation.Endocervical/transformation zone component absent. General Categorization: [facility] Interpretation/Result: SEE NOTE [facility] Comment:Cytology Results: Ne gative for intraepitheliallesion or malignancy. Cytology Comment SEE NOTE [facility] Comment:This Pap test has be en evaluated with computerassisted technology. Health Communications Specialist: SEE NOTE [facility] Comment:[place], CT(ASCP)CT scre ening location: [address] [address] Review Health Communications Specialist: [facility] Pathologist [facility] PAP Infection [facility] See Note SEE [facility] Comment:EXPLANATORY NOTE:The Pap is a screening test for cervical cancer. It isnot a diagnostic test and is subject to false negativeand false positive results. It is most reliable when asatisfactory sample, regularly obtained, is submittedwith relevant clinical findings and history, and whenthe Pap result is evaluated along with historic andcurrent clinical information. 03/19/2024 2:04 PM EDT 03/19/2024 5:54 PM EDT Narrative [facility] - 03/25/2024 3:00 PM EDT SEE SCANNED RESULTS IN EMR Lizzy Shaikh [facility] LAB PATHOLOGY ORDERABLES Final Result [facility] [address] [place] [phone] * (ABNORMAL) Lipid Panel, Standard (12/19/2023 10:20 AM EDT) Triglycerides 115 <150 mg/dL [facility] Comment:Desirable Triglyceri de: less than 150 mg/dLBorderline High Triglyceride 150-199 mg/dLHigh Triglyceride: 200-499 mg/dLVery High Triglyceride: greater than or equal to 5OO mg/dL Cholesterol 192 <200 mg/dL [facility] Comment:Desirable Cholestero l: less than 200 mg/dLBorderline High Cholesterol: 200-239 mg/dLHigh Cholesterol: greater than 239 mg/dL LDL Cholesterol Calculated 109(H) <100 mg/dL [facility] Comment:Desirable LDL: less than 100 mg/dLNear Optimal/Above Optimal LDL: 110- 129 mg/dLBorderline High LDL: 130-159 mg/dLHigh LDL: 160-189 mg/dLVery High LDL: greater than or equal to 190 mg/dL HDL Cholesterol 60 >40 mg/dL [facility] Comment:Desirable HDL: great er than 40 mg/dL Note: This HDL assay may give artificially low results in patients with liver disease. Blood Venous blood specimen / Unknown 12/19/2023 10:20 AM EDT 12/19/2023 11:34 AM EDT us Silas RODRIGUEZ LAB BLOOD ORDERABLES Final Resul t [facility] [address] [place] [phone] * HEPATITIS C AB W/REFL TO HCV RNA, QN, PCR (06/03/2020 9:27 AM EDT) HEPATITIS C ANTIBODY NON-REACT JOVANNY NON-REACT JOVANNY [facility] INDEX 0.02 <1.00 [facility] Comment: HCV antibody was non-reactive. There is no laboratory evidence of HCV infection. In most cases, no further action is required. However, if recent HCV exposure is suspected, a test for HCV RNA (test code 33562) is suggested. For additional information please refer to http://TastyNow.com/faq/NWU16d0 (This link is being provided for informational/ educational purposes only.) HEPATITIS C ANTIBODY NON-REACT JOVANNY NON-REACT JOVANNY [facility] INDEX 0.02 <1.00 [facility] Comment: HCV antibody was non-reactive. There is no laboratory evidence of HCV infection. In most cases, no further action is required. However, if recent HCV exposure is suspected, a test for HCV RNA (test code 13626) is suggested. For additional information please refer to http://TastyNow.com/faq/PAE17r6 (This link is being provided for informational/ educational purposes only.) HEPATITIS C ANTIBODY NON-REACT JOVANNY NON-REACT JOVANNY [facility] INDEX 0.02 <1.00 [facility] Comment: HCV antibody was non-reactive. There is no laboratory evidence of HCV infection. In most cases, no further action is required. However, if recent HCV exposure is suspected, a test for HCV RNA (test code 29083) is suggested. For additional information please refer to http://TastyNow.com/faq/ZHZ24l9 (This link is being provided for informational/ educational purposes only.) 06/03/2020 9:2 7 AM EDT us Silas Harding ANP HISTORICAL/NON ORDERABLE LABS Fi nal Result [facility] [address] * HIV 1/2 ANTIGEN/ANTIBODY,FOURTH GENERATION W/RFL (06/03/2020 9:27 AM EDT) HIV-1/2 ANTIGEN AND ANTIBODIES, 4TH GENERATION W/ REFLEX NON-REACT JOVANNY NON-REACT JOVANNY [facility] Comment: HIV-1 antigen and HIV-1/HIV-2 [...] purpose. For additional information please refer to http://[employer].Tale Me Stories/faq/OOB538 (This link is being provided for informational/ educational purposes only.) The performance of this assay has not been clinically validated in patients less than 2 years old. HIV-1/2 ANTIGEN AND ANTIBODIES, 4TH GENERATION W/ REFLEX NON-REACT JOVANNY NON-REACT JOVANNY [facility] Comment: HIV-1 antigen and HIV-1/HIV-2 [...] purpose. For additional information please refer to http://TastyNow.com/faq/QZZ363 (This link is being provided for informational/ educational purposes only.) The performance of this assay has not been clinically validated in patients less than 2 years old. HIV-1/2 ANTIGEN AND ANTIBODIES, 4TH GENERATION W/ REFLEX NON-REACT JOVANNY NON-REACT JOVANNY [facility] Comment: HIV-1 antigen and HIV-1/HIV-2 [...] purpose. For additional information please refer to http://[employer] Me Stories/faq/ISQ362 (This link is being provided for informational/ educational purposes only.) The performance of this assay has not been clinically validated in patients less than 2 years old. 06/03/2020 9:27 AM EDT us Silas Harding JENNIFER LAB BLOOD ORDERABLES Final Resul t [facility] [address] from Last 3 Months or Most Recently Relevant to Health Maintenance Insurance [facility] DENTAL - HSN PARTIAL (MEDICAID) Care Teams Delivery Stock Clerk Relationship Specialty Start Date End Date Silas Harding ANP [address] [place] [phone] PCP - General Family Medicine 04/18/20
--- OUTSIDE RECORDS SUMMARY | 2025-04-30 09:28 | XMS_ITS | Encounter Summary ---
Author Organization [employer] Address [address] 7t [place] [address] Care Team Providers Care Welcome Hostess Name Role Phone Biib Nevse JENNIFER Primary Care Provider [phone] Encounter Details Date Type Department Care Team (Late st Contact Info) Description 09/22/2024 Orders Only [facility] MEDICINE [address] [place] [address] Nilesh Marte, LaniD Social History Tobacco Use [...] the past 12 months, has t he [employer], oil or water [employer] threatened to shut off services in your [...] Description 04/30/2025 1:00 PM EDT Office Visit [facility] ADULT DENTAL [address] [place] [address] Humaira Garcia [address] [place] [address] 05/26/2025 2:00 PM EDT Clinical Support [facility] MEDICINE [address] [place] [address] 06/18/2025 1:30 PM EDT Office Visit [facility] MEDICINE [address] [place] [address] Bibi Neves ANP [address] [place] [address] documented as of this encounter Visit Diagnoses Not on filedocumented in this encounter Additional Health Concerns Assessment Noted Time PHQ-9 Depression Total Score: 2 12/19/19 24 10:14 AM EDT documented as of this encounter Care Teams Welcome Hostess Relationship Specialty Start Date End Date Bibi Neves ANP [address] [place] [address] PCP - General Family Medicine 04/18/20 documented as of this encounter
--- OUTSIDE RECORDS SUMMARY | 2025-04-30 09:28 | XMS_ITS | Encounter Summary ---
Author Organization [employer] Address [address] 7t [place] [address] Care Team Providers Care Felt Hat Mellowing Machine Operator Name Role Phone Bibi Neves Primary Care Provider [phone] Encounter Details Date Type Department Care Team (Late st Contact Info) Description 11/12/2022 Orders Only [facility] MED & PEDS [address] [place] [address] Sharonda Gotti LPN Social History Tobacco Use [...] Description 04/30/2025 1:00 PM EDT Office Visit [facility] ADULT DENTAL [address] [place] [address] Radha, Humaira [address] [place] [address] 05/26/2025 2:00 PM EDT Clinical Support [facility] MEDICINE [address] [place] [phone] 06/18/2025 1:30 PM EDT Office Visit [facility] MEDICINE [address] [place] [address] Bibi Neves ANP [address] [place] [address] documented as of this encounter Visit Diagnoses Not on filedocumented in this encounter Care Teams Felt Hat Mellowing Machine Operator Relationship Specialty Start Date End Date Bibi Neves ANP [address] [place] [address] PCP - General Family Medicine 04/18/20 documented as of this encounter
--- OUTSIDE RECORDS SUMMARY | 2025-04-30 09:28 | XMS_ITS | Encounter Summary ---
Author Organization [employer] [facility] Address [address] 7t [place] [address] Care Team Providers Care Portrait Studio Photographer Name Role Phone Bibi Neves Primary Care Provider Encounter Details Date Type Department Care Team (Latest Contact Info) Description 08/26/2019 Abstract [facility] CONVERSIONS Dental, Provider, DDS Social History [...] Description 04/30/2025 1:00 PM EDT Office Visit [facility] ADULT DENTAL [address] [place] [address] Humaira Garcia [address] [place] [address] 05/26/2025 2:00 PM EDT Clinical Support [facility] MEDICINE [address] [place] [address] 06/18/2025 1:30 PM EDT Office Visit [facility] MEDICINE [address] [place] [address] Bibi Neves ANP [address] [place] [address] documented as of this encounter Visit Diagnoses Not on filedocumented in this encounter Care Teams Portrait Studio Photographer Relationship Specialty Start Date End Date Bibi Neves ANP [address] [place] [address] PCP - General Family Medicine 04/18/20 documented as of this encounter
--- OUTSIDE RECORDS SUMMARY | 2025-04-30 09:28 | XMS_ITS | Encounter Summary ---
Author Organization [employer] Address [address] 7t [place] [address] Care Team Providers Care Stock Preparation Operator Name Role Phone Bibi Neves Primary Care Provider [phone] Encounter Details Date Type Department Care Team (Late st Contact Info) Description 04/06/2025 Abstract [facility] MEDICINE [address] [place], [place] [phone] Bibi Neves ANP [address] [place], [place] [phone] Social History Tobacco Use Types Packs/Day Years [...] Description 04/30/2025 1:00 PM EDT Office Visit [facility] ADULT DENTAL [address] [place] [address] Humaira Garcia [address] [place] [address] 05/26/2025 2:00 PM EDT Clinical Support [facility] MEDICINE [address] [place] [address] 06/18/2025 1:30 PM EDT Office Visit [facility] MEDICINE [address] [place] [address] Bibi Neves ANP [address] [place] [address] documented as of this encounter Procedures Procedure [...] documented as of this encounter Care Teams Stock Preparation Operator Relationship Specialty Start Date End Date Bibi Neves ANP [address] [place] [address] PCP - General Family Medicine 04/18/20 documented as of this encounter
--- OUTSIDE RECORDS SUMMARY | 2025-04-30 09:28 | XMS_ITS | Clinical Summary ---
Author Organization [facility] Address [address] [place] [address] Phone Care Team Providers Care Coconut Cooker Name Role Phone Bibi Neves NP Primary Care Provider [phone] Social History Tobacco Use Types Packs/Day Years [...] patient's age to complete this topic Insurance [facility] Care Teams Coconut Cooker Relationship Specialty Start Date End Date Bibi Neves NP [address] [place] [phone] PCP - General 07/28/24
--- OUTSIDE RECORDS SUMMARY | 2025-04-30 09:28 | XMS_ITS | Encounter Summary ---
Author Organization [employer] [facility] Address [address] 7t [place] [address] Care Team Providers Care Warehouse Operator Name Role Phone Bibi Neves Primary Care Provider [phone] Reason for Visit * Reason Comments Med Refill Encounter Details Date Type Department Care Team (Late Contact Info) Description 09/10/2023 Refill [facility] MEDICINE [address] [place] [address] Bibi Neves ANP [address] [place] [address] Social History Tobacco Use Types Packs/Day Years [...] Description 04/30/2025 1:00 PM EDT Office Visit [facility] ADULT DENTAL [address] [place] [address] Humaira Garcia [address] [place] [address] 05/26/2025 2:00 PM EDT Clinical Support [facility] MEDICINE [address] [place] [address] 06/18/2025 1:30 PM EDT Office Visit [facility] MEDICINE [address] [place] [address] Bibi Neves ANP [address] [place] [address] documented as of this encounter Visit Diagnoses Not on filedocumented in this encounter Care Teams Warehouse Operator Relationship Specialty Start Date End Date Bibi Neves ANP [address] [place] [address] PCP - General Family Medicine 04/18/20 documented as of this encounter
--- OUTSIDE RECORDS SUMMARY | 2025-04-30 09:28 | XMS_ITS | Encounter Summary ---
Author Organization [employer] [facility] Address [address] [facility] 7t [place] [address] Care Team Providers Care Photo Producer Name Role Phone Bibi Neves Primary Care Provider [phone] Reason for Visit * Reason Comments Med Refill Encounter Details Date Type Department Care Team (Late st Contact Info) Description 11/07/2023 Refill [facility] MEDICINE [address] [place] [address] Bibi Neves ANP [address] [place] [address] Postprocedural hypoparathyroidism (CMS/HCC) Social History Tobacco Use [...] 04/30/2025 1:00 PM EDT Office Visit [facility] ADULT DENTAL [address] [place] [address] Humaira Garcia [address] [place] [address] 05/26/2025 2:00 PM EDT Clinical Support [facility] MEDICINE [address] [place] [phone] 06/18/2025 1:30 PM EDT Office Visit [facility] MEDICINE [address] [place] [address] Bibi Neves ANP [address] [place] [address] documented as of this encounter Visit Diagnoses Diagnosis Postprocedural hypoparathyroidism (CMS/HCC) documented in this encounter Care Teams Photo Producer Relationship Specialty Start Date End Date Bibi Neves ANP [address] [place] [address] PCP - General Family Medicine 04/18/20 documented as of this encounter
== END 2025-04-30 09:39 | disposition home or self-care (01) ==
LOC: HO.ENCR 08:47
PROVIDERS: PCP Nurse Practitioner Primary Care; Visit Provider Student in an Organized Health Care Education/Training Program
DX: E89.2 Postprocedural hypoparathyroidism (principal); M85.80 Other specified disorders of bone density and structure, unspecified site
CPT/HCPCS: 99204

== ENCOUNTER → 2025-04-30 08:47 | Outpatient (BNVA) | payer OTHER, SELFPAY | PROVIDERS: PCP Nurse Practitioner Primary Care; Visit Provider Student in an Organized Health Care Education/Training Program | DX: E89.2 Postprocedural hypoparathyroidism (principal); M85.80 Other specified disorders of bone density and structure, unspecified site | CPT/HCPCS: 99202 ==

== ENCOUNTER 2025-05-03 09:19 | Outpatient (REF) | payer OTHER, SELFPAY ==
--- OUTSIDE RECORDS SUMMARY | 2025-04-30 13:00 | XMS_ITS | Encounter Summary ---
Author Organization [employer] Address [address] 7t [place] [address] Care Team Providers Care Capacity Planning Manager Name Role Phone Pura Bibi RODRIGUEZ Primary Care Provider [phone] Reason for Visit * Reason Comments Routine Cleaning Encounter Details Date Type Department Care Team (Late st Contact Info) Description 04/30/2025 1:00 PM EDT Office Visit [facility] ADULT DENTAL [address] [place], [place] [phone] Radha Humaira [address] [place] [address] Localized gingival recession, minimal (Primary Dx); Dental calculus Social History Tobacco Use Types Packs/Day Years [...] AM EDT documented as of this encounter Last Filed Vital Signs Vital Sign Reading Time Taken Comments Blood Pressure 126/78 04/30/2025 12:57 PM EDT Pulse - - Temperature - - Respiratory Rate - - Oxygen Saturation - - Inhaled Oxygen Concentration - - Weight - - Height - - Body Mass Index - - documented in this encounter Progress Notes * Humaira Garcia - 04/30/2025 1:00 PM EDT Patient ID: Nancy Agudelo is a 55 y.o. female. Time Out: Timeout Date: 04/30/25, Timeout Time: 1300 (prophy) Location: [facility] Tooth: Maxilla and Mandible Procedure: Prophylaxis Verified the above with patient, pediatric medical assistant, and provider. Confirmed via patient's chart, intraorally and by radiographs. Loop Puller: not applicable Medical Hx: Vitals: Blood pressure 126/78. Medications, Med Hx reviewed with patient and updated in chart. Treatment Provided Dental procedures in this visit D1110 - PROPHYLAXIS - ADULT (Completed) Service provider: Humaira Russo provider: Neil Dorsey DDS D1330 - ORAL HYGIENE INSTRUCTIONS (Completed) Service provider: Humaira Russo provider: Neil Dorsey DDS D9450 - CASE PRESENTATION, DETAILED AND EXTENSIVE TREATMENT PLANNING (Completed) Service provider: Humaira Russo provider: Neil Dorsey DDS Instruments Used: Ultrasonic Scalers, Hand Scalers, and Prophy angle Fluoride: N/A Oral Cancer Screening: No lesions, palatal desiree Head/Neck Exam: No Lesions Calculus: light Plaque: Light Stain: trace Bleeding: Light Gingiva: pink OH: Good Perio Chart: not due yet Oral hygiene instructions provided to patient including brushing technique and flossing. Recommendations: [place] two times daily, modified simeon technique, Floss daily, Electric toothbrush, Soft bristle toothbrush, [place] Tongue, Anti-sensitivity toothpaste Recall Frequency: 6 mo NV: 6 MO. P. Exam, x-rays, perio chart, propnhy Hygienist: Humaira Garcia RDH documented in this encounter Plan of Treatment Upcoming Encounters Date Type Department Care Team (Late st Contact Info) Description 05/26/2025 2:00 PM EDT Clinical Support [address] [address] 06/18/2025 1:30 PM EDT Office Visit [facility] MEDICINE [address] [place] [address] Bibi Neves ANP [address] [place] [address] 11/03/2025 1:30 PM EDT Office Visit [facility] ADULT DENTAL [address] [place] [address] Humaira Garcia [address] [place] [address] Scheduled Orders Name Type Priority Associated Diagnoses Orde r Schedule PERIODIC ORAL EVALUATION - ESTABLISHED PATIENT Dental Routine 1 Occurren shlomo starting 04/30/2025 BITEWINGS - 4 RADIOGRAPHIC IMAGES Dental Routine 1 Occurrence s starting 04/30/2025 INTRAORAL - PERIAPICAL FIRST RADIOGRAPHIC IMAGE Dental Routine 1 Occur rences starting 04/30/2025 INTRAORAL - PERIAPICAL EACH ADDITIONAL RADIOGRAPHIC IMAGE Dental Routine 1 Occurrences starting 04/30/2025 PROPHYLAXIS - ADULT Dental Routine 1 Occ urrences starting 04/30/2025 CASE PRESENTATION, DETAILED AND EXTENSIVE TREATMENT PLANNING Dental Routine 1 Occurrences starting 04/30/2025 ORAL HYGIENE INSTRUCTIONS Dental Routine 1 Occurrences starting 04/30/2025 documented as of this encounter Procedures Procedure Name Priority Date/Time Associated Diagnosis Comments PROPHYLAXIS - ADULT Routine 04/30/2025 1 :00 PM EDT Dental calculus ORAL HYGIENE INSTRUCTIONS Routine 04/30/2025 1:00 PM EDT Localized gingival recession, minimal Dental calculus CASE PRESENTATION, DETAILED AND EXTENSIVE TREATMENT PLANNING Routine 04/30/2025 1:00 PM EDT Localized gingival recession, minimal Dental calculus documented in this encounter Visit Diagnoses Diagnosis Localized gingival recession, minimal- Primary Dental calculus Accretions on teeth documented in this encounter Additional Health Concerns Assessment Noted Time PHQ-9 Depression Total Score: 0 10/14/19 25 3:47 PM EST documented as of this encounter Care Teams Capacity Planning Manager Relationship Specialty Start Date End Date Bibi Neves ANP [address] [place] [address] PCP - General Family Medicine 04/18/20 documented as of this encounter
[2025-05-03 10:50] LABS: Creatinine, mg/dL 45.44
--- OUTSIDE RECORDS SUMMARY | 2025-05-03 11:03 | XMS_ITS | Encounter Summary ---
Author Organization [employer] [facility] Address [address] 7t [place] [address] Care Team Providers Care Ski Lift Operator Name Role Phone Bibi Neves Primary Care Provider [phone] Reason for Visit * Reason Comments Med Refill Encounter Details Date Type Department Care Team (Late Contact Info) Description 02/17/[address] [facility] MEDICINE [address] [place] [address] Bibi Neves ANP [address] [place] [address] Social History Tobacco Use Types Packs/Day Years [...] Department Care Team (Late Contact Info) Description 05/26/2025 2:00 PM EDT Clinical Support [facility] MEDICINE [address] [place] [address] 06/18/2025 1:30 PM EDT Office Visit [facility] MEDICINE [address] [place] [address] Bibi Neves ANP [address] [place] [address] 11/03/2025 1:30 PM EDT Office Visit [facility] ADULT DENTAL [address] [place] [address] Humaira Garcia [address] [place] [address] documented as of this encounter Visit Diagnoses Not on filedocumented in this encounter Care Teams Ski Lift Operator Relationship Specialty Start Date End Date Bibi Neves ANP [address] [place] [address] PCP - General Family Medicine 04/18/20 documented as of this encounter
--- OUTSIDE RECORDS SUMMARY | 2025-05-03 11:03 | XMS_ITS | Clinical Summary ---
Author Organization [employer] Address [address] [facility] [place] [address] Care Team Providers Care Strategic Alliances Manager Name Role Phone Pura Silas RODRIGUEZ Primary Care Provider Allergies No known active allergies Medications Bisacodyl [...] colon 12/01/2024 Overview (12/01/2024): 06/2024 C-scope w/ [facility], repeat 2 years per GI. we [...] Encounters Date Type Department Care Team Description 04/30/2025 1:00 PM EDT Office Visit [facility] [address] [place] [phone] Humaira Garcia Localized gingival recession, minimal (Primary Dx); Dental calculus 04/22/2025 Orders Only [facility] [address] [place] [phone] Silas Harding ANP Hyperparathyroidism (CMS/HCC) (Primary Dx); Hypocalcemia 04/14/2025 Telephone [facility] [address] [place] [phone] Silas Harding ANP May recall 04/12/2025 Refill [facility] [address] [place] [address] Bhavna Lima NP Essential hypertension 04/07/2025 Telephone [facility] [address] [place] [address] Silas Harding ANP Medication Question 04/06/2025 Results Follow-Up [address] [address] Silas Harding ANP Basic Metabolic Panel, Phosphate (As Phosphorus), Magnesium, Basic Metabolic Panel 04/06/2025 Abstract [facility] [place] [address] Silas Harding ANP 03/25/2025 Orders Only [facility] [address] Silas Harding ANP Hypokalemia (Primary Dx); Primary hypertension 03/22/2025 2:00 PM EDT Procedure Visit [address] [address] Lizzy Shaikh, KRYSTIAN Menopause (Primary Dx); Encounter for immunization 03/22/2025 Travel 03/19/2025 Telephone [facility] [address] Myrna Moser [place] 03/16/2025 Results Follow-Up [address] [address] Silas Harding ANP POCT Glucose, POCT HGB A1C, CBC auto differential, Additional followed-up results: 03/15/2025 2:30 PM EDT Office Visit [address] [place] [address] Silas Harding ANP Prediabetes (Primary Dx); Easy bruising; Need for hepatitis B screening test; Primary hypertension 03/15/2025 Travel 03/12/[address] [address] Silas Harding ANP Chart Prep 03/08/2025 Patient Outreach [address] [address] Silas Harding ANP Pre-visit Planning (SDOH screening was completed on 09/30/2024) 02/18/2025 Orders Only [facility] External Provider, [facility] 02/16/2025 Refill [facility] [place] [address] Silas Harding ANP Class 2 severe obesity [...] Pressure 126/78 04/30/2025 12:57 PM EDT Pulse 69 03/22/2025 2:17 PM [...] Description 05/26/2025 2:00 PM EDT Clinical Support [facility] [address] [place] [address] 06/18/2025 1:30 PM EDT Office Visit [facility] [address] [place] [address] Silas Harding ANP [address] [place] [address] 11/03/2025 1:30 PM EDT Office Visit [facility] [address] [place] [address] Humaira Garcia [address] [place] [address] Health Maintenance Due Date Last Done Comments CT Colonography 1970 FIT DNA/Cologuard 1970 FIT 1970 FOBT 1970 Sigmoidoscopy 1970 Influenza Vaccine (#1) 2025 , 05/10/2023, 05/24/2019, Additional history exists Dental Oral Exam 04/29/2025 10/26/2024, 12/2023, 06/05/2022, Additional history exists Hepatitis B Vaccines (3 of 3 - 19+ 3-dose series) 05/17/2025 03/22/2025, 06/09/2012 SDOH Screening 09/30/2025 09/30/2024 Depression Screening 10/14/2025 10/14/2024, 10/14/19 Dental X-Ray: Bitewings 10/27/2025 10/27/19 25, 09/23/2023, 03/06/2019, Additional history exists Dental Prophylaxis 10/29/2025 04/30/2025, 0 10/26/2024, 04/27/2024, Additional history exists Alcohol/Substance Use Screening 12/01/2025 12/01/2024 Disability Screening 12/01/2025 12/01/2024 Diabetes: Hemoglobin A1C 03/15/2026 025, 12/01/2024, 07/07/2024, Additional history exists Mammogram 04/06/2026 04/06/2025, 03/19, 03/26/2024, Additional history exists Tobacco Screening 04/30/2026 04/30/2025 Colonoscopy 07/02/2026 07/02/2024 Colorectal Cancer Screening 07/02/2026 [...] Procedure Name Priority Date/Time Associated Diagnosis Comments CASE PRESENTATION, DETAILED AND EXTENSIVE TREATMENT PLANNING Routine 04/30/2025 1:00 PM EDT Localized gingival recession, minimal Dental calculus ORAL HYGIENE INSTRUCTIONS Routine 04/30/2025 1:00 PM EDT Localized gingival recession, minimal Dental calculus PROPHYLAXIS - ADULT Routine 04/30/2025 1 :00 PM EDT Dental calculus BASIC METABOLIC PANEL Routine 04/16/2025 10:30 AM [...] RENAL BI Routine 02/19/2025 5:18 PM EDT BITEWINGS - 4 RADIOGRAPHIC IMAGES Routine 10/26/2024 [...] EDT) Phosphorus 3.5 2.7 - 4.5 mg/dL [facility] Blood Venous blood specimen / Unknown 04/16/2025 10:30 AM EDT 04/16/2025 11:52 AM EDT us Silas Harding ANP LAB BLOOD ORDERABLES Final Resul t [facility] [address] [place] [phone] * Magnesium (04/16/2025 10:30 AM EDT) Magnesium 1.8 1.6 - 2.6 mg/dL [facility] Blood Venous blood specimen / Unknown 04/16/2025 10:30 AM EDT 04/16/2025 11:52 AM EDT us Silas Harding ANP LAB BLOOD ORDERABLES Final Resul t Performing Organization Address [facility] de Phone Number [facility] [address] [place] [address] [phone] * (ABNORMAL) Basic Metabolic Panel (04/16/2025 10:30 AM EDT) Only the most recent of3 resultswithin the time period is included. Pathologist [facility] Sodium 144 135 - 145 mmol/L [facility] Potassium 3.3 3.3 - 5.1 mmol/L [facility] Chloride 108 96 - 108 mmol/L [facility] Carbon Dioxide 27 22 - 29 mmol/L [facility] Anion Gap 12 12 - 20 [facility] Urea Nitrogen (BUN) 12 9 - 16 mg/dL [facility] Creatinine, Serum 0.83 0.5 - 1.4 mg/dL [facility] Estimated Glomerular Filt Rate >60 [facility] Comment:Chronic Kidney Disea se: Estimated GFR < 60 mL/min/1.57g8Vcvinn Kidney Disease: Estimated GFR < 15 mL/min/1.73m2 Glucose 77 60 - 115 mg/dL [facility] Calcium 7.5(L) 8.4 - 10.2 mg/dL [facility] Blood Venous blood specimen / Unknown 04/16/2025 10:30 AM EDT 04/16/2025 11:52 AM EDT Silas Harding [facility] LAB BLOOD ORDERABLES Final Resul t Performing Organization Address [facility] Co de Phone Number [facility] [address] [place] [address] [phone] * Mammography (04/06/2025 2:46 PM EDT) Pathologist [facility] Mammogram BIRADS 2 Normal, Abnormal, BIRADS 1 , BIRADS 2 Anatomical Region Laterality Modality Other Historical Provider HEALTH MAINTENANCE Final Result * BI Mammogram Screening Tomosynthesis Bilateral (04/01/2025 10:30 AM EDT) Anatomical Region Laterality Modality Breast Bilateral Mammography 04/01/2025 10:3 0 AM EDT Narrative 04/06/2025 12:04 PM EDT Vitaliy [facility] [address] [place], [place] [address] Mammography Report Signed Patient: Nancy Agudelo MR#: [id number] 1 : 1970 Acct:[id number] Age/Sex: 55 / F ADM Date: 04/01/25 Loc: HO.MAMMO Attending Dr: Silas Harding NP Ordering Physician: SILAS HARDING NP Results: 2Benign Fin dings Date of Service: 04/01/25 Follow Up: 1 Year From Orig inal Mammogram Procedure(s): MM tomosynthesis screening BI Accession Number(s): [id number] cc: SILAS HARDING NP EXAMINATION: MM SCREENING [...] 04/06/25 1201 DD/ 1030 TD/TT: 04/01/25 1045 Conductor And Engineer: Procedure Note Donotuseinterpreter, Image - 04/06/2025 [facility] [address] [place] [address] Mammography Report Signed Patient: Nancy Agudelo RMR#: [id number] 1 : 1970Acct:[id number] Age/Sex: 55 / FADM Date: 04/01/25 Loc: HO.MAMMO Attending Dr: Silas Harding [employer] Ordering Physician: SILAS HARDING NPResults: 2Benign Jesse dinghans Date of Service: 04/01/25Follow Up: 1 Year From Orig inal Mammogram Procedure(s): MM tomosynthesis screening BI Accession Number(s): [id number] cc: SILAS HARDING NP EXAMINATION: MM SCREENING [...] 04/06/25 1201 DD/ 1030 TD/TT: 04/01/25 1045 Conductor And Engineer: Silas Harding ANP IMG BI PROCEDURES Final Result * Vitamin D, 25-Hydroxy, Total, Immunoassay (03/25/2025 2:07 PM EDT) Vitamin D 25-OH Total 49.1 >30 ng/mL [facility] Comment: Health Based Reference Values*< 20 ng/mL Uefxwxdlo22-02 ng/mL Insufficient> 30 ng/mL Sufficient*Raul ABARCA. N [...] 03/25/2025 4:05 PM EDT Silas Harding [facility] LAB BLOOD ORDERABLES Final Resul t [facility] [address] [place] [phone] * Albumin, Random Urine W/Creatinine (03/15/2025 3:19 PM EDT) Creatinine, Urine 54.19 mg/dL [facility] Microalbumin Urine 6.0 mg/L [facility] Microalbum Creatinine Ratio Ur 11.0 <30 ug/mg cr [facility] Comment:Albumin/Creatinine R atio Reference Ranges: Normal: < 30 ug/mg creatinine Microalbuminuria: 30 - 300 ug/mg creatinineClinical Albuminuria: > 300 ug/mg creatinine Urine (Urine, Random) 03/15/2025 3:19 PM EDT 03/15/2025 4:06 PM EDT Silas RODRIGUEZ LAB URINE ORDERABLES Final Resul t [facility] [address] [place], [place] [phone] * (ABNORMAL) CBC auto differential (03/15/2025 3:19 PM EDT) White Blood Count 7.0 4.8 - 10.8 X10*3/uL [facility] Red Blood Count 4.24 4.20 - 5.50 X10*6/uL [facility] Hemoglobin 11.8(L) 12.0 - 16.0 g/dl [facility] Hematocrit 36.5(L) 37.0 - 47.0 % [facility] Mean Corpuscular Volume 86.1 80.0 - 98.0 fL [facility] Mean Corpuscular Hemoglobin 27.8 27.0 - 33.0 pg [facility] Mean Corpuscular HGB Conc 32.3 31.0 - 35.0 g/dl [facility] Red Cell Distribution Width 14.7 11.0 - 16.0 % [facility] Platelet Count 212 160 - 400 X10*3/uL [facility] Mean Platelet Volume 11.9 9.4 - 12.3 fL [facility] Neutrophils Percent Auto 55.7 45 - 73 % [facility] Imm Gran Pct Auto 0.3 0.0 - 0.4 % [facility] Lymphocytes Percent Auto 36.0 20 - 40 % [facility] Monocytes Percent Auto 6.8 2 - 11 % [facility] Eosinophils Percent Auto 0.6 0 - 4 % [facility] Basophils Percent Auto 0.6 0 - 2 % [facility] NRBC Pct Auto 0.0 0.0 - 0.2 /100WBC [facility] Neutrophils Absolute Auto 3.9 2.0 - 8.3 x10*3/uL [facility] Imm Gran Abs Auto 0.02 0.00 - 0.03 X10*3/uL [facility] Lymphocytes Absolute Auto 2.5 1.2 - 4.9 X10*3/uL [facility] Monocytes Absolute Auto 0.5 0.1 - 1.2 X10*3/uL [facility] Eosinophils Absolute Auto 0.0 0.0 - 0.4 X10*3/uL [facility] Basophils Absolute Auto 0.0 0.0 - 0.2 X10*3/uL [facility] NRBC Abs Auto 0.000 0.0 - 0.012 X10*3/uL [facility] Blood Venous blood specimen / Unknown 03/15/2025 3:19 PM EDT 03/15/2025 4:06 PM EDT Silas Harding ANP LAB BLOOD ORDERABLES Final Resul t Performing Organization Address City/[facility]/ZIP Co de Phone Number [facility] [address] [place] [phone] * Iron And Total Iron Binding Capacity (03/15/2025 3:19 PM EDT) [facility] Iron 56 30 - 160 mcg/dL [facility] Total Iron Binding Capacity 235 228 - 428 mcg/dL [facility] Percent Iron Saturation 24 15 - 50 % [facility] Unsaturated Iron Binding 179 ug/dL [facility] Blood Venous blood specimen / Unknown 03/15/2025 3:19 PM EDT 03/15/2025 4:06 PM EDT Silas Harding ANP LAB BLOOD ORDERABLES Final Resul t Performing Organization Address City/[facility]/ZIP Co de Phone Number [facility] [address] [place] [phone] * Hepatitis B surface antigen, EIA (03/15/2025 3:19 PM EDT) Hepatitis B Surface Ag Negative Negative [facility] Blood Venous blood specimen / Unknown 03/15/2025 3:19 PM EDT 03/15/2025 4:06 PM EDT Silas Harding [facility] LAB BLOOD ORDERABLES Final Resul t Performing Organization Address [facility] de Phone Number [facility] [address] [place] [phone] * Hepatitis B Core Antibody, Total (03/15/2025 3:19 PM EDT) Hepatitis B Core Antibody Nonreactive Nonreactive [facility] Blood Venous blood specimen / Unknown 03/15/2025 3:19 PM EDT 03/15/2025 4:06 PM EDT Silas Harding [facility] LAB BLOOD ORDERABLES Final Resul t Performing Organization Address [facility] Phone Number [facility] [address] [place] [phone] * Hepatitis B Surface Antibody, Qualitative (03/15/2025 3:19 PM EDT) ~Hepatitis B Surface Antibody NONREACTIVE Nonreactive [facility] Comment:Nonreactive: < 8.00 mIU/mL Blood Venous blood specimen / Unknown 03/15/2025 3:19 PM EDT 03/15/2025 4:06 PM EDT Silas Harding [facility] LAB BLOOD ORDERABLES Final Resul t Performing Organization Address [facility] de Phone Number [facility] [address] [place] [phone] * Prothrombin Time-INR (03/15/2025 3:19 PM EDT) Prothrombin Time 12.2 10.9 - 12.4 SEC [facility] INTERNATIONAL NORM RATIO 1.1 0.9 - 1.1 [facility] Comment:INTERNATIONAL NORMAL IZED RATIO (INR) [...] ORDERABLES Final Resul t Performing Organization Address [facility]/ZIP Co de Phone Number [facility] [address] [place] [phone] * Ferritin (03/15/2025 3:19 PM EDT) Pathologist [facility] Ferritin 144 10 - 250 ng/mL [facility] Blood Venous blood specimen / Unknown 03/15/2025 3:19 PM EDT 03/15/2025 4:06 PM EDT Silas Harding [facility] LAB BLOOD ORDERABLES Final Resul t Performing Organization Address [facility] Co de Phone Number [facility] [address] [place] [phone] * (ABNORMAL) Comprehensive Metabolic Panel (03/15/2025 3:19 PM EDT) Sodium 139 135 - 145 mmol/L [facility] Potassium 3.0(L) 3.3 - 5.1 mmol/L [facility] Chloride 103 96 - 108 mmol/L [facility] Carbon Dioxide 25 22 - 29 mmol/L [facility] Anion Gap 14 12 - 20 [facility] Urea Nitrogen (BUN) 11 9 - 16 mg/dL [facility] Creatinine, Serum 0.85 0.5 - 1.4 mg/dL [facility] Estimated Glomerular Filt Rate >60 [facility] Comment:Chronic Kidney Disea se: Estimated GFR < 60 mL/min/1.04z1Rkublk Kidney Disease: Estimated GFR < 15 mL/min/1.73m2 Glucose 87 60 - 115 mg/dL [facility] Calcium 8.1(L) 8.4 - 10.2 mg/dL [facility] Bilirubin, Total 0.4 0.0 - 1.0 mg/dL [facility] Aspartate Amino Transferase 31 5 - 31 U/L [facility] Alanine Aminotransferase 35(H) 0 - 31 U/L [facility] Total Protein 7.4 6.5 - 8.0 g/dL [facility] Albumin Level 4.7 3.5 - 5.0 g/dL [facility] Alkaline Phosphatase 110 39 - 117 U/L [facility] Blood Venous blood specimen / Unknown 03/15/2025 3:19 PM EDT 03/15/2025 4:06 PM EDT Silas Harding ANP LAB BLOOD ORDERABLES Final Resul t [facility] [address] [place] [phone] * POCT HGB A1C (03/15/2025 3:14 [...] Media Lot # [id number] Lot# Expiration Date [id number] Blood Capillary blood specimen / Unknown 03/15/2025 3:14 PM EDT us Silas RODRIGUEZ POINT OF CARE TEST ENTER/EDIT OR DERABLES Final Result * US RENAL BI (02/19/2025 5:18 PM EDT) Anatomical Region Laterality Modality Abdomen Ultrasound 02/19/2025 5:18 PM EDT Narrative 02/19/2025 5:19 PM EDT [place] [address] Ultrasound Report Signed Patient: Nancy Agudelo MR#: [id number] 1 : 1970 Acct:[id number] Age/Sex: 55 / F ADM Date: 02/18/25 Loc: HO.US Attending Dr: Aris Coronado MD Ordering Physician: Aris Coronado MD Date of Service: 02/18/25 Procedure(s): US renal BI Accession Number(s): [id number] cc: Aris Coronado MD; SILAS HARDING NP [...] in OV> 02/19/251718 DD/ 17 TD/TT: 02/19/251717 Conductor And Engineer: Procedure Note Donotuseinterpreter, Image - 02/19/[address] [address] Ultrasound Report Signed Patient: Nancy Agudelo RMR#: [id number] 1 : 1970Acct:[id number] Age/Sex: 55 / FADM Date: 02/18/25 Loc: HO.US Attending Dr: Aris Coronado MD Ordering Physician: Aris Coronado MD Date of Service: 02/18/25 Procedure(s): US renal BI Accession Number(s): [id number] cc: Aris Coronado MD; SILAS HARDING NP [...] signed by Lauren Samuel MD in OV> 02/19/25 1719 DD/ 17 TD/TT: 02/19/251717 Conductor And Engineer: [facility] External Provider IMG US PROCEDURES Edited Result - Final * Colonoscopy (07/02/2024) Colonoscopy Normal Normal Narrative [place] - 07/02/2024 colonoscopy order added Historical Provider HEALTH MAINTENANCE Final Result * [facility] Pap and HPV mRNA E6/E7 (03/19/2024 2:04 PM EDT) HPV nRNA E6/E7 Not Detected Not Detected [facility] Comment:Methodology: Transcr iption-Mediated AmplificationThis assay detects E6/E7 viral messenger RNA (mRNA) from 14high-risk HPV types (16,18,31,33,35,39,45,51,52,56,58,59,66,68).Cervical sources are required for HPV testing.If a vaginal source from a patient who has had atotal hysterectomy with removal of cervix wassubmitted, please contact the testing laboratoryfor alternative testing options.For additional information, please refer tohttp://education.[employer]/faq/KSN560p7(This link if provided for information/educational purposes only.)THIS TEST WAS PERFORMED AT:[employer] [address] [phone] RIOS MD SOURCE: SEE NOTE [facility] Comment:None given Report Status: [facility] Clinical Information: SEE NOTE [facility] Comment:None given LMP: SEE NOTE [facility] Comment:NONE GIVEN Prev. PAP: SEE NOTE [facility] Comment:NONE GIVEN Prev. BX: SEE NOTE [facility] Comment:NONE GIVEN Statement Of Adequacy: SEE NOTE [facility] Comment:Satisfactory for mario luation.Endocervical/transformation zone component absent. General Categorization: [facility] Interpretation/Result: SEE NOTE [facility] Comment:Cytology Results: Ne gative for intraepitheliallesion or malignancy. Cytology Comment SEE NOTE [facility] Comment:This Pap test has be en evaluated with computerassisted technology. Ticker Wirer: SEE NOTE [facility] Comment:GOLDEN, CT(ASCP)CT scre ening location: [place] [address] Review Ticker Wirer: [facility] Pathologist [facility] PAP Infection [facility] See Note SEE NOTE [facility] Comment:EXPLANATORY NOTE:The Pap is a screening test for cervical cancer. It isnot a diagnostic test and is subject to false negativeand false positive results. It is most reliable when asatisfactory sample, regularly obtained, is submittedwith relevant clinical findings and history, and whenthe Pap result is evaluated along with historic andcurrent clinical information. 03/19/2024 2:04 PM EDT 03/19/2024 5:54 PM EDT Narrative [facility] - 03/25/2024 3:00 PM EDT SEE SCANNED RESULTS IN EMR us Lizzy THOMPSON LAB PATHOLOGY ORDERABLES Final Result [facility] [address] [place] [phone] * (ABNORMAL) Lipid Panel, Standard (12/19/2023 10:20 AM EDT) Triglycerides 115 <150 mg/dL [facility] Comment:Desirable Triglyceri de: less than 150 mg/dLBorderline High Triglyceride 150-199 mg/dLHigh Triglyceride: 200-499 mg/dLVery High Triglyceride: greater than or equal to 5OO mg/dL Cholesterol 192 <200 mg/dL [facility] Comment:Desirable Cholestero l: less than 200 mg/dLBorderline High Cholesterol: 200-239 mg/dLHigh Cholesterol: greater than 239 mg/dL LDL Cholesterol Calculated 109(H) <100 mg/dL [facility] Comment:Desirable LDL: less than 100 mg/dLNear Optimal/Above Optimal LDL: 110- 129 mg/dLBorderline High LDL: 130-159 mg/dLHigh LDL: 160-189 mg/dLVery High LDL: greater than or equal to 190 mg/dL HDL Cholesterol 60 >40 mg/dL [facility] Comment:Desirable HDL: great er than 40 mg/dL Note: This HDL assay may give artificially low results in patients with liver disease. Blood Venous blood specimen / Unknown 12/19/2023 10:20 AM EDT 12/19/2023 11:34 AM EDT us Silas Harding ANP LAB BLOOD ORDERABLES Final Resul t Performing Organization Address City/[facility]/ZIP Co de Phone Number [facility] [address] [place] [phone] * HEPATITIS C AB W/REFL TO HCV RNA, QN, PCR (06/03/2020 9:27 AM EDT) HEPATITIS C ANTIBODY NON-REACT JOVANNY NON-REACT JOVANNY [facility] INDEX 0.02 <1.00 [facility] Comment: HCV antibody was non-reactive. There is no laboratory evidence of HCV infection. In most cases, no further action is required. However, if recent HCV exposure is suspected, a test for HCV RNA (test code 42271) is suggested. For additional information please refer to http://WISeKey/faq/DNJ64j5 (This link is being provided for informational/ educational purposes only.) HEPATITIS C ANTIBODY NON-REACT JOVANNY NON-REACT JOVANNY [facility] INDEX 0.02 <1.00 [facility] Comment: HCV antibody was non-reactive. There is no laboratory evidence of HCV infection. In most cases, no further action is required. However, if recent HCV exposure is suspected, a test for HCV RNA (test code 15412) is suggested. For additional information please refer to http://WISeKey/faq/FEU98i7 (This link is being provided for informational/ educational purposes only.) HEPATITIS C ANTIBODY NON-REACT JOVANNY NON-REACT JOVANNY [facility] INDEX 0.02 <1.00 [facility] Comment: HCV antibody was non-reactive. There is no laboratory evidence of HCV infection. In most cases, no further action is required. However, if recent HCV exposure is suspected, a test for HCV RNA (test code 44241) is suggested. For additional information please refer to http://Entrec.[employer] Drape/faq/MVO34n1 (This link is being provided for informational/ educational purposes only.) 06/03/2020 9:27 AM EDT Silas Harding ANP HISTORICAL/NON ORDERABLE LABS Fi nal Result [facility] [address] * HIV 1/2 ANTIGEN/ANTIBODY,FOURTH GENERATION W/RFL (06/03/2020 9:27 AM EDT) HIV-1/2 ANTIGEN AND ANTIBODIES, 4TH GENERATION W/ REFLEX NON-REACT JOVANNY NON-REACT JOVANNY [facility] Comment: HIV-1 antigen and [...] purpose. For additional information please refer to http://Entrec.[employer] Drape/faq/LBQ322 (This link is being provided for informational/ educational purposes only.) The performance of this assay has not been clinically validated in patients less than 2 years old. HIV-1/2 ANTIGEN AND ANTIBODIES, 4TH GENERATION W/ REFLEX NON-REACT JOVANNY NON-REACT JOVANNY [facility] Comment: HIV-1 antigen and [...] purpose. For additional information please refer to http://Entrec.[employer] Drape/faq/SJE325 (This link is being provided for informational/ educational purposes only.) The performance of this assay has not been clinically validated in patients less than 2 years old. HIV-1/2 ANTIGEN AND ANTIBODIES, 4TH GENERATION W/ REFLEX NON-REACT JOVANNY NON-REACT JOVANNY [facility] Comment: HIV-1 antigen and [...] purpose. For additional information please refer to http://education.[employer]/faq/UCN724 (This link is being provided for informational/ educational purposes only.) The performance of this assay has not been clinically validated in patients less than 2 years old. 06/03/2020 9:27 AM EDT [facility] LAB BLOOD ORDERABLES Final Resul t Performing Organization Address City/State/[facility] Co mi Phone Number [facility] Formerly [facility], [facility] Anywhere [address] from Last 3 Months or Most Recently Relevant to Health Maintenance Insurance [facility] D[facility] - HSN PARTIAL (MEDICAID) Care Teams Strategic Alliances Manager Relationship Specialty Start Date End Date Silas Harding ANP [address] [place] [address] [place] [address] PCP - General Family Medicine 04/18/20
--- OUTSIDE RECORDS SUMMARY | 2025-05-03 11:03 | XMS_ITS | Encounter Summary ---
Author Organization [employer] [facility] Address [address] [facility] 7t [place] [address] Care Team Providers Care Early Learning Teacher Name Role Phone Bibi Neves Primary Care Provider [phone] Reason for Visit * Reason Comments Med Refill Encounter Details Date Type Department Care Team (Late Contact Info) Description 09/10/2023 Refill [facility] [address] [place] [address] Bibi Neves ANP [address] [place] [address] Social History Tobacco Use Types Packs/Day Years [...] Description 05/26/2025 2:00 PM EDT Clinical Support [facility] [address] [place] [address] 06/18/2025 1:30 PM EDT Office Visit [facility] [address] [place] [address] Bibi Neves ANP [address] [place] [address] 11/03/2025 1:30 PM EDT Office Visit [facility] ADULT DENTAL [address] [place] [address] Humaira Garcia [address] [place] [address] documented as of this encounter Visit Diagnoses Not on filedocumented in this encounter Care Teams Early Learning Teacher Relationship Specialty Start Date End Date Bibi Neves ANP [address] [place] [address] PCP - General Family Medicine 04/18/20 documented as of this encounter
--- OUTSIDE RECORDS SUMMARY | 2025-05-03 11:04 | XMS_ITS | Encounter Summary ---
Author Organization [employer] [facility] Address [address] [facility] [address] 7t [place] [address] Care Team Providers Care Processing Supervisor Name Role Phone Bibi Neves Primary Care Provider [phone] Encounter Details Date Type Department Care Team (Latest Contact Info) Description 06/05/2022 Abstract [facility] CONVERSIONS Dental, Provider, DDS Social History [...] 2:00 PM EDT Clinical Support [facility] MEDICINE [address] [place] [address] 06/18/2025 1:30 PM EDT Office Visit [facility] MEDICINE [address] [place] [address] Bibi Neves ANP [address] [place] [address] 11/03/2025 1:30 PM EDT Office Visit [facility] ADULT DENTAL [address] [place] [address] Humaira Garcia [address] [place] [address] documented as of this encounter Visit Diagnoses Not on filedocumented in this encounter Care Teams Processing Supervisor Relationship Specialty Start Date End Date Bibi Neves ANP [address] [place] [address] PCP - General Family Medicine 04/18/20 documented as of this encounter
--- OUTSIDE RECORDS SUMMARY | 2025-05-03 11:04 | XMS_ITS | Encounter Summary ---
Author Organization [employer] Address [address] [facility] [address] 7t [place] [address] Care Team Providers Care Master Black Belt Name Role Phone Bibi Neves JENNIFER Primary Care Provider [phone] Encounter Details Date Type Department Care Team (Late st Contact Info) Description 09/22/2024 Orders Only [facility] MEDICINE [address] [place] [address] Nilesh Marte, LaniD Social History Tobacco Use [...] the past 12 months, has t he [employer] oil or water [employer] threatened to shut off services in your [...] 2:00 PM EDT Clinical Support [facility] MEDICINE [address] [place] [address] 06/18/2025 1:30 PM EDT Office Visit [facility]INE [address] [place] [address] Bibi Neves ANP [address] [place] [address] 11/03/2025 1:30 PM EDT Office Visit [facility] ADULT DENTAL [address] [place] [address] Radha, Humaira [address] [place] [address] documented as of this encounter Visit Diagnoses Not on filedocumented in this encounter Additional Health Concerns Assessment Noted Time PHQ-9 Depression Total Score: 2 12/19/19 24 10:14 AM EDT documented as of this encounter Care Teams Master Black Belt Relationship Specialty Start Date End Date Bibi Neves ANP [address] [place] [address] PCP - General Family Medicine 04/18/20 documented as of this encounter
--- OUTSIDE RECORDS SUMMARY | 2025-05-03 11:04 | XMS_ITS | Encounter Summary ---
Author Organization [facility] Address 75 [facility] 7t [place] [address] Care Team Providers Care Insurance Policy Issue Clerk Name Role Phone Bibi Neves Primary Care Provider [phone] Reason for Visit * Reason Comments Med Refill Encounter Details Date Type Department Care Team (Late Contact Info) Description 11/07/2023 Refill [facility] [address] [place] [address] [phone] Bibi Neves ANP [address] [place] [address] Postprocedural hypoparathyroidism (CMS/HCC) Social History Tobacco Use [...] 05/26/2025 2:00 PM EDT Clinical Support [address] [phone] 06/18/2025 1:30 PM EDT Office Visit [address] [phone] Bibi Neves ANP [address] [place] [address] [phone] 11/03/2025 1:30 PM EDT Office Visit [facility] ADULT DENTAL [address] [place] [address] Erik Garciaaris [address] [place], [place] [phone] documented as of this encounter Visit Diagnoses Diagnosis Postprocedural hypoparathyroidism (CMS/HCC) documented in this encounter Care Teams Insurance Policy Issue Clerk Relationship Specialty Start Date End Date Bibi Neves ANP 230 [place], [place] [phone] PCP - General Family Medicine 04/18/20 documented as of this encounter
--- OUTSIDE RECORDS SUMMARY | 2025-05-03 11:04 | XMS_ITS | Encounter Summary ---
Author Organization [employer] Address [address] [facility] [address] 7t [place] [address] Care Team Providers Care Loss Prevention Analyst Name Role Phone Bibi Neves Primary Care Provider [phone] Encounter Details Date Type Department Care Team (Late st Contact Info) Description 04/06/[address] [facility]ICINE [address] [place], [place] [phone] Bibi Neves ANP [address] [place], [place] [phone] Social History Tobacco Use Types Packs/Day Years [...] Description 05/26/2025 2:00 PM EDT Clinical Support [facility] [address] [place] [address] 06/18/2025 1:30 PM EDT Office Visit [facility] [address] [place] [address] Bibi Neves, JENNIFER [address] [place] [address] 11/03/2025 1:30 PM EDT Office Visit [facility] ADULT DENTAL [address] [place] [address] Radha, Humaira [address] [place] [address] documented as of this encounter Procedures Procedure [...] documented as of this encounter Care Teams Loss Prevention Analyst Relationship Specialty Start Date End Date Bibi Neves ANP [address] [place] [address] PCP - General Family Medicine 04/18/20 documented as of this encounter
--- OUTSIDE RECORDS SUMMARY | 2025-05-03 11:04 | XMS_ITS | Encounter Summary ---
Author Organization [employer] Address [address] [facility] [address] 7t [place] [address] Care Team Providers Care Mortgage Funder Name Role Phone Bibi Neves Primary Care Provider Encounter Details Date Type Department Care Team (Late st Contact Info) Description 11/12/[address] [facility] [address] [place], [place] [phone] Sharonda Gotti LPN Social History Tobacco Use [...] Description 05/26/2025 2:00 PM EDT Clinical Support [facility] MEDICINE [address] [place] [address] 06/18/2025 1:30 PM EDT Office Visit [facility] MEDICINE [address] [place] [address] Bibi Neves ANP [address] [place] [address] 11/03/2025 1:30 PM EDT Office Visit [facility] ADULT DENTAL [address] [place] [address] Humaira Garcia [address] [place] [address] documented as of this encounter Visit Diagnoses Not on filedocumented in this encounter Care Teams Mortgage Funder Relationship Specialty Start Date End Date Bibi Neves ANP [address] [place] [address] PCP - General Family Medicine 04/18/20 documented as of this encounter
--- OUTSIDE RECORDS SUMMARY | 2025-05-03 11:04 | XMS_ITS | Encounter Summary ---
Author Organization [employer] [facility] Address 75 [facility] [address] 7t [place] [address] Care Team Providers Care Professor Of Rhetoric Name Role Phone Bibi Neves Primary Care Provider [phone] Encounter Details Date Type Department Care Team (Latest Contact Info) Description 08/26/2019 Abstract [facility] CONVERSIONS Dental, Provider, DDS Social [...] Description 05/26/2025 2:00 PM EDT Clinical Support [facility] MEDICINE [address] [place] [address] 06/18/2025 1:30 PM EDT Office Visit [facility] MEDICINE [address] [place] [address] Bibi Neves ANP [address] [place] [address] 11/03/2025 1:30 PM EDT Office Visit [facility] ADULT DENTAL [address] [place] [address] Radha, Humaira [address] [place] [address] documented as of this encounter Visit Diagnoses Not on filedocumented in this encounter Care Teams Professor Of Rhetoric Relationship Specialty Start Date End Date Bibi Neves ANP 230 [place] [address] PCP - General Family Medicine 04/18/20 documented as of this encounter
--- OUTSIDE RECORDS SUMMARY | 2025-05-03 11:04 | XMS_ITS | Clinical Summary ---
Author Organization [address] [facility] Address [address] [place] [address] Phone Care Team Providers Care Drug Safety Scientist Name Role Phone Bibi Neves NP Primary Care Provider [phone] Social History Tobacco Use Types Packs/Day Years [...] patient's age to complete this topic Insurance [facility] Care Teams Drug Safety Scientist Relationship Specialty Start Date End Date Bibi Neves NP [address] [place] [phone] PCP - General 07/28/24
[2025-05-03 11:24] LABS: Total Volume 24 Hour Urine 1875 mL
[2025-05-05 17:09] LABS: Calcium/Creatinine Ratio 86 mg/g creat (30-275); Creatinine 24Hr Urine 0.92 g/24 h (0.50-2.15)
== END 2025-05-03 09:20 | disposition home or self-care (01) ==
LOC: HO.LNP 09:19
PROVIDERS: Visit Provider Student in an Organized Health Care Education/Training Program
DX: E83.51 Hypocalcemia (principal); E89.2 Postprocedural hypoparathyroidism
CPT/HCPCS: 82340; 82570

== ENCOUNTER 2025-05-03 14:02 | Outpatient (REF) | payer OTHER, SELFPAY ==
--- OUTSIDE RECORDS SUMMARY | 2025-04-30 13:00 | XMS_ITS | Encounter Summary ---
Author Organization [employer] Address [address] 7t [place] [address] Care Team Providers Care Floorworker Lasting Name Role Phone Pura Bibi RODRIGUEZ Primary Care Provider [phone] Reason for Visit * Reason Comments Routine Cleaning Encounter Details Date Type Department Care Team (Late st Contact Info) Description 04/30/2025 1:00 PM EDT Office Visit [facility] ADULT DENTAL [address] [place], [place] [phone] Radha Humaira [address] [place] [address] Localized gingival recession, minimal (Primary Dx); Dental [...] Date: 04/30/25, Timeout Time: 1300 (prophy) Location: [facility] Tooth: Maxilla and Mandible Procedure: Prophylaxis Verified the above with patient, assistant director of admissions, and provider. Confirmed via patient's chart, intraorally and by radiographs. Wind Operations Manager: not applicable Medical Hx: Vitals: Blood pressure [...] patient including brushing technique and flossing. Recommendations: [place] two times daily, modified simeon technique, Floss daily, Electric toothbrush, Soft bristle toothbrush, [place] Tongue, Anti-sensitivity toothpaste Recall Frequency: 6 mo NV: 6 MO. P. Exam, x-rays, perio chart, propnhy Hygienist: Humaira Garcia RDH documented in this encounter Plan of Treatment Upcoming Encounters Date Type Department Care Team (Late st Contact Info) Description 05/26/2025 2:00 PM EDT Clinical Support [address] [address] 06/18/2025 1:30 PM EDT Office Visit [facility] MEDICINE [address] [place] [address] Bibi Neves ANP [address] [place] [address] 11/03/2025 1:30 PM EDT Office Visit [facility] ADULT DENTAL [address] [place] [address] Humaira Garcia [address] [place] [address] Scheduled Orders Name Type Priority Associated Diagnoses [...] documented as of this encounter Care Teams Floorworker Lasting Relationship Specialty Start Date End Date Bibi Neves ANP [address] [place] [address] PCP - General Family Medicine 04/18/20 documented as of this encounter
[2025-05-03 15:50] LABS: Alanine Aminotransferase 32 U/L (0-31); Albumin Level 4.4 g/dL (3.5-5.0); Alkaline Phosphatase 140 U/L (39-117); Anion Gap 12 (12-20); Aspartate Amino Transferase 30 U/L (5-31); Blood Urea Nitrogen 10 mg/dL (9-16); Calcium 8.0 mg/dL (8.4-10.2); Carbon Dioxide 24 mmol/L (22-29); Chloride 108 mmol/L (96-108); Estimated Glomerular Filt Rate > 60; Potassium 3.2 mmol/L (3.3-5.1); Sodium 141 mmol/L (135-145); Total Protein 7.3 g/dL (6.5-8.0)
[2025-05-03 15:55] LABS: Parathyroid Hormone Intact 27.0 pg/mL (8.7-77.1)
--- OUTSIDE RECORDS SUMMARY | 2025-05-03 19:23 | XMS_ITS | Encounter Summary ---
Author Organization [employer] [facility] Address [address] [facility] 7t [place] [address] Care Team Providers Care Senior Librarian Name Role Phone Bibi Neves Primary Care Provider [phone] Reason for Visit * Reason Comments Med Refill Encounter Details Date Type Department Care Team (Late Contact Info) Description 02/17/2023 Refill [facility] MEDICINE [address] [place] [address] Bibi Neves ANP [address] [place] [address] Social History Tobacco Use Types Packs/Day Years [...] Description 05/26/2025 2:00 PM EDT Clinical Support [facility] MEDICINE [address] [place] [address] 06/18/2025 1:30 PM EDT Office Visit [facility] MEDICINE [address] [place] [address] Bibi Neves ANP [address] [place] [address] 11/03/2025 1:30 PM EDT Office Visit [facility] ADULT DENTAL [address] [place] [address] Humaira Garcia 230 [place] [address] documented as of this encounter Visit Diagnoses Not on filedocumented in this encounter Care Teams Senior Librarian Relationship Specialty Start Date End Date iBbi Neves ANP [address] [place] [address] PCP - General Family Medicine 04/18/20 documented as of this encounter
--- OUTSIDE RECORDS SUMMARY | 2025-05-03 19:23 | XMS_ITS | Encounter Summary ---
Author Organization [employer] [facility] Address [address] [facility] [address] 7t [place] [address] Care Team Providers Care Engraver Wood Name Role Phone Bibi Neves Primary Care Provider [phone] Encounter Details Date Type Department Care Team (Latest Contact Info) Description 06/05/2022 Abstract [facility] CONVERSIONS Dental, Provider, DDS Social History Tobacco [...] Description 05/26/2025 2:00 PM EDT Clinical Support [facility] MEDICINE [address] [place] [address] 06/18/2025 1:30 PM EDT Office Visit [facility] MEDICINE [address] [place] [address] Bibi Neves ANP [address] [place] [address] 11/03/2025 1:30 PM EDT Office Visit [facility] ADULT DENTAL [address] [place] [address] Humaira Garcia [address] [place] [address] documented as of this encounter Visit Diagnoses Not on filedocumented in this encounter Care Teams Engraver Wood Relationship Specialty Start Date End Date Bibi Neves ANP [address] [place] [address] PCP - General Family Medicine 04/18/20 documented as of this encounter
--- OUTSIDE RECORDS SUMMARY | 2025-05-03 19:23 | XMS_ITS | Encounter Summary ---
Author Organization [employer] [facility] Address 75 [facility] 7t [place] [address] Care Team Providers Care Support Services Manager Name Role Phone Bibi Neves Primary Care Provider Reason for Visit * Reason Comments Med Refill Encounter Details Date Type Department Care Team (Late Contact Info) Description 09/10/2023 Refill [facility] MEDICINE [address] [place] [address] Bibi Neves ANP [address] [place] [address] Social History Tobacco Use Types Packs/Day Years [...] Description 05/26/2025 2:00 PM EDT Clinical Support [facility] MEDICINE [address] [place] [address] 06/18/2025 1:30 PM EDT Office Visit [facility] MEDICINE [address] [place] [address] Bibi Neves ANP [address] [place] [address] 11/03/2025 1:30 PM EDT Office Visit [facility] ADULT DENTAL [address] [place] [address] Humaira Garcia 230 [place] [address] documented as of this encounter Visit Diagnoses Not on filedocumented in this encounter Care Teams Support Services Manager Relationship Specialty Start Date End Date Bibi Neves ANP [address] [place] [address] PCP - General Family Medicine 04/18/20 documented as of this encounter
--- OUTSIDE RECORDS SUMMARY | 2025-05-03 19:23 | XMS_ITS | Encounter Summary ---
Author Organization [employer] [facility] Address [address] [facility] 7t [place] [address] Care Team Providers Care Boiler Service Technician Name Role Phone Bibi Neves Primary Care Provider [phone] Reason for Visit * Reason Comments Med Refill Encounter Details Date Type Department Care Team (Late Contact Info) Description 11/07/2023 Refill [facility] MEDICINE [address] [place] [address] [phone] Bibi Neves ANP [address] [place] [address] Postprocedural hypoparathyroidism (CMS/HCC) Social History Tobacco Use [...] Description 05/26/2025 2:00 PM EDT Clinical Support [address] [phone] 06/18/2025 1:30 PM EDT Office Visit [address] [phone] Bibi Neves ANP [address] [place] [address] [phone] 11/03/2025 1:30 PM EDT Office Visit [facility] ADULT DENTAL [address] [place] [address] Erik Garciaaris [address] [place], [place] [phone] documented as of this encounter Visit Diagnoses Diagnosis Postprocedural hypoparathyroidism (CMS/HCC) documented in this encounter Care Teams Boiler Service Technician Relationship Specialty Start Date End Date Bibi Neves ANP [address] [place], [place] [phone] PCP - General Family Medicine 04/18/20 documented as of this encounter
--- OUTSIDE RECORDS SUMMARY | 2025-05-03 19:23 | XMS_ITS | Encounter Summary ---
Author Organization [employer] Address [address] [facility] [address] 7t [place] [address] Care Team Providers Care Regional Engineer Name Role Phone Bibi Neves JENNIFER Primary Care Provider [phone] Encounter Details Date Type Department Care Team (Late st Contact Info) Description 05/03/2025 Orders Only GENERIC EXTERNAL DATA DEPARTMENT Provider, Generic External Data Social History Tobacco Use Types Packs/Day Years [...] 05/26/2025 2:00 PM EDT Clinical Support [facility] MEDICINE [address] [place] [address] 06/18/2025 1:30 PM EDT Office Visit [facility] MEDICINE [address] [place] [address] Bibi Neves ANP [address] [place] [address] 11/03/2025 1:30 PM EDT Office Visit [facility] ADULT DENTAL [address] [place] [address] Radha, Humaira [address] [place] [address] documented as of this encounter Procedures Procedure Name Priority Date/Time Associated Diagnosis Comments PTH, INTACT WITHOUT CALCIUM Routine 05/03/2025 2:17 PM EDT COMPREHENSIVE METABOLIC PANEL Routine 05/03/2025 2:17 PM EDT documented in this encounter Results * PTH, Intact Without Calcium (05/03/2025 2:17 PM EDT) Parathyroid Hormone, Intact 27.0 8.7 - 77.1 pg/mL [facility] 05/03/2025 2:17 PM EDT 05/03/2025 2:17 PM EDT us Generic External Data Provider LAB BLOOD ORDERAB LES Final Result [facility] [address] [place] [address] [phone] * (ABNORMAL) Comprehensive Metabolic Panel (05/03/2025 2:17 PM EDT) Sodium 141 135 - 145 mmol/L [facility] Potassium 3.2(L) 3.3 - 5.1 mmol/L [facility] Chloride 108 96 - 108 mmol/L [facility] Carbon Dioxide 24 22 - 29 mmol/L [facility] Anion Gap 12 12 - 20 [facility] Urea Nitrogen (BUN) 10 9 - 16 mg/dL [facility] Creatinine, Serum 0.78 0.5 - 1.4 mg/dL [facility] Estimated Glomerular Filt Rate >60 [facility] Comment:Chronic Kidney Disea se: Estimated GFR < 60 mL/min/1.54m5Jqhdvj Kidney Disease: Estimated GFR < 15 mL/min/1.73m2 Glucose 76 60 - 115 mg/dL [facility] Calcium 8.0(L) 8.4 - 10.2 mg/dL [facility] Bilirubin, Total 0.5 0.0 - 1.0 mg/dL [facility] Aspartate Amino Transferase 30 5 - 31 U/L [facility] Alanine Aminotransferase 32(H) 0 - 31 U/L [facility] Total Protein 7.3 6.5 - 8.0 g/dL [facility] Albumin Level 4.4 3.5 - 5.0 g/dL [facility] Alkaline Phosphatase 140(H) 39 - 117 U/L [facility] 05/03/2025 2:17 PM EDT 05/03/2025 2:17 PM EDT us Generic External Data Provider LAB BLOOD ORDERAB LES Final Result Performing Organization Address [facility]/ZIP Co de Phone Number [facility] [address] [place] [address] [phone] documented in this encounter Visit Diagnoses Not on filedocumented in this encounter Additional Health Concerns Assessment Noted Time PHQ-9 Depression Total Score: 0 10/14/19 25 3:47 PM EST documented as of this encounter Care Teams Regional Engineer Relationship Specialty Start Date End Date Bibi Neves ANP [address] [place] [address] PCP - General Family Medicine 04/18/20 documented as of this encounter
--- OUTSIDE RECORDS SUMMARY | 2025-05-03 19:23 | XMS_ITS | Encounter Summary ---
Author Organization [facility] [facility] Address [address] [facility] [address] [place] [address] Care Team Providers Care Sail Maker Name Role Phone Bibi Neves Primary Care Provider [phone] Encounter Details Date Type Department Care Team (Latest Contact Info) Description 08/26/2019 Abstract [facility] CONVERSIONS Dental, Provider, DDS Social History Tobacco [...] Description 05/26/2025 2:00 PM EDT Clinical Support [facility] MEDICINE [address] [place] [address] 06/18/2025 1:30 PM EDT Office Visit [facility] MEDICINE [address] [place] [address] Bibi Neves ANP [address] [place] [address] 11/03/2025 1:30 PM EDT Office Visit [facility] ADULT DENTAL [address] [place] [address] Radha, Humaira [address] [place] [address] documented as of this encounter Visit Diagnoses Not on filedocumented in this encounter Care Teams Sail Maker Relationship Specialty Start Date End Date Bibi Neves ANP [address] [place] [address] PCP - General Family Medicine 04/18/20 documented as of this encounter
--- OUTSIDE RECORDS SUMMARY | 2025-05-03 19:23 | XMS_ITS | Encounter Summary ---
Author Organization [employer] Address [address] [facility] [address] [place] [address] Care Team Providers Care Dredge Hand Name Role Phone Bibi Neves Primary Care Provider Encounter Details Date Type Department Care Team (Late st Contact Info) Description 04/06/2025 Abstract [facility] MEDICINE [address] [place], [place] [phone] Bibi Neves ANP [address] [place], [place] [phone] Social History Tobacco Use Types Packs/Day Years [...] Description 05/26/2025 2:00 PM EDT Clinical Support [facility] MEDICINE [address] [place] [address] 06/18/2025 1:30 PM EDT Office Visit [facility] MEDICINE [address] [place] [address] Bibi Neves, JENNIFER [address] [place] [address] 11/03/2025 1:30 PM EDT Office Visit [facility] ADULT DENTAL [address] [place] [address] Radha, Humaira [address] [place] [address] documented as of this encounter Procedures Procedure [...] documented as of this encounter Care Teams Dredge Hand Relationship Specialty Start Date End Date Bibi Neves ANP [address] [place] [address] PCP - General Family Medicine 04/18/20 documented as of this encounter
--- OUTSIDE RECORDS SUMMARY | 2025-05-03 19:23 | XMS_ITS | Encounter Summary ---
Author Organization [employer] Address [address] [facility] [address] 7t [place] [address] Care Team Providers Care Property And Casualty Insurance Agent Name Role Phone Bibi Neves JENNIFER Primary Care Provider [phone] Encounter Details Date Type Department Care Team (Late st Contact Info) Description 09/22/2024 Orders Only [facility] MEDICINE [address] [place] [address] Nilesh Marte, LaniD Social History Tobacco Use [...] the past 12 months, has t he [employer], oil or water [employer] threatened to shut off services in your [...] Description 05/26/2025 2:00 PM EDT Clinical Support [facility] MEDICINE [address] [place] [address] 06/18/2025 1:30 PM EDT Office Visit [facility] MEDICINE [address] [place] [address] Bibi Neves ANP [address] [place] [address] 11/03/2025 1:30 PM EDT Office Visit [facility] ADULT DENTAL [address] [place] [address] Radha, Humaira [address] [place] [address] documented as of this encounter Visit Diagnoses Not on filedocumented in this encounter Additional Health Concerns Assessment Noted Time PHQ-9 Depression Total Score: 2 12/19/19 24 10:14 AM EDT documented as of this encounter Care Teams Property And Casualty Insurance Agent Relationship Specialty Start Date End Date Bibi Neves ANP [address] [place] [address] PCP - General Family Medicine 04/18/20 documented as of this encounter
--- OUTSIDE RECORDS SUMMARY | 2025-05-03 19:23 | XMS_ITS | Encounter Summary ---
Author Organization [employer] Address [address] [place] [address] Care Team Providers Care Corrective Therapist Name Role Phone Bibi Neves Primary Care Provider [phone] Encounter Details Date Type Department Care Team (Late st Contact Info) Description 11/12/2022 Orders Only [facility] MED & PEDS [address] [place], [place] [id number] Sharonda Gotti LPN Social History Tobacco Use [...] Description 05/26/2025 2:00 PM EDT Clinical Support [facility] MEDICINE [address] [place] [address] 06/18/2025 1:30 PM EDT Office Visit [facility] MEDICINE [address] [place] [address] Bibi Neves ANP [address] [place] [address] 11/03/2025 1:30 PM EDT Office Visit [facility] ADULT DENTAL [address] [place] [address] Humaira Garcia [address] [place] [address] documented as of this encounter Visit Diagnoses Not on filedocumented in this encounter Care Teams Corrective Therapist Relationship Specialty Start Date End Date Bibi Neves ANP [address] [place] [address] PCP - General Family Medicine 04/18/20 documented as of this encounter
--- OUTSIDE RECORDS SUMMARY | 2025-05-03 19:23 | XMS_ITS | Clinical Summary ---
Author Organization [address] [facility] Address [address] [place] [address] Phone Care Team Providers Care Amusement Machine Mechanic Name Role Phone Bibi Neves NP Primary Care Provider [phone] Social History Tobacco Use Types Packs/Day Years [...] Insurance [facility] Care Teams Amusement Machine Mechanic Relationship Specialty Start Date End Date Bibi Neves NP [address] [place] [phone] PCP - General 07/28/24
--- OUTSIDE RECORDS SUMMARY | 2025-05-03 19:23 | XMS_ITS | Clinical Summary ---
Author Organization [employer] Address [address] [place] [address] Care Team Providers Care Truck Driver Salesperson Name Role Phone Pura Silas RODRIGUEZ Primary Care Provider [phone] Allergies No known active allergies Medications Bisacodyl [...] colon 12/01/2024 Overview (12/01/2024): 06/2024 C-scope w/ [facility], repeat 2 years per GI. we [...] Encounters Date Type Department Care Team Description 05/03/2025 Orders Only GENERIC EXTERNAL DATA DEPARTMENT Provider, Generic External Data 04/30/2025 1:00 PM EDT Office Visit [facility] [address] [place] [phone] Humaira Garcia Localized gingival recession, minimal (Primary Dx); Dental calculus 04/22/2025 Orders Only [facility] [address] [place] [phone] Silas Harding ANP Hyperparathyroidism (CMS/HCC) (Primary Dx); Hypocalcemia 04/14/2025 Telephone [facility] [address] [place] [address] Silas Harding ANP May recall 04/12/2025 Refill [facility] [address] [place] [address] Bhavna Lima NP Essential hypertension 04/07/2025 Telephone [facility] [address] [place] [address] Silas Harding ANP Medication Question 04/06/2025 Results Follow-Up [address] [phone] Silas Harding ANP Basic Metabolic Panel, Phosphate (As Phosphorus), Magnesium, Basic Metabolic Panel 04/06/[address] [address] Silas Harding ANP 03/25/2025 Orders Only [address] [address] Silas Harding ANP Hypokalemia (Primary Dx); Primary hypertension 03/22/2025 2:00 PM EDT Procedure Visit [address] [address] Lizzy Shaikh, KRYSTIAN Menopause (Primary Dx); Encounter for immunization 03/22/2025 Travel 03/19/2025 Telephone [facility] [address] [place] [phone] Myrna Moser [place] 03/16/2025 Results Follow-Up [address] [address] Silas Harding ANP POCT Glucose, POCT HGB A1C, CBC auto differential, Additional followed-up results: 10 03/15/2025 2:30 PM EDT Office Visit [address] [address] Silas Harding ANP Prediabetes (Primary Dx); Easy bruising; Need for hepatitis B screening test; Primary hypertension 03/15/2025 Travel 03/12/[address] [address] Silas Harding ANP Chart Prep 03/08/2025 Patient Outreach [address] [address] Silas Harding ANP Pre-visit Planning (SDOH screening was completed on 09/30/2024) 02/18/2025 Orders Only [facility] External Provider, [facility] 02/16/[address] [address] Silas Harding ANP Class 2 severe obesity [...] Description 05/26/2025 2:00 PM EDT Clinical Support [facility] [address] [place] [address] 06/18/2025 1:30 PM EDT Office Visit [facility] [address] [place] [phone] Silas Harding ANP [address] [place] [address] 11/03/2025 1:30 PM EDT Office Visit [facility] [address] [place] [address] Humaira Garcia [address] [place] [address] Health Maintenance Due Date Last Done Comments [...] METABOLIC PANEL Routine 05/03/2025 2:17 PM EDT CASE PRESENTATION, DETAILED AND EXTENSIVE TREATMENT PLANNING [...] Recently Relevant to Health Maintenance Results * PTH, Intact Without Calcium (05/03/2025 2:17 PM EDT) Parathyroid Hormone, Intact 27.0 8.7 - 77.1 pg/mL [facility] 05/03/2025 2:17 PM EDT 05/03/2025 2:17 PM EDT us Generic External Data Provider LAB BLOOD ORDERAB LES Final Result [facility] [address] [place] [phone] * (ABNORMAL) Comprehensive Metabolic Panel (05/03/2025 2:17 PM EDT) Only the most recent of2 resultswithin the time period is included. Sodium 141 135 - 145 mmol/L [facility] Potassium 3.2(L) 3.3 - 5.1 mmol/L [facility] Chloride 108 96 - 108 mmol/L [facility] Carbon Dioxide 24 22 - 29 mmol/L [facility] Anion Gap 12 12 - 20 [facility] Urea Nitrogen (BUN) 10 9 - 16 mg/dL [facility] Creatinine, Serum 0.78 0.5 - 1.4 mg/dL [facility] Estimated Glomerular Filt Rate >60 [facility] Comment:Chronic Kidney Disea se: Estimated GFR < 60 mL/min/1.12x6Lubcyt Kidney Disease: Estimated GFR < 15 mL/min/1.73m2 Glucose 76 60 - 115 mg/dL [facility] Calcium 8.0(L) 8.4 - 10.2 mg/dL [facility] Bilirubin, Total 0.5 0.0 - 1.0 mg/dL [facility] Aspartate Amino Transferase 30 5 - 31 U/L [facility] Alanine Aminotransferase 32(H) 0 - 31 U/L [facility] Total Protein 7.3 6.5 - 8.0 g/dL [facility] Albumin Level 4.4 3.5 - 5.0 g/dL [facility] Alkaline Phosphatase 140(H) 39 - 117 U/L [facility] 05/03/2025 2:17 PM EDT 05/03/2025 2:17 PM EDT us Generic External Data Provider LAB BLOOD ORDERAB LES Final Result [facility] [address] [place], [place] [phone] * Phosphate (As Phosphorus) (04/16/2025 10:30 AM EDT) Phosphorus 3.5 2.7 - 4.5 mg/dL [facility] Blood Venous blood specimen / Unknown 04/16/2025 10:30 AM EDT 04/16/2025 11:52 AM EDT Silas Harding [facility] LAB BLOOD ORDERABLES Final Resul t Performing Organization Address City/[place] [facility]/ZIP Co de Phone Number [facility] [address] [place] [address] [phone] * Magnesium (04/16/2025 10:30 AM EDT) Pathologist [facility] Magnesium 1.8 1.6 - 2.6 mg/dL [facility] Blood Venous blood specimen / Unknown 04/16/2025 10:30 AM EDT 04/16/2025 11:52 AM EDT Silas Harding [facility] LAB BLOOD ORDERABLES Final Resul t Performing Organization Address [facility] Co de Phone Number [facility] [address] [place] [address] [phone] * (ABNORMAL) Basic Metabolic Panel (04/16/2025 10:30 AM EDT) Only the most recent of3 resultswithin the time period is included. Pathologist [facility] Sodium 144 135 - 145 mmol/L [facility] Potassium 3.3 3.3 - 5.1 mmol/L [facility] Chloride 108 96 - 108 mmol/L [facility] Carbon Dioxide 27 22 - 29 mmol/L [facility] Anion Gap 12 12 - 20 [facility] Urea Nitrogen (BUN) 12 9 - 16 mg/dL [facility] Creatinine, Serum 0.83 0.5 - 1.4 mg/dL [facility] Estimated Glomerular Filt Rate >60 [facility] Comment:Chronic Kidney Disea se: Estimated GFR < 60 mL/min/1.12i5Jtqlby Kidney Disease: Estimated GFR < 15 mL/min/1.73m2 Glucose 77 60 - 115 mg/dL [facility] Calcium 7.5(L) 8.4 - 10.2 mg/dL [facility] Blood Venous blood specimen / Unknown 04/16/2025 10:30 AM EDT 04/16/2025 11:52 AM EDT Silas Harding ANP LAB BLOOD ORDERABLES Final Resul t [facility] [address] [place] [address] [phone] * Mammography (04/06/2025 2:46 PM EDT) HM Mammogram BIRADS 2 Normal, Abnormal, BIRADS 1 , BIRADS 2 Anatomical Region Laterality Modality Other Historical Provider MD HEALTH MAINTENANCE Final Result * BI Mammogram Screening Tomosynthesis Bilateral (04/01/2025 10:30 AM EDT) Anatomical Region Laterality Modality Breast Bilateral Mammography 04/01/2025 10:3 0 AM EDT Narrative 04/06/2025 12:04 PM EDT [address] [place] [address] Mammography Report Signed Patient: Nancy Agudelo MR#: [id number] 1 : 1970 Acct:[id number] Age/Sex: 55 / F ADM Date: 04/01/25 Loc: HO.MAMMO Attending Dr: Silas Harding NP Ordering Physician: SILAS HARDING NP Results: 2Benign Jesse reynolds Date of Service: 04/01/25 Follow Up: 1 Year From [facility] Mammogram Procedure(s): MM tomosynthesis screening BI Accession Number(s): [id number] cc: SILAS HARDING NP EXAMINATION: MM SCREENING [...] 04/06/25 1201 DD/ 1030 TD/TT: 04/01/25 1045 Quality Assurance/R&D Lab Technician: Procedure Note Donotuseinterpreter, Image - 04/06/2025 [facility] [place] [address] Mammography Report Signed Patient: Nancy Agudelo RMR#: [id number] 1 : 1970Acct:[id number] Age/Sex: 55 / FADM Date: 04/01/25 Loc: HO.MAMMO Attending Dr: Silas Harding NP Ordering Physician: SILAS HARDING NPResults: 2Benilefty reynolds Date of Service: 04/01/25Follow Up: 1 Year From Orig inal Mammogram Procedure(s): MM tomosynthesis screening BI Accession Number(s): [id number] cc: SILAS HARDING NP EXAMINATION: MM SCREENING [...] their next mammogram. Electronically signed by: Paulina sEparza DO 04/06/2025 12:01 PM EDT Dictated By: Paulina Esparza DO Signed By: <Electronically signed by Paulina Esparza DO in OV> 04/06/25 1201 DD/ 1030 TD/TT: 04/01/25 1045 Quality Assurance/R&D Lab Technician: Silas AHMADI BI PROCEDURES Final Result * Vitamin D, 25-Hydroxy, Total, Immunoassay (03/25/2025 2:07 PM EDT) Vitamin D 25-OH Total 49.1 >30 ng/mL [facility] Comment: Health Based Reference Values*< 20 ng/mL Zauqjfztz01-61 ng/mL Insufficient> 30 ng/mL Sufficient*Raul ABARCA. N [...] EDT 03/25/2025 4:05 PM EDT Silas Harding ANP LAB BLOOD ORDERABLES Final Resul t Performing Organization Address [facility] Co de Phone Number [facility] [address] [place] [phone] * Albumin, Random Urine W/Creatinine (03/15/2025 3:19 PM EDT) Creatinine, Urine 54.19 mg/dL [facility] Microalbumin Urine 6.0 mg/L [facility] Microalbum Creatinine Ratio Ur 11.0 <30 ug/mg cr [facility] Comment:Albumin/Creatinine R atio Reference Ranges: Normal: < 30 ug/mg creatinine Microalbuminuria: 30 - 300 ug/mg creatinineClinical Albuminuria: > 300 ug/mg creatinine Urine (Urine, Random) 03/15/2025 3:19 PM EDT 03/15/2025 4:06 PM EDT Silas Harding [facility] LAB URINE ORDERABLES Final Resul t Performing Organization Address [facility] Co de Phone Number [facility] [address] [place] [phone] * (ABNORMAL) CBC auto differential (03/15/2025 3:19 PM EDT) White Blood Count 7.0 4.8 - 10.8 X10*3/uL [facility] Red Blood Count 4.24 4.20 - 5.50 X10*6/uL [facility] Hemoglobin 11.8(L) 12.0 - 16.0 g/dl [facility] Hematocrit 36.5(L) 37.0 - 47.0 % [facility] Mean Corpuscular Volume 86.1 80.0 - 98.0 fL [facility] Mean Corpuscular Hemoglobin 27.8 27.0 - 33.0 pg [facility] Mean Corpuscular HGB Conc 32.3 31.0 - 35.0 g/dl [facility] Red Cell Distribution Width 14.7 11.0 - 16.0 % [facility] Platelet Count 212 160 - 400 X10*3/uL [facility] Mean Platelet Volume 11.9 9.4 - 12.3 fL [facility] Neutrophils Percent Auto 55.7 45 - 73 % [facility] Imm Gran Pct Auto 0.3 0.0 - 0.4 % [facility] Lymphocytes Percent Auto 36.0 20 - 40 % [facility] Monocytes Percent Auto 6.8 2 - 11 % [facility] Eosinophils Percent Auto 0.6 0 - 4 % [facility] Basophils Percent Auto 0.6 0 - 2 % [facility] NRBC Pct Auto 0.0 0.0 - 0.2 /100WBC [facility] Neutrophils Absolute Auto 3.9 2.0 - 8.3 x10*3/uL [facility] Imm Gran Abs Auto 0.02 0.00 - 0.03 X10*3/uL [facility] Lymphocytes Absolute Auto 2.5 1.2 - 4.9 X10*3/uL [facility] Monocytes Absolute Auto 0.5 0.1 - 1.2 X10*3/uL [facility] Eosinophils Absolute Auto 0.0 0.0 - 0.4 X10*3/uL [facility] Basophils Absolute Auto 0.0 0.0 - 0.2 X10*3/uL [facility] NRBC Abs Auto 0.000 0.0 - 0.012 X10*3/uL [facility] Blood Venous blood specimen / Unknown 03/15/2025 3:19 PM EDT 03/15/2025 4:06 PM EDT Silas Harding [facility] LAB BLOOD ORDERABLES Final Resul t [facility] [address] [place] [phone] * Iron And Total Iron Binding Capacity (03/15/2025 3:19 PM EDT) Iron 56 30 - 160 mcg/dL [facility] Total Iron Binding Capacity 235 228 - 428 mcg/dL [facility] Percent Iron Saturation 24 15 - 50 % [facility] Unsaturated Iron Binding 179 ug/dL [facility] Blood Venous blood specimen / Unknown 03/15/2025 3:19 PM EDT 03/15/2025 4:06 PM EDT Silas Harding [facility] LAB BLOOD ORDERABLES Final Resul t Performing Organization Address City/[facility] Co de Phone Number [facility] [address] [place] [phone] * Hepatitis B surface antigen, EIA (03/15/2025 3:19 PM EDT) Pathologist [facility] Hepatitis B Surface Ag Negative Negative [facility] Blood Venous blood specimen / Unknown 03/15/2025 3:19 PM EDT 03/15/2025 4:06 PM EDT Silas Harding [facility] LAB BLOOD ORDERABLES Final Resul t Performing Organization Address [facility] Co de Phone Number [facility] [address] [place] [phone] * Hepatitis B Core Antibody, Total (03/15/2025 3:19 PM EDT) Pathologist [facility] Hepatitis B Core Antibody Nonreactive Nonreactive [facility] Blood Venous blood specimen / Unknown 03/15/2025 3:19 PM EDT 03/15/2025 4:06 PM EDT Silas Harding [facility] LAB BLOOD ORDERABLES Final Resul t Performing Organization Address [facility] Co de Phone Number [facility] [address] [place] [phone] * Hepatitis B Surface Antibody, Qualitative (03/15/2025 3:19 PM EDT) Pathologist [facility] ~Hepatitis B Surface Antibody NONREACTIVE Nonreactive [facility] Comment:Nonreactive: < 8.00 mIU/mL Blood Venous blood specimen / Unknown 03/15/2025 3:19 PM EDT 03/15/2025 4:06 PM EDT us Silas Harding ANP LAB BLOOD ORDERABLES Final Resul t Performing Organization Address [facility] de Phone Number [facility] [address] [place] [phone] * Prothrombin Time-INR (03/15/2025 3:19 PM EDT) Prothrombin Time 12.2 10.9 - 12.4 SEC [facility] INTERNATIONAL NORM RATIO 1.1 0.9 - 1.1 [facility] Comment:INTERNATIONAL NORMAL IZED RATIO (INR) [...] ORDERABLES Final Resul t Performing Organization Address [facility] Co de Phone Number [facility] [address] [place] [phone] * Ferritin (03/15/2025 3:19 PM EDT) Ferritin 144 10 - 250 ng/mL [facility] Blood Venous blood specimen / Unknown 03/15/2025 3:19 PM EDT 03/15/2025 4:06 PM EDT us Silas Harding ANP LAB BLOOD ORDERABLES Final Resul t [facility] [address] [place] [address] [phone] * POCT HGB A1C (03/15/2025 3:14 [...] Media Lot # [id number] Lot# Expiration Date [id number] Blood Capillary blood specimen / Unknown 03/15/2025 3:14 PM EDT us Silas Harding ANP POINT OF CARE TEST ENTER/EDIT OR DERABLES Final Result * US RENAL BI (02/19/2025 5:18 PM EDT) Anatomical Region Laterality Modality Abdomen Ultrasound 02/19/2025 5:18 PM EDT Narrative 02/19/2025 5:19 PM EDT [address] [address] Ultrasound Report Signed Patient: Nancy Agudelo MR#: [id number] 1 : 1970 Acct:[id number] Age/Sex: 55 / F ADM Date: 02/18/25 Loc: HO.US Attending Dr: Aris Coronado MD Ordering Physician: Aris Coronado MD Date of Service: 02/18/25 Procedure(s): US renal BI Accession Number(s): [id number] cc: Aris Coronado MD; SILAS HARDING NP [...] in OV> 02/19/251718 DD/ 17 TD/TT: 02/19/251717 Quality Assurance/R&D Lab Technician: Procedure Note Donotuseinterpreter, Image - 02/19/2025 [place] [address] Ultrasound Report Signed Patient: Nancy Agudelo RMR#: [id number] 1 : 1970Acct:[id number] Age/Sex: 55 / FADM Date: 02/18/25 Loc: HO.US Attending Dr: Aris Coronado MD Ordering Physician: Aris Coronado MD Date of Service: 02/18/25 Procedure(s): US renal BI Accession Number(s): [id number] cc: Aris Coronado MD; SILAS HARDING NP [...] in OV> 02/19/251718 DD/ 17 TD/TT: 02/19/251717 Quality Assurance/R&D Lab Technician: [facility] External Provider [facility] Edited Result - Final * Colonoscopy (07/02/2024) Colonoscopy Normal Normal Narrative Gay Berkowitz - 07/02/2024 colonoscopy order added Historical Provider [facility] MAINTENANCE Final Result * ThinPrep Imaging Pap and HPV mRNA E6/E7 (03/19/2024 2:04 PM EDT) Pathologist [facility] HPV nRNA E6/E7 Not Detected Not Detected [facility] Comment:Methodology: Transcr iption-Mediated AmplificationThis assay detects E6/E7 viral messenger RNA (mRNA) from 14high-risk HPV types (16,18,31,33,35,39,45,51,52,56,58,59,66,68).Cervical sources are required for HPV testing.If a vaginal source from a patient who has had atotal hysterectomy with removal of cervix wassubmitted, please contact the testing laboratoryfor alternative testing options.For additional information, please refer tohttp://education.[employer]/faq/AUE070y6(This link if provided for information/educational purposes only.)THIS TEST WAS PERFORMED AT:[employer] [place] [phone] RIOS MD SOURCE: SEE NOTE [facility] Comment:None given Report Status: TNP [facility] Clinical Information: SEE NOTE [facility] Comment:None given LMP: SEE NOTE [facility] Comment:NONE GIVEN Prev. PAP: SEE NOTE [facility] Comment:NONE GIVEN Prev. BX: SEE NOTE [facility] Comment:NONE GIVEN Statement Of Adequacy: SEE NOTE [facility] Comment:Satisfactory for mario luation.Endocervical/transformation zone component absent. General Categorization: [facility] Interpretation/Result: SEE NOTE [facility] Comment:Cytology Results: Ne gative for intraepitheliallesion or malignancy. Cytology Comment SEE NOTE [facility] Comment:This Pap test has be en evaluated with computerassisted technology. Lime Puller: SEE NOTE [facility] Comment:[place], CT(ASCP)CT scre ening location: [place] [address] Review Lime Puller: [facility] Pathologist [facility] PAP Infection [facility] See Note SEE NOTE [facility] Comment:EXPLANATORY NOTE:The Pap is a screening test for cervical cancer. It isnot a diagnostic test and is subject to false negativeand false positive results. It is most reliable when asatisfactory sample, regularly obtained, is submittedwith relevant clinical findings and history, and whenthe Pap result is evaluated along with historic andcurrent clinical information. 03/19/2024 2:04 PM EDT 03/19/2024 5:54 PM EDT Narrative [facility] - 03/25/2024 3:00 PM EDT SEE SCANNED RESULTS IN EMR us Lizzy THOMPSON LAB PATHOLOGY ORDERABLES Final Result [facility] [address] [place] [phone] * (ABNORMAL) Lipid Panel, Standard (12/19/2023 10:20 AM EDT) Triglycerides 115 <150 mg/dL [facility] Comment:Desirable Triglyceri de: less than 150 mg/dLBorderline High Triglyceride 150-199 mg/dLHigh Triglyceride: 200-499 mg/dLVery High Triglyceride: greater than or equal to 5OO mg/dL Cholesterol 192 <200 mg/dL [facility] Comment:Desirable Cholestero l: less than 200 mg/dLBorderline High Cholesterol: 200-239 mg/dLHigh Cholesterol: greater than 239 mg/dL LDL Cholesterol Calculated 109(H) <100 mg/dL [facility] Comment:Desirable LDL: less than 100 mg/dLNear Optimal/Above Optimal LDL: 110- 129 mg/dLBorderline High LDL: 130-159 mg/dLHigh LDL: 160-189 mg/dLVery High LDL: greater than or equal to 190 mg/dL HDL Cholesterol 60 >40 mg/dL [facility] Comment:Desirable HDL: great er than 40 mg/dL Note: This HDL assay may give artificially low results in patients with liver disease. Blood Venous blood specimen / Unknown 12/19/2023 10:20 AM EDT 12/19/2023 11:34 AM EDT formerly [facility] LAB BLOOD ORDERABLES Final Resul t [facility] [address] [place] [phone] * HEPATITIS C AB W/REFL TO HCV RNA, QN, PCR (06/03/2020 9:27 AM EDT) HEPATITIS C ANTIBODY NON-REACT JOVANNY NON-REACT JOVANNY [facility] INDEX 0.02 <1.00 [facility] Comment: HCV antibody was non-reactive. There is no laboratory evidence of HCV infection. In most cases, no further action is required. However, if recent HCV exposure is suspected, a test for HCV RNA (test code 75273) is suggested. For additional information please refer to http://education.[employer]/faq/VBE06y0 (This link is being provided for informational/ educational purposes only.) HEPATITIS C ANTIBODY NON-REACT JOVANNY NON-REACT JOVANNY [facility] INDEX 0.02 <1.00 [facility] Comment: HCV antibody was non-reactive. There is no laboratory evidence of HCV infection. In most cases, no further action is required. However, if recent HCV exposure is suspected, a test for HCV RNA (test code 34222) is suggested. For additional information please refer to http://[employer]/faq/PUF78q8 (This link is being provided for informational/ educational purposes only.) HEPATITIS C ANTIBODY NON-REACT JOVANNY NON-REACT JOVANNY [facility] INDEX 0.02 <1.00 [facility] Comment: HCV antibody was non-reactive. There is no laboratory evidence of HCV infection. In most cases, no further action is required. However, if recent HCV exposure is suspected, a test for HCV RNA (test code 87864) is suggested. For additional information please refer to http://P[employer]/faq/VML21f0 (This link is being provided for informational/ educational purposes only.) 06/03/2020 9:27 AM EDT us Silas Wendel ANP HISTORICAL/NON ORDERABLE LABS Fi nal Result [facility] [address] * HIV 1/2 ANTIGEN/ANTIBODY,FOURTH GENERATION W/RFL (06/03/2020 9:27 AM EDT) HIV-1/2 ANTIGEN AND ANTIBODIES, 4TH GENERATION W/ REFLEX NON-REACT JOVANNY NON-REACT JOVANNY [facility] Comment: HIV-1 antigen and HIV-1/HIV-2 [...] purpose. For additional information please refer to http://[employer]/faq/REE664 (This link is being provided for informational/ [...] purpose. For additional information please refer to http://[employer]/faq/WGM902 (This link is being provided for informational/ [...] purpose. For additional information please refer to http://[employer]/faq/XJE068 (This link is being provided for informational/ educational purposes only.) The performance of this assay has not been clinically validated in patients less than 2 years old. 06/03/2020 9:27 AM EDT formerly [facility] LAB BLOOD ORDERABLES Final Resul t [facility] [address] from Last 3 Months or Most Recently Relevant to Health Maintenance Insurance [facility] PARTIAL (MEDICAID) [address] [place] LESLIE Care Teams Truck Driver Salesperson Relationship Specialty Start Date End Date Silas Harding ANP [address] [place] [address] [place] [address] PCP - General Family Medicine 04/18/20
== END 2025-05-03 14:03 | disposition home or self-care (01) ==
LOC: HO.LAB 14:02
PROVIDERS: PCP Nurse Practitioner Primary Care; Visit Provider Student in an Organized Health Care Education/Training Program
DX: E83.51 Hypocalcemia (principal); E89.2 Postprocedural hypoparathyroidism
CPT/HCPCS: 36415; 80053; 83970

== ENCOUNTER 2025-05-06 16:10 | Outpatient (REF) | payer OTHER, SELFPAY ==
--- OUTSIDE RECORDS SUMMARY | 2025-05-06 17:14 | XMS_ITS | Clinical Summary ---
Author Organization [facility] Address [address] [place] [address] Phone Care Team Providers Care Care Advocate Name Role Phone Bibi Neves NP Primary Care Provider [phone] Social History Tobacco Use Types Packs/Day Years [...] or Tdap) 07/07/2034 07/07/2024, 06/16/2014, 04/28/2008 RSV Immunization Adult Patients (1 - 1-dose 75+ series) 02/12/2044 HIV Screening Completed 06/03/2020 Zoster Vaccines Completed [...] age to complete this topic Insurance , [address] [address] [facility] PL[facility] Care Teams Care Advocate Relationship Specialty Start Date End Date Bibi Neves NP [address] [place] [phone] PCP - General 07/28/24
== END 2025-05-06 16:11 | disposition home or self-care (01) ==
LOC: HO.HHCLNP 16:10
PROVIDERS: Visit Provider Family Medicine
DX: Z13.89 Encounter for screening for other disorder (principal)
CPT/HCPCS: 87070; 87205

== ENCOUNTER 2025-05-14 13:52 | Outpatient (AMB) | payer OTHER, SELFPAY ==
--- NOTE | 2025-05-14 13:57 | A.OFFVIS_ITS ---
Vital Signs 05/14/25 13:58 Height 4 ft 10 in Weight 152 lb 1.903 oz BMI 31.8 BP 98/64 Blood Pressure Location Rt brachial Position Sitting Pulse 74 Pulse Source Pulse Oximeter Pulse Oximetry (%) 96 Oxygen Delivery Method Room Air Intake Visit Reasons: Hypocalcemia Intake Note: Patient presents today for a follow-up on Hypocalcemia & Laboratory Results: Digital Strategy Manager Required: Yes Digital Strategy Manager Language: Bacteriology Professor Services: Digital Strategy Manager Offered & Declined (DR. Miller Speak Fluent Tristanian.) Accompanied by: Self / Same As Patient Allergies No Known Allergies (No Known Allergies*) Allergy (Verified 04/30/25 08:53) Medication List - Last Reconciled 05/14/25 by Macey Del Valle MD allopurinol 100 mg PO QAM 90 days amlodipine 5 mg PO DAILY aspirin (Adult Low Dose Aspirin) 81 mg PO DAILY calcium carbonate-vitamin D3 500 mg-5 mcg (200 unit) 1 tab PO BID 30 days cholecalciferol (vitamin D3) 1,000 units PO DAILY 30 days hydrochlorothiazide 12.5 mg PO DAILY hydrocortisone 2.5% (Proctosol HC) 1 appl MD BID lisinopril 20 mg PO DAILY potassium chloride ER 20 mEq (2 x 10 mEq) PO DAILY psyllium husk (Reguloid (psyllium husk)) 0.4 grams PO BID pyridoxine (vitamin B6) 50 mg PO QAM 90 days sennosides (Senna Laxative) 8.6 mg PO BID tirzepatide (weight loss) (Zepbound) mg subcut HPI Comments Details: 53 YO Female with a PMHx of hyperparathyroidism now S/P left superior and inferior parathyroidectomy 05/18/2014 with resultant hypoparathyroidism previously established with our practice, last seen by Dr. Mandel on 09/11/2023. She is now referred back to us for persistent hypocalcemia. She was initially diagnosed with hyperparathyroidism. She had recurrent nephrolithiasis and was referred for a surgical parathyroidectomy, which she underwent 05/18/2014. 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 Intraoperative PTH declined from 85-19 indicating cure. She subsequently developed hypoparathyroidism. She was placed on Calcitriol by Dr. Mcnair and her Calcium remained high normal and she subsequently developed nephrolithiasis. After her initial visit with Dr. Mandel, he stopped her Calcitriol. She was then placed on calcium citrate 200 mg twice daily cholesterol remain in the lower end of normal, my most recent 3 her calcium have been lower, patient is being referred back to us for evaluation. Patient reports that in March 2025 she was noted to have symptoms of hypo calcemia including perioral numbness, finger tingling/numbness and weakness, and labs reviewed the patient had hypoglycemia, at that time patient was taking calcium carbonate 500 mg daily, and after her labs showed calcium 7.5, her PCP decided to increase her calcium carbonate to 2 tablets daily. She reports that since calcium carbonate increase, her symptoms have lessened significantly. Of note, she reports that her primary care took her off hydrochlorothiazide due to low calcium. She also reports that she was seen by Urology in February 2025, found to have 2 new nonobstructive stones in right kidney and 1 nonobstructive stone in the left kidney, there will repeat imaging (CT scan) aneurysmal from that visit. Interval history 05/14/2025 The patient reports feeling well with no current symptoms. She denies symptoms concerning for hypocalcemia. They recall a previous incident where their potassium levels dropped significantly after hydrochlorothiazide was added. Her potassium level is currently low at 3.2 mEq/L. The patient has not been taking calcium supplements for the past two weeks but continues to feel well. The patient has been consuming dietary sources of calcium, such as yogurt and milk, as they have not been able to obtain their prescribed calcium tablets. Physical exam General: Alert, well-nourished, no acute distress. Neck: Supple, no thyromegaly Cardiac:Regular rate and rhythm, no murmurs. no edema. Lungs: Clear to auscultation bilaterally. Abdomen: Soft, non-tender, nondistended Extremities: No weakness or edema Neuro: Alert, oriented. Laboratory Tests 03/25/25 03/29/25 04/16/25 14:07 13:52 10:30 Potassium 3.0 L 4.4 D 3.3 D Creatinine 0.85 0.81 0.83 Calcium 8.2 L 7.9 L 7.5 L Phosphorus 3.5 Magnesium 1.8 Alkaline Phosphatase Albumin PTH Intact Ur Calcium 24 Hr Calcium/Creat 24 Hr 05/03/25 05/03/25 09:00 14:17 Potassium 3.2 L Creatinine 0.78 Calcium 8.0 L D Phosphorus Magnesium Alkaline Phosphatase 140 H Albumin 4.4 PTH Intact 27.0 Ur Calcium 24 Hr 79 Calcium/Creat 24 Hr 86 Previous imaging US of kidneys 02/19/2025 Comparison: None Findings: Right kidney is normal in size, echogenicity and morphology, 9.1 cm in length. Nonobstructing calyceal calculi 11 mm in the lower pole, 5 mm in the midpole, 7 mm in the upper pole, additional smaller echogenic foci also noted. No mass or hydronephrosis. Left kidney is normal in size, echogenicity and morphology, 12.0 cm in length. 4 mm calculus in the upper pole. Additional smaller echogenic foci noted. Mild pelviectasis, no calyceal dilatation. No mass or hydronephrosis. Limited color Doppler demonstrates unremarkable bilateral blood flow. Impression: 1. Nonobstructing bilateral nephrolithiasis, right worse than left. 2. Left renal mild pelviectasis. DEXA scan 08/04/2021 FINDINGS: AP SPINE L1-L4: Current: BMD 1.285 g/cm2, Z-score 1.0, T-score 0.9, normal, 0.8% decrease from previous, 8.3% increase from baseline (<5% change is not significant). Prior: BMD 1.296 g/cm2. Baseline: BMD 1.187 g/cm2. LEFT FEMUR, NECK: Current: BMD 1.057 g/cm2, Z-score 0.7, T-score 0.1, normal. Prior: BMD 0.986 g/cm2. Baseline: BMD 0.980 g/cm2. LEFT FEMUR, TOTAL: Current: BMD 1.185 g/cm2, Z-score 1.6, T-score 1.4, normal, 5.2% increase from previous, 6.9% increase from baseline (<5% change is not significant). Prior: BMD 1.126 g/cm2. Baseline: BMD 1.108 g/cm2. LEFT FOREARM RADIUS 33%: BMD 0.754 g/cm2, Z-score -1.2, T-score -1.4, osteopenia, 5.2% increase from previous, 6.6% increase from baseline (<5% change is not significant). Prior: BMD 0.717 g/cm2. Baseline: BMD 0.707 g/cm2. IDENTIFIED RISK FACTORS: Menopause, hysterectomy, hyperparathyroid. HISTORY OF FRACTURE: None listed. MEDICATIONS: Calcium, vitamin D, calcitonin. MM/XR DEXA appendicular skeleton IMPRESSION: 1. DIAGNOSIS: Osteopenia based on the lowest T-score value of -1.4 in the forearm radius 33% applying World Health Organization criteria. 2. 10-YEAR FRACTURE RISK PREDICTION, FRAX: Major osteoporotic fracture (clinical spine, forearm, hip or shoulder) 2.1%. Hip fracture 0.0%. [facility] Medical History Upper respiratory infection Pre-op examination Multinodular thyroid Prediabetes Obesity Hydronephrosis concurrent with and due to calculi of kidney and ureter Recurrent nephrolithiasis Disorder of bone density and structure, unspecified Vitamin D deficiency Osteopenia Tubular adenoma of colon Carpal tunnel syndrome Obesity (BMI 30-39.9) Post-surgical hypoparathyroidism Surgical History Hx of cystoscopy History of bladder surgery Hx of parathyroidectomy Hx of colonoscopy (~05/2023) Hx of tubal ligation Hx of cholecystectomy Hx of hysterectomy Family History Father Diabetes mellitus Mother No problems noted. Social History Household Members: Children Are you a primary career services manager to a significant other at home: No Do you presently have visiting nurse or other home services: No Alcohol intake: never Patient Tobacco Use Status: Never used Tobacco Physical Exam Vital Signs: Last Vital Signs Pulse 74 05/14/25 13:58 BP 98/64 05/14/25 13:58 Pulse Ox 96 05/14/25 13:58 Oxygen Delivery Method Room Air 05/14/25 13:58 BMI result Body Mass Index 31.8 Assessment & Plan Assessment & Plan (1) Post-surgical hypoparathyroidism: Code(s): E89.2 - Postprocedural hypoparathyroidism Category: Medical (2) Osteopenia: Code(s): M85.80 - Other specified disorders of bone density and structure, unspecified site Category: Medical Plan Discussed with patient the importance to keep calcium level between 7.8 and 8.5 to avoid complications including kidney stone formation, nephrocalcinosis. Discussed with the patient the importance of maintain normal magnesium and potassium levels, with supplement as needed based on lab results Goal is to maintain urine cphjlee-fy-nnomxnykvt ratio below 100 mg/g creatinine. We do think that given the patient history of multiple episode of nephrolithiasis, she should be on hydrochlorothiazide. Given that she developed hypokalemia, potassium supplementation she will be given. Recommendation Restart calcium carbonate 500mg BID Continue Vitamin D 1000 IU Give HCTZ 12.5 mg daily KCL 20 meq/day for hypokalemia Repeat BMP in 1 week Pending DEXA Orders: Orders Phosphorus Today E89.2 - Postprocedural hypoparathyroidism Magnesium Today E89.2 - Postprocedural hypoparathyroidism Comprehensive Met. Panel Today E89.2 - Postprocedural hypoparathyroidism Medications: New potassium chloride ER 20 mEq (2 x 10 mEq) PO DAILY 60 caps 0RF hydrochlorothiazide 12.5 mg PO DAILY 30 caps 3RF Refilled calcium carbonate-vitamin D3 500 mg-5 mcg (200 unit) 1 tab PO BID 60 tabs 3RF 30 days Coding Level of Care Code Est Pt Level 3 (42897) Diagnoses Post-surgical hypoparathyroidism E89.2 Osteopenia M85.80 Time Spent (min) 40 Comment Time spent on review of previous records, history, exam/plan and patient education.
[2025-05-14 13:58] VITALS: BP 98/64; PULSE 74; O2SAT 96; BMI 31.8
--- OUTSIDE RECORDS SUMMARY | 2025-05-14 15:02 | XMS_ITS | Encounter Summary ---
Author Organization [facility] Address [address] [facility] 7t [place] [address] Care Team Providers Care Flower Picker Name Role Phone Bibi Neves Primary Care Provider [phone] Reason for Visit * Reason Comments Med Refill Encounter Details Date Type Department Care Team (Late Contact Info) Description 11/07/2023 Refill [facility] [address] [place] [address] [phone] Bibi Neves ANP [address] [place] [phone] Postprocedural hypoparathyroidism (CMS/HCC) Social History Tobacco Use [...] Description 05/26/2025 2:00 PM EDT Clinical Support [address] [phone] 06/18/2025 1:30 PM EDT Office Visit [address] [phone] Bibi Neves ANP [address] [place] [address] [phone] 11/03/2025 1:30 PM EDT Office Visit [facility]ULT DENTAL [address] [place] [address] Erik Garciaaris [address] [place], [place] [phone] documented as of this encounter Visit Diagnoses Diagnosis Postprocedural hypoparathyroidism (CMS/HCC) documented in this encounter Care Teams Flower Picker Relationship Specialty Start Date End Date Bibi Neves ANP [address] [place], [place] [phone] PCP - General Family Medicine 04/18/20 documented as of this encounter
--- OUTSIDE RECORDS SUMMARY | 2025-05-14 15:02 | XMS_ITS | Encounter Summary ---
Author Organization [employer] Address [address] 7[address] [place] [address] Care Team Providers Care Numerical Control Lathe Operator Name Role Phone Bibi Neves Primary Care Provider [phone] Reason for Visit * Reason Onset Date Comments Results 05/04/2025 Encounter Details Date Type Department Care Team (Latest Contact Info) Description 05/04/2025 Results Follow-Up [facility] [address] [place], [place] [phone] Bibi Neves ANP [address] [place], [place] [phone] Comprehensive Metabolic Panel, PTH, Intact Without Calcium Social History Tobacco Use Types Packs/Day Years [...] encounter Miscellaneous Notes * Telephone Encounter - Hailey Cantu RN - 05/05/2025 9:16 AM EDT TC placed to the pt with S form presser #[id number] to inquire if endocrinology has reached out to the pt to re-start on hydrochlorothiazide. The pt confirmed that they sent a new prescription of the hydrochlorothiazide to the pharmacy but when the pt went to pick it up there was nothing according to the pharmacist. The pt was advised if she does start on this medication again she will also need potas sium supplementation as the pt has had low levels in the past. The pt was advised to call back our office if she does start on this medication so that PCP can send K supplementation to the pharmacy. The pt stated understanding and had no further questions at this time. ----- Message from Bibi Neves sent at 05/04/2025 1:09 PM EDT ----- Can wait for endo to address, but please outreach pt tomorrow to see if they have called her - theyare considering re-starting hydrochlorothiazide (b/c it can help w/ kidney stones) which we stopped d/t low potassium, not low calcium - will likely need to add potassium supplement daily if hydrochlorothiazide is re-started. ----- Message ----- From: Interface, Lab Results In Sent: 05/03/2025 3:51 PM EDT To: JENNIFER Monsalve * Result Encounter Note - JENNIFER Monsalve - 05/04/2025 1:09 PM EDT Can wait for endo to address, but please outreach pt tomorrow to see if they have called her - theyare considering re-starting hydrochlorothiazide (b/c it can help w/ kidney stones) which we stoppedd/t low potassium, not low calcium - will likely need to add potassium supplement daily if hydrochlorothiazide is re-started. documented in this encounter Plan of Treatment Upcoming Encounters Date Type Department Care Team (Late st Contact Info) Description 05/26/2025 2:00 PM EDT Clinical Support [facility] [address] [place] [phone] 06/18/2025 1:30 PM EDT Office Visit [facility] [address] [place] [address] Bibi Neves ANP [address] [place] [address] 11/03/2025 1:30 PM EDT Office Visit [facility] ADULT D[facility] [address] [place] [phone] Radha, Humaira [address] [place] [address] documented as of this encounter Visit Diagnoses Not on filedocumented in this encounter Additional Health Concerns Assessment Noted Time PHQ-9 Depression Total Score: 0 10/14/19 25 3:47 PM EST documented as of this encounter Care Teams Numerical Control Lathe Operator Relationship Specialty Start Date End Date Bibi Neves ANP [address] [place] [phone] PCP - General Family Medicine 04/18/20 documented as of this encounter
--- OUTSIDE RECORDS SUMMARY | 2025-05-14 15:02 | XMS_ITS | Encounter Summary ---
Author Organization [facility] Address [address] [facility] 7t [place] [address] Care Team Providers Care Principal Secretary Name Role Phone Bibi Neves Primary Care Provider [phone] Reason for Visit * Reason Comments Med Refill Encounter Details Date Type Department Care Team (Late Contact Info) Description 02/17/2023 Refill [facility] [address] [place] [phone] Bibi Neves ANP [address] [place] [phone] Social History Tobacco Use Types Packs/Day Years [...] Description 05/26/2025 2:00 PM EDT Clinical Support [facility] [address] [place] [address] 06/18/2025 1:30 PM EDT Office Visit [facility] [address] [place] [phone] Bibi Neves ANP [address] [place] [address] 11/03/2025 1:30 PM EDT Office Visit [facility] [address] [place] [phone] Humaira Garcia [address] [place] [address] documented as of this encounter Visit Diagnoses Not on filedocumented in this encounter Care Teams Principal Secretary Relationship Specialty Start Date End Date Bibi Neves ANP [address] [place] [address] PCP - General Family Medicine 04/18/20 documented as of this encounter
--- OUTSIDE RECORDS SUMMARY | 2025-05-14 15:02 | XMS_ITS | Encounter Summary ---
Author Organization [employer] Address [address]t [place] [address] Care Team Providers Care Sap Abap Programmer Name Role Phone Bibi Neves Primary Care Provider [phone] Encounter Details Date Type Department Care Team (Late st Contact Info) Description 11/12/2022 Orders Only [facility] [address] [place], [place] [phone] Sharonda Gotti LPN Social History Tobacco Use [...] Description 05/26/2025 2:00 PM EDT Clinical Support [facility] [address] [place] [address] 06/18/2025 1:30 PM EDT Office Visit [facility] [address] [place] [address] Bibi Neves ANP [address] [place] [address] 11/03/2025 1:30 PM EDT Office Visit [facility] [address] [place] [address] Humaira Garcia [address] [place] [address] documented as of this encounter Visit Diagnoses Not on filedocumented in this encounter Care Teams Sap Abap Programmer Relationship Specialty Start Date End Date Bibi Neves ANP [address] [place] [address] PCP - General Family Medicine 04/18/20 documented as of this encounter
--- OUTSIDE RECORDS SUMMARY | 2025-05-14 15:02 | XMS_ITS | Encounter Summary ---
Author Organization [employer] Address [address] [place] [address] Care Team Providers Care Retort Fireman Name Role Phone Bibi Neves JENNIFER Primary Care Provider [phone] Encounter Details Date Type Department Care Team (Late st Contact Info) Description 09/22/2024 Orders Only [facility] [address] [place] [address] Nilesh Marte, LaniD Social History Tobacco Use [...] the past 12 months, has t he [employer] or [employer] threatened to shut off services in your [...] 05/26/2025 2:00 PM EDT Clinical Support [facility] [address] [place] [address] 06/18/2025 1:30 PM EDT Office Visit [facility] [address] [place] [address] Bibi Neves ANP [address] [place] [address] 11/03/2025 1:30 PM EDT Office Visit [facility] AD[facility] [address] [place] [address] Radha, Humaira [address] [place] [address] documented as of this encounter Visit Diagnoses Not on filedocumented in this encounter Additional Health Concerns Assessment Noted Time PHQ-9 Depression Total Score: 2 12/19/19 24 10:14 AM EDT documented as of this encounter Care Teams Retort Fireman Relationship Specialty Start Date End Date Bibi Neves ANP [address] [place] [address] PCP - General Family Medicine 04/18/20 documented as of this encounter
--- OUTSIDE RECORDS SUMMARY | 2025-05-14 15:02 | XMS_ITS | Encounter Summary ---
Author Organization [facility] Address [address] [facility] 7t [place] [address] Care Team Providers Care Appeals Rn Name Role Phone Bibi eNves Primary Care Provider [phone] Reason for Visit * Reason Comments Med Refill Encounter Details Date Type Department Care Team (Late Contact Info) Description 09/10/2023 Refill [facility] [address] [place] [phone] Bibi Neves ANP [address] [place] [address] Social History Tobacco Use Types Packs/Day Years [...] 05/26/2025 2:00 PM EDT Clinical Support [facility] [address] [place] [address] 06/18/2025 1:30 PM EDT Office Visit [facility] [address] [place] [address] Bibi Neves ANP [address] [place] [address] 11/03/2025 1:30 PM EDT Office Visit [facility] ADULT DENTAL [address] [place] [address] Humaira Garcia [address] [place] [address] documented as of this encounter Visit Diagnoses Not on filedocumented in this encounter Care Teams Appeals Rn Relationship Specialty Start Date End Date Bibi Neves ANP [address] [place] [address] PCP - General Family Medicine 04/18/20 documented as of this encounter
--- OUTSIDE RECORDS SUMMARY | 2025-05-14 15:02 | XMS_ITS | Encounter Summary ---
Author Organization [facility] Address [address] [place] [address] Care Team Providers Care Optical Glass Silverer Name Role Phone Bibi Neves Primary Care Provider [phone] Encounter Details Date Type Department Care Team (Latest Contact Info) Description 08/26/2019 Abstract [facility] CONVERSIONS Dental, Provider, DDS Social History [...] Description 05/26/2025 2:00 PM EDT Clinical Support [facility] [address] [place] [address] 06/18/2025 1:30 PM EDT Office Visit [facility] [address] [place] [address] Bibi Neves ANP [address] [place] [address] 11/03/2025 1:30 PM EDT Office Visit [facility] ADULT DENTAL [address] [place] [address] Radha, Humaira [address] [place] [address] documented as of this encounter Visit Diagnoses Not on filedocumented in this encounter Care Teams Optical Glass Silverer Relationship Specialty Start Date End Date Bibi Neves ANP [address] [place] [address] PCP - General Family Medicine 04/18/20 documented as of this encounter
--- OUTSIDE RECORDS SUMMARY | 2025-05-14 15:02 | XMS_ITS | Encounter Summary ---
Author Organization [employer] [facility] Address [address] [place] [address] Care Team Providers Care Bolt Man Name Role Phone Bibi Neves Primary Care Provider [phone] Encounter Details Date Type Department Care Team (Latest Contact Info) Description 06/05/2022 Abstract [facility] CONVERSIONS Dental, Provider, DDS Social History [...] Description 05/26/2025 2:00 PM EDT Clinical Support [facility] [address] [place] [address] 06/18/2025 1:30 PM EDT Office Visit [facility] [address] [place] [address] Bibi Neves ANP [address] [place] [address] 11/03/2025 1:30 PM EDT Office Visit [facility] ADULT [facility] [address] [place] [address] Humaira Garcia [address] [place] [address] documented as of this encounter Visit Diagnoses Not on filedocumented in this encounter Care Teams Bolt Man Relationship Specialty Start Date End Date Bibi Neves ANP [address] [place] [address] PCP - General Family Medicine 04/18/20 documented as of this encounter
--- OUTSIDE RECORDS SUMMARY | 2025-05-14 15:02 | XMS_ITS | Clinical Summary ---
Author Organization [employer] Address [address] [place] [address] Care Team Providers Care Manager Business Process Name Role Phone Silas Harding JENNIFER Primary Care Provider [phone] Allergies No known active allergies Medications Bisacodyl [...] in the morning. 90 tablet 024 Active potassium chloride CR (Klor-Con M20) 20 [...] times daily. 180 tablet 1 025 Active acetaminophen (Tylenol 8 Hour) 650 MG ER tablet Take 1 tablet (650 mg) by mouth every 8 (eight) hours if needed for mild pain. Do not crush, chew, or split. 40 tablet 1 025 2024 Active Zepbound 7.5 MG/0.5ML solution auto-injectorIn dications:Class 2 severe obesity with serious comorbidity and body mass index (BMI) of 36.0 to 36.9 in adult, unspecified obesity type (CMS/HCC),Predi abetes INJECT ONE PEN (=7.5MG) SUBCUTANEOUSLY ONCE A WEEK DIRECTED 2 mL 2 025 Active acetaminophen (Tylenol) 500 MG tabletIndicatio ns:Dental calculus Take 1 tablet (500 mg) by mouth every 8 (eight) hours if needed for mild pain. 21 tablet 025 2024 Discontinued(D ose adjustment) Zepbound 7.5 MG/0.5ML solution auto-injectorIn dications:Class 2 severe obesity with serious comorbidity and body mass index (BMI) of 36.0 to 36.9 in adult, unspecified obesity type (CMS/HCC),Predi abetes INJECT ONE PEN (=7.5MG) SUBCUTANEOUSLY ONCE A WEEK DIRECTED 2 mL 2 025 2024 Discontinued Calcium Carb-Cholecalci ferol (Calcium 500+D3) 500-10 MG-MCG tabletIndicatio ns:Hypocalcemia Take 1 tablet by mouth Once per day. 90 tablet 1 025 2024 Discontinued(R eorder (will not trigger notification to Pharmacy)) sulfamethoxazol e-trimethoprim (Bactrim DS) 800-160 MG tablet Take 1 tablet by mouth 2 times daily for 7 days. 14 tablet 025 2024 cephalexin (Keflex) 500 MG capsule Take 1 capsule (500 mg) by mouth 3 times daily for 7 days. 21 capsule 025 2024 Hospital, Clinic, or Other Facility Administered Medication Ordered Dose Route Frequency Start Date End Date Status acetaminophen (Tylenol) tablet 975 mgIndications:Abscess of groin, right 975 mg PO Once 05/06/2025 05/06/2025 Ended Active Problems Problem Noted Date Diagnosed Date Tubular adenoma of colon 12/01/2024 Overview (12/01/2024): 06/2024 C-scope w/ C GI, repeat 2 years per GI. we [...] Encounters Date Type Department Care Team Description 05/11/2025 Refill [facility] [place] [id number] Silas Harding ANP Class 2 severe obesity with serious comorbidity and body mass index (BMI) of 36.0 to 36.9 in adult, unspecified obesity type ([facility]); Prediabetes 05/06/2025 2:20 PM EDT Office Visit [facility] [address] [facility] [place] [id number] Sharonda Jennings DO Abscess of groin, right (Primary Dx) 05/06/2025 Orders Only [facility] [id number] Sharonda Jennings DO 05/06/2025 Travel 05/06/2025 Telephone [facility] [id number] Silas Harding ANP Nurse Triage 05/04/2025 Results Follow-Up [facility] [place] [id number] Silas Harding ANP Comprehensive Metabolic Panel, PTH, Intact Without Calcium 05/03/2025 Orders Only GENERIC EXTERNAL DATA DEPARTMENT Provider, Generic External Data 04/30/2025 1:00 PM EDT Office Visit [facility] ADULT DENTAL [address] [facility] [place] [id number] Humaira Garcia Localized gingival recession, minimal (Primary Dx); Dental calculus 04/22/2025 Orders Only [facility] [place] [address] Silas Harding ANP Hyperparathyroidism ([facility]) (Primary Dx); Hypocalcemia 04/14/2025 Telephone [facility] [place] [address] Silas Harding ANP October recall 04/12/2025 Refill [facility] [place] [address] Bhavna Lima NP Essential hypertension 04/07/2025 Telephone [facility] [place] [address] Silas Harding ANP Medication Question 04/06/2025 Results Follow-Up [facility] [place] [id number] Silas Harding ANP Basic Metabolic Panel, Phosphate (As Phosphorus), Magnesium, Basic Metabolic Panel 04/06/[address] [address] Silas Harding ANP 03/25/2025 Orders Only [address] [address] Silas Harding ANP Hypokalemia (Primary Dx); Primary hypertension 03/22/2025 2:00 PM EDT Procedure Visit [address] [address] Lizzy Shaikh, KRYSTIAN Menopause (Primary Dx); Encounter for immunization 03/22/2025 Travel 03/19/2025 Telephone [facility] [address] [place] [phone] Myrna Moser [place] 03/16/2025 Results Follow-Up [address] [address] Silas Harding ANP POCT Glucose, POCT HGB A1C, CBC auto differential, Additional followed-up results: 10 03/15/2025 2:30 PM EDT Office Visit [address] [address] Silas Harding ANP Prediabetes (Primary Dx); Easy bruising; Need for hepatitis B screening test; Primary hypertension 03/15/2025 Travel 03/12/[address] [address] Silas Harding ANP Chart Prep 03/08/2025 Patient Outreach [address] [address] Silas Harding ANP Pre-visit Planning (SDOH screening was completed on 09/30/2024) 02/18/2025 Orders Only [facility] External Provider, [facility] 02/16/[address] [address] Silas Harding ANP Class 2 severe obesity [...] Sign Reading Time Taken Comments Blood Pressure 128/83 05/06/2025 2:10 PM EDT Pulse 78 05/06/2025 2:10 PM EDT Temperature 36.7 C (98 F) 05/06/2025 2:10 PM EDT Respiratory Rate 17 05/06/2025 2:10 PM EDT Oxygen Saturation 98% 05/06/2025 2:10 PM EDT Inhaled Oxygen Concentration - - Weight 69.3 kg (152 lb 12.8 oz) 05/06/2025 2:10 PM EDT Height 147.3 cm (4' 10 ) 03/15/2025 2:33 PM EDT Body Mass Index 31.94 03/15/2025 2:33 PM EDT Plan of Treatment Upcoming Encounters Date Type Department Care Team (Late st Contact Info) Description 05/26/2025 2:00 PM EDT Clinical Support [facility] [address] [place] [phone] 06/18/2025 1:30 PM EDT Office Visit [facility] [address] [place] [phone] Silas Harding ANP [address] [place] [address] 11/03/2025 1:30 PM EDT Office Visit [facility] ADULT DENTAL [address] [place] [address] Humaira Garcia [address] [place] [address] Health Maintenance Due Date Last Done Comments [...] 10/27/2025 10/27/19, 09/23/2023, 03/06/2019, Additional history exists Dental Prophylaxis 10/29/2025 04/30/2025, 0 10/26/2024, 04/27/2024, Additional history exists Alcohol/Substance Use Screening 12/01/2025 12/01/2024 Disability Screening 12/01/2025 12/01/2024 Diabetes: Hemoglobin A1C 03/15/2026 025, 12/01/2024, 07/07/2024, Additional history exists Mammogram 04/06/2026 04/06/2025, 03/19, 03/26/2024, Additional history exists Tobacco Screening 05/06/2026 05/06/2025 Colonoscopy 07/02/2026 07/02/2024 Colorectal Cancer Screening 07/02/2026 [...] Procedure Name Priority Date/Time Associated Diagnosis Comments WOUND CARE Routine 05/06/2025 2:48 PM EDT Abscess of groin, right GRAM STAIN RESULT (NON ORDERABLE) Routine 05/06/2025 2:48 PM EDT PTH, INTACT WITHOUT CALCIUM Routine 05/03/2025 2:17 [...] Recently Relevant to Health Maintenance Results * Wound Care (05/06/2025 2:48 PM EDT) Narrative Mirtha Coleman RN - 05/06/2025 2:48 PM EDT Mirtha Coleman RN 05/06/2025 5:29 PM Wound Care Date/Time: 05/06/2025 2:48 PM Performed by: Mirtha Coleman RN Authorized by: Sharonda Jennings DO Consent: Consent obtained: Verbal Consent given by: Patient Risks, benefits, and alternatives were discussed: yes Risks discussed: Infection and pain Alternatives discussed: Alternative treatment [place] protocol: Procedure explained and questions answered to patient or proxy's satisfaction: yes Relevant documents present and verified: no Test results available: no Imaging studies available: no Required blood products, implants, devices, and special equipment available: no Site/side marked: no Immediately prior to procedure, a time out was called: yes Patient identity confirmed: Verbally with patient Sedation: Sedation type: None Anesthesia: Anesthesia method: None Procedure details: Indications: open wounds Wound location: Right groin. Debridement performed: No Dressing: Dressing applied: 4x4 and Tegaderm 4x5 Wrapped with: Bulky dressing Post-procedure details: Procedure completion: Tolerated Sharonda Jennings DO IN CLINIC/BEDSIDE ORDERABLES Final Result * Gram Stain Result (05/06/2025 2:48 PM EDT) 05/06/2025 2:48 PM EDT 05/06/2025 4:12 PM EDT Comment:Rosie Zeng Narrative [facility] - 05/08/2025 9:24 AM EDT Gram stain results: 4+ polys No organisms seen Routine Culture Report - external Routine Culture 4+ Mixed tana Specimen Source: Groin, Right Sharonda Jennings DO HISTORICAL/NON ORDERABLE LAB S Final Result Performing Organization Address [facility] Co de Phone Number [facility] [address] [place] [phone] * PTH, Intact Without Calcium (05/03/2025 2:17 PM EDT) Parathyroid Hormone, Intact 27.0 8.7 - 77.1 pg/mL [facility] 05/03/2025 2:17 PM EDT 05/03/2025 2:17 PM EDT Generic External Data Provider LAB BLOOD ORDERAB LES Final Result Performing Organization Address [facility]/ZIP Co de Phone Number [facility] [address] [place] [phone] * (ABNORMAL) Comprehensive Metabolic Panel (05/03/2025 2:17 PM EDT) Only the most recent of2 resultswithin the time period is included. Pathologist [facility] Sodium 141 135 - 145 mmol/L [facility] Potassium 3.2(L) 3.3 - 5.1 mmol/L [facility] Chloride 108 96 - 108 mmol/L [facility] Carbon Dioxide 24 22 - 29 mmol/L [facility] Anion Gap 12 12 - 20 [facility] Urea Nitrogen (BUN) 10 9 - 16 mg/dL [facility] Creatinine, Serum 0.78 0.5 - 1.4 mg/dL [facility] Estimated Glomerular Filt Rate >60 [facility] Comment:Chronic Kidney Disea se: Estimated GFR < 60 mL/min/1.25y1Tcuwdr Kidney Disease: Estimated GFR < 15 mL/min/1.73m2 Glucose 76 60 - 115 mg/dL [facility] Calcium 8.0(L) 8.4 - 10.2 mg/dL [facility] Bilirubin, Total 0.5 0.0 - 1.0 mg/dL [facility] Aspartate Amino Transferase 30 5 - 31 U/L [facility] Alanine Aminotransferase 32(H) 0 - 31 U/L [facility] Total Protein 7.3 6.5 - 8.0 g/dL [facility] Albumin Level 4.4 3.5 - 5.0 g/dL [facility] Alkaline Phosphatase 140(H) 39 - 117 U/L [facility] 05/03/2025 2:17 PM EDT 05/03/2025 2:17 PM EDT us Generic External Data Provider LAB BLOOD ORDERAB LES Final Result [facility] [address] [place] [phone] * Phosphate (As Phosphorus) (04/16/2025 10:30 AM EDT) Pathologist [facility] Phosphorus 3.5 2.7 - 4.5 mg/dL [facility] Blood Venous blood specimen / Unknown 04/16/2025 10:30 AM EDT 04/16/2025 11:52 AM EDT Silas Harding ANP LAB BLOOD ORDERABLES Final Resul t Performing Organization Address [facility] de Phone Number [facility] [address] [place] [phone] * Magnesium (04/16/2025 10:30 AM EDT) Pathologist [facility] Magnesium 1.8 1.6 - 2.6 mg/dL [facility] Blood Venous blood specimen / Unknown 04/16/2025 10:30 AM EDT 04/16/2025 11:52 AM EDT Silas Harding [facility] LAB BLOOD ORDERABLES Final Resul t Performing Organization Address [facility] de Phone Number [facility] [address] [place] [phone] * (ABNORMAL) Basic Metabolic Panel (04/16/2025 10:30 AM EDT) Only the most recent of3 resultswithin the time period is included. Pathologist [facility] Sodium 144 135 - 145 mmol/L [facility] Potassium 3.3 3.3 - 5.1 mmol/L [facility] Chloride 108 96 - 108 mmol/L [facility] Carbon Dioxide 27 22 - 29 mmol/L [facility] Anion Gap 12 12 - 20 [facility] Urea Nitrogen (BUN) 12 9 - 16 mg/dL [facility] Creatinine, Serum 0.83 0.5 - 1.4 mg/dL [facility] Estimated Glomerular Filt Rate >60 [facility] Comment:Chronic Kidney Disea se: Estimated GFR < 60 mL/min/1.71s5Dmbuln Kidney Disease: Estimated GFR < 15 mL/min/1.73m2 Glucose 77 60 - 115 mg/dL [facility] Calcium 7.5(L) 8.4 - 10.2 mg/dL [facility] Blood Venous blood specimen / Unknown 04/16/2025 10:30 AM EDT 04/16/2025 11:52 AM EDT Silas Harding ANP LAB BLOOD ORDERABLES Final Resul t [facility] [address] [place] [phone] * Mammography (04/06/2025 2:46 PM EDT) Mammogram BIRADS 2 Normal, Abnormal, BIRADS 1 , BIRADS 2 Anatomical Region Laterality Modality Other Historical Provider MD HEALTH MAINTENANCE Final Result * BI Mammogram Screening Tomosynthesis Bilateral (04/01/2025 10:30 AM EDT) Anatomical Region Laterality Modality Breast Bilateral Mammography 04/01/2025 10:3 0 AM EDT Narrative 04/06/2025 12:04 PM EDT [address] [place] [address] Mammography Report Signed Patient: Nancy Agudelo MR#: [id number] 1 : 1970 Acct:[id number] Age/Sex: 55 / F ADM Date: 04/01/25 Loc: HO.MAMMO Attending Dr: Silas Harding NP Ordering Physician: SILAS HARDING NP Results: 2Benign Jesse reynolds Date of Service: 04/01/25 Follow Up: 1 Year From Orig ina Mammogram Procedure(s): MM tomosynthesis screening BI Accession Number(s): [id number] cc: SILAS HARDING NP EXAMINATION: MM SCREENING [...] 04/06/25 1201 DD/ 1030 TD/TT: 04/01/25 1045 Guest Relations Receptionist: Procedure Note Donotuseinterpreter, Image - 04/06/[facility] [address] [place] [address] Mammography Report Signed Patient: Nancy Agudelo RMR#: [id number] 1 : 1970Acct:[id number] Age/Sex: 55 / FADM Date: 04/01/25 Loc: HOChiquitaMAMMO Attending Dr: Silas Harding NP Ordering Physician: SILAS HARDING NPResults: 2Benilefty reynolds Date of Service: 04/01/25Follow Up: 1 Year From Orig ina Mammogram Procedure(s): MM tomosynthesis screening BI Accession Number(s): [id number] cc: SILAS HARDING NP EXAMINATION: MM SCREENING [...] 04/06/25 1201 DD/ 1030 TD/TT: 04/01/25 1045 Guest Relations Receptionist: Silas RODRIGUEZ Meeta BI PROCEDURES Final Result * Vitamin D, 25-Hydroxy, Total, Immunoassay (03/25/2025 2:07 PM EDT) Vitamin D 25-OH Total 49.1 >30 ng/mL [facility] Comment: Health Based Reference Values*< 20 ng/mL Brptzcmoh21-82 ng/mL Insufficient> 30 ng/mL Sufficient*Raul ABARCA. N [...] EDT 03/25/2025 4:05 PM EDT Silas Harding [facility] LAB BLOOD ORDERABLES Final Resul t Performing Organization Address [facility] de Phone Number [facility] [address] [place] [phone] * Albumin, Random Urine W/Creatinine (03/15/2025 3:19 PM EDT) Creatinine, Urine 54.19 mg/dL [facility] Microalbumin Urine 6.0 mg/L [facility] Microalbum Creatinine Ratio Ur 11.0 <30 ug/mg cr [facility] Comment:Albumin/Creatinine R atio Reference Ranges: Normal: < 30 ug/mg creatinine Microalbuminuria: 30 - 300 ug/mg creatinineClinical Albuminuria: > 300 ug/mg creatinine Urine (Urine, Random) 03/15/2025 3:19 PM EDT 03/15/2025 4:06 PM EDT Silas Harding [facility] URINE ORDERABLES Final Resul t Performing Organization Address [facility] Phone Number [facility] [address] [place] [phone] * (ABNORMAL) CBC auto differential (03/15/2025 3:19 PM EDT) White Blood Count 7.0 4.8 - 10.8 X10*3/uL [facility] Red Blood Count 4.24 4.20 - 5.50 X10*6/uL [facility] Hemoglobin 11.8(L) 12.0 - 16.0 g/dl [facility] Hematocrit 36.5(L) 37.0 - 47.0 % [facility] Mean Corpuscular Volume 86.1 80.0 - 98.0 fL [facility] Mean Corpuscular Hemoglobin 27.8 27.0 - 33.0 pg [facility] Mean Corpuscular HGB Conc 32.3 31.0 - 35.0 g/dl [facility] Red Cell Distribution Width 14.7 11.0 - 16.0 % [facility] Platelet Count 212 160 - 400 X10*3/uL [facility] Mean Platelet Volume 11.9 9.4 - 12.3 fL [facility] Neutrophils Percent Auto 55.7 45 - 73 % [facility] Imm Gran Pct Auto 0.3 0.0 - 0.4 % [facility] Lymphocytes Percent Auto 36.0 20 - 40 % [facility] Monocytes Percent Auto 6.8 2 - 11 % [facility] Eosinophils Percent Auto 0.6 0 - 4 % [facility] Basophils Percent Auto 0.6 0 - 2 % [facility] NRBC Pct Auto 0.0 0.0 - 0.2 /100WBC [facility] Neutrophils Absolute Auto 3.9 2.0 - 8.3 x10*3/uL [facility] Imm Gran Abs Auto 0.02 0.00 - 0.03 X10*3/uL [facility] Lymphocytes Absolute Auto 2.5 1.2 - 4.9 X10*3/uL [facility] Monocytes Absolute Auto 0.5 0.1 - 1.2 X10*3/uL [facility] Eosinophils Absolute Auto 0.0 0.0 - 0.4 X10*3/uL [facility] Basophils Absolute Auto 0.0 0.0 - 0.2 X10*3/uL [facility] NRBC Abs Auto 0.000 0.0 - 0.012 X10*3/uL [facility] Blood Venous blood specimen / Unknown 03/15/2025 3:19 PM EDT 03/15/2025 4:06 PM EDT Silas Harding [facility] BLOOD ORDERABLES Final Resul t [facility] [address] [place] [phone] * Iron And Total Iron Binding Capacity (03/15/2025 3:19 PM EDT) Iron 56 30 - 160 mcg/dL [facility] Total Iron Binding Capacity 235 228 - 428 mcg/dL [facility] Percent Iron Saturation 24 15 - 50 % [facility] Unsaturated Iron Binding 179 ug/dL [facility] Blood Venous blood specimen / Unknown 03/15/2025 3:19 PM EDT 03/15/2025 4:06 PM EDT Silas Harding ANP LAB BLOOD ORDERABLES Final Resul t Performing Organization Address [facility] de Phone Number [facility] [address] [place] [phone] * Hepatitis B surface antigen, EIA (03/15/2025 3:19 PM EDT) Hepatitis B Surface Ag Negative Negative [facility] Blood Venous blood specimen / Unknown 03/15/2025 3:19 PM EDT 03/15/2025 4:06 PM EDT Silas Harding [facility] BLOOD ORDERABLES Final Resul t Performing Organization Address [facility] Co de Phone Number [facility] [address] [place] [phone] * Hepatitis B Core Antibody, Total (03/15/2025 3:19 PM EDT) Hepatitis B Core Antibody Nonreactive Nonreactive [facility] Blood Venous blood specimen / Unknown 03/15/2025 3:19 PM EDT 03/15/2025 4:06 PM EDT Silas Harding ANP LAB BLOOD ORDERABLES Final Resul t Performing Organization Address [facility] Co de Phone Number [facility] [address] [place] [phone] * Hepatitis B Surface Antibody, Qualitative (03/15/2025 3:19 PM EDT) ~Hepatitis B Surface Antibody NONREACTIVE Nonreactive [facility] Comment:Nonreactive: < 8.00 mIU/mL Blood Venous blood specimen / Unknown 03/15/2025 3:19 PM EDT 03/15/2025 4:06 PM EDT Silas Harding [facility] BLOOD ORDERABLES Final Resul t Performing Organization Address City/[facility]/ZIP Co de Phone Number [facility] [address] [place] [phone] * Prothrombin Time-INR (03/15/2025 3:19 PM EDT) Prothrombin Time 12.2 10.9 - 12.4 SEC [facility] INTERNATIONAL NORM RATIO 1.1 0.9 - 1.1 [facility] Comment:INTERNATIONAL NORMAL IZED RATIO (INR) REFERENCE [...] ORDERABLES Final Resul t Performing Organization Address City/[facility]/ZIP Co de Phone Number [facility] [address] [place] [phone] * Ferritin (03/15/2025 3:19 PM EDT) Ferritin 144 10 - 250 ng/mL [facility] Blood Venous blood specimen / Unknown 03/15/2025 3:19 PM EDT 03/15/2025 4:06 PM EDT us Silas Harding ANP LAB BLOOD ORDERABLES Final Resul t [facility] [address] [place] [phone] * POCT HGB A1C (03/15/2025 3:14 PM EDT) Hemoglobin A1C 5.6 4.0 - 5.7 % QC Media Lot # [id number] Lot# Expiration Date [id number],[id number] Blood 03/15/2025 3:14 PM EDT us Silas Harding ANP POINT OF CARE TEST ENTER/EDIT OR DERABLES Final Result * POCT Glucose (03/15/2025 3:14 PM EDT) Glucose Blood, POC 81 60 - 200 mg/dL QC Media Lot # [id number] Lot# Expiration Date [id number] Blood Capillary blood specimen / Unknown 03/15/2025 3:14 PM EDT us Silas Harding ANP POINT OF CARE TEST ENTER/EDIT OR DERABLES Final Result * US RENAL BI (02/19/2025 5:18 PM EDT) Anatomical Region Laterality Modality Abdomen Ultrasound 02/19/2025 5:18 PM EDT Narrative 02/19/2025 5:19 PM EDT [address] [address] Ultrasound Report Signed Patient: Nancy Agudelo MR#: [id number] 1 : 1970 Acct:[id number] Age/Sex: 55 / F ADM Date: 02/18/25 Loc: . Attending Dr: Aris Coronado MD Ordering Physician: Aris Coronado MD Date of Service: 02/18/25 Procedure(s): US renal BI Accession Number(s): [id number] cc: Aris Coronado MD; SILAS HARDING NP [...] in OV> 02/19/251718 DD/ 17 TD/TT: 02/19/251717 Guest Relations Receptionist: Procedure Note Donotuseinterpreter, Image - 02/19/2025 [place] [address] Ultrasound Report Signed Patient: Nancy Agudelo RMR#: [id number] 1 : 1970Acct:[id number] Age/Sex: 55 / FADM Date: 02/18/25 Loc: HO.US Attending Dr: Arsi Coronado MD Ordering Physician: Aris Coronado MD Date of Service: 02/18/25 Procedure(s): US renal BI Accession Number(s): [id number] cc: Aris Coronado MD; SILAS HARDING NP [...] in OV> 02/19/251718 DD/ 17 TD/TT: 02/19/251717 Guest Relations Receptionist: [facility] External Provider IMG US PROCEDURES Edited Result - Final * Colonoscopy (07/02/2024) [facility] Colonoscopy Normal Normal Narrative Gay Berkowitz - 07/02/2024 colonoscopy order added Historical Provider [facility] MAINTENANCE Final Result * ThinPrep Imaging Pap and HPV mRNA E6/E7 (03/19/2024 2:04 PM EDT) [facility] HPV nRNA E6/E7 Not Detected Not Detected [facility] Comment:Methodology: Transcr iption-Mediated AmplificationThis assay detects E6/E7 viral messenger RNA (mRNA) from 14high-risk HPV types (16,18,31,33,35,39,45,51,52,56,58,59,66,68).Cervical sources are required for HPV testing.If a vaginal source from a patient who has had atotal hysterectomy with removal of cervix wassubmitted, please contact the testing laboratoryfor alternative testing options.For additional information, please refer tohttp://education.Creditable/faq/XNM955l2(This link if provided for information/educational purposes only.)THIS TEST WAS PERFORMED AT:[facility] [place] [phone] RIOS MD SOURCE: SEE NOTE [facility] Comment:None given Report Status: [facility] Clinical Information: SEE NOTE [facility] Comment:None given LMP: SEE NOTE [facility] Comment:NONE GIVEN Prev. PAP: SEE NOTE [facility] Comment:NONE GIVEN Prev. BX: SEE NOTE [facility] Comment:NONE GIVEN Statement Of Adequacy: SEE NOTE [facility] Comment:Satisfactory for mario luation.Endocervical/transformation zone component absent. General Categorization: [facility] Interpretation/Result: SEE NOTE [facility] Comment:Cytology Results: Ne gative for intraepitheliallesion or malignancy. Cytology Comment SEE NOTE [facility] Comment:This Pap test has be en evaluated with computerassisted technology. Fowl Blood Tester: SEE NOTE [facility] Comment:[place], CT(ASCP)CT scre ening location: [place] [address] Review Fowl Blood Tester: [facility] Pathologist [facility] PAP Infection [facility] See Note SEE NOTE [facility] Comment:EXPLANATORY NOTE:The Pap is a screening test for cervical cancer. It isnot a diagnostic test and is subject to false negativeand false positive results. It is most reliable when asatisfactory sample, regularly obtained, is submittedwith relevant clinical findings and history, and whenthe Pap result is evaluated along with historic andcurrent clinical information. 03/19/2024 2:04 PM EDT 03/19/2024 5:54 PM EDT Narrative [facility] - 03/25/2024 3:00 PM EDT SEE SCANNED RESULTS IN EMR us Lizzy Shaikh CNM LAB PATHOLOGY ORDERABLES Final Result [facility] [address] [place] [address] [phone] * (ABNORMAL) Lipid Panel, Standard (12/19/2023 10:20 AM EDT) Triglycerides 115 <150 mg/dL [facility] Comment:Desirable Triglyceri de: less than 150 mg/dLBorderline High Triglyceride 150-199 mg/dLHigh Triglyceride: 200-499 mg/dLVery High Triglyceride: greater than or equal to 5OO mg/dL Cholesterol 192 <200 mg/dL [facility] Comment:Desirable Cholestero l: less than 200 mg/dLBorderline High Cholesterol: 200-239 mg/dLHigh Cholesterol: greater than 239 mg/dL LDL Cholesterol Calculated 109(H) <100 mg/dL [facility] Comment:Desirable LDL: less than 100 mg/dLNear Optimal/Above Optimal LDL: 110- 129 mg/dLBorderline High LDL: 130-159 mg/dLHigh LDL: 160-189 mg/dLVery High LDL: greater than or equal to 190 mg/dL HDL Cholesterol 60 >40 mg/dL [facility] Comment:Desirable HDL: great er than 40 mg/dL Note: This HDL assay may give artificially low results in patients with liver disease. Blood Venous blood specimen / Unknown 12/19/2023 10:20 AM EDT 12/19/2023 11:34 AM EDT [facility] LAB BLOOD ORDERABLES Final Resul t [facility] [address] [place] [phone] * HEPATITIS C AB W/REFL TO HCV RNA, QN, PCR (06/03/2020 9:27 AM EDT) HEPATITIS C ANTIBODY NON-REACT JOVANNY NON-REACT JOVANNY [facility] INDEX 0.02 <1.00 [facility] Comment: HCV antibody was non-reactive. There is no laboratory evidence of HCV infection. In most cases, no further action is required. However, if recent HCV exposure is suspected, a test for HCV RNA (test code 43094) is suggested. For additional information please refer to http://education.Creditable/faq/ONE61p3 (This link is being provided for informational/ educational purposes only.) HEPATITIS C ANTIBODY NON-REACT JOVANNY NON-REACT JOVANNY [facility] INDEX 0.02 <1.00 [facility] Comment: HCV antibody was non-reactive. There is no laboratory evidence of HCV infection. In most cases, no further action is required. However, if recent HCV exposure is suspected, a test for HCV RNA (test code 56472) is suggested. For additional information please refer to http://ILD Teleservices/faq/EKV39k0 (This link is being provided for informational/ educational purposes only.) HEPATITIS C ANTIBODY NON-REACT JOVANNY NON-REACT JOVANNY [facility] INDEX 0.02 <1.00 [facility] Comment: HCV antibody was non-reactive. There is no laboratory evidence of HCV infection. In most cases, no further action is required. However, if recent HCV exposure is suspected, a test for HCV RNA (test code 52360) is suggested. For additional information please refer to http://ILD Teleservices/faq/NHB55x3 (This link is being provided for informational/ educational purposes only.) 06/03/2020 9:27 AM EDT us Silas Harding ANP HISTORICAL/NON ORDERABLE LABS Fi nal Result [facility] [address] * HIV 1/2 ANTIGEN/ANTIBODY,FOURTH GENERATION W/RFL (06/03/2020 9:27 AM EDT) HIV-1/2 ANTIGEN AND ANTIBODIES, 4TH GENERATION W/ REFLEX NON-REACT JOVANNY NON-REACT JOVANNY [facility] Comment: HIV-1 antigen and HIV-1/HIV-2 [...] purpose. For additional information please refer to http://C[employer] by Next[employer].Creditable/faq/QWP107 (This link is being provided for informational/ [...] purpose. For additional information please refer to http://ILD Teleservices/faq/DCW087 (This link is being provided for informational/ educational purposes only.) The performance of this assay has not been clinically validated in patients less than 2 years old. HIV-1/2 ANTIGEN AND ANTIBODIES, 4TH GENERATION W/ REFLEX NON-REACT JOVANNY NON-REACT JOVANNY [facility] Comment: HIV-1 antigen and HIV-1/HIV-2 [...] purpose. For additional information please refer to http://Cel-[employer] Next[employer].Creditable/faq/FYA150 (This link is being provided for informational/ educational purposes only.) The performance of this assay has not been clinically validated in patients less than 2 years old. 06/03/2020 9:27 AM EDT [facility] BLOOD ORDERABLES Final Resul t [facility] [address] from Last 3 Months or Most Recently Relevant to Health Maintenance Insurance [address] SANNA LESLIE Care Teams Manager Business Process Relationship Specialty Start Date End Date Silas Harding ANP [address] [place] [phone] PCP - General Family Medicine 04/18/20
--- OUTSIDE RECORDS SUMMARY | 2025-05-14 15:03 | XMS_ITS | Encounter Summary ---
Author Organization [employer] Address [address] [facility] [address] 7t [place] [address] Care Team Providers Care Concrete Pipe Machine Operator Name Role Phone Bibi Neves Primary Care Provider [phone] Encounter Details Date Type Department Care Team (Late st Contact Info) Description 04/06/2025 Abstract [facility] [address] [place], [place] [phone] Bibi Neves ANP [address] [place], [place] [phone] Social History Tobacco Use Types Packs/Day Years [...] Description 05/26/2025 2:00 PM EDT Clinical Support [facility] [address] [place] [address] 06/18/2025 1:30 PM EDT Office Visit [facility] [address] [place] [address] Bibi Neves, JENNIFER [address] [place] [address] 11/03/2025 1:30 PM EDT Office Visit [facility] ADULT DENTAL [address] [place] [address] Radha, Humaira [address] [place] [address] documented as of this encounter Procedures Procedure [...] documented as of this encounter Care Teams Concrete Pipe Machine Operator Relationship Specialty Start Date End Date Bibi Neves ANP [address] [place] [address] PCP - General Family Medicine 04/18/20 documented as of this encounter
--- OUTSIDE RECORDS SUMMARY | 2025-05-14 15:03 | XMS_ITS | Encounter Summary ---
Author Organization [employer] Address [address] [facility] [address] 7[address] [place] [address] Care Team Providers Care Test Engine Evaluator Name Role Phone Bibi Neves Primary Care Provider [phone] Reason for Visit * Reason Comments Med Refill Encounter Details Date Type Department Care Team (Late st Contact Info) Description 05/11/2025 Refill [facility] [address] [place], [place] [phone] Bibi Neves ANP [address] [place], [place] [phone] Class 2 severe obesity with serious comorbidity and body mass index (BMI) of 36.0 to 36.9 in adult, unspecified obesity type (CMS/HCC); Prediabetes Social History Tobacco Use Types Packs/Day Years [...] Clinical Support [facility] [address] [place] [address] 06/18/2025 1:30 PM EDT Office Visit [facility]INE [address] [place] [address] Bibi Neves ANP [address] [place] [address] 11/03/2025 1:30 PM EDT Office Visit [facility] ADULT DENTAL [address] [place] [address] Radha, Humaira [address] [place] [address] documented as of this encounter Visit Diagnoses Diagnosis Class 2 severe obesity with serious comorbidity and body mass index (BMI) of 36.0 to 36.9 in adult, unspecified obesity type (CMS/HCC) Prediabetes Other abnormal glucose documented in this encounter Additional Health Concerns Assessment Noted Time PHQ-9 Depression Total Score: 0 10/14/19 3:47 PM EST documented as of this encounter Care Teams Test Engine Evaluator Relationship Specialty Start Date End Date Bibi Neves ANP [address] [place] [address] PCP - General Family Medicine 04/18/20 documented as of this encounter
--- OUTSIDE RECORDS SUMMARY | 2025-05-14 15:03 | XMS_ITS | Clinical Summary ---
Author Organization [facility] Address [address] [place] [address] Phone Care Team Providers Care Microsoft Dynamics Manager Architect Name Role Phone Bibi Neves NP Primary Care Provider [phone] Social History Tobacco Use Types Packs/Day Years [...] age to complete this topic Insurance , [address] [address] [facility] [employer] Care Teams Microsoft Dynamics Manager Architect Relationship Specialty Start Date End Date Bibi Neves NP [address] [place] [phone] PCP - General 07/28/24
== END 2025-05-14 14:42 | disposition home or self-care (01) ==
LOC: HO.ENCR 13:52
PROVIDERS: PCP Nurse Practitioner Primary Care; Visit Provider Student in an Organized Health Care Education/Training Program
DX: E89.2 Postprocedural hypoparathyroidism (principal); M85.80 Other specified disorders of bone density and structure, unspecified site
CPT/HCPCS: 99213

== ENCOUNTER → 2025-05-14 13:52 | Outpatient (BNVA) | payer OTHER, SELFPAY | PROVIDERS: PCP Nurse Practitioner Primary Care; Visit Provider Student in an Organized Health Care Education/Training Program | DX: E89.2 Postprocedural hypoparathyroidism (principal); M85.80 Other specified disorders of bone density and structure, unspecified site | CPT/HCPCS: 99212 ==

== ENCOUNTER 2025-05-31 13:19 | Outpatient (REF) | payer OTHER, SELFPAY ==
--- OUTSIDE RECORDS SUMMARY | 2025-05-26 14:00 | XMS_ITS | Encounter Summary ---
Author Organization [employer] Address [address] 7[address] [place] [address] Care Team Providers Care Metal Sander Name Role Phone Pura Bibi RODRIGUEZ Primary Care Provider [phone] Reason for Visit * Reason Comments Immunizations Encounter Details Date Type Department Care Team (Late st Contact Info) Description 05/26/2025 2:00 PM EDT Immunization [facility] [address] [place] [address] Donna Beckham RN Encounter for immunization Social History Tobacco Use Types Packs/Day Years [...] as of this encounter Progress Notes * Donna Beckham RN - 05/26/2025 2:00 PM EDT SUBJECTIVE: Nancy Agudelo is a 55 y.o. year old female who presents for No chief complaint on file. Preferred language for medical information: Microfilm Duplicating Unit Supervisor needed: No, pt speaks some belizean Nancy Agudelo denies any difficulties with previous Hepatitis B injection. Allergies[1] Hepatitis labs drawn 02/2025, nonimmune Hep B#1 given 03/22/25 ([employer]ix) OBJECTIVE: Hepatitis B ([employer]) #2 vaccine given in left deltoid, tolerated well. ASSESSMENT: Healthcare maintenance PLAN: Nancy Agudelo will return for next injection on/after 10/24/24, declined to schedule appointment today [x] Advised to monitor injection site for any increased redness or swelling Nancy Agudelo agrees with plan of care and verbalized understanding of instructions/education. Donna Beckham RN [1] No Known Allergies documented in this encounter Plan of Treatment Upcoming Encounters Date Type Department Care Team (Late st Contact Info) Description 06/18/2025 1:30 PM EDT Office Visit [facility] MEDICINE [address] [place] [address] Bibi Neves ANP [address] [place] [address] 11/03/2025 1:30 PM EDT Office Visit [facility] ADULT DENTAL [address] [place] [address] Humaira Garcia [address] [place], [place] [phone] documented as of this encounter Visit Diagnoses Diagnosis Encounter for immunization documented in this encounter Additional Health Concerns Assessment Noted Time PHQ-9 Depression Total Score: 0 10/14/19 25 3:47 PM EST documented as of this encounter Care Teams Metal Sander Relationship Specialty Start Date End Date Bibi Neves ANP [address] [place] [address] PCP - General Family Medicine 04/18/20 documented as of this encounter
--- OUTSIDE RECORDS SUMMARY | 2025-05-31 13:23 | XMS_ITS | Encounter Summary ---
Author Organization [facility] Address [address] [facility] [address] 7[address] [place] [address] Care Team Providers Care Planning Coordinator Name Role Phone Bibi Neves Primary Care Provider [phone] Encounter Details Date Type Department Care Team (Latest Contact Info) Description 08/26/2019 Abstract [facility] CONVERSIONS Dental, Provider, DDS Social [...] Description 06/18/2025 1:30 PM EDT Office Visit [facility] MEDICINE [address] [place] [address] Bibi Neves ANP [address] [place] [address] 11/03/2025 1:30 PM EDT Office Visit [facility] ADULT DENTAL [address] [place] [address] Humaira Garcia [address] [place] [address] documented as of this encounter Visit Diagnoses Not on filedocumented in this encounter Care Teams Planning Coordinator Relationship Specialty Start Date End Date Bibi Neves ANP [address] [place] [address] PCP - General Family Medicine 04/18/20 documented as of this encounter
--- OUTSIDE RECORDS SUMMARY | 2025-05-31 13:23 | XMS_ITS | Encounter Summary ---
Author Organization [employer] Address [address] [address] [facility] [address] [place] [address] Care Team Providers Care Log Yard Derrick Operator Name Role Phone Bibi Neves JENNIFER Primary Care Provider [phone] Encounter Details Date Type Department Care Team (Latest Contact Info) Description 05/26/2025 Travel Social History Tobacco Use Types Packs/Day Years [...] 06/18/2025 1:30 PM EDT Office Visit [facility] MEDICINE [address] [place] [address] Bibi Neves ANP 230 [place] [address] 11/03/2025 1:30 PM EDT Office Visit [facility] ADULT DENTAL [address] [place] [address] Humaira Garcia [address] [place] [address] documented as of this encounter Visit Diagnoses Not on filedocumented in this encounter Additional Health Concerns Assessment Noted Time PHQ-9 Depression Total Score: 0 10/14/19 25 3:47 PM EST documented as of this encounter Care Teams Log Yard Derrick Operator Relationship Specialty Start Date End Date Bibi Neves ANP [address] [place] [phone] PCP - General Family Medicine 04/18/20 documented as of this encounter
--- OUTSIDE RECORDS SUMMARY | 2025-05-31 13:23 | XMS_ITS | Encounter Summary ---
Author Organization [facility] Address [address] [facility] 7 [place] [address] Care Team Providers Care Supervisor Dry Cleaning Name Role Phone Bibi Neves Primary Care Provider [phone] Reason for Visit * Reason Comments Med Refill Encounter Details Date Type Department Care Team (Late st Contact Info) Description 11/07/2023 Refill [facility] [address] [place] [address] Bibi Neves ANP [address] [place] [address] Postprocedural hypoparathyroidism (CMS/HCC) Social History Tobacco Use [...] Description 06/18/2025 1:30 PM EDT Office Visit [facility]ICINE [address] [place] [address] Bibi Neves ANP [address] [place] [address] 11/03/2025 1:30 PM EDT Office Visit [facility] ADULT DENTAL [address] [place] [address] Humaira Garcia [address] [place] [address] documented as of this encounter Visit Diagnoses Diagnosis Postprocedural hypoparathyroidism (CMS/HCC) documented in this encounter Care Teams Supervisor Dry Cleaning Relationship Specialty Start Date End Date Bibi Neves ANP 230 [place] [address] PCP - General Family Medicine 04/18/20 documented as of this encounter
--- OUTSIDE RECORDS SUMMARY | 2025-05-31 13:23 | XMS_ITS | Encounter Summary ---
Author Organization [facility] Address [address] [facility] 7t [place] [address] Care Team Providers Care Account Support Specialist Name Role Phone Bibi Neves Primary Care Provider Reason for Visit * Reason Comments Med Refill Encounter Details Date Type Department Care Team (Late Contact Info) Description 09/10/2023 Refill [facility] MEDICINE [address] [place] [address] Bibi Neves ANP [address] [place] [address] Social History Tobacco Use Types Packs/Day Years [...] Department Care Team (Late Contact Info) Description 06/18/2025 1:30 PM EDT Office Visit [facility] MEDICINE [address] [place] [address] Bibi Neves ANP [address] [place] [address] 11/03/2025 1:30 PM EDT Office Visit [facility] ADULT DENTAL [address] [place] [address] Humaira Garcia [address] [place] [address] documented as of this encounter Visit Diagnoses Not on filedocumented in this encounter Care Teams Account Support Specialist Relationship Specialty Start Date End Date Bibi Neves ANP [address] [place] [address] PCP - General Family Medicine 04/18/20 documented as of this encounter
--- OUTSIDE RECORDS SUMMARY | 2025-05-31 13:23 | XMS_ITS | Encounter Summary ---
Author Organization [facility] Address [address] 7[address] [place] [address] Care Team Providers Care Manager Transfer Name Role Phone Bibi Neves Primary Care Provider [phone] Encounter Details Date Type Department Care Team (Late st Contact Info) Description 11/12/2022 Orders Only [facility] [address] [place] [address] Sharonda Gotti LPN Social History Tobacco Use [...] Description 06/18/2025 1:30 PM EDT Office Visit [facility] MEDICINE [address] [place] [address] Bibi Neves ANP 230 [place] [address] 11/03/2025 1:30 PM EDT Office Visit [facility] ADULT DENTAL [address] [place] [address] Erik Garciaaris [address] [place] [address] documented as of this encounter Visit Diagnoses Not on filedocumented in this encounter Care Teams Manager Transfer Relationship Specialty Start Date End Date Bibi Neves ANP [address] [place] [phone] PCP - General Family Medicine 04/18/20 documented as of this encounter
--- OUTSIDE RECORDS SUMMARY | 2025-05-31 13:23 | XMS_ITS | Encounter Summary ---
Author Organization [employer] Address [address] [facility] [address] [address] [address] 7t [place] [address] Care Team Providers Care Sales Account Representative Name Role Phone Bibi Neves JENNIFER Primary Care Provider [phone] Encounter Details Date Type Department Care Team (Late st Contact Info) Description 09/22/2024 Orders Only [facility] MEDICINE [address] [place] [address] Nilesh Marte, LaniD Social History Tobacco Use [...] the past 12 months, has t he [employer], [employer], oil or water company threatened to shut [...] 06/18/2025 1:30 PM EDT Office Visit [facility] MEDICINE [address] [place] [address] Bibi Neves ANP 230 [place] [address] 11/03/2025 1:30 PM EDT Office Visit [facility] ADULT DENTAL [address] [place] [address] Radha, Humaira [address] [place] [address] documented as of this encounter Visit Diagnoses Not on filedocumented in this encounter Additional Health Concerns Assessment Noted Time PHQ-9 Depression Total Score: 2 12/19/19 24 10:14 AM EDT documented as of this encounter Care Teams Sales Account Representative Relationship Specialty Start Date End Date Bibi Neves ANP [address] [place] [address] PCP - General Family Medicine 04/18/20 documented as of this encounter
--- OUTSIDE RECORDS SUMMARY | 2025-05-31 13:23 | XMS_ITS | Encounter Summary ---
Author Organization [facility] Address [address] [facility] 7t [place] [address] Care Team Providers Care Financial Operations Clerk Name Role Phone Bibi Neves Primary Care Provider [phone] Reason for Visit * Reason Comments Med Refill Encounter Details Date Type Department Care Team (Late Contact Info) Description 02/17/2023 Refill [facility] MEDICINE [address] [place] [address] Bibi Neves ANP [address] [place] [address] Social History Tobacco Use Types Packs/Day Years [...] 1:30 PM EDT Office Visit [facility] MEDICINE [address] [place] [address] Bibi Neves ANP [address] [place] [address] 11/03/2025 1:30 PM EDT Office Visit [facility] ADULT DENTAL [address] [place] [address] Humaira Garcia [address] [place] [address] documented as of this encounter Visit Diagnoses Not on filedocumented in this encounter Care Teams Financial Operations Clerk Relationship Specialty Start Date End Date Bibi Neves ANP [address] [place] [address] PCP - General Family Medicine 04/18/20 documented as of this encounter
--- OUTSIDE RECORDS SUMMARY | 2025-05-31 13:23 | XMS_ITS | Encounter Summary ---
Author Organization [facility] Address [address] 7[address] [place] [address] Care Team Providers Care Medical Device Name Role Phone Bibi Neves Primary Care Provider [phone] Encounter Details Date Type Department Care Team (Latest Contact Info) Description 06/05/2022 Abstract [facility] CONVERSIONS Dental, Provider, DDS Social History [...] Description 06/18/2025 1:30 PM EDT Office Visit [facility] MEDICINE [address] [place] [address] Bibi Neves ANP [address] [place] [address] 11/03/2025 1:30 PM EDT Office Visit [facility] ADULT DENTAL [address] [place] [address] Humaira Garcia 230 [place] [address] documented as of this encounter Visit Diagnoses Not on filedocumented in this encounter Care Teams Medical Device Relationship Specialty Start Date End Date Bibi Neves ANP [address] [place] [address] PCP - General Family Medicine 04/18/20 documented as of this encounter
--- OUTSIDE RECORDS SUMMARY | 2025-05-31 13:23 | XMS_ITS | Clinical Summary ---
Author Organization [facility] [employer] Address [address] [place] [address] Care Team Providers Care Strategic Advisor Name Role Phone Silas Harding JENNIFER Primary Care Provider [phone] Allergies No known active allergies Medications Bisacodyl [...] mouth 2 times daily. 180 tablet 1 Active acetaminophen (Tylenol 8 Hour) 650 MG ER tablet Take 1 tablet (650 mg) by mouth every 8 (eight) hours if needed for mild pain. Do not crush, chew, or split. 40 tablet 1 025 2024 Active Zepbound 7.5 MG/0.5ML solution auto-injectorIn dications:Class 2 severe obesity with serious comorbidity and body mass index (BMI) of 36.0 to 36.9 in adult, unspecified obesity type,Prediabete s INJECT ONE PEN (=7.5MG) SUBCUTANEOUSLY ONCE A WEEK DIRECTED 2 mL 2 Active acetaminophen (Tylenol) 500 MG tabletIndicatio ns:Dental calculus Take 1 tablet (500 mg) by mouth every 8 (eight) hours if needed for mild pain. 21 tablet 025 2024 Discontinued(D ose adjustment) Zepbound 7.5 MG/0.5ML solution auto-injectorIn dications:Class 2 severe obesity with serious comorbidity and body mass index (BMI) of 36.0 to 36.9 in adult, unspecified obesity type,Prediabete s INJECT ONE PEN (=7.5MG) SUBCUTANEOUSLY ONCE A WEEK DIRECTED 2 mL 2 025 2024 Discontinued sulfamethoxazol e-trimethoprim (Bactrim DS) 800-160 MG tablet [...] Active Problems Problem Noted Date Diagnosed Date Osteopenia 05/18/2025 Recurrent nephrolithiasis 05/18/2025 Tubular adenoma of colon 12/01/2024 Overview (12/01/2024): 06/2024 C-scope w/ C GI, repeat 2 years per GI. we discussed etiology of this, no high risk dysplasia and likelihood of progression to cancer, gave handout. Dental calculus 09/23/2023 Localized gingival recession, minimal 09/23/2023 Post-surgical hypoparathyroidism 09/04/2017 Overview (05/18/2025): Per Endo note, pt will be given potassium supplement when she starts hydrochlorothiazide again. 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 [...] Encounters Date Type Department Care Team Description 05/26/2025 2:00 PM EDT Immunization [facility] [place] [address] Donna Beckham, TAMIKA Encounter for immunization 05/26/2025 Travel 05/11/2025 Refill [facility] [place] [address] Silas Harding ANP Class 2 severe obesity with serious comorbidity and body mass index (BMI) of 36.0 to 36.9 in adult, unspecified obesity type (CMS/HCC); Prediabetes 05/06/2025 2:20 PM EDT Office Visit [facility] WALK-IN [place] [address] Sharonda Jennings DO Abscess of groin, right (Primary Dx) 05/06/2025 Orders Only [facility] MEDICINE [address] [place] [phone] Sharonda Jennings DO 05/06/2025 Travel 05/06/[address] [address] Silas Harding ANP Nurse Triage 05/04/2025 Results Follow-Up [address] [address] Silas Harding ANP Comprehensive Metabolic Panel, PTH, Intact Without Calcium 05/03/2025 Orders Only GENERIC EXTERNAL DATA DEPARTMENT Provider, Generic External Data 04/30/2025 1:00 PM EDT Office Visit [facility] ADULT DENTAL [address] [place] [address] Radha, Humaira Localized gingival recession, minimal (Primary Dx); Dental calculus 04/22/2025 Orders Only [facility] MEDICINE [address] [place] [phone] Silas Harding ANP Hyperparathyroidism (CMS/HCC) (Primary Dx); Hypocalcemia 04/14/2025 Telephone [facility] MEDICINE [address] [place] [phone] Silas Harding ANP October recall 04/12/[address] [address] Bhavna Lima NP Essential hypertension 04/07/[address] [address] Silas Harding ANP Medication Question 04/06/2025 Results Follow-Up [address] [address] Silas Harding ANP Basic Metabolic Panel, Phosphate (As Phosphorus), Magnesium, Basic Metabolic Panel 04/06/[address] [address] Silas Harding ANP 03/25/2025 Orders Only [address] [address] Silas Harding ANP Hypokalemia (Primary Dx); Primary hypertension 03/22/2025 2:00 PM EDT Procedure Visit [address] [address] Lizzy Shaikh CNM Menopause (Primary Dx); Encounter for immunization 03/22/2025 Travel 03/19/2025 Telephone [facility] WALK-IN CENTER [address] [place] [phone] Myrna Moser [place] 03/16/2025 Results Follow-Up [address] [address] Silas Harding ANP POCT Glucose, POCT HGB A1C, CBC auto differential, Additional followed-up results: 10 03/15/2025 2:30 PM EDT Office Visit [address] [address] Silas Harding ANP Prediabetes (Primary Dx); Easy bruising; Need for hepatitis B screening test; Primary hypertension 03/15/2025 Travel 03/12/[address] [address] Silas Harding ANP Chart Prep 03/08/2025 Patient Outreach [address] [address] Silas Harding ANP Pre-visit Planning ([facility] screening was completed on 09/30/2024) from Last 3 Months Immunizations Immunization Administration Dates Next Due Hep B, adult 05/26/2025,03/22/2025,06/09/2012 Influenza Injectable Quadriv alant Preservative Free IIV4 [...] Description 06/18/2025 1:30 PM EDT Office Visit [facility] MEDICINE [address] [place] [address] Silas Harding ANP [address] [place] [address] 11/03/2025 1:30 PM EDT Office Visit [facility] ADULT DENTAL [address] [place] [address] Humaira Garcia [address] [place] [address] Health Maintenance Due Date Last Done Comments CT Colonography 1969 FIT DNA/Cologuard 1970 FIT 1970 FOBT 1970 Sigmoidoscopy 1970 Influenza Vaccine (#1) 2025 , 05/10/2023, 05/24/2019, Additional history exists Dental Oral Exam 04/29/2025 10/26/2024, 12/2023, 06/05/2022, Additional history exists SDOH Screening 09/30/2025 09/30/2024 [...] exists Pneumococcal Vaccine: 50+ Years Completed 10/14/2024 Hepatitis B Vaccines Completed 05/26/2025, 03/22/2025, 06/09/2012 HIB Vaccines Aged Out No longer eligi [...] GLUCOSE Routine 03/15/2025 3:14 PM EDT Prediabetes BITEWINGS - 4 RADIOGRAPHIC IMAGES Routine 10/26/2024 [...] Infection and pain Alternatives discussed: Alternative treatment [place] protocol: Procedure explained and questions answered to [...] EDT 05/06/2025 4:12 PM EDT Comment:Rosie Zeng [facility] - 05/08/2025 9:24 AM EDT Gram stain results: 4+ polys No organisms seen Routine Culture Report - external Routine Culture 4+ Mixed tana Specimen Source: Groin, Right Sharonda Jennings DO HISTORICAL/NON ORDERABLE LAB S Final Result Performing Organization Address City/[facility]/ZIP Co de Phone Number [facility] [address] [place] [phone] * PTH, Intact Without Calcium (05/03/2025 2:17 PM EDT) Parathyroid Hormone, Intact 27.0 8.7 - 77.1 pg/mL [facility] 05/03/2025 2:17 PM EDT 05/03/2025 2:17 PM EDT Generic External Data Provider LAB BLOOD ORDERAB LES Final Result Performing Organization Address [facility]/ZIP Co de Phone Number [facility] [address] [place] [phone] * (ABNORMAL) Comprehensive Metabolic Panel (05/03/2025 2:17 PM EDT) Only the most recent of2 resultswithin the time period is included. Sodium 141 135 - 145 mmol/L [facility] Potassium 3.2(L) 3.3 - 5.1 mmol/L [facility] Chloride 108 96 - 108 mmol/L [facility] Carbon Dioxide 24 22 - 29 mmol/L [facility] Anion Gap 12 12 - 20 [facility] Urea Nitrogen (BUN) 10 9 - 16 mg/dL [facility] Creatinine, Serum 0.78 0.5 - 1.4 mg/dL [facility] Estimated Glomerular Filt Rate >60 [facility] Comment:Chronic Kidney Disea se: Estimated GFR < 60 mL/min/[id number] Kidney Disease: Estimated GFR < 15 mL/min/1.73m2 Glucose 76 60 - 115 mg/dL [facility] Calcium 8.0(L) 8.4 - 10.2 mg/dL [facility] Bilirubin, Total 0.5 0.0 - 1.0 mg/dL [facility] Aspartate Amino Transferase 30 5 - 31 U/L [facility] Alanine Aminotransferase 32(H) 0 - 31 U/L [facility] Total Protein 7.3 6.5 - 8.0 g/dL [facility] Albumin Level 4.4 3.5 - 5.0 g/dL [facility] Alkaline Phosphatase 140(H) 39 - 117 U/L [facility] 05/03/2025 2:17 PM EDT 05/03/2025 2:17 PM EDT us Generic External Data Provider LAB BLOOD ORDERAB LES Final Result [facility] [address] [place] [phone] * Phosphate (As Phosphorus) (04/16/2025 10:30 AM EDT) Phosphorus 3.5 2.7 - 4.5 mg/dL [facility] Blood Venous blood specimen / Unknown 04/16/2025 10:30 AM EDT 04/16/2025 11:52 AM EDT us Silas Harding ANP LAB BLOOD ORDERABLES Final Resul t Performing Organization Address City/[facility]/ZIP Co de Phone Number [facility] [address] [place] [phone] [phone] * Magnesium (04/16/2025 10:30 AM EDT) Magnesium 1.8 1.6 - 2.6 mg/dL [facility] Blood Venous blood specimen / Unknown 04/16/2025 10:30 AM EDT 04/16/2025 11:52 AM EDT Silas Harding ANP LAB BLOOD ORDERABLES Final Resul t Performing Organization Address [facility] Co de Phone Number [facility] [address] [place] [address] [phone] * (ABNORMAL) Basic Metabolic Panel (04/16/2025 10:30 AM EDT) Only the most recent of3 resultswithin the time period is included. Sodium 144 135 - 145 mmol/L [facility] Potassium 3.3 3.3 - 5.1 mmol/L [facility] Chloride 108 96 - 108 mmol/L [facility] Carbon Dioxide 27 22 - 29 mmol/L [facility] Anion Gap 12 12 - 20 [facility] Urea Nitrogen (BUN) 12 9 - 16 mg/dL [facility] Creatinine, Serum 0.83 0.5 - 1.4 mg/dL [facility] Estimated Glomerular Filt Rate >60 [facility] Comment:Chronic Kidney Disea se: Estimated GFR < 60 mL/min/1.02w6Ewmkin Kidney Disease: Estimated GFR < 15 mL/min/1.73m2 Glucose 77 60 - 115 mg/dL [facility] Calcium 7.5(L) 8.4 - 10.2 mg/dL [facility] Blood Venous blood specimen / Unknown 04/16/2025 10:30 AM EDT 04/16/2025 11:52 AM EDT Silas Harding ANP LAB BLOOD ORDERABLES Final Resul t [facility] [address] [place] [address] [phone] * Mammography (04/06/2025 2:46 PM EDT) HM Mammogram BIRADS 2 Normal, Abnormal, BIRADS 1 , BIRADS 2 Anatomical Region Laterality Modality Other Historical Provider HEALTH MAINTENANCE Final Result * BI Mammogram Screening Tomosynthesis Bilateral (04/01/2025 10:30 AM EDT) Anatomical Region Laterality Modality Breast Bilateral Mammography 04/01/2025 10:3 0 AM EDT Narrative 04/06/2025 12:04 PM EDT [address] [place] [address] Mammography Report Signed Patient: Nancy Agudelo MR#: [id number] 1 : 1970 Acct:[id number] Age/Sex: 55 / F ADM Date: 04/01/25 Loc: HO.MAMMO Attending Dr: Silas Harding NP Ordering Physician: SILAS HARDING NP Results: 2Benign Jesse reynolds Date of Service: 04/01/25 Follow Up: 1 Year From [facility] ina Mammogram Procedure(s): MM tomosynthesis screening BI Accession Number(s): [id number] cc: SILAS HARDING NP EXAMINATION: MM SCREENING [...] 04/06/25 1201 DD/ 1030 TD/TT: 04/01/25 1045 Spray Drier Operator: Procedure Note Donotuseinterpreter, Image - 04/06/2025 [facility] [address] [place] [address] Mammography Report Signed Patient: Nancy Agudelo RMR#: [id number] 1 : 1970Acct:[id number] Age/Sex: 55 / FADM Date: 04/01/25 Loc: HO.MAMMO Attending Dr: Silas Harding NP Ordering Physician: SILAS HARDING NPResults: 2Benign Jesse reynolds Date of Service: 04/01/25Follow Up: 1 Year From Orig inal Mammogram Procedure(s): MM tomosynthesis screening BI Accession Number(s): [id number] cc: SILAS HARDING NP EXAMINATION: MM SCREENING [...] 04/06/25 1201 DD/ 1030 TD/TT: 04/01/25 1045 Spray Drier Operator: us Silas Harding ANP IMG BI PROCEDURES Final Result * Vitamin D, 25-Hydroxy, Total, Immunoassay (03/25/2025 2:07 PM EDT) Vitamin D 25-OH Total 49.1 >30 ng/mL [facility] Comment: Health Based Reference Values*< 20 ng/mL Coudroqjy38-50 ng/mL Insufficient> 30 ng/mL Sufficient*Raul ABARCA. N [...] ANP LAB BLOOD ORDERABLES Final Resul t [facility] [address] [place] [phone] * Albumin, Random Urine W/Creatinine (03/15/2025 3:19 PM EDT) Pathologist [facility] Creatinine, Urine 54.19 mg/dL [facility] Microalbumin Urine 6.0 mg/L [facility] Microalbum Creatinine Ratio Ur 11.0 <30 ug/mg cr [facility] Comment:Albumin/Creatinine R atio Reference Ranges: Normal: < 30 ug/mg creatinine Microalbuminuria: 30 - 300 ug/mg creatinineClinical Albuminuria: > 300 ug/mg creatinine Urine (Urine, Random) 03/15/2025 3:19 PM EDT 03/15/2025 4:06 PM EDT [facility] LAB URINE ORDERABLES Final Resul t Performing Organization Address [facility]/ZIP Co de Phone Number [facility] [address] [place] [phone] * (ABNORMAL) CBC auto differential (03/15/2025 3:19 PM EDT) [facility] White Blood Count 7.0 4.8 - 10.8 X10*3/uL [facility] Red Blood Count 4.24 4.20 - 5.50 X10*6/uL [facility] Hemoglobin 11.8(L) 12.0 - 16.0 g/dl [facility] Hematocrit 36.5(L) 37.0 - 47.0 % [facility] Mean Corpuscular Volume 86.1 80.0 - 98.0 fL [facility] Mean Corpuscular Hemoglobin 27.8 27.0 - 33.0 pg [facility] Mean Corpuscular HGB Conc 32.3 31.0 - 35.0 g/dl [facility] Red Cell Distribution Width 14.7 11.0 - 16.0 % [facility] Platelet Count 212 160 - 400 X10*3/uL [facility] Mean Platelet Volume 11.9 9.4 - 12.3 fL [facility] Neutrophils Percent Auto 55.7 45 - 73 % [facility] Imm Gran Pct Auto 0.3 0.0 - 0.4 % [facility] Lymphocytes Percent Auto 36.0 20 - 40 % [facility] Monocytes Percent Auto 6.8 2 - 11 % [facility] Eosinophils Percent Auto 0.6 0 - 4 % [facility] Basophils Percent Auto 0.6 0 - 2 % [facility] NRBC Pct Auto 0.0 0.0 - 0.2 /100WBC [facility] Neutrophils Absolute Auto 3.9 2.0 - 8.3 x10*3/uL [facility] Imm Gran Abs Auto 0.02 0.00 - 0.03 X10*3/uL [facility] Lymphocytes Absolute Auto 2.5 1.2 - 4.9 X10*3/uL [facility] Monocytes Absolute Auto 0.5 0.1 - 1.2 X10*3/uL [facility] Eosinophils Absolute Auto 0.0 0.0 - 0.4 X10*3/uL [facility] Basophils Absolute Auto 0.0 0.0 - 0.2 X10*3/uL [facility] NRBC Abs Auto 0.000 0.0 - 0.012 X10*3/uL [facility] Blood Venous blood specimen / Unknown 03/15/2025 3:19 PM EDT 03/15/2025 4:06 PM EDT Silas Harding [facility] LAB BLOOD ORDERABLES Final Resul t [facility] [address] [place] [phone] * Iron And Total Iron Binding Capacity (03/15/2025 3:19 PM EDT) Iron 56 30 - 160 mcg/dL [facility] Total Iron Binding Capacity 235 228 - 428 mcg/dL [facility] Percent Iron Saturation 24 15 - 50 % [facility] Unsaturated Iron Binding 179 ug/dL [facility] Blood Venous blood specimen / Unknown 03/15/2025 3:19 PM EDT 03/15/2025 4:06 PM EDT Silas Harding [facility] LAB BLOOD ORDERABLES Final Resul t Performing Organization Address [facility] Co de Phone Number [facility] [address] [place] [phone] * Hepatitis B surface antigen, EIA (03/15/2025 3:19 PM EDT) Hepatitis B Surface Ag Negative Negative [facility] Blood Venous blood specimen / Unknown 03/15/2025 3:19 PM EDT 03/15/2025 4:06 PM EDT Silas Harding [facility] LAB BLOOD ORDERABLES Final Resul t Performing Organization Address [facility] Co de Phone Number [facility] [address] [place] [phone] * Hepatitis B Core Antibody, Total (03/15/2025 3:19 PM EDT) Pathologist [facility] Hepatitis B Core Antibody Nonreactive Nonreactive [facility] Blood Venous blood specimen / Unknown 03/15/2025 3:19 PM EDT 03/15/2025 4:06 PM EDT Silas Harding [facility] LAB BLOOD ORDERABLES Final Resul t Performing Organization Address [facility] de Phone Number [facility] [address] [place] [phone] * Hepatitis B Surface Antibody, Qualitative (03/15/2025 3:19 PM EDT) ~Hepatitis B Surface Antibody NONREACTIVE Nonreactive [facility] Comment:Nonreactive: < 8.00 mIU/mL Blood Venous blood specimen / Unknown 03/15/2025 3:19 PM EDT 03/15/2025 4:06 PM EDT Slias Harding ANP LAB BLOOD ORDERABLES Final Resul t Performing Organization Address [facility] Co de Phone Number [facility] [address] [place] [phone] * Prothrombin Time-INR (03/15/2025 3:19 PM EDT) Prothrombin Time 12.2 10.9 - 12.4 SEC [facility] INTERNATIONAL NORM RATIO 1.1 0.9 - 1.1 [facility] Comment:INTERNATIONAL NORMAL IZED RATIO (INR) [...] ORDERABLES Final Resul t Performing Organization Address [facility] Co de Phone Number [facility] [address] [place] [phone] * Ferritin (03/15/2025 3:19 PM EDT) Ferritin 144 10 - 250 ng/mL [facility] Blood Venous blood specimen / Unknown 03/15/2025 3:19 PM EDT 03/15/2025 4:06 PM EDT Silas Harding ANP LAB BLOOD ORDERABLES Final Resul t Performing Organization Address [facility] Co de Phone Number [facility] [address] [place] [phone] * POCT HGB A1C (03/15/2025 3:14 PM EDT) [facility] Hemoglobin A1C 5.6 4.0 - 5.7 % QC Media Lot # [id number] Lot# Expiration Date Blood 03/15/2025 3:14 PM EDT [facility] Pura [facility] POINT OF CARE TEST ENTER/EDIT OR DERABLES Final Result * POCT Glucose (03/15/2025 3:14 PM EDT) [facility] Glucose Blood, POC 81 60 - 200 mg/dL [employer] Lot # [id number] Lot# Expiration Date Blood Capillary blood specimen / Unknown 03/15/2025 3:14 PM EDT Silas Harding [facility] POINT OF CARE TEST ENTER/EDIT OR DERABLES Final Result * Colonoscopy (07/02/2024) [facility] Colonoscopy Normal Normal Narrative Gay Berkowitz - 07/02/2024 colonoscopy order added [facility] Provider HEALTH MAINTENANCE Final Result * [facility] Pap and HPV mRNA E6/E7 (03/19/2024 2:04 PM EDT) [facility] HPV nRNA E6/E7 Not Detected Not Detected [facility] Comment:Methodology: Transcr iption-Mediated AmplificationThis assay detects E6/E7 viral messenger RNA (mRNA) from 14high-risk HPV types (16,18,31,33,35,39,45,51,52,56,58,59,66,68).Cervical sources are required for HPV testing.If a vaginal source from a patient who has had atotal hysterectomy with removal of cervix wassubmitted, please contact the testing laboratoryfor alternative testing options.For additional information, please refer tohttp://education.WakeMate/faq/OZF115a4(This link if provided for information/educational purposes only.)THIS TEST WAS PERFORMED AT:[facility] [address] [phone] RIOS MD SOURCE: SEE NOTE [facility] Comment:None given Report Status: [facility] Clinical Information: SEE NOTE [facility] Comment:None given LMP: SEE NOTE [facility] Comment:NONE GIVEN Prev. PAP: SEE NOTE [facility] Comment:NONE GIVEN Prev. BX: SEE NOTE [facility] Comment:NONE GIVEN Statement Of Adequacy: SEE NOTE [facility] Comment:Satisfactory for mario luation.Endocervical/transformation zone component absent. General Categorization: [facility] Interpretation/Result: SEE NOTE [facility] Comment:Cytology Results: Ne gative for intraepitheliallesion or malignancy. Cytology Comment SEE NOTE [facility] Comment:This Pap test has be en evaluated with computerassisted technology. Manager Fire: SEE NOTE [facility] Comment:[place]OLD[place], CT(ASCP)CT scre ening location: [address] [address] Review Manager Fire: [facility] Pathologist [facility] PAP Infection [facility] See Note SEE NOTE [facility] Comment:EXPLANATORY NOTE:The Pap is a screening test for cervical cancer. It isnot a diagnostic test and is subject to false negativeand false positive results. It is most reliable when asatisfactory sample, regularly obtained, is submittedwith relevant clinical findings and history, and whenthe Pap result is evaluated along with historic andcurrent clinical information. 03/19/2024 2:04 PM EDT 03/19/2024 5:54 PM EDT Narrative [facility] - 03/25/2024 3:00 PM EDT SEE SCANNED RESULTS IN EMR us Lizzy THOMPSON LAB PATHOLOGY ORDERABLES Final Result [facility] [address] [place] [address] [phone] * (ABNORMAL) Lipid Panel, Standard (12/19/2023 10:20 AM EDT) Triglycerides 115 <150 mg/dL [facility] Comment:Desirable Triglyceri de: less than 150 mg/dLBorderline High Triglyceride 150-199 mg/dLHigh Triglyceride: 200-499 mg/dLVery High Triglyceride: greater than or equal to 5OO mg/dL Cholesterol 192 <200 mg/dL [facility] Comment:Desirable Cholestero l: less than 200 mg/dLBorderline High Cholesterol: 200-239 mg/dLHigh Cholesterol: greater than 239 mg/dL LDL Cholesterol Calculated 109(H) <100 mg/dL [facility] Comment:Desirable LDL: less than 100 mg/dLNear Optimal/Above Optimal LDL: 110- 129 mg/dLBorderline High LDL: 130-159 mg/dLHigh LDL: 160-189 mg/dLVery High LDL: greater than or equal to 190 mg/dL HDL Cholesterol 60 >40 mg/dL [facility] Comment:Desirable HDL: great er than 40 mg/dL Note: This HDL assay may give artificially low results in patients with liver disease. Blood Venous blood specimen / Unknown 12/19/2023 10:20 AM EDT 12/19/2023 11:34 AM EDT [facility] LAB BLOOD ORDERABLES Final Resul t [facility] [address] [place] [phone] * HEPATITIS C AB W/REFL TO HCV RNA, QN, PCR (06/03/2020 9:27 AM EDT) HEPATITIS C ANTIBODY NON-REACT [facility] NON-REACT [facility] INDEX 0.02 <1.00 [facility] Comment: HCV antibody was non-reactive. There is no laboratory evidence of HCV infection. In most cases, no further action is required. However, if recent HCV exposure is suspected, a test for HCV RNA (test code 34288) is suggested. For additional information please refer to http://education.WakeMate/faq/NIK07a6 (This link is being provided for informational/ educational purposes only.) HEPATITIS C ANTIBODY NON-REACT JOVANNY NON-REACT JOVANNY [facility] INDEX 0.02 <1.00 [facility] Comment: HCV antibody was non-reactive. There is no laboratory evidence of HCV infection. In most cases, no further action is required. However, if recent HCV exposure is suspected, a test for HCV RNA (test code 89821) is suggested. For additional information please refer to http://BodeTree.WakeMate/faq/OCU59j7 (This link is being provided for informational/ educational purposes only.) HEPATITIS C ANTIBODY NON-REACT JOVANNY NON-REACT [facility]NY [facility] INDEX 0.02 <1.00 [facility] Comment: HCV antibody was non-reactive. There is no laboratory evidence of HCV infection. In most cases, no further action is required. However, if recent HCV exposure is suspected, a test for HCV RNA (test code 88620) is suggested. For additional information please refer to http://Eye-Pharma/faq/BGY50u7 (This link is being provided for informational/ educational purposes only.) 06/03/2020 9:27 AM EDT us Silas [facility] HISTORICAL/NON ORDERABLE LABS Fi nal Result [facility] [address] * HIV 1/2 ANTIGEN/ANTIBODY,FOURTH GENERATION W/RFL (06/03/2020 9:27 AM EDT) HIV-1/2 ANTIGEN AND ANTIBODIES, 4TH GENERATION W/ REFLEX NON-REACT JOVANNY NON-REACT JOVANNY [facility] Comment: HIV-1 antigen and HIV-1/HIV-2 [...] purpose. For additional information please refer to http://BodeTree.WakeMate/faq/CRQ768 (This link is being provided for informational/ [...] purpose. For additional information please refer to http://BodeTree.WakeMate/faq/BEE493 (This link is being provided for informational/ [...] purpose. For additional information please refer to http://BodeTree.WakeMate/faq/VBR727 (This link is being provided for informational/ educational purposes only.) The performance of this assay has not been clinically validated in patients less than 2 years old. 06/03/2020 9:27 AM EDT us Silas Harding ANP LAB BLOOD ORDERABLES Final Resul t [facility] [address] from Last 3 Months or Most Recently Relevant to Health Maintenance Insurance [facility] DENTAL - HSN PARTIAL (MEDICAID) Care Teams Strategic Advisor Relationship Specialty Start Date End Date Silas Harding ANP [address] [place] [address] PCP - General Family Medicine 04/18/20
--- OUTSIDE RECORDS SUMMARY | 2025-05-31 13:23 | XMS_ITS | Encounter Summary ---
Author Organization [employer] Address [address] 7[address] [place] [address] Care Team Providers Care Weather Analyst Name Role Phone Bibi Neves Primary Care Provider [phone] Reason for Visit * Reason Onset Date Comments Results 05/04/2025 Encounter Details Date Type Department Care Team (Latest Contact Info) Description 05/04/2025 Results Follow-Up [facility] MEDICINE [address] [place], [place] [phone] Bibi Neves ANP [address] [place] [address] Comprehensive Metabolic Panel, PTH, Intact Without Calcium [...] as of this encounter Miscellaneous Notes * Result Encounter Note - JENNIFER Monsalve - 05/18/2025 3:06 PM EDT Per Endo note, pt will be given potassium supplement when she starts hydrochlorothiazide again. 05/14/25 Restart calcium carbonate 500mg BID Continue Vitamin D 1000 IU Give HCTZ 12.5 mg daily KCL 20 meq/day for hypokalemia Repeat BMP in 1 week Pending DEXA * Telephone Encounter - Hailey Cantu RN - 05/05/2025 9:16 AM EDT TC placed to the pt with S computer education professor #[id number] to inquire if endocrinology has reached out [...] Description 06/18/2025 1:30 PM EDT Office Visit [facility] MEDICINE [address] [place] [address] Bibi Neves ANP [address] [place] [address] 11/03/2025 1:30 PM EDT Office Visit [facility] ADULT DENTAL [address] [place], [place] [phone] Erik Garciaaris [address] [place] [address] documented as of this encounter Visit Diagnoses Diagnosis Post-surgical hypoparathyroidism- Primary documented in this encounter Additional Health Concerns Assessment Noted Time PHQ-9 Depression Total Score: 0 10/14/19 25 3:47 PM EST documented as of this encounter Care Teams Weather Analyst Relationship Specialty Start Date End Date Bibi Neves ANP [address] [place] [address] PCP - General Family Medicine 04/18/20 documented as of this encounter
--- OUTSIDE RECORDS SUMMARY | 2025-05-31 13:24 | XMS_ITS | Encounter Summary ---
Author Organization [employer] Address [address] 7[address] [place] [address] Care Team Providers Care Structural Steel Painter Name Role Phone Bibi Neves Primary Care Provider [phone] Encounter Details Date Type Department Care Team (Late st Contact Info) Description 04/06/2025 Abstract [facility] MEDICINE [address] [place], [place] [phone] Bibi Neves ANP [address] [place], [place] [phone] Social History Tobacco Use Types Packs/Day Years [...] Visit [facility] MEDICINE [address] [place] [address] Bibi Neves ANP [address] [place] [address] 11/03/2025 1:30 PM EDT Office Visit [facility] ADULT DENTAL [address] [place] [address] Humaira Garcia [address] [place] [address] documented as of this encounter Procedures Procedure [...] documented as of this encounter Care Teams Structural Steel Painter Relationship Specialty Start Date End Date Bibi Neves ANP [address] [place] [address] PCP - General Family Medicine 04/18/20 documented as of this encounter
--- OUTSIDE RECORDS SUMMARY | 2025-05-31 13:24 | XMS_ITS | Clinical Summary ---
Author Organization [facility] Address [address] [place] [address] Phone Care Team Providers Care Pararescue Craftsman Name Role Phone Bibi Neves NP Primary Care Provider [phone] Social History Tobacco Use Types Packs/Day Years [...] Last Done Comments Breast Cancer Screening 1969 Colorectal Cancer Screening: Colonoscopy 1969 Cervical Cancer Screening: Pap Smear 1990 Hepatitis B Vaccines (2 of 3 - 19+ 3-dose series) 07/07/2012 06/09/2012 Hepatitis C Screening 07/28/2024 Social Influencers of [...] age to complete this topic Insurance , [address] [id number] [facility] Care Teams Pararescue Craftsman Relationship Specialty Start Date End Date Bibi Neves NP [address] [place] [phone] PCP - General 07/28/24
[2025-05-31 14:33] LABS: Alanine Aminotransferase 22 U/L (0-31); Albumin Level 4.6 g/dL (3.5-5.0); Alkaline Phosphatase 117 U/L (39-117); Anion Gap 13 (12-20); Aspartate Amino Transferase 28 U/L (5-31); Blood Urea Nitrogen 16 mg/dL (9-16); Calcium 8.6 mg/dL (8.4-10.2); Carbon Dioxide 27 mmol/L (22-29); Chloride 105 mmol/L (96-108); Estimated Glomerular Filt Rate > 60; Magnesium 1.8 mg/dL (1.6-2.6); Potassium 3.6 mmol/L (3.3-5.1); Sodium 141 mmol/L (135-145); Total Protein 7.6 g/dL (6.5-8.0)
== END 2025-05-31 13:20 | disposition home or self-care (01) ==
LOC: HO.LAB 13:19
PROVIDERS: PCP Nurse Practitioner Primary Care; Visit Provider Student in an Organized Health Care Education/Training Program
DX: E89.2 Postprocedural hypoparathyroidism (principal)
CPT/HCPCS: 36415; 80053; 83735; 84100

== ENCOUNTER 2025-06-03 13:48 | Outpatient (AMB) | payer OTHER, SELFPAY ==
--- NOTE | 2025-06-03 13:50 | MHC.OFFVIS ---
Vital Signs 06/03/25 13:57 Height 4 ft 10 in Weight 148 lb BMI 30.9 BP 109/58 L Blood Pressure Location Lt brachial Position Sitting Pulse 79 Intake Visit Reasons: hemorrhoids Intake Note: Patient was referred by Iris Lazar NP for an assessment for hemorrhoids. Pt c/o; on and off bleeding after BM. Hx of hemorrhoids since last child . Phlebotomy Technician Required: Yes Phlebotomy Technician Language: Bridge Tender Services: Phlebotomy Technician Present Phlebotomy Technician Name: Pepper GARCIA Information Interpreted: non-clinical & clinical (Pepper GARCIA) Accompanied by: Self / Same As Patient Allergies No Known Allergies (No Known Allergies*) Allergy (Verified 06/03/25 13:55) Medication List - Last Reconciled 06/03/25 by Ibrahima Galvan MD allopurinol 100 mg PO QAM 90 days amlodipine 5 mg PO DAILY aspirin (Adult Low Dose Aspirin) 81 mg PO DAILY calcium carbonate-vitamin D3 500 mg-5 mcg (200 unit) 1 tab PO BID 30 days cholecalciferol (vitamin D3) 1,000 units PO DAILY 30 days hydrochlorothiazide 12.5 mg PO DAILY hydrocortisone 2.5% (Proctosol HC) 1 appl TN BID lisinopril 20 mg PO DAILY potassium chloride ER 20 mEq (2 x 10 mEq) PO DAILY psyllium husk (Reguloid (psyllium husk)) 0.4 grams PO BID pyridoxine (vitamin B6) 50 mg PO QAM 90 days sennosides (Senna Laxative) 8.6 mg PO BID tirzepatide (weight loss) (Zepbound) mg subcut HPI HPI hemorrhoids: Details: 65 year female old referred for bleeding hemorrhoids. She says that she has a this problem for about 2 years now. She says that this happens mostly with bowel movements. She says that sometimes this can be heavy. Denies any significant pain. She had a colonoscopy last year and she was told she had hemorrhoids. She also had a small polyp removed. She says she is healthy otherwise. [facility] Medical History (Updated 06/03/25 @ 14:22 by Ibrahima Galvan MD) Bleeding hemorrhoids Upper respiratory infection Pre-op examination Multinodular thyroid Prediabetes Obesity Hydronephrosis concurrent with and due to calculi of kidney and ureter Recurrent nephrolithiasis Disorder of bone density and structure, unspecified Vitamin D deficiency Osteopenia Tubular adenoma of colon Carpal tunnel syndrome Obesity (BMI 30-39.9) Post-surgical hypoparathyroidism Surgical History Hx of cystoscopy History of bladder surgery Hx of parathyroidectomy Hx of colonoscopy (~05/2023) Hx of tubal ligation Hx of cholecystectomy Hx of hysterectomy Family History Father Diabetes mellitus Mother No problems noted. Social History Household Members: Children Are you a primary child care giver to a significant other at home: No Do you presently have visiting nurse or other home services: No Alcohol intake: never Patient Tobacco Use Status: Never used Tobacco Review of Systems Const Denies chills and Denies fever(s) Card Denies chest pain, Denies dyspnea and Denies dyspnea on exertion Resp Denies cough, Denies dyspnea and Denies dyspnea on exertion GI Reports hematochezia and Denies change in bowel habits Denies hematuria Musc Denies back pain and Denies limited range of motion Neuro Denies focal weakness and Denies convulsions Psych Denies depression and Denies mood swings Physical Exam Vital Signs: Last Vital Signs Pulse 79 06/03/25 13:57 BP 109/58 L 06/03/25 13:57 BMI result Body Mass Index 30.9 Const General: comfortable and no acute distress Orientation/consciousness: patient oriented x3 Neck Neck: Yes no lymphadenopathy Resp Auscultation: clear to auscultation bilaterally Cardio Rhythm: regular rhythm GI Other: Rectal exam shows external hemorrhoids Palpation (GI): Soft to palpation, nontender and no guarding Neuro General: patient oriented x3 Office Procedures Anoscopy She was in kneeling dory-knife position. The anoscope was gently inserted. A full examination of the anal canal was done. She did have mixed internal external hemorrhoids which appeared to be moderate-sized. There was no active bleeding. There was no fissure ulceration. There were no lesions. There was no induration on digital exam [id number] Assessment & Plan Assessment & Plan (1) Bleeding hemorrhoids: Code(s): K64.9 - Unspecified hemorrhoids Category: Medical Plan: She says that her pain has been increasingly bothersome to her. I explained the technique of exam under anesthesia hemorrhoidectomy. I reviewed the risks including but not limited to bleeding, infections, postop pain, sphincter dysfunction, as well as the benefits and alternatives. I reviewed with her what to expect postoperatively She says she understands and wants to proceed. We will schedule her for exam under anesthesia and hemorrhoidectomy. Coding Level of Care Code New Pt Level 3 (28461) Diagnoses Bleeding hemorrhoids K64.9 CPT Codes Details - CPT: 31957-[id number] ([id number])
[2025-06-03 13:57] VITALS: BP 109/58; PULSE 79; BMI 30.9
--- OUTSIDE RECORDS SUMMARY | 2025-06-03 17:33 | XMS_ITS | Encounter Summary ---
Author Organization [employer] [facility] Address [address] 7t [place] [address] Care Team Providers Care Store Specialist Name Role Phone Bibi Neves Primary Care Provider [phone] Reason for Visit * Reason Comments Med Refill Encounter Details Date Type Department Care Team (Late Contact Info) Description 02/17/2023 Refill [facility] MEDICINE [address] [place] [address] Bibi Neves ANP [address] [place] [address] Social History Tobacco Use Types Packs/Day Years [...] 06/18/2025 1:30 PM EDT Office Visit [facility] MEDICINE [address] [place] [address] Bibi Neves ANP [address] [place] [address] 11/03/2025 1:30 PM EDT Office Visit [facility] ADULT DENTAL [address] [place] [address] Humaira Garcia [address] [place] [address] documented as of this encounter Visit Diagnoses Not on filedocumented in this encounter Care Teams Store Specialist Relationship Specialty Start Date End Date Bibi Neves ANP [address] [place] [address] PCP - General Family Medicine 04/18/20 documented as of this encounter
--- OUTSIDE RECORDS SUMMARY | 2025-06-03 17:33 | XMS_ITS | Encounter Summary ---
Author Organization [employer] Address [address] [place] [address] Care Team Providers Care Retail Wireless Sales Consultant Name Role Phone Bibi Neves JENNIFER Primary Care Provider [phone] Encounter Details Date Type Department Care Team (Late st Contact Info) Description 09/22/2024 Orders Only [facility] MEDICINE [address] [place] [address] Nilesh Marte, LaniD Social History Tobacco Use [...] the past 12 months, has t he too.me, [facility], oil or water company threatened to shut [...] Description 06/18/2025 1:30 PM EDT Office Visit [facility] MEDICINE [address] [place] [address] Bibi Neves ANP [address] [place] [address] 11/03/2025 1:30 PM EDT Office Visit [facility] ADULT DENTAL [address] [place] [address] Radha, Humaira [address] [place] [address] documented as of this encounter Visit Diagnoses Not on filedocumented in this encounter Additional Health Concerns Assessment Noted Time PHQ-9 Depression Total Score: 2 12/19/19 24 10:14 AM EDT documented as of this encounter Care Teams Retail Wireless Sales Consultant Relationship Specialty Start Date End Date Bibi Neves ANP [address] [place] [address] PCP - General Family Medicine 04/18/20 documented as of this encounter
--- OUTSIDE RECORDS SUMMARY | 2025-06-03 17:33 | XMS_ITS | Encounter Summary ---
Author Organization [employer] Address [address] [place] [address] Care Team Providers Care Electrical And Radio Aircraft Mechanic Name Role Phone Bibi Neves JENNIFER Primary Care Provider [phone] Encounter Details Date Type Department Care Team (Late st Contact Info) Description 05/31/2025 Orders Only GENERIC EXTERNAL DATA DEPARTMENT Provider, [...] Description 06/18/2025 1:30 PM EDT Office Visit [facility] MEDICINE [address] [place] [address] Bibi Neves ANP [address] [place] [address] 11/03/2025 1:30 PM EDT Office Visit [facility] ADULT DENTAL [address] [place] [address] Radha, Humaira [address] [place] [address] documented as of this encounter Procedures Procedure Name Priority Date/Time Associated Diagnosis Comments PHOSPHATE ( PHOSPHORUS) Routine 05/31/2025 1:30 PM EDT MAGNESIUM Routine 05/31/2025 1:30 PM EDT COMPREHENSIVE METABOLIC PANEL Routine 05/31/2025 1:30 PM EDT documented in this encounter Results * Magnesium (05/31/2025 1:30 PM EDT) Magnesium 1.8 1.6 - 2.6 mg/dL [facility] 05/31/2025 1:30 PM EDT 05/31/2025 1:30 PM EDT us Generic External Data Provider LAB BLOOD ORDERAB LES Final Result [facility] [address] [place] [address] [phone] * Phosphate (As Phosphorus) (05/31/2025 1:30 PM EDT) Phosphorus 4.1 2.7 - 4.5 mg/dL [facility] 05/31/2025 1:30 PM EDT 05/31/2025 1:30 PM EDT us Generic External Data Provider LAB BLOOD ORDERAB LES Final Result [facility] [address] [place] [address] [phone] * Comprehensive Metabolic Panel (05/31/2025 1:30 PM EDT) Sodium 141 135 - 145 mmol/L [facility] Potassium 3.6 3.3 - 5.1 mmol/L [facility] Chloride 105 96 - 108 mmol/L [facility] Carbon Dioxide 27 22 - 29 mmol/L [facility] Anion Gap 13 12 - 20 [facility] Urea Nitrogen (BUN) 16 9 - 16 mg/dL [facility] Creatinine, Serum 0.80 0.5 - 1.4 mg/dL [facility] Estimated Glomerular Filt Rate >60 [facility] Comment:Chronic Kidney Disea se: Estimated GFR < 60 mL/min/1.75u3Pzossp Kidney Disease: Estimated GFR < 15 mL/min/1.73m2 Glucose 86 60 - 115 mg/dL [facility] Calcium 8.6 8.4 - 10.2 mg/dL [facility] Bilirubin, Total 0.3 0.0 - 1.0 mg/dL [facility] Aspartate Amino Transferase 28 5 - 31 U/L [facility] Alanine Aminotransferase 22 0 - 31 U/L [facility] Total Protein 7.6 6.5 - 8.0 g/dL [facility] Albumin Level 4.6 3.5 - 5.0 g/dL [facility] Alkaline Phosphatase 117 39 - 117 U/L [facility] 05/31/2025 1:30 PM EDT 05/31/2025 1:30 PM EDT us Generic External Data Provider LAB BLOOD ORDERAB LES Final Result [facility] [address] [place] [address] [phone] documented in this encounter Visit Diagnoses Not on filedocumented in this encounter Additional Health Concerns Assessment Noted Time PHQ-9 Depression Total Score: 0 10/14/19 25 3:47 PM EST documented as of this encounter Care Teams Electrical And Radio Aircraft Mechanic Relationship Specialty Start Date End Date Bibi Neves ANP [address] [place] [address] PCP - General Family Medicine 04/18/20 documented as of this encounter
--- OUTSIDE RECORDS SUMMARY | 2025-06-03 17:33 | XMS_ITS | Encounter Summary ---
Author Organization [employer] Address [address] [place] [address] Care Team Providers Care Shop Lead Name Role Phone Bibi Neves Primary Care Provider [phone] Reason for Visit * Reason Onset Date Comments Results 05/04/2025 Encounter Details Date Type Department Care Team (Latest Contact Info) Description 05/04/2025 Results Follow-Up [facility] MED[facility] [address] [place], [place] [phone] Bibi Neves ANP [address] [place], [place] [phone] Comprehensive Metabolic Panel, PTH, Intact Without Calcium [...] TC placed to the pt with S butcher chicken and fish #[id number] to inquire if endocrinology has reached out [...] Description 06/18/2025 1:30 PM EDT Office Visit [facility] [address] [place] [address] Bibi Neves ANP [address] [place] [address] 11/03/2025 1:30 PM EDT Office Visit [facility] ADULT DENTAL [address] [place], [place] [phone] Erik Garciaaris [address] [place] [address] documented as of this encounter Visit Diagnoses Diagnosis Post-surgical hypoparathyroidism- Primary documented in this encounter Additional Health Concerns Assessment Noted Time PHQ-9 Depression Total Score: 0 10/14/19 25 3:47 PM EST documented as of this encounter Care Teams Shop Lead Relationship Specialty Start Date End Date Bibi Neves ANP [address] [place] [address] PCP - General Family Medicine 04/18/20 documented as of this encounter
--- OUTSIDE RECORDS SUMMARY | 2025-06-03 17:33 | XMS_ITS | Encounter Summary ---
Author Organization [employer] [facility] Address [address] 7t [place] [address] Care Team Providers Care Ocean Freight Agent Name Role Phone Bibi Neves Primary Care Provider [phone] Encounter Details Date Type Department Care Team (Late st Contact Info) Description 11/12/2022 Orders Only [facility] [address] [place] [address] Sharonda Gotti LPN Social History Tobacco Use [...] Description 06/18/2025 1:30 PM EDT Office Visit [facility] MEDICINE [address] [place] [address] Bibi Neves ANP [address] [place] [address] 11/03/2025 1:30 PM EDT Office Visit [facility] ADULT DENTAL [address] [place] [address] Erik Garciaaris [address] [place] [address] documented as of this encounter Visit Diagnoses Not on filedocumented in this encounter Care Teams Ocean Freight Agent Relationship Specialty Start Date End Date Bibi Neves ANP [address] [place] [address] PCP - General Family Medicine 04/18/20 documented as of this encounter
--- OUTSIDE RECORDS SUMMARY | 2025-06-03 17:33 | XMS_ITS | Encounter Summary ---
Author Organization [facility] Address [address] [place] [address] Care Team Providers Care Fence Maker Name Role Phone Bibi Neves Primary Care Provider [phone] Encounter Details Date Type Department Care Team (Latest Contact Info) Description 06/05/[address] [facility] CONVERSIONS Dental, Provider, DDS Social History [...] 06/18/2025 1:30 PM EDT Office Visit [facility] MEDICINE [address] [place] [address] Bibi Neves ANP [address] [place] [address] 11/03/2025 1:30 PM EDT Office Visit [facility] ADULT DENTAL [address] [place] [address] Humaira Garcia [address] [place] [address] documented as of this encounter Visit Diagnoses Not on filedocumented in this encounter Care Teams Fence Maker Relationship Specialty Start Date End Date Bibi Neves ANP [address] [place] [address] PCP - General Family Medicine 04/18/20 documented as of this encounter
--- OUTSIDE RECORDS SUMMARY | 2025-06-03 17:33 | XMS_ITS | Encounter Summary ---
Author Organization [employer] [facility] Address [address] [place] [address] Care Team Providers Care Cyber Crime Investigator Name Role Phone Bibi Neves Primary Care Provider [phone] Encounter Details Date Type Department Care Team (Latest Contact Info) Description 08/26/2019 Abstract [facility] CONVERSIONS Dental, Provider, DDS Social History [...] Description 06/18/2025 1:30 PM EDT Office Visit [facility] MEDICINE [address] [place] [address] Bibi Neves ANP [address] [place] [address] 11/03/2025 1:30 PM EDT Office Visit [facility] ADULT DENTAL [address] [place] [address] Humaira Garcia [address] [place] [address] documented as of this encounter Visit Diagnoses Not on filedocumented in this encounter Care Teams Cyber Crime Investigator Relationship Specialty Start Date End Date Bibi Neves ANP [address] [place] [address] PCP - General Family Medicine 04/18/20 documented as of this encounter
--- OUTSIDE RECORDS SUMMARY | 2025-06-03 17:34 | XMS_ITS | Clinical Summary ---
Author Organization [employer] Address [address] [place] [address] Care Team Providers Care Assistant Grocery Store Manager Name Role Phone Silas Harding JENNIFER Primary Care Provider [phone] Allergies No known active allergies Medications Bisacodyl [...] Encounters Date Type Department Care Team Description 05/31/2025 Orders Only GENERIC EXTERNAL DATA DEPARTMENT Provider, Generic External Data 05/26/2025 2:00 PM EDT Immunization [facility] [address] [place] [phone] Donna Beckham, TAMIKA Encounter for immunization 05/26/2025 Travel 05/11/2025 Refill [facility] [address] [place] [phone] Silas Harding ANP Class 2 severe obesity with serious comorbidity and body mass index (BMI) of 36.0 to 36.9 in adult, unspecified obesity type ([facility]); Prediabetes 05/06/2025 2:20 PM EDT Office Visit [facility] [address] [place] [phone] Sharonda Jennings DO Abscess of groin, right (Primary Dx) 05/06/2025 Orders Only [address] [address] Sharonda Jennings DO 05/06/2025 Travel 05/06/[address] [address] Silas Harding ANP Nurse Triage 05/04/2025 Results Follow-Up [address] [address] Silas Harding ANP Comprehensive Metabolic Panel, PTH, Intact Without Calcium 05/03/2025 Orders Only GENERIC EXTERNAL DATA DEPARTMENT Provider, Generic External Data 04/30/2025 1:00 PM EDT Office Visit [facility] [address] [place] [address] RadhaErikHumaira Localized gingival recession, minimal (Primary Dx); Dental calculus 04/22/2025 Orders Only [address] [address] Silas Harding ANP Hyperparathyroidism ([facility]) (Primary Dx); Hypocalcemia 04/14/[address] [address] Silas Harding ANP May recall 04/12/[address] [address] Bhavna Lima NP Essential hypertension 04/07/[address] [address] Silas Harding ANP Medication Question 04/06/2025 Results Follow-Up [address] [address] Silas Harding ANP Basic Metabolic Panel, Phosphate (As Phosphorus), Magnesium, Basic Metabolic Panel 04/06/[address] [address] Silas Harding ANP 03/25/2025 Orders Only [address] [address] Silas Harding ANP Hypokalemia (Primary Dx); Primary hypertension 03/22/2025 2:00 PM EDT Procedure Visit [address] [address] Lizzy Shaikh CNM Menopause (Primary Dx); Encounter for immunization 03/22/2025 Travel 03/19/2025 Telephone [facility] [address] [place] [address] Myrna Moser MA 03/16/2025 Results Follow-Up [address] [address] Silas Hardign ANP POCT Glucose, POCT HGB A1C, CBC auto differential, Additional followed-up results: 10 03/15/2025 2:30 PM EDT Office Visit [address] [address] Silas Harding ANP Prediabetes (Primary Dx); Easy bruising; Need for hepatitis B screening test; Primary hypertension 03/15/2025 Travel 03/12/[address] [address] Silas Harding ANP Chart Prep 03/08/2025 Patient Outreach [address] [address] Silas Harding ANP Pre-visit Planning (SDOH screening was completed on 09/30/2024) from Last [...] Description 06/18/2025 1:30 PM EDT Office Visit [facility] [address] [place] [address] Silas Harding ANP [address] [place], [place] [phone] 11/03/2025 1:30 PM EDT Office Visit [facility] [address] [place] [address] Humaira Garcia [address] [place] [address] Health Maintenance Due Date Last Done Comments [...] Procedure Name Priority Date/Time Associated Diagnosis Comments MAGNESIUM Routine 05/31/2025 1:30 PM EDT PHOSPHATE ( PHOSPHORUS) Routine 05/31/2025 1:30 PM EDT COMPREHENSIVE METABOLIC PANEL Routine 05/31/2025 1:30 PM EDT WOUND CARE Routine 05/06/2025 2:48 PM EDT [...] Health Maintenance Results * Phosphate (As Phosphorus) (05/31/2025 1:30 PM EDT) Only the most recent of2 resultswithin the time period is included. Phosphorus 4.1 2.7 - 4.5 mg/dL [facility] 05/31/2025 1:30 PM EDT 05/31/2025 1:30 PM EDT us Generic External Data Provider LAB BLOOD ORDERAB LES Final Result Performing Organization Address City/[facility]/ZIP Co de Phone Number [facility] [address] [place] [phone] * Magnesium (05/31/2025 1:30 PM EDT) Only the most recent of2 resultswithin the time period is included. Pathologist [facility] Magnesium 1.8 1.6 - 2.6 mg/dL [facility] 05/31/2025 1:30 PM EDT 05/31/2025 1:30 PM EDT us Generic External Data Provider LAB BLOOD ORDERAB LES Final Result Performing Organization Address [facility] Co de Phone Number [facility] [address] [place] [phone] * Comprehensive Metabolic Panel (05/31/2025 1:30 PM EDT) Only the most recent of3 resultswithin the time period is included. Pathologist [facility] Sodium 141 135 - 145 mmol/L [facility] Potassium 3.6 3.3 - 5.1 mmol/L [facility] Chloride 105 96 - 108 mmol/L [facility] Carbon Dioxide 27 22 - 29 mmol/L [facility] Anion Gap 13 12 - 20 [facility] Urea Nitrogen (BUN) 16 9 - 16 mg/dL [facility] Creatinine, Serum 0.80 0.5 - 1.4 mg/dL [facility] Estimated Glomerular Filt Rate >60 [facility] Comment:Chronic Kidney Disea se: Estimated GFR < 60 mL/min/1.17j5Pgbvmg Kidney Disease: Estimated GFR < 15 mL/min/1.73m2 Glucose 86 60 - 115 mg/dL [facility] Calcium 8.6 8.4 - 10.2 mg/dL [facility] Bilirubin, Total 0.3 0.0 - 1.0 mg/dL [facility] Aspartate Amino Transferase 28 5 - 31 U/L [facility] Alanine Aminotransferase 22 0 - 31 U/L [facility] Total Protein 7.6 6.5 - 8.0 g/dL [facility] Albumin Level 4.6 3.5 - 5.0 g/dL [facility] Alkaline Phosphatase 117 39 - 117 U/L [facility] 05/31/2025 1:30 PM EDT 05/31/2025 1:30 PM EDT us Generic External Data Provider LAB BLOOD ORDERAB LES Final Result Performing Organization Address City/State/[facility] Co de Phone Number [facility] [address] [place] [phone] * Wound Care (05/06/2025 2:48 PM EDT) Narrative iMrtha Coleman RN - 05/06/2025 2:48 PM EDT Mirtha Coleman RN 05/06/2025 5:29 PM Wound Care Date/Time: 05/06/2025 2:48 PM Performed by: Mirtha Coleman RN Authorized by: Sharonda Jennings DO Consent: Consent obtained: Verbal Consent given by: Patient Risks, benefits, and alternatives were discussed: yes Risks discussed: Infection and pain Alternatives discussed: Alternative treatment Lares protocol: Procedure explained and questions answered to [...] 2:48 PM EDT 05/06/2025 4:12 PM EDT Comment:ValerioRosie quintanilla Narrative [facility] - 05/08/2025 9:24 AM EDT Gram stain results: 4+ polys No organisms seen Routine Culture Report - external Routine Culture 4+ Mixed tana Specimen Source: Karri, Right Sharonda Jennings DO HISTORICAL/NON ORDERABLE LAB S Final Result Performing Organization Address [facility] Co de Phone Number [facility] [address] [place] [phone] * PTH, Intact Without Calcium (05/03/2025 2:17 PM EDT) Pathologist [facility] Parathyroid Hormone, Intact 27.0 8.7 - 77.1 pg/mL [facility] 05/03/2025 2:17 PM EDT 05/03/2025 2:17 PM EDT Generic External Data Provider LAB BLOOD ORDERAB LES Final Result Performing Organization Address [facility] de Phone Number [facility] [address] [place] [phone] * (ABNORMAL) Basic Metabolic Panel (04/16/2025 10:30 AM EDT) Only the most recent of3 resultswithin the time period is included. Sodium 144 135 - 145 mmol/L [facility] Potassium 3.3 3.3 - 5.1 mmol/L [facility] Chloride 108 96 - 108 mmol/L [facility] Carbon Dioxide 27 22 - 29 mmol/L [facility] Anion Gap 12 12 - 20 [facility] Urea Nitrogen (BUN) 12 9 - 16 mg/dL [facility] Creatinine, Serum 0.83 0.5 - 1.4 mg/dL [facility] Estimated Glomerular Filt Rate >60 [facility] Comment:Chronic Kidney Disea se: Estimated GFR < 60 mL/min/1.73s1Smozgy Kidney Disease: Estimated GFR < 15 mL/min/1.73m2 Glucose 77 60 - 115 mg/dL [facility] Calcium 7.5(L) 8.4 - 10.2 mg/dL [facility] Blood Venous blood specimen / Unknown 04/16/2025 10:30 AM EDT 04/16/2025 11:52 AM EDT Silas Harding ANP LAB BLOOD ORDERABLES Final Resul t [facility] [address] [place] [phone] [phone] * Mammography (04/06/2025 2:46 PM EDT) Mammogram BIRADS 2 Normal, Abnormal, BIRADS 1 , BIRADS 2 Anatomical Region Laterality Modality Other Historical Provider HEALTH MAINTENANCE Final Result * BI Mammogram Screening Tomosynthesis Bilateral (04/01/2025 10:30 AM EDT) Anatomical Region Laterality Modality Breast Bilateral Mammography 04/01/2025 10:3 0 AM EDT Narrative 04/06/2025 12:04 PM EDT [address] [place] [address] Mammography Report Signed Patient: Nancy Agudelo MR#: [id number] 1 : 1970 Acct:[id number] Age/Sex: 55 / F ADM Date: 04/01/25 Loc: HO.MAMMO Attending Dr: Silas Harding NP Ordering Physician: SILAS HARDING NP Results: 2Benign Jesse reynolds Date of Service: 04/01/25 Follow Up: 1 Year From Orig inal Mammogram Procedure(s): MM tomosynthesis screening BI Accession Number(s): [id number] cc: SILAS HARDING NP EXAMINATION: MM SCREENING [...] 04/06/25 1201 DD/ 1030 TD/TT: 04/01/25 1045 Blast Furnace Keeper Helper: Procedure Note Donotuseinterpreter, Image - 04/06/2025 [facility] [address] [place], [place] [address] Mammography Report Signed Patient: Nancy Agudelo RMR#: [id number] 1 : 1970Acct:[id number] Age/Sex: 55 / FADM Date: 04/01/25 Loc: HO.MAMMO Attending Dr: Silas Harding NP Ordering Physician: SILAS HARDING NPResults: 2Benign Jesse reynolds Date of Service: 04/01/25Follow Up: 1 Year From Orig inal Mammogram Procedure(s): MM tomosynthesis screening BI Accession Number(s): [id number] cc: SILAS HARDING NP EXAMINATION: MM SCREENING [...] 04/06/25 1201 DD/ 1030 TD/TT: 04/01/25 1045 Blast Furnace Keeper Helper: [facility] BI PROCEDURES Final Result * Vitamin D, 25-Hydroxy, Total, Immunoassay (03/25/2025 2:07 PM EDT) Vitamin D 25-OH Total 49.1 >30 ng/mL [facility] Comment: Health Based Reference Values*< 20 ng/mL [id number] ng/mL Insufficient> 30 ng/mL Sufficient*Raul ABARCA. N [...] 03/25/2025 4:05 PM EDT Silas Harding [facility] LAB BLOOD ORDERABLES Final Resul t Performing Organization Address [facility] de Phone Number [facility] [address] [place] [phone] * Albumin, Random Urine W/Creatinine (03/15/2025 3:19 PM EDT) Creatinine, Urine 54.19 mg/dL [facility] Microalbumin Urine 6.0 mg/L [facility] Microalbum Creatinine Ratio Ur 11.0 <30 ug/mg cr [facility] Comment:Albumin/Creatinine R atio Reference Ranges: Normal: < 30 ug/mg creatinine Microalbuminuria: 30 - 300 ug/mg creatinineClinical Albuminuria: > 300 ug/mg creatinine Urine (Urine, Random) 03/15/2025 3:19 PM EDT 03/15/2025 4:06 PM EDT Silas Harding [facility] LAB URINE ORDERABLES Final Resul t Performing Organization Address [facility] de Phone Number [facility] [address] [place] [phone] * (ABNORMAL) CBC auto differential (03/15/2025 3:19 PM EDT) White Blood Count 7.0 4.8 - 10.8 X10*3/uL [facility] Red Blood Count 4.24 4.20 - 5.50 X10*6/uL [facility] Hemoglobin 11.8(L) 12.0 - 16.0 g/dl [facility] Hematocrit 36.5(L) 37.0 - 47.0 % [facility] Mean Corpuscular Volume 86.1 80.0 - 98.0 fL [facility] Mean Corpuscular Hemoglobin 27.8 27.0 - 33.0 pg [facility] Mean Corpuscular HGB Conc 32.3 31.0 - 35.0 g/dl [facility] Red Cell Distribution Width 14.7 11.0 - 16.0 % [facility] Platelet Count 212 160 - 400 X10*3/uL [facility] Mean Platelet Volume 11.9 9.4 - 12.3 fL [facility] Neutrophils Percent Auto 55.7 45 - 73 % [facility] Imm Gran Pct Auto 0.3 0.0 - 0.4 % [facility] Lymphocytes Percent Auto 36.0 20 - 40 % [facility] Monocytes Percent Auto 6.8 2 - 11 % [facility] Eosinophils Percent Auto 0.6 0 - 4 % [facility] Basophils Percent Auto 0.6 0 - 2 % [facility] NRBC Pct Auto 0.0 0.0 - 0.2 /100WBC [facility] Neutrophils Absolute Auto 3.9 2.0 - 8.3 x10*3/uL [facility] Imm Gran Abs Auto 0.02 0.00 - 0.03 X10*3/uL [facility] Lymphocytes Absolute Auto 2.5 1.2 - 4.9 X10*3/uL [facility] Monocytes Absolute Auto 0.5 0.1 - 1.2 X10*3/uL [facility] Eosinophils Absolute Auto 0.0 0.0 - 0.4 X10*3/uL [facility] Basophils Absolute Auto 0.0 0.0 - 0.2 X10*3/uL [facility] NRBC Abs Auto 0.000 0.0 - 0.012 X10*3/uL [facility] Blood Venous blood specimen / Unknown 03/15/2025 3:19 PM EDT 03/15/2025 4:06 PM EDT Silas Harding [facility] LAB BLOOD ORDERABLES Final Resul t [facility] [address] [place] [phone] * Iron And Total Iron Binding Capacity (03/15/2025 3:19 PM EDT) Iron 56 30 - 160 mcg/dL [facility] Total Iron Binding Capacity 235 228 - 428 mcg/dL [facility] Percent Iron Saturation 24 15 - 50 % [facility] Unsaturated Iron Binding 179 ug/dL [facility] Blood Venous blood specimen / Unknown 03/15/2025 3:19 PM EDT 03/15/2025 4:06 PM EDT us Silas Harding ANP LAB BLOOD ORDERABLES Final Resul t Performing Organization Address [facility] Co de Phone Number [facility] [address] [place] [phone] * Hepatitis B surface antigen, EIA (03/15/2025 3:19 PM EDT) Hepatitis B Surface Ag Negative Negative [facility] Blood Venous blood specimen / Unknown 03/15/2025 3:19 PM EDT 03/15/2025 4:06 PM EDT us Silas Harding ANP LAB BLOOD ORDERABLES Final Resul t Performing Organization Address City/[facility]/ZIP Co de Phone Number [facility] [address] [place] [phone] * Hepatitis B Core Antibody, Total (03/15/2025 3:19 PM EDT) Hepatitis B Core Antibody Nonreactive Nonreactive [facility] Blood Venous blood specimen / Unknown 03/15/2025 3:19 PM EDT 03/15/2025 4:06 PM EDT us Silas Harding ANP LAB BLOOD ORDERABLES Final Resul t Performing Organization Address [facility]/ZIP Co de Phone Number [facility] [address] [place] [phone] * Hepatitis B Surface Antibody, Qualitative (03/15/2025 3:19 PM EDT) ~Hepatitis B Surface Antibody NONREACTIVE Nonreactive [facility] Comment:Nonreactive: < 8.00 mIU/mL Blood Venous blood specimen / Unknown 03/15/2025 3:19 PM EDT 03/15/2025 4:06 PM EDT Silas Harding ANP LAB BLOOD ORDERABLES Final Resul t Performing Organization Address [facility]/ZIP Co de Phone Number [facility] [address] [place] [phone] * Prothrombin Time-INR (03/15/2025 3:19 PM EDT) Prothrombin Time 12.2 10.9 - 12.4 SEC [facility] INTERNATIONAL NORM RATIO 1.1 0.9 - 1.1 [facility] Comment:INTERNATIONAL NORMAL IZED RATIO (INR) REFERENCE [...] ORDERABLES Final Resul t Performing Organization Address [facility] Co de Phone Number [facility] [address] [place] [phone] * Ferritin (03/15/2025 3:19 PM EDT) Ferritin 144 10 - 250 ng/mL [facility] Blood Venous blood specimen / Unknown 03/15/2025 3:19 PM EDT 03/15/2025 4:06 PM EDT us Silas RODRIGUEZ LAB BLOOD ORDERABLES Final Resul t [facility] [address] [place] [phone] * POCT HGB A1C (03/15/2025 3:14 PM EDT) Pathologist [facility] Hemoglobin A1C 5.6 4.0 - 5.7 % QC Media Lot # [id number] Lot# Expiration Date Blood 03/15/2025 3:14 PM EDT us Silas Harding ANP POINT OF CARE TEST ENTER/EDIT OR DERABLES Final Result * POCT Glucose (03/15/2025 3:14 PM EDT) [facility] Glucose Blood, POC 81 60 - 200 mg/dL QC Media Lot # [id number] Lot# Expiration Date [id number] Blood Capillary blood specimen / Unknown 03/15/2025 3:14 PM EDT Silas Harding ANP POINT OF CARE TEST ENTER/EDIT OR DERABLES Final Result * Colonoscopy (07/02/2024) [facility] Colonoscopy Normal Normal Narrative Gay Berkowitz - 07/02/2024 colonoscopy order added Historical Provider HEALTH MAINTENANCE Final Result * [facility] Pap and HPV mRNA E6/E7 (03/19/2024 2:04 PM EDT) [facility] HPV nRNA E6/E7 Not Detected Not Detected [facility] Comment:Methodology: Transcr iption-Mediated AmplificationThis assay detects E6/E7 viral messenger RNA (mRNA) from 14high-risk HPV types (16,18,31,33,35,39,45,51,52,56,58,59,66,68).Cervical sources are required for HPV testing.If a vaginal source from a patient who has had atotal hysterectomy with removal of cervix wassubmitted, please contact the testing laboratoryfor alternative testing options.For additional information, please refer tohttp://education.RightAnswers/faq/WGV416w3(This link if provided for information/educational purposes only.)THIS TEST WAS PERFORMED AT:[facility] [address] [id number] RIOS MD SOURCE: SEE NOTE [facility] Comment:None given Report Status: [facility] Clinical Information: SEE NOTE [facility] Comment:None given LMP: SEE NOTE [facility] Comment:NONE GIVEN Prev. PAP: SEE NOTE [facility] Comment:NONE GIVEN Prev. BX: SEE NOTE [facility] Comment:NONE GIVEN Statement Of Adequacy: SEE NOTE [facility] Comment:Satisfactory for mario luation.Endocervical/transformation zone component absent. General Categorization: [facility] Interpretation/Result: SEE NOTE [facility] Comment:Cytology Results: Ne gative for intraepitheliallesion or malignancy. Cytology Comment SEE NOTE [facility] Comment:This Pap test has be en evaluated with computerassisted technology. Corporate Real Estate Specialist: SEE NOTE [facility] Comment:[place], CT(ASCP)CT scre ening location: [address] [address] Review Corporate Real Estate Specialist: [facility] Pathologist [facility] PAP Infection [facility] See Note SEE [facility] Comment:EXPLANATORY NOTE:The Pap is a screening test for cervical cancer. It isnot a diagnostic test and is subject to false negativeand false positive results. It is most reliable when asatisfactory sample, regularly obtained, is submittedwith relevant clinical findings and history, and whenthe Pap result is evaluated along with historic andcurrent clinical information. 03/19/2024 2:04 PM EDT 03/19/2024 5:54 PM EDT Narrative [facility] - 03/25/2024 3:00 PM EDT SEE SCANNED RESULTS IN EMR us Lizzy Shaikh [facility] PATHOLOGY ORDERABLES Final Result Performing Organization Address City/[facility]/ZIP Co de Phone Number [facility] [address] [place] [phone] * (ABNORMAL) Lipid Panel, Standard (12/19/2023 10:20 AM EDT) Triglycerides 115 <150 mg/dL [facility] Comment:Desirable Triglyceri de: less than 150 mg/dLBorderline High Triglyceride 150-199 mg/dLHigh Triglyceride: 200-499 mg/dLVery High Triglyceride: greater than or equal to 5OO mg/dL Cholesterol 192 <200 mg/dL [facility] Comment:Desirable Cholestero l: less than 200 mg/dLBorderline High Cholesterol: 200-239 mg/dLHigh Cholesterol: greater than 239 mg/dL LDL Cholesterol Calculated 109(H) <100 mg/dL [facility] Comment:Desirable LDL: less than 100 mg/dLNear Optimal/Above Optimal LDL: 110- 129 mg/dLBorderline High LDL: 130-159 mg/dLHigh LDL: 160-189 mg/dLVery High LDL: greater than or equal to 190 mg/dL HDL Cholesterol 60 >40 mg/dL [facility] Comment:Desirable HDL: great er than 40 mg/dL Note: This HDL assay may give artificially low results in patients with liver disease. Blood Venous blood specimen / Unknown 12/19/2023 10:20 AM EDT 12/19/2023 11:34 AM EDT us Silas RODRIGUEZ LAB BLOOD ORDERABLES Final Resul t Performing Organization Address City/[facility]/ZIP Co de Phone Number [facility] [address] [place] [phone] * HEPATITIS C AB W/REFL TO HCV RNA, QN, PCR (06/03/2020 9:27 AM EDT) HEPATITIS C ANTIBODY NON-REACT JOVANNY NON-REACT JOVANNY [facility] INDEX 0.02 <1.00 [facility] Comment: HCV antibody was non-reactive. There is no laboratory evidence of HCV infection. In most cases, no further action is required. However, if recent HCV exposure is suspected, a test for HCV RNA (test code 32872) is suggested. For additional information please refer to http://[employer]/faq/WCR52g4 (This link is being provided for informational/ educational purposes only.) HEPATITIS C ANTIBODY NON-REACT JOVANNY NON-REACT JOVANNY [facility] INDEX 0.02 <1.00 [facility] Comment: HCV antibody was non-reactive. There is no laboratory evidence of HCV infection. In most cases, no further action is required. However, if recent HCV exposure is suspected, a test for HCV RNA (test code 38683) is suggested. For additional information please refer to http://[employer]/faq/CQS70d2 (This link is being provided for informational/ educational purposes only.) HEPATITIS C ANTIBODY NON-REACT JOVANNY NON-REACT JOVANNY [facility] INDEX 0.02 <1.00 [facility] Comment: HCV antibody was non-reactive. There is no laboratory evidence of HCV infection. In most cases, no further action is required. However, if recent HCV exposure is suspected, a test for HCV RNA (test code 90950) is suggested. For additional information please refer to http://[employer]/faq/XJA15w3 (This link is being provided for informational/ educational purposes only.) 06/03/2020 9:27 AM EDT us Silas Harding ANP HISTORICAL/NON ORDERABLE LABS Fi nal Result [facility] [address] * HIV 1/2 ANTIGEN/ANTIBODY,FOURTH GENERATION W/RFL (06/03/2020 9:27 AM EDT) Pathologist [facility] HIV-1/2 ANTIGEN AND ANTIBODIES, 4TH GENERATION W/ REFLEX NON-REACT JOVANNY NON-REACT JOVANNY [facility] Comment: HIV-1 antigen and [...] purpose. For additional information please refer to http://[employer].RightAnswers/faq/TAT109 (This link is being provided for informational/ educational purposes only.) The performance of this assay has not been clinically validated in patients less than 2 years old. HIV-1/2 ANTIGEN AND ANTIBODIES, 4TH GENERATION W/ REFLEX NON-REACT JOVANNY NON-REACT JOVANNY [facility] Comment: HIV-1 antigen and HIV-1/HIV-2 [...] purpose. For additional information please refer to http://[employer].Confer/faq/TRQ606 (This link is being provided for informational/ educational purposes only.) The performance of this assay has not been clinically validated in patients less than 2 years old. HIV-1/2 ANTIGEN AND ANTIBODIES, 4TH GENERATION W/ REFLEX NON-REACT JOVANNY NON-REACT JOVANNY [facility] Comment: HIV-1 antigen and HIV-1/HIV-2 [...] purpose. For additional information please refer to http://education.[employer].Confer/faq/UAP184 (This link is being provided for informational/ educational purposes only.) The performance of this assay has not been clinically validated in patients less than 2 years old. 06/03/2020 9:27 AM EDT [facility] LAB BLOOD ORDERABLES Final Resul t [facility] [address] from Last 3 Months or Most Recently Relevant to Health Maintenance Insurance [facility] D[facility]AL - HSN PARTIAL (MEDICAID) Care Teams Assistant Grocery Store Manager Relationship Specialty Start Date End Date Silas Harding ANP [address] [place] [id number] PCP - General Family Medicine 04/18/20
--- OUTSIDE RECORDS SUMMARY | 2025-06-03 17:34 | XMS_ITS | Encounter Summary ---
Author Organization [employer] Address [address] 7[address] [place] [address] Care Team Providers Care Director Of First Impressions Name Role Phone Bibi Neves Primary Care Provider [phone] Encounter Details Date Type Department Care Team (Late st Contact Info) Description 04/06/2025 Abstract [facility] MEDICINE [address] [place], [place] [phone] Bibi Neves ANP [address] [place], [place] [phone] Social History Tobacco Use Types Packs/Day Years [...] 1:30 PM EDT Office Visit [facility] MEDICINE [address] [place] [address] Bibi Neves ANP [address] [place] [address] 11/03/2025 1:30 PM EDT Office Visit [facility] ADULT DENTAL [address] [place] [address] Humaira Garcia [address] [place] [address] documented as of this encounter Procedures Procedure [...] documented as of this encounter Care Teams Director Of First Impressions Relationship Specialty Start Date End Date Bibi Neves ANP [address] [place] [phone] PCP - General Family Medicine 04/18/20 documented as of this encounter
--- OUTSIDE RECORDS SUMMARY | 2025-06-03 17:34 | XMS_ITS | Encounter Summary ---
Author Organization [facility] Address [address] [facility] 7 [place] [address] Care Team Providers Care Mess Cook Name Role Phone Bibi Neves Primary Care Provider [phone] Reason for Visit * Reason Comments Med Refill Encounter Details Date Type Department Care Team (Late st Contact Info) Description 11/07/2023 Refill [facility] MEDICINE [address] [place] [address] Bibi Neves ANP [address] [place] [address] Postprocedural hypoparathyroidism (CMS/HCC) Social History Tobacco Use [...] Description 06/18/2025 1:30 PM EDT Office Visit [facility] MEDICINE [address] [place] [address] Bibi Neves ANP [address] [place] [address] 11/03/2025 1:30 PM EDT Office Visit [facility] ADULT DENTAL [address] [place] [address] Humaira Garcia [address] [place] [address] documented as of this encounter Visit Diagnoses Diagnosis Postprocedural hypoparathyroidism (CMS/HCC) documented in this encounter Care Teams Mess Cook Relationship Specialty Start Date End Date Bibi Neves ANP [address] [place] [address] PCP - General Family Medicine 04/18/20 documented as of this encounter
--- OUTSIDE RECORDS SUMMARY | 2025-06-03 17:34 | XMS_ITS | Encounter Summary ---
Author Organization [employer] [facility] Address [address] [facility] 7t [place] [address] Care Team Providers Care Is Consultant Name Role Phone Bibi Neves Primary Care Provider [phone] Reason for Visit * Reason Comments Med Refill Encounter Details Date Type Department Care Team (Late Contact Info) Description 09/10/2023 Refill [facility] MEDICINE [address] [place] [address] Bibi Neves ANP [address] [place] [address] Social History Tobacco Use Types Packs/Day Years [...] Description 06/18/2025 1:30 PM EDT Office Visit [facility] MEDICINE [address] [place] [address] Bibi Neves ANP [address] [place] [address] 11/03/2025 1:30 PM EDT Office Visit [facility] ADULT DENTAL [address] [place] [address] Humaira Garcia [address] [place] [address] documented as of this encounter Visit Diagnoses Not on filedocumented in this encounter Care Teams Is Consultant Relationship Specialty Start Date End Date Bibi Neves ANP [address] [place] [address] PCP - General Family Medicine 04/18/20 documented as of this encounter
--- OUTSIDE RECORDS SUMMARY | 2025-06-03 17:34 | XMS_ITS | Clinical Summary ---
Author Organization [facility] Address [address] [place] [address] Phone Care Team Providers Care Manager Regulatory Name Role Phone Bibi Neves NP Primary Care Provider [phone] Social History Tobacco Use Types Packs/Day Years [...] age to complete this topic Insurance , [address] [id number] [facility] Care Teams Manager Regulatory Relationship Specialty Start Date End Date Bibi Neves NP [address] [place] [phone] PCP - General 07/28/24
== END 2025-06-03 14:28 | disposition home or self-care (01) ==
LOC: HO.HGS 13:49
PROVIDERS: PCP Nurse Practitioner Primary Care; Visit Provider Surgery
DX: K64.9 Unspecified hemorrhoids (principal)
CPT/HCPCS: 46600; 99203

== ENCOUNTER → 2025-06-03 13:48 | Outpatient (BNVA) | payer OTHER, SELFPAY | PROVIDERS: PCP Nurse Practitioner Primary Care; Visit Provider Surgery | DX: K64.9 Unspecified hemorrhoids (principal) | CPT/HCPCS: 46600; 99202 ==

== ENCOUNTER 2025-06-28 13:51 | Outpatient (REF) | payer OTHER, SELFPAY ==
--- OUTSIDE RECORDS SUMMARY | 2025-06-28 16:08 | XMS_ITS | Encounter Summary ---
Author Organization [facility] Address [address] 7t [place] [address] Care Team Providers Care Tape Machine Tailer Name Role Phone Bibi Neves Primary Care Provider [phone] Encounter Details Date Type Department Care Team (Latest Contact Info) Description 08/26/2019 Abstract [facility] CONVERSIONS Dental, Provider, DDS Social History [...] Care Team (Late st Contact Info) Description 11/03/2025 1:30 PM EDT Office Visit [facility] ADULT DENTAL [address] [place] [address] Radha Humaira [address] [place] [address] documented as of this encounter Visit Diagnoses Not on filedocumented in this encounter Care Teams Tape Machine Tailer Relationship Specialty Start Date End Date Bibi Neves ANP [address] [place] [address] PCP - General Family Medicine 04/18/20 documented as of this encounter
--- OUTSIDE RECORDS SUMMARY | 2025-06-28 16:08 | XMS_ITS | Encounter Summary ---
Author Organization [employer] Address [address] [place] [address] Care Team Providers Care Clay Dry Press Operator Name Role Phone Bibi Neves Primary Care Provider [phone] Reason for Visit * Reason Onset Date Comments Results 05/04/2025 Encounter Details Date Type Department Care Team (Latest Contact Info) Description 05/04/2025 Results Follow-Up [facility] MEDICINE [address] [place], [place] [phone] Bibi Neves ANP [address] [place] [address] Comprehensive Metabolic Panel, PTH, Intact Without Calcium [...] TC placed to the pt with S ship scraper #[id number] to inquire if endocrinology has reached out [...] PM EDT Office Visit [facility] ADULT DENTAL [address] [place] [address] Radha, Humaira [address] [place] [address] documented as of this encounter Visit Diagnoses Diagnosis Post-surgical hypoparathyroidism- Primary documented in this encounter Additional Health Concerns Assessment Noted Time PHQ-9 Depression Total Score: 0 10/14/19 25 3:47 PM EST documented as of this encounter Care Teams Clay Dry Press Operator Relationship Specialty Start Date End Date Bibi Neves ANP [address] [place] [address] PCP - General Family Medicine 04/18/20 documented as of this encounter
--- OUTSIDE RECORDS SUMMARY | 2025-06-28 16:08 | XMS_ITS | Encounter Summary ---
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
--- OUTSIDE RECORDS SUMMARY | 2025-06-28 16:08 | XMS_ITS | Clinical Summary ---
Author Organization [facility] Address [address] [place] [address] Phone Care Team Providers Care Milk Processing Worker Name Role Phone Bibi Neves NP Primary Care Provider [phone] Social History Tobacco Use Types Packs/Day Years [...] to complete this topic Insurance , [address] [address] [facility] Care Teams Milk Processing Worker Relationship Specialty Start Date End Date Bibi Neves NP [address] [place] [phone] PCP - General 07/28/24
--- OUTSIDE RECORDS SUMMARY | 2025-06-28 16:08 | XMS_ITS | Encounter Summary ---
Author Organization [employer] [facility] Address [address] [place] [address] Care Team Providers Care Wildland Fire Fighter Specialist Name Role Phone Bibi Neves Primary Care Provider [phone] Encounter Details Date Type Department Care Team (Latest Contact Info) Description 06/05/2022 Abstract [facility] CONVERSIONS Dental, Provider, DDS Social History [...] Description 11/03/2025 1:30 PM EDT Office Visit [facility] ADULT DENTAL [address] [place] [address] RadhaErikHumaira [address] [place] [address] documented as of this encounter Visit Diagnoses Not on filedocumented in this encounter Care Teams Wildland Fire Fighter Specialist Relationship Specialty Start Date End Date Bibi Neves ANP [address] [place] [address] PCP - General Family Medicine 04/18/20 documented as of this encounter
--- OUTSIDE RECORDS SUMMARY | 2025-06-28 16:08 | XMS_ITS | Encounter Summary ---
Author Organization [employer] [facility] Address [address] [facility] 7 [place] [address] Care Team Providers Care Glass Blower Helper Name Role Phone Bibi Neves Primary Care Provider [phone] Reason for Visit * Reason Comments Med Refill Encounter Details Date Type Department Care Team (Late Contact Info) Description 02/17/2023 Refill [facility] MEDICINE [address] [place] [address] Bibi Neves ANP [address] [place] [address] Social History Tobacco Use Types Packs/Day Years [...] Department Care Team (Late Contact Info) Description 11/03/2025 1:30 PM EDT Office Visit [facility] ADULT DENTAL [address] [place] [address] Huamira Garcia [address] [place] [address] documented as of this encounter Visit Diagnoses Not on filedocumented in this encounter Care Teams Glass Blower Helper Relationship Specialty Start Date End Date Bibi Neves ANP [address] [place], [place] [phone] PCP - General Family Medicine 04/18/20 documented as of this encounter
--- OUTSIDE RECORDS SUMMARY | 2025-06-28 16:08 | XMS_ITS | Encounter Summary ---
Author Organization [employer] [facility] Address [address] [facility] 7 [place] [address] Care Team Providers Care Lot Technician Name Role Phone Bibi Neves Primary Care Provider [phone] Reason for Visit * Reason Comments Med Refill Encounter Details Date Type Department Care Team (Late Contact Info) Description 09/10/2023 Refill [facility] MEDICINE [address] [place] [address] Bibi Neves ANP [address] [place] [address] Social History Tobacco Use Types Packs/Day Years [...] Description 11/03/2025 1:30 PM EDT Office Visit [facility] ADULT DENTAL [address] [place] [address] Humaira Garcia [address] [place] [address] documented as of this encounter Visit Diagnoses Not on filedocumented in this encounter Care Teams Lot Technician Relationship Specialty Start Date End Date Bibi Neves ANP [address] [place], [place] [phone] PCP - General Family Medicine 04/18/20 documented as of this encounter
--- OUTSIDE RECORDS SUMMARY | 2025-06-28 16:08 | XMS_ITS | Encounter Summary ---
Author Organization [employer] Address [address] 7[address] [place] [address] Care Team Providers Care Phlebotomy Tech Name Role Phone Bibi Neves Primary Care Provider [phone] Encounter Details Date Type Department Care Team (Late st Contact Info) Description 11/12/2022 Orders Only [facility] [address] [place] [address] Sharonda Gotti LPN Social History Tobacco Use [...] Description 11/03/2025 1:30 PM EDT Office Visit [facility] ADULT DENTAL [address] [place] [address] Radha, Humaira [address] [place] [address] documented as of this encounter Visit Diagnoses Not on filedocumented in this encounter Care Teams Phlebotomy Tech Relationship Specialty Start Date End Date Bibi Neves ANP [address] [place] [address] PCP - General Family Medicine 04/18/20 documented as of this encounter
--- OUTSIDE RECORDS SUMMARY | 2025-06-28 16:08 | XMS_ITS | Clinical Summary ---
Author Organization [employer] Address [address] [facility] [address] [place] [address] Care Team Providers Care Neonatal Nurse Practitioner Name Role Phone Silas Harding JENNIFER Primary Care Provider [phone] Allergies No known active allergies Medications Bisacodyl [...] THE MORNING AND AT BEDTIME 024 Active allopurinol (Zyloprim) 100 MG tablet Take 1 tablet (100 mg) by mouth in the morning. 90 tablet 024 Active lisinopril (Prinivil) 20 MG tabletIndicatio ns:Primary [...] times daily. 180 tablet 1 025 Active Zepbound 7.5 MG/0.5ML solution auto-injectorIn dications:Class 2 severe obesity with serious comorbidity and body mass index (BMI) of 36.0 to 36.9 in adult, unspecified obesity type,Prediabete s INJECT ONE PEN (=7.5MG) SUBCUTANEOUSLY ONCE A WEEK DIRECTED 2 mL 2 Active hydroCHLOROthia zide (Microzide) 12.5 MG capsule Take 12.5 mg by mouth in the morning. Active potassium chloride ER (Micro-K) 10 MEQ ER capsule Take 2 capsules by mouth Once per day. Active pyridoxine (Vitamin B-6) 50 MG tablet Take 1 tablet (50 mg) by mouth in the morning. 90 tablet 024 2024 Discontinued(T herapy completed) potassium chloride CR (Klor-Con M20) 20 MEQ ER tabletIndicatio ns:Hypokalemia 1 tab twice daily. Do not crush or chew. 14 tablet 025 2024 Discontinued(D uplicate order (will not trigger notification to Pharmacy)) acetaminophen (Tylenol 8 Hour) 650 MG ER tablet Take 1 tablet (650 mg) by mouth every 8 (eight) hours if needed for mild pain. Do not crush, chew, or split. 40 tablet 1 025 2024 Active Problems Problem Noted Date Diagnosed Date Multinodular thyroid 06/18/2025 Class 1 obesity with serious comorbidity and body mass index (BMI) of 30.0 to 30.9 in adult 06/18/2025 Osteopenia 05/18/2025 Recurrent nephrolithiasis 05/18/2025 Tubular adenoma of colon 12/01/2024 Overview (12/01/2024): 06/2024 C-scope w/ [facility], repeat 2 years per GI. we [...] Encounters Date Type Department Care Team Description 06/18/2025 1:30 PM EDT Office Visit [facility] [address] [place] [phone] Silas Harding ANP Primary hypertension (Primary Dx); Osteopenia, unspecified location; Post-surgical hypoparathyroidism; Prediabetes; History of nephrolithiasis; Encounter for immunization; Hypokalemia; Class 1 obesity with serious comorbidity and body mass index (BMI) of 30.0 to 30.9 in adult, unspecified obesity type 06/18/2025 Travel 06/17/2025 Telephone [facility] [address] [place] [phone] Silas Harding ANP chart prep 06/10/2025 Patient Outreach [address] [address] Silas Harding ANP Pre-visit Planning (SDOH screening was completed on 09/30/2024) 05/31/2025 Orders Only GENERIC EXTERNAL DATA DEPARTMENT Provider, Generic External Data 05/26/2025 2:00 PM EDT Immunization [address] [address] Donna Beckham, TAMIKA Encounter for immunization 05/26/2025 Travel 05/11/[address] [address] Silas Harding ANP Class 2 severe obesity with serious comorbidity and body mass index (BMI) of 36.0 to 36.9 in adult, unspecified obesity type (CMS/[facility]); Prediabetes 05/06/2025 2:20 PM EDT Office Visit [facility] [address] [place] [phone] Sharonda Jennings DO Abscess of groin, right (Primary Dx) 05/06/2025 Orders Only [address] [address] Sharonda Jennings DO 05/06/2025 Travel 05/06/[address] [address] Silas Harding ANP Nurse Triage 05/04/2025 Results Follow-Up [address] [address] Silas Harding ANP Comprehensive Metabolic Panel, PTH, Intact Without Calcium 05/03/2025 Orders Only GENERIC EXTERNAL DATA DEPARTMENT Provider, Generic External Data 04/30/2025 1:00 PM EDT Office Visit [facility] [address] [place] [phone] Humaira Garcia Localized gingival recession, minimal (Primary Dx); Dental calculus 04/22/2025 Orders Only [address] [address] Silas Harding ANP Hyperparathyroidism (CMS/HCC) (Primary Dx); Hypocalcemia 04/14/2025 Telephone [facility] [address] [place] [phone] Silas Harding ANP October recall 04/12/2025 Refill [facility] [address] [place] [phone] Bhavna Lima NP Essential hypertension 04/07/[address] [address] Silas Harding ANP Medication Question 04/06/2025 Results Follow-Up [address] [address] Silas Harding ANP Basic Metabolic Panel, Phosphate (As Phosphorus), Magnesium, Basic Metabolic Panel 04/06/[address] [address] Silas Harding ANP from Last 3 Months Immunizations Immunization Administration Dates Next Due Hep B, adult 05/26/2025,03/22/2025,06/09/2012 Influenza Injectable Quadriv alant Preservative Free IIV4 MDCK 05/10/2023 Influenza injectable quadriv alent IIV4 with preservative 06/13/2016 Influenza injectable quadriv alent preservative free 05/24/2019,07/07/2018,05/17/2017 Influenza, IIV3, injectable 06/16/2014, 7 Influenza, Split (incl. lena fied surface antigen) 06/29/2013,06/09/2012 Influenza, seasonal, injecta ble, preservative free 06/18/2025,07/07/2024 Pfizer Covid-19 Vaccine 12+ 10/14/2024 Pneumococcal Conjugate [...] Sign Reading Time Taken Comments Blood Pressure 108/80 06/18/2025 1:21 PM EDT Pulse 64 06/18/2025 1:21 PM EDT Temperature 36.5 C (97.7 F) 06/18/2025 1:21 PM EDT Respiratory Rate 10 06/18/2025 1:21 PM EDT Oxygen Saturation 99% 06/18/2025 1:21 PM EDT Inhaled Oxygen Concentration - - Weight 65.8 kg (145 lb) 06/18/2025 1:21 PM EDT Height 147.3 cm (4' 10 ) 06/18/2025 1:21 PM EDT Body Mass Index 30.31 06/18/2025 1:21 PM EDT Plan of Treatment Upcoming Encounters Date Type Department Care Team (Late st Contact Info) Description 11/03/2025 1:30 PM EDT Office Visit [facility] [address] [place] [address] Radha, Humaira [address] [place] [address] Health Maintenance Due Date Last Done Comments CT Colonography 1970 FIT DNA/Cologuard 1969 FIT 1970 FOBT 1970 Sigmoidoscopy 1970 Dental Oral Exam 04/29/2025 10/26/2024, 12/2023, 06/05/2022, [...] 03/19, 03/26/2024, Additional history exists Tobacco Screening 06/18/2026 06/18/2025 Colonoscopy 07/02/2026 07/02/2024 Colorectal Cancer Screening 07/02/2026 [...] Hepatitis B Vaccines Completed 05/26/2025, 03/22/2025, 06/09/2012 Influenza Vaccine Completed 06/18/2025, , 05/10/2023, Additional history exists HIB Vaccines Aged Out No longer eligi [...] PANEL Routine 03/29/2025 1:52 PM EDT Hypokalemia POCT GLYCATED HEMOGLOBIN, TOTAL Routine 03/15/2025 3:14 PM EDT Prediabetes BITEWINGS [...] included. Phosphorus 4.1 2.7 - 4.5 mg/dL [facility] 05/31/2025 1:30 PM EDT 05/31/2025 1:30 PM EDT us Generic External Data Provider LAB BLOOD ORDERAB LES Final Result Performing Organization Address City/[facility]/ZIP Co de Phone Number [facility] [address] [place] [phone] * Magnesium (05/31/2025 1:30 PM EDT) Only the most recent of2 resultswithin the time period is included. Magnesium 1.8 1.6 - 2.6 mg/dL [facility] 05/31/2025 1:30 PM EDT 05/31/2025 1:30 PM EDT Generic External Data Provider LAB BLOOD ORDERAB LES Final Result Performing Organization Address City/[facility] Co de Phone Number [facility] [address] [place] [phone] * Comprehensive Metabolic Panel (05/31/2025 1:30 PM EDT) Only the most recent of2 resultswithin the time period is included. Sodium 141 135 - 145 mmol/L [facility] Potassium 3.6 3.3 - 5.1 mmol/L [facility] Chloride 105 96 - 108 mmol/L [facility] Carbon Dioxide 27 22 - 29 mmol/L [facility] Anion Gap 13 12 - 20 [facility] Urea Nitrogen (BUN) 16 9 - 16 mg/dL [facility] Creatinine, Serum 0.80 0.5 - 1.4 mg/dL [facility] Estimated Glomerular Filt Rate >60 [facility] Comment:Chronic Kidney Disea se: Estimated GFR < 60 mL/min/1.86c9Tnqfrn Kidney Disease: Estimated GFR < 15 mL/min/1.73m2 Glucose 86 60 - 115 mg/dL [facility] Calcium 8.6 8.4 - 10.2 mg/dL [facility] Bilirubin, Total 0.3 0.0 - 1.0 mg/dL [facility] Aspartate Amino Transferase 28 5 - 31 U/L [facility] Alanine Aminotransferase 22 0 - 31 U/L [facility] Total Protein 7.6 6.5 - 8.0 g/dL [facility] Albumin Level 4.6 3.5 - 5.0 g/dL [facility] Alkaline Phosphatase 117 39 - 117 U/L [facility] 05/31/2025 1:30 PM EDT 05/31/2025 1:30 PM EDT us Generic External Data Provider LAB BLOOD ORDERAB LES Final Result [facility] [address] [place] [phone] * Wound Care (05/06/2025 2:48 PM EDT) Narrative Mirtha Coleman RN - 05/06/2025 2:48 PM EDT Mirtha Coleman RN 05/06/2025 5:29 PM Wound Care Date/Time: 05/06/2025 2:48 PM Performed by: Mirtha Coleman RN Authorized by: Sharonda Jennings DO Consent: Consent obtained: Verbal Consent given by: Patient Risks, benefits, and alternatives were discussed: yes Risks discussed: Infection and pain Alternatives discussed: Alternative treatment [place] protocol: Procedure explained and questions answered to [...] 2:48 PM EDT 05/06/2025 4:12 PM EDT Comment:Karri, R Narrative [facility] - 05/08/2025 9:24 AM EDT Gram stain results: 4+ polys No organisms seen Routine Culture Report - external Routine Culture 4+ Mixed tana Specimen Source: Groin, Right Sharonda Jennings DO HISTORICAL/NON ORDERABLE LAB S Final Result Performing Organization Address [facility] Co de Phone Number [facility] [address] [place] [phone] * PTH, Intact Without Calcium (05/03/2025 2:17 PM EDT) Parathyroid Hormone, Intact 27.0 8.7 - 77.1 pg/mL [facility] 05/03/2025 2:17 PM EDT 05/03/2025 2:17 PM EDT Generic External Data Provider LAB BLOOD ORDERAB LES Final Result Performing Organization Address City/[facility] Co de Phone Number [facility] [address] [place] [phone] * (ABNORMAL) Basic Metabolic Panel (04/16/2025 10:30 AM EDT) Only the most recent of2 resultswithin the time period is included. Sodium 144 135 - 145 mmol/L [facility] Potassium 3.3 3.3 - 5.1 mmol/L [facility] Chloride 108 96 - 108 mmol/L [facility] Carbon Dioxide 27 22 - 29 mmol/L [facility] Anion Gap 12 12 - 20 [facility] Urea Nitrogen (BUN) 12 9 - 16 mg/dL [facility] Creatinine, Serum 0.83 0.5 - 1.4 mg/dL [facility] Estimated Glomerular Filt Rate >60 [facility] Comment:Chronic Kidney Disea se: Estimated GFR < 60 mL/min/1.82m0Xasxor Kidney Disease: Estimated GFR < 15 mL/min/1.73m2 Glucose 77 60 - 115 mg/dL [facility] Calcium 7.5(L) 8.4 - 10.2 mg/dL [facility] Blood Venous blood specimen / Unknown 04/16/2025 10:30 AM EDT 04/16/2025 11:52 AM EDT [facility] LAB BLOOD ORDERABLES Final Resul t [facility] [address] [place] [phone] * Mammography (04/06/2025 2:46 PM EDT) Mammogram BIRADS 2 Normal, Abnormal, BIRADS 1 , BIRADS 2 Anatomical Region Laterality Modality Other Historical Provider HEALTH MAINTENANCE Final Result * BI Mammogram Screening Tomosynthesis Bilateral (04/01/2025 10:30 AM EDT) Anatomical Region Laterality Modality Breast Bilateral Mammography 04/01/2025 10:3 0 AM EDT Narrative 04/06/2025 12:04 PM EDT [address] [place] [address] Mammography Report Signed Patient: Nancy Agudelo MR#: [id number] 1 : 1970 Acct:[id number] Age/Sex: 55 / F ADM Date: 04/01/25 Loc: HO.MAMMO Attending Dr: Silas Harding NP Ordering Physician: SILAS HARDING NP Results: 2Benign Jesse dinghans Date of Service: 04/01/25 Follow Up: 1 Year From Orig inal Mammogram Procedure(s): MM tomosynthesis screening BI Accession Number(s): [id number] cc: SILAS HARDING NP EXAMINATION: MM SCREENING [...] 04/06/25 1201 DD/ 1030 TD/TT: 04/01/25 1045 Vending Mechanic: Procedure Note Donotuseinterpreter, Image - 04/06/2025 [facility] [address] [place] [address] Mammography Report Signed Patient: Nancy Agudelo RMR#: [id number] 1 : 1970Acct:[id number] Age/Sex: 55 / FADM Date: 04/01/25 Loc: HO.MAMMO Attending Dr: Silas Harding FULLERETTE Ordering Physician: SILAS HARDING NPResults: 2Benign Jesse reynolds Date of Service: 04/01/25Follow Up: 1 Year From Orig inal Mammogram Procedure(s): MM tomosynthesis screening BI Accession Number(s): [id number] cc: SILAS HARDING NP EXAMINATION: MM SCREENING [...] 04/06/25 1201 DD/ 1030 TD/TT: 04/01/25 1045 Vending Mechanic: Silas Harding ANP IMG BI PROCEDURES Final Result * POCT HGB A1C (03/15/2025 3:14 PM EDT) Hemoglobin A1C 5.6 4.0 - 5.7 % QC Media Lot # [id number] Lot# Expiration Date [id number] Blood 03/15/2025 3:14 PM EDT Silas [facility] POINT OF CARE TEST ENTER/EDIT OR DERABLES Final Result * Colonoscopy (07/02/2024) [facility] Colonoscopy Normal Normal Narrative Gay Berkowitz - 07/02/2024 colonoscopy order added Historical Provider HEALTH MAINTENANCE Final Result * [facility] Pap and HPV mRNA E6/E7 (03/19/2024 2:04 PM EDT) [facility] HPV nRNA E6/E7 Not Detected Not Detected [facility] Comment:Methodology: Transcr iption-Mediated AmplificationThis assay detects E6/E7 viral messenger RNA (mRNA) from 14high-risk HPV types (16,18,31,33,35,39,45,51,52,56,58,59,66,68).Cervical sources are required for HPV testing.If a vaginal source from a patient who has had atotal hysterectomy with removal of cervix wassubmitted, please contact the testing laboratoryfor alternative testing options.For additional information, please refer tohttp://education.[employer]/faq/QLU622d5(This link if provided for information/educational purposes only.)THIS TEST WAS PERFORMED AT:[employer] [place] [phone] RIOS MD SOURCE: SEE NOTE [facility] Comment:None given Report Status: [facility] Clinical Information: SEE NOTE [facility] Comment:None given LMP: SEE NOTE [facility] Comment:NONE GIVEN Prev. PAP: SEE NOTE [facility] Comment:NONE GIVEN Prev. BX: SEE NOTE [facility] Comment:NONE GIVEN Statement Of Adequacy: SEE NOTE [facility] Comment:Satisfactory for mario luation.Endocervical/transformation zone component absent. General Categorization: [facility] Interpretation/Result: SEE NOTE [facility] Comment:Cytology Results: Ne gative for intraepitheliallesion or malignancy. Cytology Comment SEE NOTE [facility] Comment:This Pap test has be en evaluated with computerassisted technology. Associate Creative Director: SEE NOTE [facility] Comment:[place]OLD[place], CT(ASCP)CT scre ening location: [place] [address] Review Associate Creative Director: TNP [facility] Pathologist [facility] PAP Infection [facility] See Note SEE NOTE [facility] Comment:EXPLANATORY NOTE:The Pap is a screening test for cervical cancer. It isnot a diagnostic test and is subject to false negativeand false positive results. It is most reliable when asatisfactory sample, regularly obtained, is submittedwith relevant clinical findings and history, and whenthe Pap result is evaluated along with historic andcurrent clinical information. 03/19/2024 2:04 PM EDT 03/19/2024 5:54 PM EDT Narrative [facility] - 03/25/2024 3:00 PM EDT SEE SCANNED RESULTS IN EMR us Lizzy [facility] LAB PATHOLOGY ORDERABLES Final Result [facility] [address] [place] [phone] * (ABNORMAL) Lipid Panel, Standard (12/19/2023 10:20 AM EDT) Triglycerides 115 <150 mg/dL [facility] Comment:Desirable Triglyceri de: less than 150 mg/dLBorderline High Triglyceride 150-199 mg/dLHigh Triglyceride: 200-499 mg/dLVery High Triglyceride: greater than or equal to 5OO mg/dL Cholesterol 192 <200 mg/dL [facility] Comment:Desirable Cholestero l: less than 200 mg/dLBorderline High Cholesterol: 200-239 mg/dLHigh Cholesterol: greater than 239 mg/dL LDL Cholesterol Calculated 109(H) <100 mg/dL [facility] Comment:Desirable LDL: less than 100 mg/dLNear Optimal/Above Optimal LDL: 110- 129 mg/dLBorderline High LDL: 130-159 mg/dLHigh LDL: 160-189 mg/dLVery High LDL: greater than or equal to 190 mg/dL HDL Cholesterol 60 >40 mg/dL [facility] Comment:Desirable HDL: great er than 40 mg/dL Note: This HDL assay may give artificially low results in patients with liver disease. Blood Venous blood specimen / Unknown 12/19/2023 10:20 AM EDT 12/19/2023 11:34 AM EDT [facility] LAB BLOOD ORDERABLES Final Resul t [facility] [address] [place] [phone] * HEPATITIS C AB W/REFL TO HCV RNA, QN, PCR (06/03/2020 9:27 AM EDT) HEPATITIS C ANTIBODY NON-REACT JOVANNY NON-REACT JOVANNY [facility] INDEX 0.02 <1.00 [facility] Comment: HCV antibody was non-reactive. There is no laboratory evidence of HCV infection. In most cases, no further action is required. However, if recent HCV exposure is suspected, a test for HCV RNA (test code 38707) is suggested. For additional information please refer to http://[employer]/faq/OJK94y0 (This link is being provided for informational/ educational purposes only.) HEPATITIS C ANTIBODY NON-REACT JOVANNY NON-REACT JOVANNY [facility] INDEX 0.02 <1.00 [facility] Comment: HCV antibody was non-reactive. There is no laboratory evidence of HCV infection. In most cases, no further action is required. However, if recent HCV exposure is suspected, a test for HCV RNA (test code 13262) is suggested. For additional information please refer to http://[employer]/faq/ARO83m1 (This link is being provided for informational/ educational purposes only.) HEPATITIS C ANTIBODY NON-REACT JOVANNY NON-REACT JOVANNY [facility] INDEX 0.02 <1.00 [facility] Comment: HCV antibody was non-reactive. There is no laboratory evidence of HCV infection. In most cases, no further action is required. However, if recent HCV exposure is suspected, a test for HCV RNA (test code 98983) is suggested. For additional information please refer to http://[employer]/faq/ENB17f8 (This link is being provided for informational/ educational purposes only.) 06/03/2020 9:27 AM EDT us Silas Harding ANP HISTORICAL/NON ORDERABLE LABS Fi nal Result [facility] [address] * HIV 1/2 ANTIGEN/ANTIBODY,FOURTH GENERATION W/RFL (06/03/2020 9:27 AM EDT) HIV-1/2 ANTIGEN AND ANTIBODIES, 4TH GENERATION W/ REFLEX NON-REACT JOVANNY NON-REACT JOVANNY [facility] Comment: HIV-1 antigen and [...] purpose. For additional information please refer to http://education.[employer]/faq/YNZ638 (This link is being provided for informational/ educational purposes only.) The performance of this assay has not been clinically validated in patients less than 2 years old. HIV-1/2 ANTIGEN AND ANTIBODIES, 4TH GENERATION W/ REFLEX NON-REACT JOVANNY NON-REACT JOVANNY [facility] Comment: HIV-1 antigen and [...] purpose. For additional information please refer to http://[employer]/faq/NBN443 (This link is being provided for informational/ educational purposes only.) The performance of this assay has not been clinically validated in patients less than 2 years old. HIV-1/2 ANTIGEN AND ANTIBODIES, 4TH GENERATION W/ REFLEX NON-REACT JOVANNY NON-REACT JOVANNY [facility] Comment: HIV-1 antigen and [...] purpose. For additional information please refer to http://[employer]/faq/TIL388 (This link is being provided for informational/ educational purposes only.) The performance of this assay has not been clinically validated in patients less than 2 years old. 06/03/2020 9:27 AM EDT [facility] LAB BLOOD ORDERABLES Final Resul t [facility] [address] from Last 3 Months or Most Recently Relevant to Health Maintenance Insurance [facility] Care Teams Neonatal Nurse Practitioner Relationship Specialty Start Date End Date Silas Harding ANP [address] [place] [address] PCP - General Family Medicine 04/18/20
--- OUTSIDE RECORDS SUMMARY | 2025-06-28 16:08 | XMS_ITS | Encounter Summary ---
Author Organization [employer] [facility] Address [address] [facility] [address] [place] [address] Care Team Providers Care Secured Entrance Monitor Name Role Phone Bibi Neves Primary Care Provider [phone] Reason for Visit * Reason Comments Med Refill Encounter Details Date Type Department Care Team (Late st Contact Info) Description 11/07/2023 Refill [facility] [address] [place] [address] Bibi Neves ANP [address] [place] [address] Postprocedural hypoparathyroidism (CMS/HCC) Social History Tobacco Use [...] Description 11/03/2025 1:30 PM EDT Office Visit [facility] [address] [place] [address] Humaira Garcia [address] [place] [address] documented as of this encounter Visit Diagnoses Diagnosis Postprocedural hypoparathyroidism (CMS/HCC) documented in this encounter Care Teams Secured Entrance Monitor Relationship Specialty Start Date End Date Bibi Neves ANP [address] [place] [address] PCP - General Family Medicine 04/18/20 documented as of this encounter
--- OUTSIDE RECORDS SUMMARY | 2025-06-28 16:08 | XMS_ITS | Encounter Summary ---
Author Organization [employer] Address [address] [facility] [address] [place] [address] Care Team Providers Care Serials Librarian Name Role Phone Bibi Neves Primary Care Provider [phone] Encounter Details Date Type Department Care Team (Late st Contact Info) Description 04/06/2025 Abstract [facility] [address] [place], [place] [phone] Bibi Neves ANP [address] [place], [place] [phone] Social History Tobacco Use Types Packs/Day Years [...] Description 11/03/2025 1:30 PM EDT Office Visit [facility] [address] [place] [address] Radha Humaira [address] [place] [address] documented as of this encounter Procedures Procedure Name Priority Date/Time Associated Diagnosis Comments MAMMOGRAPHY Routine 04/06/2025 2:46 PM EDT documented in this encounter Results * Mammography (04/06/2025 2:46 PM EDT) Mammogram BIRADS 2 Normal, Abnormal, BIRADS 1 , BIRADS 2 Anatomical Region Laterality Modality Other Historical Provider HEALTH MAINTENANCE Final Result documented in this encounter Visit Diagnoses Not on filedocumented in this encounter Additional Health Concerns Assessment Noted Time PHQ-9 Depression Total Score: 0 10/14/19 25 3:47 PM EST documented as of this encounter Care Teams Serials Librarian Relationship Specialty Start Date End Date Bibi Neves ANP [address] [place] [address] PCP - General Family Medicine 04/18/20 documented as of this encounter
[2025-06-28 16:54] LABS: Anion Gap 14 (12-20); Blood Urea Nitrogen 12 mg/dL (9-16); Calcium 9.4 mg/dL (8.4-10.2); Carbon Dioxide 27 mmol/L (22-29); Chloride 104 mmol/L (96-108); Estimated Glomerular Filt Rate > 60; Potassium 3.1 mmol/L (3.3-5.1); Sodium 142 mmol/L (135-145)
== END 2025-06-28 13:52 | disposition home or self-care (01) ==
LOC: HO.HHCL 13:51
PROVIDERS: PCP Nurse Practitioner Primary Care; Visit Provider Nurse Practitioner Primary Care
DX: E87.6 Hypokalemia (principal)
CPT/HCPCS: 36415; 80048

== ENCOUNTER 2025-07-05 11:13 | Outpatient (REF) | payer OTHER, SELFPAY ==
[2025-07-05 12:21] LABS: Creatinine, mg/dL 51.32; Sodium, 24 Hr Urine 93.0 mmol/L
[2025-07-05 12:30] LABS: Total Volume 24 Hour Urine 1700 mL
== END 2025-07-05 11:14 | disposition home or self-care (01) ==
LOC: HO.LNP 11:13
PROVIDERS: Visit Provider Student in an Organized Health Care Education/Training Program
DX: E83.51 Hypocalcemia (principal); E89.2 Postprocedural hypoparathyroidism
CPT/HCPCS: 84300

== ENCOUNTER 2025-07-12 09:51 | Outpatient (REF) | payer OTHER, SELFPAY ==
[2025-07-12 11:11] LABS: Anion Gap 12 (12-20); Blood Urea Nitrogen 16 mg/dL (9-16); Calcium 8.2 mg/dL (8.4-10.2); Carbon Dioxide 26 mmol/L (22-29); Chloride 107 mmol/L (96-108); Estimated Glomerular Filt Rate > 60; Potassium 3.9 mmol/L (3.3-5.1); Sodium 141 mmol/L (135-145)
--- OUTSIDE RECORDS SUMMARY | 2025-07-12 11:43 | XMS_ITS | Encounter Summary ---
Author Organization [facility] Address [address] [facility] 7t [place] [address] Care Team Providers Care Iv Technician Name Role Phone Bibi Neves Primary Care Provider [phone] Endocrinology, Vitaliy Unavailable [phone] Reason for Visit * Reason Comments Med Refill Encounter Details Date Type Department Care Team (Late Contact Info) Description 02/17/2023 Refill [facility] MEDICINE [address] [place] [address] Bibi Neves ANP [address] [place] [address] Social History Tobacco Use Types Packs/Day Years [...] Description 11/03/2025 1:30 PM EDT Office Visit [facility] ADULT DENTAL [address] [place] [address] Humaira Garcia [address] [place] [address] documented as of this encounter Visit Diagnoses Not on filedocumented in this encounter Care Teams Iv Technician Relationship Specialty Start Date End Date Bibi Neves ANP [address] [place] [address] PCP - General Family Medicine 04/18/20 Endocrinology, [address] [place] [address] 06/29/25 documented as of this encounter
--- OUTSIDE RECORDS SUMMARY | 2025-07-12 11:43 | XMS_ITS | Encounter Summary ---
Author Organization [employer] [facility] Address [address] [facility] 7t [place] [address] Care Team Providers Care Tool Crib Manager Name Role Phone Bibi Neves Primary Care Provider [phone] Vitaliy Escudero Unavailable [phone] Encounter Details Date Type Department Care Team (Latest Contact Info) Description 08/26/2019 Abstract [facility] CONVERSIONS Dental, Provider, DDS Social History [...] Description 11/03/2025 1:30 PM EDT Office Visit [facility] ADULT DENTAL [address] [place] [address] Radha, Humaira [address] [place] [address] documented as of this encounter Visit Diagnoses Not on filedocumented in this encounter Care Teams Tool Crib Manager Relationship Specialty Start Date End Date Bibi Neves ANP [address] [place] [address] PCP - General Family Medicine 04/18/20 Vitaliy Escudero [address] [place] [address] 06/29/25 documented as of this encounter
--- OUTSIDE RECORDS SUMMARY | 2025-07-12 11:43 | XMS_ITS | Encounter Summary ---
Author Organization [employer] Address [address] [facility] 7t [place] [address] Care Team Providers Care Concrete Puddler Name Role Phone Neves Bibi RODRIGUEZ Primary Care Provider [phone] Endocrinology, [place] Unavailable Encounter Details Date Type Department Care Team (Late st Contact Info) Description 09/22/2024 Orders Only [facility] MEDICINE [address] [place] [address] Nilesh Marte, LaniD Social History Tobacco Use [...] Description 11/03/2025 1:30 PM EDT Office Visit [facility] ADULT DENTAL [address] [place] [address] RadhaHumaira franz [address] [place] [address] documented as of this encounter Visit Diagnoses Not on filedocumented in this encounter Additional Health Concerns Assessment Noted Time PHQ-9 Depression Total Score: 2 12/19/19 24 10:14 AM EDT documented as of this encounter Care Teams Concrete Puddler Relationship Specialty Start Date End Date Bibi Neves ANP 230 [place] [address] PCP - General Family Medicine 04/18/20 Endocrinology, [address] [place] [address] 06/29/25 documented as of this encounter
--- OUTSIDE RECORDS SUMMARY | 2025-07-12 11:43 | XMS_ITS | Encounter Summary ---
Author Organization [employer] [facility] Address [address] [facility] [address] [facility] [address] 7t [place] [address] Care Team Providers Care Porcelain Slusher Name Role Phone Bibi Neves Primary Care Provider [phone] Vitaliy Escudero Unavailable [phone] Encounter Details Date Type Department Care Team (Late Contact Info) Description 11/12/2022 Orders Only [facility] MED & PEDS [address] [place] [address] Sharonda Gotti LPN Social History Tobacco Use [...] Description 11/03/2025 1:30 PM EDT Office Visit [facility] ADULT DENTAL [address] [place] [address] Radha, Humaira [address] [place] [address] documented as of this encounter Visit Diagnoses Not on filedocumented in this encounter Care Teams Porcelain Slusher Relationship Specialty Start Date End Date Bibi Neves ANP [address] [place] [address] PCP - General Family Medicine 04/18/20 Vitaliy Escudero [address] [place] [address] DRIVE [address] [place] [address] 06/29/25 documented as of this encounter
--- OUTSIDE RECORDS SUMMARY | 2025-07-12 11:43 | XMS_ITS | Encounter Summary ---
Author Organization [employer] [facility] Address [address] [facility] 7t [place] [address] Care Team Providers Care Wedding Designer Name Role Phone Bibi Neves Primary Care Provider [phone] Vitaliy Escudero Unavailable [phone] Encounter Details Date Type Department Care Team (Latest Contact Info) Description 06/05/2022 Abstract [facility] CONVERSIONS Dental, Provider, DDS Social History Tobacco [...] Description 11/03/2025 1:30 PM EDT Office Visit [facility] ADULT DENTAL [address] [place] [address] Radha, Humaira [address] [place] [address] documented as of this encounter Visit Diagnoses Not on filedocumented in this encounter Care Teams Wedding Designer Relationship Specialty Start Date End Date Bibi Neves ANP 230 [place] [address] PCP - General Family Medicine 04/18/20 Vitaliy Escudero [address] [place] [address] 06/29/25 documented as of this encounter
--- OUTSIDE RECORDS SUMMARY | 2025-07-12 11:44 | XMS_ITS | Encounter Summary ---
Author Organization [facility] [facility] Address [address] [facility] 7t [place] [address] Care Team Providers Care Contact Lens Flashing Puncher Name Role Phone Bibi Neves Primary Care Provider [phone] Vitaliy Escudero Unavailable [phone] Reason for Visit * Reason Comments Med Refill Encounter Details Date Type Department Care Team (Late st Contact Info) Description 11/07/2023 Refill [facility] MEDICINE [address] [place] [address] Bibi Neves ANP [address] [place] [address] Postprocedural hypoparathyroidism (CMS/HCC) Social History Tobacco Use [...] Description 11/03/2025 1:30 PM EDT Office Visit [facility] ADULT DENTAL [address] [place] [address] Erik Garciaaris [address] [place] [address] documented as of this encounter Visit Diagnoses Diagnosis Postprocedural hypoparathyroidism (CMS/HCC) documented in this encounter Care Teams Contact Lens Flashing Puncher Relationship Specialty Start Date End Date Bibi Neves ANP [address] [place] [address] PCP - General Family Medicine 04/18/20 Endocrinology, [address] [place] [address] 06/29/25 documented as of this encounter
--- OUTSIDE RECORDS SUMMARY | 2025-07-12 11:44 | XMS_ITS | Encounter Summary ---
Author Organization [employer] Address [address] [facility] [facility] [address] 7t [place] [address] Care Team Providers Care Custodial Officer Name Role Phone Pura Bibi RODRIGUEZ Primary Care Provider [phone] EndocrinologyVitaliy Unavailable [phone] Encounter Details Date Type Department Care Team (Late st Contact Info) Description 07/12/2025 Orders Only GENERIC EXTERNAL DATA DEPARTMENT Provider, [...] Description 11/03/2025 1:30 PM EDT Office Visit [facility] ADULT DENTAL [address] [place] [address] Radha, Humaira [address] [place] [address] documented as of this encounter Procedures Procedure Name Priority Date/Time Associated Diagnosis Comments BASIC METABOLIC PANEL Routine 07/12/2025 9:57 AM EST documented in this encounter Results * (ABNORMAL) Basic Metabolic Panel (07/12/2025 9:57 AM EST) Sodium 141 135 - 145 mmol/L [facility] Potassium 3.9 3.3 - 5.1 mmol/L [facility] Chloride 107 96 - 108 mmol/L [facility] Carbon Dioxide 26 22 - 29 mmol/L [facility] Anion Gap 12 12 - 20 [facility] Urea Nitrogen (BUN) 16 9 - 16 mg/dL [facility] Creatinine, Serum 0.73 0.5 - 1.4 mg/dL [facility] Estimated Glomerular Filt Rate >60 [facility] Comment:Chronic Kidney Disea se: Estimated GFR < 60 mL/min/1.60d5Hwwgua Kidney Disease: Estimated GFR < 15 mL/min/1.73m2 Glucose 79 60 - 115 mg/dL [facility] Calcium 8.2(L) 8.4 - 10.2 mg/dL [facility] 07/12/2025 9:57 AM EST 07/12/2025 9:57 AM EST us Generic External Data Provider LAB BLOOD ORDERAB LES Final Result [facility] [address] [place] [address] [phone] documented in this encounter Visit Diagnoses Not on filedocumented in this encounter Additional Health Concerns Assessment Noted Time PHQ-9 Depression Total Score: 0 10/14/19 25 3:47 PM EST documented as of this encounter Care Teams Custodial Officer Relationship Specialty Start Date End Date Bibi Neves ANP [address] [place] [address] PCP - General Family Medicine 04/18/[address] [place] [address] 06/29/25 documented as of this encounter
--- OUTSIDE RECORDS SUMMARY | 2025-07-12 11:44 | XMS_ITS | Encounter Summary ---
Author Organization [employer] Address [address] [facility] [address] 7t [place] [address] Care Team Providers Care Trap Puller Name Role Phone Bibi Neves Primary Care Provider [phone] EndocrinologyVitaliy Unavailable [phone] Reason for Visit * Reason Onset Date Comments Results 06/29/2025 Encounter Details Date Type Department Care Team ([facility] st Contact Info) Description 06/29/2025 Results Follow-Up [facility] MEDICINE [address] [place] [address] Bibi Neves ANP [address] [place] [address] Basic Metabolic Panel Social History Tobacco Use [...] encounter Miscellaneous Notes * Telephone Encounter - Alley Francis RN - 06/29/2025 10:48 AM EST Telephone call placed to pt utilizing [facility] #[id number] regarding below results. Informed potassium low again. Inquired if she has potassium supplements. Pt reports she ran out and there were no refills so she has not been taking it and doesn't have it. Informed PCP will send supplement. Pt agreeable. Confirmed pharmacy on file as preferred for this Rx. Faxed labs to [facility] End[facility]ology. * Telephone Encounter - Alley Francis RN - 06/29/2025 10:42 AM EST ----- Message from Bibi Neves sent at 06/29/2025 10:39 AM EST ----- Per my discussion deloris Hager - please call pt to confirm she has potassium supplment, if not, we will send. Please fax result to endo as well for group home plan. thanks ----- Message ----- From: Interface, Lab Results In Sent: 06/28/2025 4:55 PM EST To: JENNIFER Monsalve * Result Encounter Note - JENNIFER Monsalve - 06/29/2025 10:39 AM EST Per my discussion w/ Alley - please call pt to confirm she has potassium supplment, if not, we will send. Please fax result to endo as well for [facility] plan. thanks documented in this encounter Plan of Treatment Upcoming Encounters Date Type Department Care Team (Late st Contact Info) Description 11/03/2025 1:30 PM EDT Office Visit [facility] ADULT DENTAL [address] [place] [address] Radha, Humaira [address] [place] [address] documented as of this encounter Visit Diagnoses Not on filedocumented in this encounter Additional Health Concerns Assessment Noted Time PHQ-9 Depression Total Score: 0 10/14/19 3:47 PM EST documented as of this encounter Care Teams Trap Puller Relationship Specialty Start Date End Date Bibi Neves ANP [address] [place] [address] PCP - General Family Medicine 04/18/20 Endocrinology, [address] [place] [address] 06/29/25 documented as of this encounter
--- OUTSIDE RECORDS SUMMARY | 2025-07-12 11:44 | XMS_ITS | Clinical Summary ---
Author Organization [address] [facility] Address [address] [place] [address] Phone Care Team Providers Care Wage Analyst Name Role Phone Bibi Neves NP Primary Care Provider [phone] Social History Tobacco Use Types Packs/Day Years [...] 08/19/2024 Hypertension/CHF/CAD Annual BMP Blood Test 11/04/2024 COVID-19 Vaccine (2 - season) 2025 10/14/2024 Influenza Vaccine (#1) 2025 , 05/10/2023, 05/24/2019, Additional history exists Cholesterol Screening (Lipid Panel) 12/18/2028 12/19/2023 DTaP,Tdap,and Td Vaccines (4 - Td or Tdap) 07/07/2034 07/07/2024, 06/16/2014, 04/28/2008 RSV Immunization Adult Patients (1 - 1-dose 75+ series) 02/12/2044 HIV Screening Completed 06/03/2020 Zoster Vaccines Completed 08/09/2020, 06/03/2020 Pneumococcal Vaccine: 50+ Years Completed 10/14/2024 HIB [...] age to complete this topic Insurance , [address] [address] [facility] PLAN Care Teams Wage Analyst Relationship Specialty Start Date End Date Bibi Neves NP [address] [place] [phone] PCP - General 07/28/24
--- OUTSIDE RECORDS SUMMARY | 2025-07-12 11:44 | XMS_ITS | Encounter Summary ---
Author Organization [employer] Address [address] [facility] [address] 7t [place] [address] Care Team Providers Care Tissue Technologist Name Role Phone Bibi Neves Primary Care Provider [phone] Endocrinology, [place] Unavailable [phone] Encounter Details Date Type Department Care Team (Late st Contact Info) Description 04/06/2025 Abstract [facility] MEDICINE [address] [place], [place] [id number] Bibi Neves ANP [address] [place] [address] Social History Tobacco Use Types Packs/Day Years [...] Description 11/03/2025 1:30 PM EDT Office Visit [facility] ADULT DENTAL [address] [place] [address] Radha, Humaira [address] [place] [address] documented as of this encounter Procedures Procedure [...] documented as of this encounter Care Teams Tissue Technologist Relationship Specialty Start Date End Date Bibi Neves ANP [address] [place] [address] PCP - General Family Medicine 04/18/[address] [place] [address] 06/29/25 documented as of this encounter
--- OUTSIDE RECORDS SUMMARY | 2025-07-12 11:44 | XMS_ITS | Encounter Summary ---
Author Organization [email or web address] [facility] Address [address] [facility] 7t [place] [address] Care Team Providers Care Trick Rodeo Rider Name Role Phone Bibi Neves Primary Care Provider [phone] Endocrinology, Vitaliy Unavailable [phone] Reason for Visit * Reason Comments Med Refill Encounter Details Date Type Department Care Team (Late Contact Info) Description 09/10/2023 Refill [facility] MEDICINE [address] [place] [address] Bibi Neves ANP [address] [place] [address] Social History Tobacco Use Types Packs/Day Years [...] 11/03/2025 1:30 PM EDT Office Visit [facility] ADULT DENTAL [address] [place] [address] Humaira Garcia [address] [place] [address] documented as of this encounter Visit Diagnoses Not on filedocumented in this encounter Care Teams Trick Rodeo Rider Relationship Specialty Start Date End Date Bibi Neves ANP [address] [place] [address] PCP - General Family Medicine 04/18/20 Endocrinology, [address] [place] [address] 06/29/25 documented as of this encounter
--- OUTSIDE RECORDS SUMMARY | 2025-07-12 11:44 | XMS_ITS | Clinical Summary ---
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 30 tablet 025 2025 Active amLODIPine (Norvasc) 5 MG tabletIndicatio ns:Essential hypertension TAKE 1 TABLET BY MOUTH EVERY MORNING 90 tablet 025 Active Calcium Carb-Cholecalci ferol (Calcium 500+D3) [...] potassium chloride ER (Micro-K) 10 MEQ ER capsuleIndicati ons:Hypokalemia Take 2 capsules (20 mEq) by mouth Once per day. 60 capsule Active pyridoxine (Vitamin B-6) 50 MG tablet Take 1 tablet (50 mg) by mouth in the morning. 90 tablet 024 2024 Discontinued(T herapy completed) potassium chloride CR (Klor-Con M20) 20 MEQ ER tabletIndicatio ns:Hypokalemia 1 tab twice daily. Do not crush or chew. 14 tablet 2024 Discontinued(D uplicate order (will not trigger notification to Pharmacy)) potassium chloride ER (Micro-K) 10 MEQ ER capsule Take 2 capsules by mouth Once per day. 025 2024 Discontinued(R eorder (will not trigger notification to Pharmacy)) Active Problems Problem Noted Date Diagnosed Date Multinodular thyroid 06/18/2025 Class 1 obesity with serious comorbidity and body mass index (BMI) of 30.0 to 30.9 in adult 06/18/2025 Osteopenia 05/18/2025 Recurrent nephrolithiasis 05/18/2025 Tubular adenoma of colon 12/01/2024 Overview (12/01/2024): 06/2024 C-scope w/ [facility], repeat 2 years per GI. we [...] Encounters Date Type Department Care Team Description 07/12/2025 Orders Only GENERIC EXTERNAL DATA DEPARTMENT Provider, Generic External Data 06/29/2025 Orders Only [facility] [address] [place] [address] Bibi Neves ANP Hypokalemia (Primary Dx) 06/29/2025 Results Follow-Up [facility] [address] [place] [address] Bibi Neves ANP Basic Metabolic Panel 06/18/2025 1:30 PM EDT Office Visit [facility] [place] [address] Bibi Neves ANP Primary hypertension (Primary Dx); Osteopenia, unspecified location; Post-surgical hypoparathyroidism; Prediabetes; History of nephrolithiasis; Encounter for immunization; Hypokalemia; Class 1 obesity with serious comorbidity and body mass index (BMI) of 30.0 to 30.9 in adult, unspecified obesity type 06/18/2025 Travel 06/17/[address] [address] Bibi Neves ANP chart prep 06/10/2025 Patient Outreach [address] [address] Bibi Neves ANP Pre-visit Planning (SDOH screening was completed on 09/30/2024) 05/31/2025 Orders Only GENERIC EXTERNAL DATA DEPARTMENT Provider, Generic External Data 05/26/2025 2:00 PM EDT Immunization [facility] [place] [address] Donna Beckham, TAMIKA Encounter for immunization 05/26/2025 Travel 05/11/2025 Refill [facility] [place] [address] Bibi Neves ANP Class 2 severe obesity with serious comorbidity and body mass index (BMI) of 36.0 to 36.9 in adult, unspecified obesity type ([facility]); Prediabetes 05/06/2025 2:20 PM EDT Office Visit [facility] [address] [place] [phone] Sharonda Jennings DO Abscess of groin, right (Primary Dx) 05/06/2025 Orders Only [address] [address] Sharonda Jennings DO 05/06/2025 Travel 05/06/[address] [address] Bibi Neves ANP Nurse Triage 05/04/2025 Results Follow-Up [address] [address] Bibi Neves ANP Comprehensive Metabolic Panel, PTH, Intact Without Calcium 05/03/2025 Orders Only GENERIC EXTERNAL DATA DEPARTMENT Provider, Generic External Data 04/30/2025 1:00 PM EDT Office Visit [facility] [address] [place] [address] Humaira Garcia Localized gingival recession, minimal (Primary Dx); Dental calculus 04/22/2025 Orders Only [facility] [address] [place] [address] Bibi Neves ANP Hyperparathyroidism ([facility]) (Primary Dx); Hypocalcemia 04/14/2025 Telephone [facility] [address] [place] [address] Bibi Neves ANP May recall 04/12/2025 Refill [facility] [address] [place] [address] Bhavna Lima NP Essential hypertension from Last 3 Months Immunizations Immunization Administration [...] Description 11/03/2025 1:30 PM EDT Office Visit [facility] [address] [place] [address] Radha, Humaira [address] [place] [address] Health Maintenance Due Date Last Done Comments CT Colonography 1969 FIT DNA/Cologuard 1969 FIT 1969 FOBT 1969 Sigmoidoscopy 1969 COVID-19 Vaccine ( season) 2025 10/14/2024, 04/16/2022, 08/23/2021, Additional history exists Dental Oral Exam 04/29/2025 10/26/2024, 12/2023, 06/05/2022, Additional history exists SDOH Screening 09/30/2025 09/30/2024 Depression Screening 10/14/2025 10/14/2024, 10/14/19 Dental X-Ray: Bitewings 10/27/2025 10/27/19 25, 09/23/2023, 03/06/2019, Additional history exists Dental Prophylaxis 10/29/2025 04/30/2025, 0 10/26/2024, 04/27/2024, Additional history exists Alcohol/Substance Use Screening 12/01/2025 12/01/2024 Disability Screening 12/01/2025 12/01/2024 Diabetes: Hemoglobin A1C 03/15/202603/15/2 025, 12/01/2024, 07/07/2024, Additional history exists Mammogram [...] 06/03/2020 Pneumococcal Vaccine: 50+ Years Completed 10/14/2024 Hepatitis [...] METABOLIC PANEL Routine 07/12/2025 9:57 AM EST BASIC METABOLIC PANEL Routine 06/28/2025 1:57 PM EST Hypokalemia MAGNESIUM Routine 05/31/2025 1:30 PM EDT PHOSPHATE [...] HM MAMMOGRAPHY Routine 04/06/2025 2:46 PM EDT POCT GLYCATED HEMOGLOBIN, TOTAL Routine 03/15/2025 3:14 [...] Recently Relevant to Health Maintenance Results * (ABNORMAL) Basic Metabolic Panel (07/12/2025 9:57 AM EST) Only the most recent of3 resultswithin the time period is included. Sodium 141 135 - 145 mmol/L [facility] Potassium 3.9 3.3 - 5.1 mmol/L [facility] Chloride 107 96 - 108 mmol/L [facility] Carbon Dioxide 26 22 - 29 mmol/L [facility] Anion Gap 12 12 - 20 [facility] Urea Nitrogen (BUN) 16 9 - 16 mg/dL [facility] Creatinine, Serum 0.73 0.5 - 1.4 mg/dL [facility] Estimated Glomerular Filt Rate >60 [facility] Comment:Chronic Kidney Disea se: Estimated GFR < 60 mL/min/[id number] Kidney Disease: Estimated GFR < 15 mL/min/1.73m2 Glucose 79 60 - 115 mg/dL [facility] Calcium 8.2(L) 8.4 - 10.2 mg/dL [facility] 07/12/2025 9:57 AM EST 07/12/2025 9:57 AM EST us Generic External Data Provider LAB BLOOD ORDERAB LES Final Result [facility] [address] [place] [address] [phone] * Phosphate (As Phosphorus) (05/31/2025 1:30 PM EDT) Only the most recent of2 resultswithin the time period is included. Phosphorus 4.1 2.7 - 4.5 mg/dL [facility] 05/31/2025 1:3 0 PM EDT 05/31/2025 1:30 PM EDT Generic External Data Provider LAB BLOOD ORDERAB LES Final Result Performing Organization Address [facility] de Phone Number [facility] [address] [place] [phone] * Magnesium (05/31/2025 1:30 PM EDT) Only the most recent of2 resultswithin the time period is included. Magnesium 1.8 1.6 - 2.6 mg/dL [facility] 05/31/2025 1:30 PM EDT 05/31/2025 1:30 PM EDT Generic External Data Provider LAB BLOOD ORDERAB LES Final Result Performing Organization Address [facility] de Phone Number [facility] [address] [place] [phone] * Comprehensive Metabolic Panel (05/31/2025 1:30 PM EDT) Only the most recent of2 resultswithin the time period is included. Sodium 141 135 - 145 mmol/L [facility] Potassium 3.6 3.3 - 5.1 mmol/L [facility] Chloride 105 96 - 108 mmol/L [facility] Carbon Dioxide 27 22 - 29 mmol/L [facility] Anion Gap 13 12 - 20 [facility] Urea Nitrogen (BUN) 16 9 - 16 mg/dL [facility] Creatinine, Serum 0.80 0.5 - 1.4 mg/dL [facility] Estimated Glomerular Filt Rate >60 [facility] Comment:Chronic Kidney Disea se: Estimated GFR < 60 mL/min/1.65a8Xgzlcj Kidney Disease: Estimated GFR < 15 mL/min/1.73m2 Glucose 86 60 - 115 mg/dL [facility] Calcium 8.6 8.4 - 10.2 mg/dL [facility] Bilirubin, Total 0.3 0.0 - 1.0 mg/dL [facility] Aspartate Amino Transferase 28 5 - 31 U/L [facility] Alanine Aminotransferase 22 0 - 31 U/L [facility] Total Protein 7.6 6.5 - 8.0 g/dL [facility] Albumin Level 4.6 3.5 - 5.0 g/dL [facility] Alkaline Phosphatase 117 39 - 117 U/L [facility] 05/31/2025 1:30 PM EDT 05/31/2025 1:30 PM EDT us Generic External Data Provider LAB BLOOD ORDERAB LES Final Result Performing Organization Address City/State/[facility] Co de Phone Number [facility] [address] [place] [phone] * Wound Care (05/06/2025 2:48 PM EDT) Narrative Mirtha Coleman RN - 05/06/2025 2:48 PM EDT Mirtha Coleman RN 05/06/2025 5:29 PM Wound Care Date/Time: 05/06/2025 2:48 PM Performed by: Mirtha Coleman RN Authorized by: Sharonda Jennings DO Consent: Consent obtained: Verbal Consent given by: Patient Risks, benefits, and alternatives were discussed: yes Risks discussed: Infection and pain Alternatives discussed: Alternative treatment [facility] protocol: Procedure explained and questions answered to [...] 2:48 PM EDT 05/06/2025 4:12 PM EDT Comment:Karri R Narrative [facility] - 05/08/2025 9:24 AM EDT Gram stain results: 4+ polys No organisms seen Routine Culture Report - external Routine Culture 4+ Mixed taan Specimen Source: Groin, Right Sharonda Jennings DO HISTORICAL/NON ORDERABLE LAB S Final Result Performing Organization Address [facility] Co de Phone Number [facility] [address] [place] [phone] * PTH, Intact Without Calcium (05/03/2025 2:17 PM EDT) Parathyroid Hormone, Intact 27.0 8.7 - 77.1 pg/mL [facility] 05/03/2025 2:17 PM EDT 05/03/2025 2:17 PM EDT Generic External Data Provider LAB BLOOD ORDERAB LES Final Result Performing Organization Address [facility] Co de Phone Number [facility] [address] [place] [phone] * Mammography (04/06/2025 2:46 PM EDT) Mammogram BIRADS 2 Normal, Abnormal, BIRADS 1 , BIRADS 2 Anatomical Region Laterality Modality Other Historical Provider MD HEALTH MAINTENANCE Final Result * POCT HGB A1C (03/15/2025 3:14 PM EDT) Hemoglobin A1C 5.6 4.0 - 5.7 % QC Media Lot # [id number] Lot# Expiration Date [id number] Blood 03/15/2025 3:14 PM EDT [facility] POINT OF CARE TEST ENTER/EDIT OR DERABLES Final Result * Colonoscopy (07/02/2024) Colonoscopy Normal Normal Narrative Gay Berkowitz - 07/02/2024 colonoscopy order added Historical Provider HEALTH MAINTENANCE Final Result * [facility] Imaging Pap and HPV mRNA E6/E7 (03/19/2024 2:04 PM EDT) HPV nRNA E6/E7 Not Detected Not Detected [facility] Comment:Methodology: Transcr iption-Mediated AmplificationThis assay detects E6/E7 viral messenger RNA (mRNA) from 14high-risk HPV types (16,18,31,33,35,39,45,51,52,56,58,59,66,68).Cervical sources are required for HPV testing.If a vaginal source from a patient who has had atotal hysterectomy with removal of cervix wassubmitted, please contact the testing laboratoryfor alternative testing options.For additional information, please refer tohttp://education.[employer]/faq/OCP757m2(This link if provided for information/educational purposes only.)THIS TEST WAS PERFORMED AT:[employer] [place] [phone] RIOS MD SOURCE: SEE NOTE [facility] Comment:None given Report Status: [facility] Clinical Information: SEE NOTE [facility] Comment:None given LMP: SEE NOTE [facility] Comment:NONE GIVEN Prev. PAP: SEE NOTE [facility] Comment:NONE GIVEN Prev. BX: SEE NOTE [facility] Comment:NONE GIVEN Statement Of Adequacy: SEE NOTE [facility] Comment:Satisfactory for mario luation.Endocervical/transformation zone component absent. General Categorization: [facility] Interpretation/Result: SEE NOTE [facility] Comment:Cytology Results: Ne gative for intraepitheliallesion or malignancy. Cytology Comment SEE NOTE [facility] Comment:This Pap test has be en evaluated with computerassisted technology. Soliciting Freight Agent: SEE NOTE [facility] Comment:[place]OLDEN, CT(ASCP)CT scre ening location: [place] [address] Review Soliciting Freight Agent: UTP [facility] Pathologist TNP [facility] PAP Infection [facility] See Note SEE NOTE [facility] Comment:EXPLANATORY NOTE:The Pap is a screening test for cervical cancer. It isnot a diagnostic test and is subject to false negativeand false positive results. It is most reliable when asatisfactory sample, regularly obtained, is submittedwith relevant clinical findings and history, and whenthe Pap result is evaluated along with historic andcurrent clinical information. 03/19/2024 2:04 PM EDT 03/19/2024 5:54 PM EDT Narrative [facility] - 03/25/2024 3:00 PM EDT SEE SCANNED RESULTS IN EMR us Lizzy Shaikh CN LAB PATHOLOGY ORDERABLES Final Result [facility] [address] [place] [phone] * (ABNORMAL) Lipid Panel, Standard (12/19/2023 10:20 AM EDT) Triglycerides 115 <150 mg/dL [facility] Comment:Desirable Triglyceri de: less than 150 mg/dLBorderline High Triglyceride 150-199 mg/dLHigh Triglyceride: 200-499 mg/dLVery High Triglyceride: greater than or equal to 5OO mg/dL Cholesterol 192 <200 mg/dL [facility] Comment:Desirable Cholestero l: less than 200 mg/dLBorderline High Cholesterol: 200-239 mg/dLHigh Cholesterol: greater than 239 mg/dL LDL Cholesterol Calculated 109(H) <100 mg/dL [facility] Comment:Desirable LDL: less than 100 mg/dLNear Optimal/Above Optimal LDL: 110- 129 mg/dLBorderline High LDL: 130-159 mg/dLHigh LDL: 160-189 mg/dLVery High LDL: greater than or equal to 190 mg/dL HDL Cholesterol 60 >40 mg/dL [facility] Comment:Desirable HDL: great er than 40 mg/dL Note: This HDL assay may give artificially low results in patients with liver disease. Blood Venous blood specimen / Unknown 12/19/2023 10:20 AM EDT 12/19/2023 11:34 AM EDT us [facility] LAB BLOOD ORDERABLES Final Resul t [facility] [address] [place] [phone] * HEPATITIS C AB W/REFL TO HCV RNA, QN, PCR (06/03/2020 9:27 AM EDT) HEPATITIS C ANTIBODY NON-REACT JOVANNY NON-REACT JOVANNY [facility] INDEX 0.02 <1.00 [facility] Comment: HCV antibody was non-reactive. There is no laboratory evidence of HCV infection. In most cases, no further action is required. However, if recent HCV exposure is suspected, a test for HCV RNA (test code 50726) is suggested. For additional information please refer to http://[employer]/faq/YPO49u1 (This link is being provided for informational/ educational purposes only.) HEPATITIS C ANTIBODY NON-REACT JOVANNY NON-REACT JOVANNY [facility] INDEX 0.02 <1.00 [facility] Comment: HCV antibody was non-reactive. There is no laboratory evidence of HCV infection. In most cases, no further action is required. However, if recent HCV exposure is suspected, a test for HCV RNA (test code 09833) is suggested. For additional information please refer to http://[employer]/faq/FGT66b8 (This link is being provided for informational/ educational purposes only.) HEPATITIS C ANTIBODY NON-REACT JOVANNY NON-REACT JOVANNY [facility] INDEX 0.02 <1.00 [facility] Comment: HCV antibody was non-reactive. There is no laboratory evidence of HCV infection. In most cases, no further action is required. However, if recent HCV exposure is suspected, a test for HCV RNA (test code 32628) is suggested. For additional information please refer to http://[employer]/faq/LTT97c7 (This link is being provided for informational/ educational purposes only.) 06/03/2020 9:27 AM EDT us Bibi Neves ANP HISTORICAL/NON ORDERABLE LABS Fi nal Result [facility] [address] [place] [address], * HIV 1/2 ANTIGEN/ANTIBODY,FOURTH GENERATION W/RFL (06/03/2020 9:27 AM EDT) HIV-1/2 ANTIGEN AND ANTIBODIES, 4TH GENERATION W/ REFLEX NON-REACT JOVANNY NON-REACT JOVANNY [facility] Comment: HIV-1 antigen and HIV-1/HIV-2 [...] purpose. For additional information please refer to http://[employer]/faq/IMS380 (This link is being provided for informational/ educational purposes only.) The performance of this assay has not been clinically validated in patients less than 2 years old. HIV-1/2 ANTIGEN AND ANTIBODIES, 4TH GENERATION W/ REFLEX NON-REACT JOVANNY NON-REACT JOVANNY [facility] Comment: HIV-1 antigen and HIV-1/HIV-2 [...] purpose. For additional information please refer to http://[employer]/faq/BNL949 (This link is being provided for informational/ [...] purpose. For additional information please refer to http://[employer]/faq/VMW398 (This link is being provided for informational/ educational purposes only.) The performance of this assay has not been clinically validated in patients less than 2 years old. 06/03/2020 9:27 AM EDT [facility] LAB BLOOD ORDERABLES Final Resul t [facility] [address] from Last 3 Months or Most Recently Relevant to Health Maintenance Insurance [facility] - HSN PARTIAL (MEDICAID) Care Teams [employer] Owner Operator Truck Driver Relationship Specialty Start Date End Date Bibi Neves ANP [address] [place] [address] [place] [address] PCP - General Family Medicine 04/18/[address] [place] [address] [address] [place] [address] 06/29/25
== END 2025-07-12 09:52 | disposition home or self-care (01) ==
LOC: HO.LAB 09:51
PROVIDERS: PCP Nurse Practitioner Primary Care; Visit Provider Student in an Organized Health Care Education/Training Program
DX: E87.6 Hypokalemia (principal)
CPT/HCPCS: 36415; 80048

== ENCOUNTER 2025-08-17 14:33 | Outpatient (AMB) | payer OTHER, SELFPAY ==
[2025-08-17 14:43] VITALS: BP 98/72; PULSE 67; O2SAT 100; BMI 29.8
--- NOTE | 2025-08-17 14:43 | A.OFFVIS_ITS ---
Vital Signs 08/17/25 14:43 Height 4 ft 10 in Weight 142 lb 10.225 oz BMI 29.8 BP 98/72 Blood Pressure Location Lt brachial Position Sitting Pulse 67 Pulse Source Pulse Oximeter Pulse Oximetry (%) 100 Oxygen Delivery Method Room Air Intake Visit Reasons: osteopenia Intake Note: Patient presents here today for Oteopenia follow-up after completion of work-up. Phosphorus Magnesium work-up: Lab Completed on 05/31/2025 Comprehensive Met. Panel: Lab completed on 07/12/2025 Bone Density (DEXA): Booked on 10/01/2025 Automotive Worker Foreman Required: Yes Automotive Worker Foreman Language: Textile Broker Services: Automotive Worker Foreman Offered & Declined (DR. Miller Speak Fluent Sinhala.) Accompanied by: Self / Same As Patient Allergies No Known Allergies (No Known Allergies*) Allergy (Verified 08/17/25 14:48) HPI Comments Details: 53 YO Female with a PMHx of hyperparathyroidism now S/P left superior and inferior parathyroidectomy 05/18/2014 with resultant hypoparathyroidism previously established with our practice, last seen by Dr. Mandel on 09/11/2023. She is now referred back to us for persistent hypocalcemia. Initial HPI She was initially diagnosed with hyperparathyroidism. She had recurrent nephrolithiasis and was referred for a surgical parathyroidectomy, which she underwent 05/18/2014. 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 Intraoperative PTH declined from 85-19 indicating cure. She subsequently developed hypoparathyroidism. She was placed on Calcitriol by Dr. Mcnair and her Calcium remained high normal and she subsequently developed nephrolithiasis. After her initial visit with Dr. Mandel, he stopped her Calcitriol. She was then placed on calcium citrate 200 mg twice daily cholesterol remain in the lower end of normal, my most recent 3 her calcium have been lower, patient is being referred back to us for evaluation. Patient reports that in March 2025 she was noted to have symptoms of hypocalcemia including perioral numbness, finger tingling/numbness and weakness, and labs reviewed the patient had hypoglycemia, at that time patient was taking calcium carbonate 500 mg daily, and after her labs showed calcium 7.5, her PCP decided to increase her calcium carbonate to 2 tablets daily. She reports that since calcium carbonate increase, her symptoms have lessened significantly. Of note, she reports that her primary care took her off hydrochlorothiazide due to low calcium. She also reports that she was seen by Urology in February 2025, found to have 2 new nonobstructive stones in right kidney and 1 nonobstructive stone in the left kidney, there will repeat imaging (CT scan) aneurysmal from that visit. Interval history The patient reports feeling well with no current symptoms. She denies perioral numbness, but reports occasional numbess/tingling in hands, specially when she is sleeping in the hands or keeps then in the same position. She is taking HCTZ 12.5mg daily Her potassium level is mostly in the normal range with K supplementation The patient has been taking calcium supplements since the last visit, once daily The patient has been consuming dietary sources of calcium, such as yogurt. She does not drink milk She will have the next BMD on 10/01/25 Physical exam General: Alert, well-nourished, no acute distress. Neck: no thyromegaly Cardiac:Regular rate and rhythm, no murmurs. no edema. Lungs: Clear to auscultation bilaterally. Abdomen: Soft, non-tender, nondistended Extremities: No weakness or edema Neuro: Alert, oriented. Laboratory Tests 05/31/25 06/28/25 07/12/25 13:30 13:57 09:57 Sodium 141 142 141 Potassium 3.6 3.1 L 3.9 D Creatinine 0.80 0.85 0.73 Estimated GFR > 60 > 60 > 60 Calcium 8.6 D 9.4 D 8.2 L D Phosphorus 4.1 Magnesium 1.8 Albumin 4.6 Laboratory Tests 03/25/25 03/29/25 04/16/25 14:07 13:52 10:30 Potassium 3.0 L 4.4 D 3.3 D Creatinine 0.85 0.81 0.83 Calcium 8.2 L 7.9 L 7.5 L Phosphorus 3.5 Magnesium 1.8 Alkaline Phosphatase Albumin PTH Intact Ur Calcium 24 Hr Calcium/Creat 24 Hr 05/03/25 05/03/25 09:00 14:17 Potassium 3.2 L Creatinine 0.78 Calcium 8.0 L D Phosphorus Magnesium Alkaline Phosphatase 140 H Albumin 4.4 PTH Intact 27.0 Ur Calcium 24 Hr 79 Calcium/Creat 24 Hr 86 Previous imaging US of kidneys 02/19/2025 Comparison: None Findings: Right kidney is normal in size, echogenicity and morphology, 9.1 cm in length. Nonobstructing calyceal calculi 11 mm in the lower pole, 5 mm in the midpole, 7 mm in the upper pole, additional smaller echogenic foci also noted. No mass or hydronephrosis. Left kidney is normal in size, echogenicity and morphology, 12.0 cm in length. 4 mm calculus in the upper pole. Additional smaller echogenic foci noted. Mild pelviectasis, no calyceal dilatation. No mass or hydronephrosis. Limited color Doppler demonstrates unremarkable bilateral blood flow. Impression: 1. Nonobstructing bilateral nephrolithiasis, right worse than left. 2. Left renal mild pelviectasis. DEXA scan 08/04/2021 FINDINGS: AP SPINE L1-L4: Current: BMD 1.285 g/cm2, Z-score 1.0, T-score 0.9, normal, 0.8% decrease from previous, 8.3% increase from baseline (<5% change is not significant). Prior: BMD 1.296 g/cm2. Baseline: BMD 1.187 g/cm2. LEFT FEMUR, NECK: Current: BMD 1.057 g/cm2, Z-score 0.7, T-score 0.1, normal. Prior: BMD 0.986 g/cm2. Baseline: BMD 0.980 g/cm2. LEFT FEMUR, TOTAL: Current: BMD 1.185 g/cm2, Z-score 1.6, T-score 1.4, normal, 5.2% increase from previous, 6.9% increase from baseline (<5% change is not significant). Prior: BMD 1.126 g/cm2. Baseline: BMD 1.108 g/cm2. LEFT FOREARM RADIUS 33%: BMD 0.754 g/cm2, Z-score -1.2, T-score -1.4, osteopenia, 5.2% increase from previous, 6.6% increase from baseline (<5% change is not significant). Prior: BMD 0.717 g/cm2. Baseline: BMD 0.707 g/cm2. IDENTIFIED RISK FACTORS: Menopause, hysterectomy, hyperparathyroid. HISTORY OF FRACTURE: None listed. MEDICATIONS: Calcium, vitamin D, calcitonin. IMPRESSION: 1. DIAGNOSIS: Osteopenia based on the lowest T-score value of -1.4 in the forearm radius 33% applying World Health Organization criteria. 2. 10-YEAR FRACTURE RISK PREDICTION, FRAX: Major osteoporotic fracture (clinical spine, forearm, hip or shoulder) 2.1%. Hip fracture 0.0%. [facility] Medical History (Updated 08/17/25 @ 15:03 by Macey Del Valle MD) Bleeding hemorrhoids Upper respiratory infection Pre-op examination Multinodular thyroid Prediabetes Obesity Hydronephrosis concurrent with and due to calculi of kidney and ureter Recurrent nephrolithiasis Disorder of bone density and structure, unspecified Vitamin D deficiency Osteopenia Tubular adenoma of colon Carpal tunnel syndrome Obesity (BMI 30-39.9) Post-surgical hypoparathyroidism Surgical History Hx of cystoscopy History of bladder surgery Hx of parathyroidectomy Hx of colonoscopy (~05/2023) Hx of tubal ligation Hx of cholecystectomy Hx of hysterectomy Family History Father Diabetes mellitus Mother No problems noted. Social History Household Members: Children Are you a primary home care coordinator to a significant other at home: No Do you presently have visiting nurse or other home services: No Alcohol intake: never Patient Tobacco Use Status: Never used Tobacco Assessment & Plan Assessment & Plan (1) Post-surgical hypoparathyroidism: Code(s): E89.2 - Postprocedural hypoparathyroidism Category: Medical (2) Osteopenia: Code(s): M85.80 - Other specified disorders of bone density and structure, unspecified site Category: Medical Qualifiers: Osteopenia location: unspecified Qualified Code(s): M85.80 - Other specified disorders of bone density and structure, unspecified site Plan Discussed with patient the importance to keep calcium level between 7.8 and 8.5 to avoid complications including kidney stone formation, nephrocalcinosis. Discussed with the patient the importance of maintain normal magnesium and potassium levels, with supplement as needed based on lab results Goal is to maintain urine [id number] ratio below 100 mg/g creatinine. We do think that given the patient history of multiple episode of nephrolithiasis, she should be on hydrochlorothiazide. Given that she developed hypokalemia, potassium supplementation she will be given. Recommendation Continue calcium carbonate 500mg BID Continue Vitamin D 1000 IU Continue HCTZ 12.5 mg daily Continue KCL 20 meq/day for hypokalemia Repeat BMP, mag, P, PTH, Vit D and 1,25 vit D in 3 months Pending DEXA, 10/01/25 Follow up in 3 months Orders: Orders Phosphorus 8 Weeks E89.2 - Postprocedural hypoparathyroidism, M85.80 - Other specified disorders of bone density and structure, unspecified site Vitamin D 25-OH Total 8 Weeks E89.2 - Postprocedural hypoparathyroidism, M85.80 - Other specified disorders of bone density and structure, unspecified site Vitamin D 1,25 dihydroxy 8 Weeks E89.2 - Postprocedural hypoparathyroidism, M85.80 - Other specified disorders of bone density and structure, unspecified site Parathyroid Hormone Intact 8 Weeks E89.2 - Postprocedural hypoparathyroidism, M85.80 - Other specified disorders of bone density and structure, unspecified site Comprehensive Met. Panel 8 Weeks E89.2 - Postprocedural hypoparathyroidism, M85.80 - Other specified disorders of bone density and structure, unspecified site Magnesium 8 Weeks E89.2 - Postprocedural hypoparathyroidism, M85.80 - Other specified disorders of bone density and structure, unspecified site Medications: Refilled potassium chloride ER Take 40 mEq twice daily 40 mEq (4 x 10 mEq) PO DAILY 60 caps 3RF Coding Level of Care Code Est Pt Level 4 (37616) Add On Problem Visit Only Diagnoses Post-surgical hypoparathyroidism E89.2 Osteopenia, unspecified location M85.80 Osteopenia location: unspecified
--- OUTSIDE RECORDS SUMMARY | 2025-08-17 18:12 | XMS_ITS | Encounter Summary ---
Author Organization [employer] Address [address] [place] [address] Care Team Providers Care Information Writer Name Role Phone Neves Bibi RORDIGUEZ Primary Care Provider [phone] Endocrinology, Rhodell Unavailable [phone] Encounter Details Date Type Department Care Team (Late st Contact Info) Description 09/22/2024 Orders Only [facility] [address] [place] [address] Nilesh Marte, LaniD Social History Tobacco Use [...] Care Team (Late st Contact Info) Description 10/14/2025 2:30 PM EST Office Visit [facility] [address] [place] [address] Bibi Neves ANP [address] [place] [address] 11/03/2025 1:30 PM EDT Office Visit [facility] ADULT D[facility] [address] [place] [address] Radha, Humaira [address] [place] [address] documented as of this encounter Visit Diagnoses Not on filedocumented in this encounter Additional Health Concerns Assessment Noted Time PHQ-9 Depression Total Score: 2 12/19/19 24 10:14 AM EDT documented as of this encounter Care Teams Information Writer Relationship Specialty Start Date End Date Bibi Neves ANP [address] [place] [id number] PCP - General Family Medicine 04/18/[address] [place] [address] 06/29/25 documented as of this encounter
--- OUTSIDE RECORDS SUMMARY | 2025-08-17 18:12 | XMS_ITS | Encounter Summary ---
Author Organization [employer] [facility] Address [address] [place] [address] Care Team Providers Care Sales Order Processor Name Role Phone Bibi Neves Primary Care Provider [phone] Endocrinology, Ber[place] Unavailable [phone] Encounter Details Date Type Department Care Team (Latest Contact Info) Description 08/26/2019 Abstract [facility] CONVERSIONS Dental, Provider, DDS Social History [...] Description 10/14/2025 2:30 PM EST Office Visit [facility] [address] [place] [address] Bibi Neves ANP [address] [place] [address] 11/03/2025 1:30 PM EDT Office Visit [facility] ADULT DENTAL [address] [place] [address] Erik Garciaaris [address] [place] [address] documented as of this encounter Visit Diagnoses Not on filedocumented in this encounter Care Teams Sales Order Processor Relationship Specialty Start Date End Date Bibi Neves ANP [address] [place] [address] PCP - General Family Medicine 04/18/20 Endocrinology, [address] [place] [address] 06/29/25 documented as of this encounter
--- OUTSIDE RECORDS SUMMARY | 2025-08-17 18:12 | XMS_ITS | Encounter Summary ---
Author Organization [email or web address] [facility] Address [address] [place] [address] Care Team Providers Care Jukebox Route Driver Name Role Phone Bibi Neves Primary Care Provider Endocrinology, Vitaliy Unavailable [phone] Encounter Details Date Type Department Care Team (Late Contact Info) Description 11/12/2022 Orders Only [facility] [address] [place], [place] [id number] Sharonda Gotti LPN Social History Tobacco Use [...] Department Care Team (Late Contact Info) Description 10/14/2025 2:30 PM EST Office Visit [facility] [address] [place] [address] Bibi Neves ANP [address] [place] [address] 11/03/2025 1:30 PM EDT Office Visit [facility] ADULT DENTAL [address] [place] [address] Humaira Garcia [address] [place] [address] documented as of this encounter Visit Diagnoses Not on filedocumented in this encounter Care Teams Jukebox Route Driver Relationship Specialty Start Date End Date Bibi Neves ANP [address] [place] [address] PCP - General Family Medicine 04/18/20 Endocrinology, [address] [place] [address] 06/29/25 documented as of this encounter
--- OUTSIDE RECORDS SUMMARY | 2025-08-17 18:12 | XMS_ITS | Encounter Summary ---
Author Organization [employer] [facility] Address [address] [place] [address] Care Team Providers Care Banquet Cook Name Role Phone Bibi Neves Primary Care Provider [phone] Endocrinology, [place] Unavailable [phone] Encounter Details Date Type Department Care Team (Latest Contact Info) Description 06/05/2022 Abstract [facility] CONVERSIONS Dental, Provider, DDS Social History [...] Description 10/14/2025 2:30 PM EST Office Visit [facility] [address] [place] [address] Bibi Neves ANP [address] [place] [address] 11/03/2025 1:30 PM EDT Office Visit [facility] ADULT DENTAL [address] [place] [address] Radha, Humaira [address] [place] [address] documented as of this encounter Visit Diagnoses Not on filedocumented in this encounter Care Teams Banquet Cook Relationship Specialty Start Date End Date Bibi Neves ANP [address] [place] [address] PCP - General Family Medicine 04/18/20 Endocrinology, [address] [place] [address] 06/29/25 documented as of this encounter
--- OUTSIDE RECORDS SUMMARY | 2025-08-17 18:13 | XMS_ITS | Clinical Summary ---
Author Organization [employer] Address [address] 7t [place] [address] Care Team Providers Care Exchange Clerk Name Role Phone Bibi Neves Primary Care Provider [phone] EndocrinologyVitaliy Unavailable Allergies No known active allergies Medications Bisacodyl [...] mouth 2 times daily. 180 tablet 1 08/17/20 25 2:26 PM EST 025 Active hydroCHLOROthia zide (Microzide) 12.5 MG capsule Take 12.5 mg by mouth in the morning. 025 Active potassium chloride ER (Micro-K) 10 MEQ ER capsuleIndicati ons:Hypokalemia Take 2 capsules (20 mEq) by mouth Once per day. 60 capsule Active Zepbound 7.5 MG/0.5ML solution auto-injectorIn dications:Class 2 severe obesity with serious comorbidity and body mass index (BMI) of 36.0 to 36.9 in adult, unspecified obesity type,Prediabete s INJECT ONE PEN (=7.5MG) SUBCUTANEOUSLY ONCE A WEEK DIRECTED 2 mL 2 08/17/20 2:26 PM EST Active Zepbound 7.5 MG/0.5ML solution auto-injectorIn dications:Class 2 severe obesity with serious comorbidity and body mass index (BMI) of 36.0 to 36.9 in adult, unspecified obesity type,Prediabete s INJECT ONE PEN (=7.5MG) SUBCUTANEOUSLY ONCE A WEEK DIRECTED 2 mL 2 07/13/20 9:38 AM EST 025 2024 Discontinued Active Problems Problem Noted Date Diagnosed Date Multinodular thyroid 06/18/2025 Class 1 obesity with serious comorbidity and body mass index (BMI) of 30.0 to 30.9 in adult 06/18/2025 Osteopenia 05/18/2025 Recurrent nephrolithiasis 05/18/2025 Tubular adenoma of colon 12/01/2024 Overview (12/01/2024): 06/2024 C-scope w/ [facility], repeat 2 years per GI. we [...] Encounters Date Type Department Care Team Description 07/29/2025 Refill [facility] [address] [place] [address] Bibi Neves ANP Class 2 severe obesity with serious comorbidity and body mass index (BMI) of 36.0 to 36.9 in adult, unspecified obesity type; Prediabetes 07/20/2025 Telephone [facility] [address] [place] [address] Bibi Neves ANP september07/12/2025 Orders Only GENERIC EXTERNAL DATA DEPARTMENT Provider, Generic External Data 06/29/2025 Orders Only [facility] [address] [place] [address] Bibi Neves ANP Hypokalemia (Primary Dx) 06/29/2025 Results Follow-Up [address] [place] [address] Bibi Neves ANP Basic Metabolic Panel 06/18/2025 1:30 PM EDT Office Visit [address] [address] Bibi Neves ANP Primary hypertension (Primary Dx); Osteopenia, unspecified location; Post-surgical hypoparathyroidism; Prediabetes; History of nephrolithiasis; Encounter for immunization; Hypokalemia; Class 1 obesity with serious comorbidity and body mass index (BMI) of 30.0 to 30.9 in adult, unspecified obesity type 06/18/2025 Travel 06/17/[address] [address] Bibi Neves ANP chart prep 06/10/2025 Patient Outreach [address] [address] Bibi Neves ANP Pre-visit Planning (SDOH screening was completed on 09/30/2024) 05/31/2025 Orders Only GENERIC EXTERNAL DATA DEPARTMENT Provider, Generic External Data 05/26/2025 2:00 PM EDT Immunization [address] [address] Donna Beckham, RN Encounter for immunization 05/26/2025 Travel from Last 3 Months Immunizations Immunization Administration [...] Description 10/14/2025 2:30 PM EST Office Visit [facility] [address] [place] [address] Bibi Neves, ANP [address] [place] [address] 11/03/2025 1:30 PM EDT Office Visit [facility] [address] [place] [address] Humaira Garcia [address] [place] [address] Health Maintenance Due Date Last Done Comments CT Colonography 1969 FIT DNA/Cologuard 1969 FIT 1969 FOBT 1969 Sigmoidoscopy 1969 COVID-19 Vaccine ( season) 2025 10/14/2024, 04/16/2022, 08/23/2021, Additional history exists Dental Oral Exam 04/29/2025 10/26/2024, 12/2023, 06/05/2022, Additional history exists SDOH Screening 09/30/2025 09/30/2024 Depression Screening 10/14/2025 10/14/2024, 10/14/19 25 Dental X-Ray: [facility] 10/27/2025 10/27/19 25, 09/23/2023, [...] METABOLIC PANEL Routine 05/31/2025 1:30 PM EDT PROPHYLAXIS - ADULT Routine 04/30/2025 1 :00 PM EDT Dental calculus HM MAMMOGRAPHY Routine 04/06/2025 2:46 PM EDT [...] 9:57 AM EST) Only the most recent of2 resultswithin the time period is included. Sodium 141 135 - 145 mmol/L [facility] Potassium 3.9 3.3 - 5.1 mmol/L [facility] Chloride 107 96 - 108 mmol/L [facility] Carbon Dioxide 26 22 - 29 mmol/L [facility] Anion Gap 12 12 - 20 [facility] Urea Nitrogen (BUN) 16 9 - 16 mg/dL [facility] Creatinine, Serum 0.73 0.5 - 1.4 mg/dL [facility] Estimated Glomerular Filt Rate >60 [facility] Comment:Chronic Kidney Disea se: Estimated GFR < 60 mL/min/1.60c5Obbfru Kidney Disease: Estimated GFR < 15 mL/min/1.73m2 Glucose 79 60 - 115 mg/dL [facility] Calcium 8.2(L) 8.4 - 10.2 mg/dL [facility] 07/12/2025 9:57 AM EST 07/12/2025 9:57 AM EST us Generic External Data Provider LAB BLOOD ORDERAB LES Final Result [facility] [address] [place] [address] [phone] * Phosphate (As Phosphorus) (05/31/2025 1:30 PM EDT) Phosphorus 4.1 2.7 - 4.5 mg/dL [facility] 05/31/2025 1:30 PM EDT 05/31/2025 1:30 PM EDT us Generic External Data Provider LAB BLOOD ORDERAB LES Final Result Performing Organization Address City/[facility]/ZIP Co de Phone Number [facility] [address] [place] [address] [phone] * Magnesium (05/31/2025 1:30 PM EDT) Pathologist [facility] Magnesium 1.8 1.6 - 2.6 mg/dL [facility] 05/31/2025 1:30 PM EDT 05/31/2025 1:30 PM EDT Generic External Data Provider LAB BLOOD ORDERAB LES Final Result Performing Organization Address [facility] Co de Phone Number [facility] [address] [place] [address] [phone] * Comprehensive Metabolic Panel (05/31/2025 1:30 PM EDT) [facility] Sodium 141 135 - 145 mmol/L [facility] Potassium 3.6 3.3 - 5.1 mmol/L [facility] Chloride 105 96 - 108 mmol/L [facility] Carbon Dioxide 27 22 - 29 mmol/L [facility] Anion Gap 13 12 - 20 [facility] Urea Nitrogen (BUN) 16 9 - 16 mg/dL [facility] Creatinine, Serum 0.80 0.5 - 1.4 mg/dL [facility] Estimated Glomerular Filt Rate >60 [facility] Comment:Chronic Kidney Disea se: Estimated GFR < 60 mL/min/1.73l9Tbgakb Kidney Disease: Estimated GFR < 15 mL/min/1.73m2 Glucose 86 60 - 115 mg/dL [facility] Calcium 8.6 8.4 - 10.2 mg/dL [facility] Bilirubin, Total 0.3 0.0 - 1.0 mg/dL [facility] Aspartate Amino Transferase 28 5 - 31 U/L [facility] Alanine Aminotransferase 22 0 - 31 U/L [facility] Total Protein 7.6 6.5 - 8.0 g/dL [facility] Albumin Level 4.6 3.5 - 5.0 g/dL [facility] Alkaline Phosphatase 117 39 - 117 U/L [facility] 05/31/2025 1:30 PM EDT 05/31/2025 1:30 PM EDT Generic External Data Provider LAB BLOOD ORDERAB LES Final Result [facility] [address] [place] [phone] * Mammography (04/06/2025 2:46 PM EDT) Mammogram BIRADS 2 Normal, Abnormal, BIRADS 1 , BIRADS 2 Anatomical Region Laterality Modality Other Historical Provider MD HEALTH MAINTENANCE Final Result * POCT HGB A1C (03/15/2025 3:14 PM EDT) Pathologist [facility] Hemoglobin A1C 5.6 4.0 - 5.7 % QC Media Lot # [id number] Lot# Expiration Date [id number] Blood 03/15/2025 3:14 PM EDT us Bibi Neves ANP POINT OF CARE TEST ENTER/EDIT OR DERABLES Final Result * Colonoscopy (07/02/2024) Pathologist [facility] Colonoscopy Normal Normal Narrative Gay Berkowitz - 07/02/2024 colonoscopy order added Historical Provider HEALTH MAINTENANCE Final Result * ThinPrep Imaging Pap and HPV mRNA E6/E7 (03/19/2024 2:04 PM EDT) Pathologist [facility] HPV nRNA E6/E7 Not Detected Not Detected [facility] Comment:Methodology: Transcr iption-Mediated AmplificationThis assay detects E6/E7 viral messenger RNA (mRNA) from 14high-risk HPV types (16,18,31,33,35,39,45,51,52,56,58,59,66,68).Cervical sources are required for HPV testing.If a vaginal source from a patient who has had atotal hysterectomy with removal of cervix wassubmitted, please contact the testing laboratoryfor alternative testing options.For additional information, please refer tohttp://education.Fundbase/faq/OHT060t9(This link if provided for information/educational purposes only.)THIS TEST WAS PERFORMED AT:[employer] [address] [phone] RIOS MD SOURCE: SEE NOTE [facility] Comment:None given Report Status: [facility] Clinical Information: SEE NOTE [facility] Comment:None given LMP: SEE NOTE [facility] Comment:NONE GIVEN Prev. PAP: SEE NOTE [facility] Comment:NONE GIVEN Prev. BX: SEE NOTE [facility] Comment:NONE GIVEN Statement Of Adequacy: SEE NOTE [facility] Comment:Satisfactory for mario luation.Endocervical/transformation zone component absent. General Categorization: [facility] Interpretation/Result: SEE NOTE [facility] Comment:Cytology Results: Ne gative for intraepitheliallesion or malignancy. Cytology Comment SEE NOTE [facility] Comment:This Pap test has be en evaluated with computerassisted technology. Cooler Tender: SEE NOTE [facility] Comment:[place], CT(ASCP)CT scre ening location: [address] [address] Review Cooler Tender: [facility] Pathologist [facility] PAP Infection [facility] See Note SEE [facility] Comment:EXPLANATORY NOTE:The Pap is a screening test for cervical cancer. It isnot a diagnostic test and is subject to false negativeand false positive results. It is most reliable when asatisfactory sample, regularly obtained, is submittedwith relevant clinical findings and history, and whenthe Pap result is evaluated along with historic andcurrent clinical information. 03/19/2024 2:04 PM EDT 03/19/2024 5:54 PM EDT Narrative [facility] - 03/25/2024 3:00 PM EDT SEE SCANNED RESULTS IN EMR Lizzy Shaikh [facility] PATHOLOGY ORDERABLES Final Result Performing Organization Address City/[facility]/ZIP Co de Phone Number [facility] [address] [place] [phone] * (ABNORMAL) Lipid Panel, Standard (12/19/2023 10:20 AM EDT) Triglycerides 115 <150 mg/dL [facility] Comment:Desirable Triglyceri de: less than 150 mg/dLBorderline High Triglyceride 150-199 mg/dLHigh Triglyceride: 200-499 mg/dLVery High Triglyceride: greater than or equal to 5OO mg/dL Cholesterol 192 <200 mg/dL [facility] Comment:Desirable Cholestero l: less than 200 mg/dLBorderline High Cholesterol: 200-239 mg/dLHigh Cholesterol: greater than 239 mg/dL LDL Cholesterol Calculated 109(H) <100 mg/dL [facility] Comment:Desirable LDL: less than 100 mg/dLNear Optimal/Above Optimal LDL: 110- 129 mg/dLBorderline High LDL: 130-159 mg/dLHigh LDL: 160-189 mg/dLVery High LDL: greater than or equal to 190 mg/dL HDL Cholesterol 60 >40 mg/dL [facility] Comment:Desirable HDL: great er than 40 mg/dL Note: This HDL assay may give artificially low results in patients with liver disease. Blood Venous blood specimen / Unknown 12/19/2023 10:20 AM EDT 12/19/2023 11:34 AM EDT us Bibi RODRIGUEZ LAB BLOOD ORDERABLES Final Resul t [facility] [address] [place] [address] [phone] * HEPATITIS C AB W/REFL TO HCV RNA, QN, PCR (06/03/2020 9:27 AM EDT) HEPATITIS C ANTIBODY NON-REACT JOVANNY NON-REACT JOVANNY [facility] INDEX 0.02 <1.00 [facility] Comment: HCV antibody was non-reactive. There is no laboratory evidence of HCV infection. In most cases, no further action is required. However, if recent HCV exposure is suspected, a test for HCV RNA (test code 17631) is suggested. For additional information please refer to http://[employer]/faq/JTJ00r4 (This link is being provided for informational/ educational purposes only.) HEPATITIS C ANTIBODY NON-REACT JOVANNY NON-REACT JOVANNY [facility] INDEX 0.02 <1.00 [facility] Comment: HCV antibody was non-reactive. There is no laboratory evidence of HCV infection. In most cases, no further action is required. However, if recent HCV exposure is suspected, a test for HCV RNA (test code 41872) is suggested. For additional information please refer to http://[employer]/faq/GSH14n6 (This link is being provided for informational/ educational purposes only.) HEPATITIS C ANTIBODY NON-REACT JOVANNY NON-REACT JOVANNY [facility] INDEX 0.02 <1.00 [facility] Comment: HCV antibody was non-reactive. There is no laboratory evidence of HCV infection. In most cases, no further action is required. However, if recent HCV exposure is suspected, a test for HCV RNA (test code 45973) is suggested. For additional information please refer to http://[employer]/faq/HSU29l3 (This link is being provided for informational/ educational purposes only.) 06/03/2020 9:27 AM EDT us Bibi Neves ANP HISTORICAL/NON ORDERABLE LABS Fi nal Result [facility] [address] * HIV 1/2 ANTIGEN/ANTIBODY,FOURTH GENERATION W/RFL (06/03/2020 9:27 AM EDT) HIV-1/2 ANTIGEN AND ANTIBODIES, 4TH GENERATION W/ REFLEX NON-REACT JOVANNY NON-REACT JOVANNY [facility] Comment: HIV-1 antigen and HIV-1/HIV-2 [...] purpose. For additional information please refer to http://[employer]base/faq/JZF592 (This link is being provided for informational/ educational purposes only.) The performance of this assay has not been clinically validated in patients less than 2 years old. HIV-1/2 ANTIGEN AND ANTIBODIES, 4TH GENERATION W/ REFLEX NON-REACT JOVANNY NON-REACT JOVANNY [facility] Comment: HIV-1 antigen and HIV-1/HIV-2 [...] purpose. For additional information please refer to http://[employer]/faq/UXL235 (This link is being provided for informational/ educational purposes only.) The performance of this assay has not been clinically validated in patients less than 2 years old. HIV-1/2 ANTIGEN AND ANTIBODIES, 4TH GENERATION W/ REFLEX NON-REACT JOVANNY NON-REACT JOVANNY [facility] Comment: HIV-1 antigen and HIV-1/HIV-2 [...] purpose. For additional information please refer to http://[employer].Fundbase/faq/NDV279 (This link is being provided for informational/ educational purposes only.) The performance of this assay has not been clinically validated in patients less than 2 years old. 06/03/2020 9:27 AM EDT [facility] LAB BLOOD ORDERABLES Final Resul t [facility] [address] from Last 3 Months or Most Recently Relevant to Health Maintenance Insurance [facility] PARTIAL (MEDICAID) Care Teams Exchange Clerk Relationship Specialty Start Date End Date Bibi Neves ANP [address] [place] [address] PCP - General Family Medicine 04/18/[address] [place] [address] 06/29/25
--- OUTSIDE RECORDS SUMMARY | 2025-08-17 18:13 | XMS_ITS | Encounter Summary ---
Author Organization [employer] Address [address] 7[address] [place] [address] Care Team Providers Care Manager Trade Name Role Phone iBbi Neves Primary Care Provider [phone] EndocrinologyVitaliy Unavailable [phone] Reason for Visit * Reason Onset Date Comments Results 06/29/2025 Encounter Details Date Type Department Care Team ([facility] st Contact Info) Description 06/29/2025 Results Follow-Up [facility] [address] [place] [address] Bibi Neves ANP [address] [place] [address] Basic Metabolic Panel Social History Tobacco Use [...] EST Telephone call placed to pt utilizing [facility] #[id number] regarding below results. Informed potassium low again. Inquired if she has potassium supplements. Pt reports she ran out and there were no refills so she has not been taking it and doesn't have it. Informed PCP will send supplement. Pt agreeable. Confirmed pharmacy on file as preferred for this Rx. Faxed labs to [facility] Endocr[facility]. * Telephone Encounter - Alley Francis RN - 06/29/2025 10:42 AM EST ----- Message from Bibi Neves sent at 06/29/2025 10:39 AM EST ----- Per my discussion deloris Hager - please call pt to confirm she has potassium supplment, if not, we will send. Please fax result to endo as well for fci plan. thanks ----- Message ----- From: Interface, Lab Results In Sent: 06/28/2025 4:55 PM EST To: JENNIFER Monsalve * Result Encounter Note - JENNIFER Monsalve - 06/29/2025 10:39 AM EST Per my discussion w/ Alley - please call pt to confirm she has potassium supplment, if not, we will send. Please fax result to endo as well for petroleum terminal plant operator plan. thanks documented in this encounter Plan of Treatment Upcoming Encounters Date Type Department Care Team (Late st Contact Info) Description 10/14/2025 2:30 PM EST Office Visit [facility] [address] [place] [address] Bibi Neves ANP [address] [place] [address] 11/03/2025 1:30 PM EDT Office Visit [facility] [address] [place] [address] Humaira Garcia [address] [place] [address] documented as of this encounter Visit Diagnoses Not on filedocumented in this encounter Additional Health Concerns Assessment Noted Time PHQ-9 Depression Total Score: 0 10/14/19 3:47 PM EST documented as of this encounter Care Teams Manager Trade Relationship Specialty Start Date End Date Bibi Neves ANP [address] [place] [phone] PCP - General Family Medicine 04/18/20 Endocrinology, [address] [place] [address] 06/29/25 documented as of this encounter
--- OUTSIDE RECORDS SUMMARY | 2025-08-17 18:13 | XMS_ITS | Encounter Summary ---
Author Organization [facility] [facility] Address [address] [facility] 7t [place] [address] Care Team Providers Care Horticulture Worker Name Role Phone Bibi Neves Primary Care Provider [phone] Endocrinology, [place] Unavailable [phone] Reason for Visit * Reason Comments Med Refill Encounter Details Date Type Department Care Team (Late st Contact Info) Description 09/10/2023 Refill [facility] [address] [place] [phone] Bibi Neves ANP [address] [place] [address] Social History Tobacco Use Types Packs/Day Years [...] Description 10/14/2025 2:30 PM EST Office Visit [facility] [address] [place] [address] Bibi Neves ANP [address] [place] [address] 11/03/2025 1:30 PM EDT Office Visit [facility] [address] [place] [phone] Humaira Garcia [address] [place] [address] documented as of this encounter Visit Diagnoses Not on filedocumented in this encounter Care Teams Horticulture Worker Relationship Specialty Start Date End Date Bibi Neves ANP [address] [facility] [place] [address] PCP - General Family Medicine 04/18/20 Endocrinology, [address] [place] [address] 06/29/25 documented as of this encounter
--- OUTSIDE RECORDS SUMMARY | 2025-08-17 18:13 | XMS_ITS | Encounter Summary ---
Author Organization [employer] [facility] Address [address] [facility] 7t [place] [address] Care Team Providers Care Psychology Tech Name Role Phone Bibi Neves Primary Care Provider [phone] Endocrinology, [place] Unavailable [phone] Reason for Visit * Reason Comments Med Refill Encounter Details Date Type Department Care Team (Late Contact Info) Description 02/17/2023 Refill [facility] [address] [place] [phone] Bibi Neves ANP [address] [place] [address] Social History Tobacco Use Types Packs/Day Years [...] Description 10/14/2025 2:30 PM EST Office Visit [facility] [address] [place] [address] Bibi Neves ANP [address] [place] [address] 11/03/2025 1:30 PM EDT Office Visit [facility] [address] [place] [phone] Humaira Garcia [address] [place] [address] documented as of this encounter Visit Diagnoses Not on filedocumented in this encounter Care Teams Psychology Tech Relationship Specialty Start Date End Date Bibi Neves ANP [address] [facility] [address] PCP - General Family Medicine 04/18/20 Endocrinology, [address] [place] [address] 06/29/25 documented as of this encounter
--- OUTSIDE RECORDS SUMMARY | 2025-08-17 18:13 | XMS_ITS | Encounter Summary ---
Author Organization [employer] [facility] Address [address] [facility] 7t [place] [address] Care Team Providers Care Insulation Extruder Operator Name Role Phone Bibi Neves Primary Care Provider [phone] Endocrinology, [place] Unavailable [phone] Reason for Visit * Reason Comments Med Refill Encounter Details Date Type Department Care Team (Late st Contact Info) Description 11/07/2023 Refill [facility] [address] [place] [phone] Bibi Neves ANP [address] [place] [address] Postprocedural hypoparathyroidism (CMS/HCC) Social History Tobacco Use [...] 10/14/2025 2:30 PM EST Office Visit [facility] [address] [place] [address] Bibi Neves ANP [address] [place] [address] 11/03/2025 1:30 PM EDT Office Visit [facility] [address] [place] [phone] Humaira Garcia [address] [place] [address] documented as of this encounter Visit Diagnoses Diagnosis Postprocedural hypoparathyroidism (CMS/HCC) documented in this encounter Care Teams Insulation Extruder Operator Relationship Specialty Start Date End Date Bibi Neves ANP [address] [place] [address] PCP - General Family Medicine 04/18/20 Endocrinology, [address] [place] [address] 06/29/25 documented as of this encounter
--- OUTSIDE RECORDS SUMMARY | 2025-08-17 18:13 | XMS_ITS | Encounter Summary ---
Author Organization [employer] Address [address] [place] [address] Care Team Providers Care Continuous Miner Operator Helper Name Role Phone Bibi Neves Primary Care Provider [phone] Endocrinology, [place] Unavailable [phone] Encounter Details Date Type Department Care Team (Late st Contact Info) Description 04/06/2025 Abstract [facility] [address] [place], [place] [phone] Bibi Neves ANP [address] [place] [address] Social History Tobacco Use Types Packs/Day Years [...] 10/14/2025 2:30 PM EST Office Visit [facility] [address] [place] [address] Bibi Neves ANP [address] [place] [address] 11/03/2025 1:30 PM EDT Office Visit [facility] [address] [place] [address] Radha, Humaira [address] [place] [address] documented as of this encounter Procedures Procedure [...] as of this encounter Care Teams Continuous Miner Operator Helper Relationship Specialty Start Date End Date Bibi Neves ANP [address] [place] [address] PCP - General Family Medicine 04/18/20 Endocrinology, [address] [place] [address] 06/29/25 documented as of this encounter
--- OUTSIDE RECORDS SUMMARY | 2025-08-17 18:13 | XMS_ITS | Clinical Summary ---
Author Organization [address] [facility] Address [address] [place] [address] Phone Care Team Providers Care Sheet Metal Mechanic Name Role Phone Bibi Neves NP Primary Care Provider [phone] Social History Tobacco Use Types Packs/Day Years [...] age to complete this topic Insurance , [address] [id number] [facility] Care Teams Sheet Metal Mechanic Relationship Specialty Start Date End Date Bibi Neves NP [address] [place] [id number] PCP - General 07/28/24
== END 2025-08-17 15:11 | disposition home or self-care (01) ==
LOC: HO.ENCR 14:34
PROVIDERS: PCP Nurse Practitioner Primary Care; Visit Provider Student in an Organized Health Care Education/Training Program
DX: E89.2 Postprocedural hypoparathyroidism (principal); M85.80 Other specified disorders of bone density and structure, unspecified site
CPT/HCPCS: 99214

== ENCOUNTER → 2025-08-17 14:33 | Outpatient (BNVA) | payer OTHER, SELFPAY | PROVIDERS: PCP Nurse Practitioner Primary Care; Visit Provider Student in an Organized Health Care Education/Training Program | DX: M85.80 Other specified disorders of bone density and structure, unspecified site (principal); E89.2 Postprocedural hypoparathyroidism; Z79.899 Other long term (current) drug therapy | CPT/HCPCS: 99212 ==